=== PATIENT | male | born 1960 | race American Indian/Alaskan Native ===

== ENCOUNTER 2020-04-15 11:35 | Observation (INO) | payer MEDICARE ==
[2020-04-15 12:15] LABS: Basophils # (Auto) 0.1 K/mm3 (0.0-0.1); Basophils % (Auto) 1.4 % (0.0-1.8); Eosinophils # (Auto) 0.2 K/mm3 (0.0-0.4); Eosinophils % (Auto) 1.8 % (0.0-4.3); Hematocrit 24.9 % (35.5-45.6); Hemoglobin 8.4 gm/dl (11.8-15.2); Lymphocytes # (Auto) 1.7 K/mm3 (1.2-5.4); Lymphocytes % (Auto) 19.5 % (13.4-35.0); Mean Corpuscular HGB Conc 34 % (32-34); Mean Corpuscular Volume 105 fl (84-94); Monocytes # (Auto) 0.8 K/mm3 (0.0-0.8); Monocytes % (Auto) 8.8 % (0.0-7.3); Platelet Count 330 K/mm3 (140-440); Red Blood Count 2.38 M/mm3 (3.65-5.03); Red Cell Distribution Width 19.7 % (13.2-15.2)
[2020-04-15 12:24] LABS: INR 0.77 (0.87-1.13)
[2020-04-15 12:30] LABS: Partial Thromboplastin Time 20.3 Sec. (24.2-36.6)
[2020-04-15 12:33] LABS: Albumin 3.5 g/dL (3.9-5)
--- NOTE | 2020-04-15 12:51 | Emergency Department Report ---
ED GI Bleed HPI - General Chief complaint: GI Bleed Stated complaint: BLEEDING Time Seen by Provider: 04/15/20 12:47 Source: patient Mode of arrival: Ambulatory Limitations: No Limitations - History of Present Illness Initial comments: Mr. Milian is a 59-year-old male with history of end-stage renal disease on hemodialysis Friday, hypertension who presents with dark vomitus and dark stools for the past day. Due to hypotension during dialysis he was unable to complete entire dialysis session. His dialysis session was discontinued prematurely. He then had 2 episodes of dark black vomitus. He also has dark stools. No previous history of GI bleed. He has been taking an acid therapy for the last 3 weeks. He returned to dialysis today to remove the extra fluid. He was then urged by staff to be evaluated in the emergency depa rtment. He had refused transfer to the emergency department on yesterday. He has mild left upper quadrant abdominal discomfort. He has mild LUQ abdominal discomfort. Crampy in nature. No radiation. Intermittent. MD complaint: other (.Hematemesis dark stools) -: days(s) (1) Severity scale (0 -10): 0 Consistency: intermittent (Intermittent left upper quadrant abdominal pain) Improves with: none Worsens with: none Context: other (No previous history of GI bleed) Associated Symptoms: abdominal pain - Related Data Allergies Allergy/AdvReac Type Severity Reaction Status Date / Time No Known Allergies Allergy Unverified 04/15/20 11:37 ED Review of Systems ROS: Stated complaint: BLEEDING Other details as noted in HPI Comment: All other systems reviewed and negative Constitutional: malaise Respiratory: denies: cough Cardiovascular: denies: chest pain, palpitations Gastrointestinal: abdominal pain, other (Dark emesis, dark stools) ED Past Medical Hx - Past Medical History Previous Medical History?: Yes Hx Hypertension: Yes Hx Renal Disease: Yes (HD M-W-F) Additional medical history: peritoneal dialysisi - Surgical History Past Surgical History?: Yes Additional Surgical History: Right arm fistula, Peritoneal catheter - Social History Smoking Status: Current Every Day Smoker Substance Use Type: Prescribed ED Physical Exam - General Limitations: No Limitations General appearance: alert, in no apparent distress - Head Head exam: Present: atraumatic, normocephalic - Eye Eye exam: Present: normal appearance - ENT ENT exam: Present: mucous membranes moist - Neck Neck exam: Present: normal inspection, full ROM - Respiratory Respiratory exam: Present: normal lung sounds bilaterally. Absent: respiratory distress, wheezes, rales, rhonchi - Cardiovascular Cardiovascular Exam: Present: regular rate, normal rhythm, normal heart sounds. Absent: systolic murmur, diastolic murmur, rubs, gallop - GI/Abdominal GI/Abdominal exam: Present: soft, normal bowel sounds. Absent: distended, tenderness, guarding, rebound - Rectal Rectal exam: Present: deferred - Extremities Exam Extremities exam: Present: normal inspection - Neurological Exam Neurological exam: Present: alert, oriented X3 - Psychiatric Psychiatric exam: Present: normal affect, normal mood - Skin Skin exam: Present: warm, dry, intact, normal color. Absent: rash ED Course Vital Signs 04/15/20 12:36 Pulse Rate 98 H Respiratory 18 Rate Blood Pressure 132/72 [Left] O2 Sat by Pulse 100 Oximetry ED Medical Decision Making - Lab Data Result diagrams: 04/15/20 11:55 04/15/20 12:00 - Medical Decision Making Acute upper GI bleed: Currently stable. Admitted to the hospital service ICU Protonix infusion. GI consulted. Critical care attestation.: If time is entered above; I have spent that time in minutes in the direct care of this critically ill patient, excluding procedure time. ED Disposition Clinical Impression: Acute upper GI bleed Disposition: OP ADMIT IP TO THIS HOSP Is pt being admited?: Yes Does the pt Need Aspirin: No Condition: Fair
[2020-04-15] MEDS ORDERED: PANTOPRAZOLE 40 MG INJ IV ONE (13:33)
--- NOTE | 2020-04-15 13:44 | XRay Report ---
CHEST 1 VIEW 1303 INDICATION / CLINICAL INFORMATION: hematemesis. COMPARISON: 09/03/2008 FINDINGS: SUPPORT DEVICES: None HEART / MEDIASTINUM: No significant abnormality considering the degree of inspiration LUNGS / PLEURA: Very poor degree of inspiration is seen. Slightly congested appearance could at least partially related to this degree of inspiration though in this upright image may include some true m ild congestion. No definite areas of consolidation are seen. Mild bibasilar atelectatic changes are n oted. No pneumothorax. ADDITIONAL FINDINGS: No significant additional findings. IMPRESSION: Slightly congested appearance but no definite focal infiltrates Signer Name: Crow Bernardo MD Signed: 04/15/2020 1:40 PM Workstation Name: [id number]
[2020-04-15] MEDS ORDERED: PANTOPRAZOLE 80 MG in SODIUM CHLORIDE 0.9% 100 ML IV SCH (14:00)
--- NOTE | 2020-04-15 14:42 | Consultation ---
History of Present Illness - Reason for Consult Consult date: 04/15/20 end stage renal disease - History of Present Illness patient with end stage renal disease on HD every MWF, presented to the emergency room for bloody vomitus and dark stool, CBC noted to Hgb of 8.4 g/dl and GI consult was requested. His last HD was yesterday but could not complete his tx fdue to hypotension, CXR shows some congestion and K was 5.5, renal consult was requested for HD management Past History Past Medical History: anemia, ESRD, hypertension Medications and Allergies Allergies Allergy/AdvReac Type Severity Reaction Status Date / Time No Known Allergies Allergy Unverified 04/15/20 11:37 Home Medications Medication Instructions Recorded Confirmed Last Taken Type Cinacalcet HCl 90 mg PO DAILY 04/15/20 04/15/20 04/14/20 History Cyclobenzaprine 10 mg PO TID 04/15/20 04/15/20 Unknown History Meloxicam [Mobic] 15 mg PO DAILY 04/15/20 04/15/20 04/14/20 History Sevelamer Carbonate [Renvela] 800 mg PO DAILY 04/15/20 04/15/20 Unknown History amLODIPine 10 mg PO DAILY 04/15/20 04/15/20 04/14/20 History Active Meds: Active Medications Epoetin Berto (Procrit) 10,000 unit IV RUFUS [facility]STINA Pantoprazole Sodium 80 mg/ (Sodium Chloride) 100 mls @ 10 mls/hr IV DIRECT [facility] Review of Systems All systems: negative (dark stool, low blood pressure) Exam - Vital Signs Vital signs: Vital Signs Pulse Resp BP Pulse Ox 98 H 18 132/72 100 04/15/20 12:36 04/15/20 12:36 04/15/20 12:36 04/15/20 12:36 - General Appearance General appearance: well-developed EENT: ATNC, PERRL Neck: Present: neck supple Respiratory: Clear to Ascultation Heart: tachycardia, S1S2 Gastrointestinal: Present: normoactive bowel sounds Integumentary: no rash, warm and dry Neurologic: no focal deficit, no asterixis Musculoskeletal: Present: other (no edema in BLE) Psychiatric: cooperative Results - Lab Results 04/16/20 04:29 04/16/20 04:29 Most recent lab results Calcium 10.0 mg/dL (8.4-10.2) 04/15/20 12:00 Assessment and Plan ESRD on HD GI bleed Hyperkalemia Anemia in CKD HTN HD today ordered for clearance and volume removal will assess HD needs daily iron panel in AM, will start ROGER while on HD GI consult is pending renally dose meds strict I&O daily weight renal diet Casa Rea MD [phone]
[2020-04-15] MEDS ORDERED: EPOETIN ALFA 10,000 UNIT/1 ML INJ IV SCH (15:00)
[2020-04-15 15:59] LABS: Hepatitis B Surface Antigen Non-Reactive (Negative); Hepatitis C Virus Antibody Non-Reactive (NonReactive)
--- NOTE | 2020-04-15 17:46 | Gastroenterology Consultation ---
History of Present Illness - Reason for Consult Consult date: 04/15/20 Acute Blood Loss Anemia/CGE Requesting physician: HAN SLATER - History of Present Illness The patient is a 59 yo male admitted with acute blood loss anemia/coffee ground emesis. This has been happening for the last 3-6 weeks, and has begun to interfere with HD (which he has been on x 10 years). He has mild epigastric pain associated with this, as well as loss of appetite. He has no CP or SOB. He has had no prior episodes. He does not know what his baseline hgb is, but is not aware of any prior anemia, and has not had a blood transfusion. He denies NSAID use, and is better (at home) with OTC antiacids, which he has taken for the last several days. Since admit to the hospital, on protonix IV, his symptoms are markedly better, and he is tolerating HD without complaint/would like to eat. He has not had a BM/melena in the ER, but his stools at home were dark. He had a colonoscopy a few years ago that was normal. He denies a family hx of PUD or gastric cancer. Past History Past Medical History: anemia, ESRD (HD x 10 years), hypertension Past Surgical History: Other (R arm fistula) Social history: , smoking. denies: alcohol abuse, prescription drug abuse Family history: no significant family history Medications and Allergies Allergies Allergy/AdvReac Type Severity Reaction Status Date / Time No Known Allergies Allergy Unverified 04/15/20 11:37 Active Meds: Active Medications Epoetin Berto (Procrit) 10,000 unit IV RUFUS CHRISTINA Pantoprazole Sodium (Protonix) 40 mg IV BID [facility] I HAVE REVIEWED/RECONCILED MEDICATIONS Review of Systems - Review of Systems All systems: negative (as noted in the HPI.) Exam - Constitutional Vital Signs: Temp Pulse Resp BP Pulse Ox 98 H 18 132/72 100 04/15/20 12:36 04/15/20 12:36 04/15/20 12:36 04/15/20 12:36 General appearance: no acute distress - EENT Eyes: PERRL, EOM intact ENT: hearing intact, clear oral mucosa - Neck Neck: supple, normal ROM - Respiratory Respiratory effort: normal Respiratory: bilateral: CTA - Cardiovascular Rhythm: regular Heart Sounds: Present: S1 & S2 Extremities: no ischemia, No edema - Gastrointestinal General gastrointestinal: Present: soft, non-tender, non-distended - Integumentary Integumentary: Present: clear, warm, dry - Musculoskeletal Musculoskeletal: other (R arm with fistula/good thrill) - Neurologic Neurological: alert and oriented x3 - Labs CBC & Chem 7: 04/15/20 11:55 04/15/20 12:00 Lab Results: Laboratory Results - last 24 hr 04/15/20 04/15/20 04/15/20 11:55 12:00 12:00 WBC 8.6 RBC 2.38 L Hgb 8.4 L Hct 24.9 L MCV 105 H MCH 36 H MCHC 34 RDW 19.7 H Plt Count 330 Lymph % (Auto) 19.5 [place] % (Auto) 8.8 H Eos % (Auto) 1.8 Baso % (Auto) 1.4 Lymph # 1.7 [place] # 0.8 Eos # 0.2 Baso # 0.1 Seg Neutrophils % 68.5 Seg Neutrophils # 5.9 PT 10.6 L INR 0.77 L APTT 20.3 L Sodium 137 Potassium 5.5 H Chloride 92.2 L Carbon Dioxide 30 Anion Gap 20 BUN 56 H Creatinine 10.4 H Estimated GFR 6 BUN/Creatinine Ratio 5 Glucose 86 Calcium 10.0 Total Bilirubin 0.30 AST 11 ALT 8 Alkaline Phosphatase 85 Total Protein 5.9 L Albumin 3.5 L Albumin/Globulin Ratio 1.5 Lipase Hepatitis A IgM Ab Hep Bs Antigen Hep B Core IgM Ab Hepatitis C Antibody 04/15/20 04/15/20 12:00 14:48 WBC RBC Hgb Hct MCV MCH MCHC RDW Plt Count Lymph % (Auto) [place] % (Auto) Eos % (Auto) Baso % (Auto) Lymph # [place] # Eos # Baso # Seg Neutrophils % Seg Neutrophils # PT INR APTT Sodium Potassium Chloride Carbon Dioxide Anion Gap BUN Creatinine Estimated GFR BUN/Creatinine Ratio Glucose Calcium Total Bilirubin AST ALT Alkaline Phosphatase Total Protein Albumin Albumin/Globulin Ratio Lipase 27 Hepatitis A IgM Ab Non-reactive Hep Bs Antigen Non-reactive Hep B Core IgM Ab Non-reactive Hepatitis C Antibody Non-reactive Assessment and Plan - Patient Problems (1) Acute blood loss anemia Status: Acute Plan to address problem: - Likely PUD given improvement with antiacids, and mild anemia. - Patient had food in ER, so will get HD today, and clear liquids (since no further emesis), and plan EGD tomorrow. - Hemodynamics stable/no need for transfusion; will d/c PPI gtt and replace with IV BID. - Avoid all NSAIDs but other home meds (for BP) OK if hemodynamics tolerate.
[2020-04-15 18:25] LABS: Calcium 9.6 mg/dL (8.4-10.2)
[2020-04-15] MEDS ORDERED: PANTOPRAZOLE 40 MG INJ IV SCH (22:00)
[2020-04-15] MEDS ORDERED: SODIUM CHLORIDE 0.9% 1000 ML 1,000 ML ONE (22:25)
[2020-04-15] MEDS ORDERED: WATER FOR IRRIG STERILE 250 ML BOTTLE IR ONE (22:26)
[2020-04-15] MEDS ORDERED: LIDOCAINE MPF (2%) 20 MG/1 ML VIAL 5 ML ONE (22:30)
[2020-04-15] MEDS ORDERED: ACETAMINOPHEN 325 MG TAB PO PRN (22:43)
[2020-04-15] MEDS ORDERED: ONDANSETRON 4 MG/2 ML INJ IV PRN (22:43)
[2020-04-15] MEDS ORDERED: HYDROmorphone 1 MG/1 ML INJ IV PRN (22:43)
[2020-04-15] MEDS ORDERED: SODIUM CHLORIDE 0.9% 1000 ML 1,000 ML IV SCH (22:45)
[2020-04-15] MEDS ORDERED: hydrALAZINE 20 MG/1 ML INJ IV PRN (22:48)
[2020-04-16 00:15] LABS: Hematocrit 23.6 % (35.5-45.6)
[2020-04-16 05:13] LABS: Basophils # (Auto) 0.1 K/mm3 (0.0-0.1); Basophils % (Auto) 1.1 % (0.0-1.8); Eosinophils # (Auto) 0.2 K/mm3 (0.0-0.4); Eosinophils % (Auto) 2.4 % (0.0-4.3); Hematocrit 23.7 % (35.5-45.6); Lymphocytes # (Auto) 1.6 K/mm3 (1.2-5.4); Lymphocytes % (Auto) 19.8 % (13.4-35.0); Mean Corpuscular HGB Conc 34 % (32-34); Mean Corpuscular Volume 105 fl (84-94); Monocytes # (Auto) 0.7 K/mm3 (0.0-0.8); Monocytes % (Auto) 9.3 % (0.0-7.3); Platelet Count 323 K/mm3 (140-440); Red Blood Count 2.27 M/mm3 (3.65-5.03); Red Cell Distribution Width 19.8 % (13.2-15.2)
[2020-04-16 05:27] LABS: Calcium 9.8 mg/dL (8.4-10.2)
[2020-04-16] MEDS ORDERED: SODIUM CHLORIDE 0.9% 1000 ML 1,000 ML IV SCH (06:30)
[2020-04-16] MEDS ORDERED: propofoL 200 MG/20 ML VIAL IV ONE ×2 (06:58)
--- NOTE | 2020-04-16 07:10 | Anesthesia Consultation ---
<LEIGHANN ALTAMIRANO - Last Filed: 04/16/20 07:05> Anesthesia Consult and Med Hx Date of service: 04/16/20 - Airway Anesthetic Teeth Evaluation: Good ROM Head & Neck: Adequate Mental/Hyoid Distance: Adequate Mallampati Class: Class II Intubation Access Assessment: Probably Good - Pre-Operative Health Status ASA Pre-Surgery Classification: ASA3 Proposed Anesthetic Plan: MAC - Pulmonary Hx Smoking: Yes (3-4 cigarilo ) Hx Asthma: Yes (childhood ) Hx Respiratory Symptoms: No SOB: Yes COPD: No Home Oxygen Therapy: Yes (only during dialysis ) Hx Pneumonia: No Hx Sleep Apnea: No - Cardiovascular System Hx Hypertension: Yes Hx Coronary Artery Disease: No Hx Heart Attack/AMI: No Hx Angina: No Hx Percutaneous Transluminal Coronary Angioplasty (PTCA): No Hx Cardia Arrhythmia: No Hx Pacemaker: No Hx Internal Defibrillator: No Hx Valvular Heart Disease: No Hx Heart Murmur: No Hx Peripheral Vascular Disease: No - Central Nervous System Hx Neuromuscular Disorder: No Hx Seizures: No CVA: No Hx Back Pain: Yes Hx Psychiatric Problems: No - Gastrointestinal Hx Ulcer: No Hx Gastroesophageal Reflux Disease: Yes - Endocrine Hx Renal Disease: Yes (HD M-W-) Hx End Stage Renal Disease: Yes Hx Cirrhosis: No Hx Liver Disease: No Hx Insulin Dependent Diabetes: No Hx Non-Insulin Dependent Diabetes: No Hx Thyroid Disease: Yes Hx Hypothyroidism: No Hx Hyperthyroidism: No - Hematic Hx Anemia: Yes Hx Sickle Cell Disease: No - Other Systems Hx Alcohol Use: No Hx Substance Use: No Hx Cancer: No Hx Obesity: No <MARVIN GOODRICH - Last Filed: 04/24/20 13:08> Anesthesia Consult and Med Hx - Additional Comments Anesthesia Medical History Comments: Document co-signed for chart completion purposes only.
--- NOTE | 2020-04-16 07:11 | History and Physical Report ---
History of Present Illness Date of examination: 04/15/20 Date of admission: 04/15/20 22:43 Chief complaint: Vomiting blood since a.m. Also melanotic stools for couple of days History of present illness: 49-year-old -Cong[place] male with a history of end-stage renal disease on hemodialysis 3 times a week comes in for vomiting blood and dark stools for the past 1 day. No shortness of breath. Went to dialysis and blood hypo-tensive and patient was sent to the emergency room for evaluation. No syncope no seizures. And no previous history of GI bleed. Not taking any Goody powders BC powders are MSAs. Patient also has epigastric pain Which is 5 on a scale of 1-10. - Past Medical History Previous Medical History?: Yes Hx Hypertension: Yes Hx Renal Disease: Yes (HD --) Additional medical history: peritoneal dialysisi - Surgical History Past Surgical History?: Yes Additional Surgical History: Right arm fistula, Peritoneal catheter - Social History Smoking Status: Current Every Day Smoker Substance Use Type: Prescribed Family history Htn Review of Systems ROS: Constitutional no weight loss or weight gain no fever or chills HEENT no sore throat no post nasal drip no diplopia Neck no neck stiffness no lymph gland enlargement Chest and lungs no shortness of breath cough or wheezing CVS no chest pain no diaphoresis no palpitations GI vomiting blood and black stools Genitourinary system no dysuria no flank pain Musculoskeletal system no muscle pains no joint pains [employer] no syncope no seizures Skin no rash no itching Psychiatric no depression no homicidal or suicidal tendencies Hematologic no lymphedema or bruising Endocrine no polydipsia no polyuria no cold intolerance no heat intolerance Past History Past Medical History: anemia, ESRD (HD x 10 years), hypertension Past Surgical History: Other (R arm fistula) Social history: , smoking. denies: alcohol abuse, prescription drug abuse Family history: no significant family history Medications and Allergies Allergies Allergy/AdvReac Type Severity Reaction Status Date / Time No Known Allergies Allergy Unverified 04/15/20 11:37 Home Medications Medication Instructions Recorded Confirmed Last Taken Type Cinacalcet HCl 90 mg PO DAILY 04/15/20 04/15/20 04/14/20 History Cyclobenzaprine 10 mg PO TID 04/15/20 04/15/20 Unknown History Meloxicam [Mobic] 15 mg PO DAILY 04/15/20 04/15/20 04/14/20 History Sevelamer Carbonate [Renvela] 800 mg PO DAILY 04/15/20 04/15/20 Unknown History amLODIPine 10 mg PO DAILY 04/15/20 04/15/20 04/14/20 History Active Meds: Active Medications Acetaminophen (Tylenol) 650 mg PO Q4H PRN PRN Reason: Pain MILD(1-3)/Fever >100.5/JOHN Epoetin Berto (Procrit) 10,000 unit IV RUFUS CHRISTINA Hydralazine HCl (Apresoline) 10 mg IV Q3H PRN PRN Reason: Hypertension Hydromorphone HCl (Dilaudid) 0.5 mg IV Q3H PRN PRN Reason: Pain , Severe (7-10) Last Admin: 04/16/20 01:19 Dose: 0.5 mg Documented by: Sodium Chloride (Nacl 0.9% 1000 Ml) 1,000 mls @ 50 mls/hr IV DIRECT [facility] Last Admin: 04/16/20 07:10 Dose: 50 mls/hr Documented by: Ondansetron HCl (Zofran) 4 mg IV Q8H PRN PRN Reason: Nausea And Vomiting Pantoprazole Sodium (Protonix) 40 mg IV BID [facility] Last Admin: 04/16/20 01:18 Dose: 40 mg Documented by: Sodium Chloride (Sodium Chloride Flush Syringe 10 Ml) 10 ml IV BID [facility] Sodium Chloride (Sodium Chloride Flush Syringe 10 Ml) 10 ml IV PRN PRN PRN Reason: LINE FLUSH Exam - Constitutional Vitals: Temp Pulse Resp BP Pulse Ox 97.8 F 103 H 14 121/62 97 04/16/20 06:51 04/16/20 06:51 04/16/20 06:51 04/16/20 06:51 04/16/20 06:51 General appearance: Present: no acute distress, well-nourished - EENT Eyes: Present: PERRL ENT: hearing intact, clear oral mucosa - Neck Neck: Present: supple, normal ROM - Respiratory Respiratory effort: normal Respiratory: bilateral: CTA - Cardiovascular Heart rate: 78 Rhythm: regular Heart Sounds: Present: S1 & S2. Absent: rub, click - Extremities Extremities: pulses symmetrical, No edema Peripheral Pulses: within normal limits - Abdominal General gastrointestinal: Present: soft, non-tender, non-distended, normal bowel sounds Male genitourinary: Present: normal - Rectal Rectal Exam: stool bloody - Integumentary Integumentary: Present: clear, warm, dry - Musculoskeletal Musculoskeletal: gait normal, strength equal bilaterally - Psychiatric Psychiatric: appropriate mood/affect, intact judgment & insight - Neurologic Neurologic: CNII-XII intact, moves all extremities - Allied Health Allied health notes reviewed: nursing, case management Results - Labs CBC & Chem 7: 04/16/20 04:29 04/16/20 04:29 Labs: Laboratory Last Values WBC 7.9 K/mm3 (4.5-11.0) 04/16/20 04:29 RBC 2.27 M/mm3 (3.65-5.03) L 04/16/20 04:29 Hgb 8.0 gm/dl (11.8-15.2) L 04/16/20 04:29 Hct 23.7 % (35.5-45.6) L 04/16/20 04:29 MCV 105 fl (84-94) H 04/16/20 04:29 MCH 35 pg (28-32) H 04/16/20 04:29 MCHC 34 % (32-34) 04/16/20 04:29 RDW 19.8 % (13.2-15.2) H 04/16/20 04:29 Plt Count 323 K/mm3 (140-440) 04/16/20 04:29 Lymph % (Auto) 19.8 % (13.4-35.0) 04/16/20 04:29 [place] % (Auto) 9.3 % (0.0-7.3) H 04/16/20 04:29 Eos % (Auto) 2.4 % (0.0-4.3) 04/16/20 04:29 Baso % (Auto) 1.1 % (0.0-1.8) 04/16/20 04:29 Lymph # 1.6 K/mm3 (1.2-5.4) 04/16/20 04:29 [place] # 0.7 K/mm3 (0.0-0.8) 04/16/20 04:29 Eos # 0.2 K/mm3 (0.0-0.4) 04/16/20 04:29 Baso # 0.1 K/mm3 (0.0-0.1) 04/16/20 04:29 Seg Neutrophils % 67.4 % (40.0-70.0) 04/16/20 04:29 Seg Neutrophils # 5.3 K/mm3 (1.8-7.7) 04/16/20 04:29 PT 10.6 Sec. (12.2-14.9) L 04/15/20 12:00 INR 0.77 (0.87-1.13) L 04/15/20 12:00 APTT 20.3 Sec. (24.2-36.6) L 04/15/20 12:00 Sodium 138 mmol/L (137-145) 04/16/20 04:29 Potassium 5.5 mmol/L (3.6-5.0) H 04/16/20 04:29 Chloride 97.0 mmol/L (98-107) L 04/16/20 04:29 Carbon Dioxide 30 mmol/L (22-30) 04/16/20 04:29 Anion Gap 17 mmol/L 04/16/20 04:29 BUN 32 mg/dL (9-20) H 04/16/20 04:29 Creatinine 8.5 mg/dL (0.8-1.5) H 04/16/20 04:29 Estimated GFR 8 ml/min 04/16/20 04:29 BUN/Creatinine Ratio 4 % 04/16/20 04:29 Glucose 88 mg/dL (75-100) 04/16/20 04:29 Calcium 9.8 mg/dL (8.4-10.2) 04/16/20 04:29 Phosphorus 4.20 mg/dL (2.5-4.5) 04/16/20 04:29 Iron 41 ug/dL (49-181) L 04/16/20 04:29 TIBC 145 mcg/dL (250-450) L 04/16/20 04:29 Ferritin 887.8 ng/mL (13.0-400.0) H 04/16/20 04:29 Total Bilirubin 0.30 mg/dL (0.1-1.2) 04/15/20 12:00 AST 11 units/L (5-40) 04/15/20 12:00 ALT 8 units/L (7-56) 04/15/20 12:00 Alkaline Phosphatase 85 units/L (35-129) 04/15/20 12:00 Total Protein 5.9 g/dL (6.3-8.2) L 04/15/20 12:00 Albumin 3.5 g/dL (3.9-5) L 04/15/20 12:00 Albumin/Globulin Ratio 1.5 % 04/15/20 12:00 Lipase 27 units/L (13-60) 04/15/20 12:00 Hepatitis A IgM Ab Non-reactive (NonReactive) 04/15/20 14:48 Hep Bs Antigen Non-reactive (Negative) 04/15/20 14:48 Hep B Core IgM Ab Non-reactive (NonReactive) 04/15/20 14:48 Hepatitis C Antibody Non-reactive (NonReactive) 04/15/20 14:48 Short CBC 04/15/20 04/15/20 04/16/20 Range/Units 11:55 23:59 04:29 WBC 8.6 7.9 (4.5-11.0) K/mm3 Hgb 8.4 L 8.0 L 8.0 L (11.8-15.2) gm/dl Hct 24.9 L 23.6 L 23.7 L (35.5-45.6) % Plt Count 330 323 (140-440) K/mm3 BMP 04/15/20 04/15/20 04/16/20 12:00 14:45 04:29 Sodium 137 135 L 138 Potassium 5.5 H 5.4 H 5.5 H Chloride 92.2 L 91.1 L 97.0 L Carbon Dioxide 30 28 30 BUN 56 H 57 H 32 H Creatinine 10.4 H 10.9 H 8.5 H Glucose 86 74 L 88 Calcium 10.0 9.6 9.8 Liver Function 04/15/20 Range/Units 12:00 Total Bilirubin 0.30 (0.1-1.2) mg/dL AST 11 (5-40) units/L ALT 8 (7-56) units/L Alkaline Phosphatase 85 (35-129) units/L Albumin 3.5 L (3.9-5) g/dL Short CBC 04/15/20 04/15/20 04/16/20 Range/Units 11:55 23:59 04:29 WBC 8.6 7.9 (4.5-11.0) K/mm3 Hgb 8.4 L 8.0 L 8.0 L (11.8-15.2) gm/dl Hct 24.9 L 23.6 L 23.7 L (35.5-45.6) % Plt Count 330 323 (140-440) K/mm3 BMP 04/15/20 04/15/20 04/16/20 12:00 14:45 04:29 Sodium 137 135 L 138 Potassium 5.5 H 5.4 H 5.5 H Chloride 92.2 L 91.1 L 97.0 L Carbon Dioxide 30 28 30 BUN 56 H 57 H 32 H Creatinine 10.4 H 10.9 H 8.5 H Glucose 86 74 L 88 Calcium 10.0 9.6 9.8 Liver Function 04/15/20 Range/Units 12:00 Total Bilirubin 0.30 (0.1-1.2) mg/dL AST 11 (5-40) units/L ALT 8 (7-56) units/L Alkaline Phosphatase 85 (35-129) units/L Albumin 3.5 L (3.9-5) g/dL - Imaging and Cardiology Chest x-ray: report reviewed (No acute infiltrate or findings) Moy/IV: Voiding Method Toilet IV Catheter Type [Right Upper INT / Saline Lock arm] Assessment and Plan Advance Directives: Yes (Full code) - Patient Problems (1) Acute blood loss anemia Current Visit: Yes Status: Acute Plan to address problem: Monitor hemoglobin and hematocrit Transfuse as necessary IV Protonix for the time being (2) Acute upper GI bleed Current Visit: Yes Status: Acute Plan to address problem: Transfuse 2 to 3 units of packed red blood cells (3) ESRD (end stage renal disease) on dialysis Current Visit: Yes Status: Acute Plan to address problem: Continue hemodialysis as per nephrology (4) Hypertension Current Visit: Yes Status: Acute Plan to address problem: Continue antihypertensives as necessary (5) DVT prophylaxis Current Visit: Yes Status: Acute Plan to address problem: On heparin and GI prophylaxis
--- NOTE | 2020-04-16 07:14 | Anesthesia Day of Surgery ---
<LEIGHANN ALTAMIRANO - Last Filed: 04/16/20 07:14> Anesthesia Day of Surgery - Day of Surgery Patient Examined: Yes Patient H&P Reviewed: Yes Patient is NPO: Yes <MARVIN GOODRICH - Last Filed: 04/24/20 13:09> Anesthesia Day of Surgery - Day of Surgery Patient Examined: No (Document co-signed for chart completion purposes only.)
--- NOTE | 2020-04-16 07:28 | Post Operative Note ---
Pre-op diagnosis: Acute Blood Loss Anemia Post-op diagnosis: other (Duodenal Ulcer) Findings: 1. 1cm duodenal bulb ulcer, white-based 2. Mild antral gastritis with erosions; cold bx for H pylori Procedure: EGD with cold bx Anesthesia: MAC Surgeon: CHERYL CLEMENTS Estimated blood loss: minimal Pathology: list (1. Gastric antrum) Specimen disposition: to lab Condition: stable Disposition: floor (Recs: 1. Daily (QD) Protonix therapy and regular diet. 2. Ulcer low-risk to rebleed, OK to d/c today. 3. Avoid all NSAIDs (if on cardiac ASA, OK to resume on Friday). 4. F/U clinic in 2-4 weeks for biopsy results.)
--- NOTE | 2020-04-16 07:32 | Post Anesthesia Evaluation ---
<LEIGHANN ALTAMIRANO - Last Filed: 04/16/20 07:31> - Post Anesthesia Evaluation Patient Participated: Yes Airway Patent: Yes Stable Respiratory Function: Yes Nausea/Vomiting: No Temp > 96.8F: Yes Pain Manageable: Yes Adequeate Hydration: Yes Anesthesia Complications: No Block Receding Appropriately: Not Applicable Patient on Ventilator: No <MARVIN GOODRICH - Last Filed: 04/24/20 13:08> - Post Anesthesia Evaluation Other Comments: Document co-signed for chart completion purposes only.
--- NOTE | 2020-04-16 07:49 | Operative Report ---
PROCEDURE PERFORMED: Esophagogastroduodenoscopy with cold biopsy. PREOPERATIVE DIAGNOSIS: Acute blood loss anemia. POSTOPERATIVE DIAGNOSIS: Duodenal ulcer. ENDOSCOPIST: Jeremiah Zhao MD INSTRUMENT: Olympus video endoscope. MEDICATIONS: MAC anesthesia by [facility]. COMPLICATIONS: No apparent complications. ESTIMATED BLOOD LOSS: Minimal. SPECIMENS: Gastric antrum, rule out H. pylori. IMPLANTS: None. ASSISTANTS: None. CONDITION AT COMPLETION: Stable. TECHNIQUE: The patient was informed of the risks and benefits of the procedure. He signed the informed consent to proceed. He was placed in the left lateral decubitus position. The above sedative medications were given. His vital signs remained stable throughout the procedure. The instrument was advanced from the mouth to the second portion of the duodenum under direct visualization. At that point, the bowel was insufflated and the endoscope was slowly withdrawn. FINDINGS: 1. 1 cm cratered ulcer in the duodenal bulb, without stigmata of bleeding and no evidence of a visible vessel. 2. Mild antral gastritis with erosions and erythema; cold biopsy was taken for H. pylori. 3. Normal esophagus and proximal stomach. RECOMMENDATIONS: 1. Daily Protonix therapy and regular diet. 2. The ulcer would be considered low risk to rebleed, it is okay to discharge the patient today. 3. Avoid all nonsteroidal anti-inflammatory drugs; if the patient is on cardiac aspirin, it is okay to resume this on Friday. 4. Follow up in clinic in 2-4 weeks for biopsy results and treatment of H. pylori if positive. JOB# [id number] TANJA/LEONOR
--- NOTE | 2020-04-16 09:20 | Progress Note ---
Assessment and Plan ESRD on HD GI bleed Hyperkalemia Anemia in CKD HTN no indication for HD today HD tomorrow for clearance and volume removal will assess HD needs daily iron panel reviewed, no indication for IV iron, on ROGER while on HD s/p EGD, showed ulcer with low risk for bleed, cont PPI renally dose meds strict I&O daily weight renal diet Casa Rea MD [phone] Subjective Date of service: 04/16/20 Principal diagnosis: ESRD on HD Interval history: patient underwent HD yesterday which was tolerated well, EGD was done this AM without immediate complications Objective - Vital Signs Vital signs: Vital Signs - 12hr 04/15/20 04/15/20 04/15/20 21:20 21:30 21:40 Temperature Pulse Rate 111 H 109 H Pulse Rate [ Apical] Respiratory 16 16 13 Rate Blood Pressure 117/69 117/69 O2 Sat by Pulse 100 Oximetry 04/15/20 04/15/20 04/15/20 21:50 22:00 22:10 Temperature Pulse Rate 116 H 118 H 118 H Pulse Rate [ Apical] Respiratory 17 19 17 Rate Blood Pressure 107/59 112/67 117/69 O2 Sat by Pulse 100 99 100 Oximetry 04/15/20 04/15/20 04/16/20 22:20 22:30 01:11 Temperature 98.7 F Pulse Rate 112 H 116 H 107 H Pulse Rate [ Apical] Respiratory 16 21 18 Rate Blood Pressure 123/70 123/70 116/66 O2 Sat by Pulse 100 100 98 Oximetry 04/16/20 04/16/20 04/16/20 01:19 01:49 02:11 Temperature Pulse Rate Pulse Rate [ 20 L Apical] Respiratory 18 18 20 Rate Blood Pressure O2 Sat by Pulse Oximetry 04/16/20 04/16/20 04/16/20 04:13 06:50 06:51 Temperature 97.8 F 97.8 F 97.8 F Pulse Rate 105 H 103 H 103 H Pulse Rate [ Apical] Respiratory 18 14 14 Rate Blood Pressure 101/65 121/62 121/62 O2 Sat by Pulse 100 97 97 Oximetry - General Appearance General appearance: well-developed, well-nourished EENT: ATNC, PERRL Neck: no JVD, no carotid bruit Respiratory: Present: Clear to Ascultation. Absent: Rales, Ronchi Cardiology: regular, S1S2 Gastrointestinal: normoactive bowel sounds, no tenderness, no distended Integumentary: no rash, warm and dry Neurologic: no focal deficit, no asterixis Musculoskeletal: other (no edema in BLE) Psychiatric: mood/affect appropriate, cooperative - Lab 04/16/20 04:29 04/16/20 04:29 Most recent lab results Calcium 9.8 mg/dL (8.4-10.2) 04/16/20 04:29 Phosphorus 4.20 mg/dL (2.5-4.5) 04/16/20 04:29 Medications & Allergies - Medications Allergies/Adverse Reactions: Allergies No Known Allergies Allergy (Unverified 04/15/20 11:37) Home Medications: Home Medications Medication Instructions Recorded Confirmed Last Taken Type Cinacalcet HCl 90 mg PO DAILY 04/15/20 04/15/20 04/14/20 History Cyclobenzaprine 10 mg PO TID 04/15/20 04/15/20 Unknown History Meloxicam [Mobic] 15 mg PO DAILY 04/15/20 04/15/20 04/14/20 History Sevelamer Carbonate [Renvela] 800 mg PO DAILY 04/15/20 04/15/20 Unknown History amLODIPine 10 mg PO DAILY 04/15/20 04/15/20 04/14/20 History Active Medications: Generic Name Dose Route Start Last Admin Trade Name Freq PRN Reason Stop Dose Admin Acetaminophen 650 mg 04/15/20 22:43 Tylenol PO Q4H PRN Pain MILD(1-3)/Fever >100.5/JOHN Epoetin Berto 10,000 unit 04/15/20 15:00 Procrit IV RUFUS CHRISTINA Hydralazine HCl 10 mg 04/15/20 22:48 Apresoline IV Q3H PRN Hypertension Hydromorphone HCl 0.5 mg 04/15/20 22:43 04/16/20 01:19 Dilaudid IV 0.5 mg Q3H PRN Administration Pain , Severe (7-10) Ondansetron HCl 4 mg 04/15/20 22:43 Zofran IV Q8H PRN Nausea And Vomiting Pantoprazole Sodium 40 mg 04/16/20 10:00 Protonix PO QDAY CHRISTINA Sodium Chloride 10 ml 04/16/20 10:00 Sodium Chloride Flush Syringe 10 Ml IV BID CHRISTINA Sodium Chloride 10 ml 04/15/20 22:43 Sodium Chloride Flush Syringe 10 Ml IV PRN PRN LINE FLUSH
[2020-04-16] MEDS ORDERED: PANTOPRAZOLE 40 MG TAB PO SCH (10:00)
[2020-04-16 11:12] VITALS: BP 116/70
--- NOTE | 2020-04-16 12:55 | Discharge Summary ---
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 1cm duodenal bulb ulcer, white-based 2. Mild antral gastritis with erosions; cold bx for H pylori Procedure: EGD with cold bx Anesthesia: MAC Surgeon: CHERYL CLEMENTS Estimated blood loss: minimal Pathology: list (1. Gastric antrum) Specimen disposition: to lab Condition: stable Disposition: floor (Recs: 1. Daily (QD) Protonix therapy and regular diet. 2. Ulcer low-risk to rebleed, OK to d/c today. 3. Avoid all NSAIDs (if on cardiac ASA, OK to resume on Friday). 4. F/U clinic in 2-4 weeks for biopsy results.) Hospital course: 49-year-old -I[place] male with a history of end-stage renal disease on hemodialysis 3 times a week comes in for vomiting blood and dark stools for the past 1 day. No shortness of breath. Went to dialysis and blood hypo-tensive and patient was sent to the emergency room for evaluation. No syncope no seiz ures. And no previous history of GI bleed. Not taking any Goody powders BC powders are MSAs. Patient also has epigastric pain Which is 5 on a scale of 1-10. - Past Medical History Previous Medical History?: Yes Hx Hypertension: Yes Hx Renal Disease: Yes (HD M-W-F) Additional medical history: peritoneal dialysisi - Patient Problems (1) Acute blood loss anemia Current Visit: Yes Status: Acute Plan to address problem: Monitor hemoglobin and hematocrit Transfuse as necessary IV Protonix for the time being (2) Acute upper GI bleed Current Visit: Yes Status: Acute Plan to address problem: Transfuse 2 to 3 units of packed red blood cells Peptic ulcer disease Needs to be on Protonix for 6 months to 1 year Avoid NSAIDs including Motrin Aleve meloxicam BC powders aspirin and Goody powders Patient instructed by me and nurse Pat also has instructed the patient and patient understands (3) ESRD (end stage renal disease) on dialysis Current Visit: Yes Status: Acute Plan to address problem: Continue hemodialysis as per nephrology (4) Hypertension Current Visit: Yes Status: Acute Plan to address problem: Continue antihypertensives as necessary (5 )peptic ulcer disease Needs to be on Protonix for 6 months to 1 year Avoid NSAIDs including Motrin Aleve meloxicam BC powders aspirin and Goody powders Patient instructed by me and nurse Pat also has instructed the patient and patient understands Disposition: DC-01 TO HOME OR SELFCARE Time spent for discharge: 32 minutes - Discharge Diagnoses (1) Acute blood loss anemia Status: Acute (2) Acute upper GI bleed Status: Acute (3) ESRD (end stage renal disease) on dialysis Status: Acute (4) Hypertension Status: Acute (5) DVT prophylaxis Status: Acute (6) Peptic ulcer disease Status: Acute Comment: Time O2 sat no NSAIDs patient is on meloxicam patient advised to stop meloxicam. Patient to take Protonix 40 mg once a day for the next 6 months to 1 year no BC powders no body borders no aspirin no Motrin no Advil no Aleve no meloxicam Core Measure Documentation - Palliative Care Palliative Care/ Comfort Measures: Not Applicable - Core Measures Any of the following diagnoses?: none Exam - Constitutional Vitals: Temp Pulse Resp BP Pulse Ox 98.9 F 109 H 18 116/70 97 04/16/20 11:09 04/16/20 11:10 04/16/20 11:11 04/16/20 11:11 04/16/20 11:10 General appearance: Present: no acute distress, well-nourished - EENT Eyes: Present: PERRL ENT: hearing intact, clear oral mucosa - Neck Neck: Present: supple, normal ROM - Respiratory Respiratory effort: normal Respiratory: bilateral: CTA - Cardiovascular Heart rate: 78 Heart Sounds: Present: S1 & S2. Absent: rub, click - Extremities Extremities: no ischemia, pulses intact, pulses symmetrical, No edema Peripheral Pulses: within normal limits - Abdominal General gastrointestinal: Present: soft, non-tender, non-distended, normal bowel sounds Male genitourinary: Present: normal - Integumentary Integumentary: Present: clear, warm, dry - Musculoskeletal Musculoskeletal: gait normal, strength equal bilaterally - Psychiatric Psychiatric: appropriate mood/affect, intact judgment & insight - Neurologic Neurologic: CNII-XII intact, moves all extremities - Allied Health Allied health notes reviewed: nursing, case management Plan Activity: no restrictions Diet: renal Follow up with: PRIMARY CARE, [Primary Care Provider] - 7 Days Prescriptions: Pantoprazole [Protonix TAB] 40 mg PO QDAY #30 tablet
== END 2020-04-16 13:30 | disposition home or self-care (01) ==
LOC: ED 11:35 → 3A 22:43
PROVIDERS: ADMIT Internal Medicine; ATTEND Internal Medicine
DX: K92.0 Hematemesis (principal); I12.0 Hypertensive chronic kidney disease with stage 5 chronic kidney disease or end stage renal disease; N18.6 End stage renal disease; D63.1 Anemia in chronic kidney disease; K29.00 Acute gastritis without bleeding; D62 Acute posthemorrhagic anemia; K27.3 Acute peptic ulcer, site unspecified, without hemorrhage or perforation; Z99.2 Dependence on renal dialysis; F17.200 Nicotine dependence, unspecified, uncomplicated; E87.5 Hyperkalemia; Z79.899 Other long term (current) drug therapy
CPT/HCPCS: 36415; 43239; 71045; 80048; 80053; 80074; 82728; 83550; 83690; 84100; 85014; 85018; 85025; 85610; 85730; 88305; 88342; 96361; 96365; 96366; 96375; 96376; 99284; C9113; G0257; G0378; J1170; J2704; J7030

== ENCOUNTER 2021-05-15 06:27 | Inpatient (IN) | payer MEDICARE ==
[2021-05-15] MEDS ORDERED: ASPIRIN 325 MG TAB PO ONE (06:33)
[2021-05-15 06:47] LABS: Basophils # (Auto) 0.1 K/mm3 (0.0-0.1); Basophils % (Auto) 0.4 % (0.0-1.8); Eosinophils % (Auto) 0.1 % (0.0-4.3); Hematocrit 34.6 % (35.5-45.6); Hemoglobin 11.9 gm/dl (11.8-15.2); Lymphocytes # (Auto) 0.6 K/mm3 (1.2-5.4); Lymphocytes % (Auto) 4.2 % (13.4-35.0); Mean Corpuscular HGB Conc 34 % (32-34); Mean Corpuscular Volume 97 fl (84-94); Monocytes # (Auto) 1.1 K/mm3 (0.0-0.8); Monocytes % (Auto) 7.5 % (0.0-7.3); Platelet Count 359 K/mm3 (140-440); Red Blood Count 3.57 M/mm3 (3.65-5.03); Red Cell Distribution Width 15.1 % (13.2-15.2)
[2021-05-15 06:58] LABS: INR 0.93 (0.87-1.13); Partial Thromboplastin Time 25.3 Sec. (24.2-36.6)
[2021-05-15 07:00] LABS: Calcium 9.7 mg/dL (8.4-10.2)
--- NOTE | 2021-05-15 07:10 | XRay Report ---
CHEST 2 VIEWS INDICATION / CLINICAL INFORMATION: Chest Pain. COMPARISON: Report from 04/15/2020. Images are not available for direct comparison. FINDINGS: SUPPORT DEVICES: None. HEART / MEDIASTINUM: No significant abnormality. LUNGS / PLEURA: There is mild basilar airspace opacity in the right No pneumothorax. ADDITIONAL FINDINGS: No significant additional findings. IMPRESSION: 1. There is mild right basilar airspace opacity which could represent atelectasis or evolving pneumon ia. Signer Name: Elijah Leal MD Signed: 05/15/2021 7:06 AM Workstation Name: [id number]
[2021-05-15] MEDS ORDERED: HYDROcodone/ACETAMINOPHEN 10-325MG TAB PO ONE (07:16)
[2021-05-15] MEDS ORDERED: ONDANSETRON 4 MG ODT TAB PO ONE (07:16)
[2021-05-15 07:34] LABS: Chol/HDL Ratio 4.17 %
[2021-05-15 07:58] LABS: INR 0.91 (0.87-1.13); Partial Thromboplastin Time 26.5 Sec. (24.2-36.6)
--- NOTE | 2021-05-15 08:08 | Emergency Department Report ---
ED General Adult HPI - General Chief complaint: Chest Pain Stated complaint: CHEST PAIN/SOB Time Seen by Provider: 05/15/21 07:16 Source: patient Mode of arrival: Wheelchair Limitations: Other - History of Present Illness Initial comments: The patient presents to the emergency department the chief complaint of left- sided chest pain that radiated into his left arm. Patient states the pain started 2:30 AM this morning describes the pain is sharp in nature. Patient also complains of some shortness of breath. Patient states he wears 2 L of O2 via nasal cannula at dialysis only. Patient has a history of hypertension but denies a history of diabetes or hyperlipidemia. -: Sudden Location: chest Radiation: extremity Severity scale (0 -10): 7 Quality: sharp Consistency: constant Improves with: none Worsens with: none Associated Symptoms: denies other symptoms Treatments Prior to Arrival: none - Related Data Home Medications Medication Instructions Recorded Confirmed Last Taken Cinacalcet HCl 90 mg PO DAILY 04/15/20 04/15/20 04/14/20 Cyclobenzaprine 10 mg PO TID 04/15/20 04/15/20 Unknown Sevelamer Carbonate [Renvela] 800 mg PO DAILY 04/15/20 04/15/20 Unknown amLODIPine 10 mg PO DAILY 04/15/20 04/15/20 04/14/20 Previous Rx's Medication Instructions Recorded Last Taken Type Pantoprazole [Protonix TAB] 40 mg PO QDAY #30 tablet 04/16/20 Unknown Rx Allergies Allergy/AdvReac Type Severity Reaction Status Date / Time No Known Allergies Allergy Unverified 04/15/20 11:37 ED Review of Systems ROS: Stated complaint: CHEST PAIN/SOB Other details as noted in HPI Comment: All other systems reviewed and negative Constitutional: denies: chills, fever Eyes: denies: eye pain, eye discharge, vision change ENT: denies: ear pain, throat pain Respiratory: denies: cough, shortness of breath, wheezing Cardiovascular: denies: chest pain, palpitations Endocrine: no symptoms reported Gastrointestinal: denies: abdominal pain, nausea, diarrhea Genitourinary: denies: urgency, dysuria Musculoskeletal: denies: back pain, joint swelling, arthralgia Skin: denies: rash, lesions Neurological: denies: headache, weakness, paresthesias Psychiatric: denies: anxiety, depression Hematological/Lymphatic: denies: easy bleeding, easy bruising ED Past Medical Hx - Past Medical History Previous Medical History?: Yes Hx Hypertension: Yes Hx Heart Attack/AMI: No Hx Congestive Heart Failure: No Hx Diabetes: No Hx Liver Disease: No Hx Renal Disease: Yes (HD M-W-) Hx Sickle Cell Disease: No Hx Seizures: No Hx Asthma: Yes (childhood ) Hx COPD: No Additional medical history: peritoneal dialysis (M/W/F) - Surgical History Past Surgical History?: No Hx Pacemaker: No Hx Internal Defibrillator: No Additional Surgical History: Right arm fistula, Peritoneal catheter - Social History Smoking Status: Never Smoker - Medications Home Medications: Home Medications Medication Instructions Recorded Confirmed Last Taken Type Cinacalcet HCl 90 mg PO DAILY 04/15/20 04/15/20 04/14/20 History Cyclobenzaprine 10 mg PO TID 04/15/20 04/15/20 Unknown History Sevelamer Carbonate [Renvela] 800 mg PO DAILY 04/15/20 04/15/20 Unknown History amLODIPine 10 mg PO DAILY 04/15/20 04/15/20 04/14/20 History Pantoprazole [Protonix TAB] 40 mg PO QDAY #30 tablet 04/16/20 Unknown Rx ED Physical Exam - General Limitations: Other General appearance: alert, in no apparent distress - Head Head exam: Present: atraumatic, normocephalic - Eye Eye exam: Present: normal appearance, PERRL, EOMI - ENT ENT exam: Present: mucous membranes moist - Neck Neck exam: Present: normal inspection - Respiratory Respiratory exam: Present: normal lung sounds bilaterally. Absent: respiratory distress - Cardiovascular Cardiovascular Exam: Present: regular rate, normal rhythm. Absent: systolic murmur, diastolic murmur, rubs, gallop - GI/Abdominal GI/Abdominal exam: Present: soft, normal bowel sounds. Absent: distended, tenderness - Rectal Rectal exam: Present: deferred - Extremities Exam Extremities exam: Present: normal inspection - Back Exam Back exam: Present: normal inspection - Neurological Exam Neurological exam: Present: alert, oriented X3, CN II-XII intact. Absent: motor sensory deficit - Psychiatric Psychiatric exam: Present: normal affect, normal mood - Skin Skin exam: Present: warm, dry, intact, normal color. Absent: rash ED Course Vital Signs 05/15/21 05/15/21 06:44 07:49 Temperature 97.8 F Pulse Rate 89 88 Respiratory 17 15 Rate Blood Pressure 75/40 Blood Pressure 110/63 [Left] O2 Sat by Pulse 99 96 Oximetry ED Medical Decision Making - Lab Data Result diagrams: 05/15/21 06:38 05/15/21 06:38 - EKG Data -: EKG Interpreted by Me EKG shows normal: sinus rhythm Rate: normal - EKG Data Interpretation: other (LAD) - Radiology Data Radiology results: report reviewed - Medical Decision Making Results discussed with patient IV antibiotics given Blood cultures obtained lactic acid exam Critical care attestation.: If time is entered above; I have spent that time in minutes in the direct care of this critically ill patient, excluding procedure time. ED Disposition Clinical Impression: Leukocytosis, Chest pain, Lactic acid acidosis, Elevated troponin Disposition: OP ADMIT IP TO THIS HOSP Is pt being admited?: Yes Does the pt Need Aspirin: Yes Condition: Fair Instructions: Nonspecific Chest Pain, Adult Referrals: PRIMARY CARE, [Primary Care Provider] - 3-5 Days
[2021-05-15 08:12] LABS: Alanine Aminotransferase 36 units/L (7-56); Bilirubin,Direct < 0.2 mg/dL (0-0.2)
--- NOTE | 2021-05-15 09:13 | Cat Scan Report ---
CTA CHEST WITH CONTRAST INDICATION : elevated trop and d dimer/sob/chest pain 100 ML OMNI 350 . TECHNIQUE: Axial imaging performed through the chest, with contrast bolus timing set to maximize opa cification of the pulmonary arteries. Sagittal and coronal reformatted images. 3-plane MIP reformatte d images were obtained. All CT scans at this location are performed using CT dose reduction for ALAR A by means of automated exposure control. 100 mL of intravenous contrast administered. COMPARISON: Chest x-ray performed earlier today FINDINGS: Bolus: Contrast bolus timing is adequate. PTE: No filling defect is present to suggest PTE. Mediastinum: Heart and great vessels appear normal. Moderate coronary artery calcifications are note d. Slightly prominent subcarinal lymph node measures 1.3 cm in diameter. No other enlarged lymph node s. Lungs: Mild bibasilar atelectatic changes are identified. No evidence for infiltrate or suspicious l esion. Trace left pleural effusion layers posteriorly. No pneumothorax. Bones: Severe destructive endplate changes are identified at T9-T10. Although advanced degenerative changes or severe posttraumatic changes could be considered, an infectious process such as discitis i s difficult to exclude. Please correlate with the clinical presentation of the patient. If further ev aluation is needed, MRI with and without contrast should provide the most information. Upper abdomen: Limited images of the upper abdomen demonstrate innumerable small and large cysts thr oughout the superior kidneys. IMPRESSION: No evidence for pulmonary embolus. Mild bibasilar atelectatic changes but no evidence for pneumonia. Trace left pleural effusion. Severely abnormal T9-T10 disc space as described above. Mildly enlarged subcarinal lymph node. Extensive bilateral renal cystic disease. Signer Name: Derrick Waldron Jr, MD Signed: 05/15/2021 9:09 AM Workstation Name: [id number]
[2021-05-15] MEDS ORDERED: CEFEPIME/NS 2 GM/100 ML 2 GM/100 ML BAG IV ONE (10:00)
--- NOTE | 2021-05-15 10:25 | Electrocardiograph Report ---
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
[2021-05-15] MEDS ORDERED: ASPIRIN 81 MG TAB CHEW PO ONE (10:32)
--- NOTE | 2021-05-15 12:42 | History and Physical Report ---
History of Present Illness Date of examination: 05/15/21 Date of admission: 05/15/21 10:32 Chief complaint: Left shoulder, chest pain and shortness of breath since last night History of present illness: Very pleasant 60-year-old -[place] male patient with significant past medical history of hypertension end-stage renal disease on hemodialysis last [address] Lynn childhood bronchial asthma, presented to the emergency room with a complaints of left shoulder pain, left-sided chest pain and shortness of breath since last night. Patient claims compliance with his dialysis, reports that he had his last dialysis yesterday Patient denies any nausea vomiting or abdominal pain Denies headache dizziness weakness or numbness No history of palpitations, no orthopnea or paroxysmal nocturnal dyspnea Patient had similar symptoms many years ago in 2007, had negative stress test at the time Initial work-up in the ED is consistent with Positive troponins, fluid overload with elevated BNP Lactic acidosis, leukocytosis, mild elevation of D-dimers Patient did not take COVID-19 vaccinations However he reports that he got himself checked many times which was negative Past History Past Medical History: dialysis, ESRD, GERD, hypertension, other (Chronic pain syndrome, chronic back problems scheduled for surgery next week) Past Surgical History: Other (AV graft) Social history: smoking (Occasional tobacco use). denies: alcohol abuse, prescription drug abuse Medications and Allergies Allergies Allergy/AdvReac Type Severity Reaction Status Date / Time No Known Allergies Allergy Unverified 04/15/20 11:37 Home Medications Medication Instructions Recorded Confirmed Last Taken Type Cinacalcet HCl 60 mg PO DAILY 04/15/20 05/15/21 05/14/21 History Sevelamer Carbonate [Renvela] 2,400 mg PO QAC 04/15/20 05/15/21 05/15/21 History amLODIPine 10 mg PO DAILY 04/15/20 05/15/21 05/14/21 History traMADoL [Ultram] 50 mg PO Q4HR PRN 05/15/21 05/15/21 05/15/21 History Review of Systems Constitutional: weakness, no weight loss, no weight gain, no fever, no chills Ears, nose, mouth and throat: no nasal congestion, no nasal discharge Cardiovascular: chest pain, shortness of breath, no orthopnea, no palpitations Respiratory: shortness of breath, no cough, no hemoptysis Gastrointestinal: no abdominal pain, no nausea, no vomiting Genitourinary Male: no dysuria, no hematuria Musculoskeletal: arthritis, other (Chronic back pain) Integumentary: no rash, no lesions Neurological: weakness, no numbness, no tingling, no seizures Psychiatric: no anxiety, no depression Hematologic/Lymphatic: no easy bruising, no easy bleeding Allergic/Immunologic: no urticaria, no allergic rhinitis Exam - Constitutional Vitals: Temp Pulse Resp BP Pulse Ox 97.8 F 88 15 101/57 93 05/15/21 06:44 05/15/21 07:49 05/15/21 07:49 05/15/21 12:15 05/15/21 12:15 General appearance: Present: well-nourished. Absent: no acute distress - EENT Eyes: Present: PERRL, EOM intact - Neck Neck: Present: supple, normal ROM - Respiratory Respiratory effort: normal Respiratory: bilateral: diminished, rales, negative: rhonchi, wheezing - Cardiovascular Rhythm: regular Heart Sounds: Present: S1 & S2 - Extremities Extremities: no ischemia, No edema - Abdominal General gastrointestinal: Present: soft, non-tender, non-distended, normal bowel sounds - Integumentary Integumentary: Present: clear, warm - Musculoskeletal Musculoskeletal: strength equal bilaterally - Psychiatric Psychiatric: appropriate mood/affect, cooperative - Neurologic Neurologic: moves all extremities HEART Score - HEART Score Troponin: Troponin T 0.084 ng/mL (0.00-0.029) H 05/15/21 10:28 Results - Labs CBC & Chem 7: 05/15/21 06:38 05/15/21 06:38 Labs: Abnormal lab results 05/15/21 05/15/21 05/15/21 Range/Units 06:38 06:38 06:38 WBC 14.3 H (4.5-11.0) K/mm3 RBC 3.57 L (3.65-5.03) M/mm3 Hct 34.6 L (35.5-45.6) % MCV 97 H (84-94) fl MCH 33 H (28-32) pg Lymph % (Auto) 4.2 L (13.4-35.0) % Randall % (Auto) 7.5 H (0.0-7.3) % Lymph # (Auto) 0.6 L (1.2-5.4) K/mm3 Randall # (Auto) 1.1 H (0.0-0.8) K/mm3 Seg Neutrophils % 87.8 H (40.0-70.0) % Seg Neutrophils # 12.6 H (1.8-7.7) K/mm3 D-Dimer 459.06 H (0-234) ng/mlDDU Sodium 132 L (137-145) mmol/L Chloride 91.1 L (98-107) mmol/L BUN 28 H (9-20) mg/dL Creatinine 10.4 H (0.8-1.3) mg/dL Lactic Acid (0.7-2.0) mmol/L Troponin T 0.087 H (0.00-0.029) ng/mL NT-Pro-B Natriuret Pep (0-900) pg/mL Triglycerides 215 H (2-149) mg/dL HDL Cholesterol 34 L (40-59) mg/dL Lipase (13-60) units/L 05/15/21 05/15/21 05/15/21 Range/Units 07:31 07:31 10:28 WBC (4.5-11.0) K/mm3 RBC (3.65-5.03) M/mm3 Hct (35.5-45.6) % MCV (84-94) fl MCH (28-32) pg Lymph % (Auto) (13.4-35.0) % Randall % (Auto) (0.0-7.3) % Lymph # (Auto) (1.2-5.4) K/mm3 Randall # (Auto) (0.0-0.8) K/mm3 Seg Neutrophils % (40.0-70.0) % Seg Neutrophils # (1.8-7.7) K/mm3 D-Dimer (0-234) ng/mlDDU Sodium (137-145) mmol/L Chloride (98-107) mmol/L BUN (9-20) mg/dL Creatinine (0.8-1.3) mg/dL Lactic Acid 3.80 H* (0.7-2.0) mmol/L Troponin T 0.084 H (0.00-0.029) ng/mL NT-Pro-B Natriuret Pep 8278 H (0-900) pg/mL Triglycerides (2-149) mg/dL HDL Cholesterol (40-59) mg/dL Lipase 109 H (13-60) units/L Assessment and Plan - Patient Problems (1) Chest pain Current Visit: Yes Status: Acute Plan to address problem: Serial cardiac enzymes, serial EKGs Aspirin, beta-blockers, morphine Echocardiogram for LV function ejection fraction Cardiology consult if needed (2) Non-ST elevation GA (NSTEMI) Current Visit: Yes Status: Acute Plan to address problem: Probably type II due to end-stage renal disease However patient has risk factors, will obtain echocardiogram Aspirin beta-blockers, nitrates and statins, cardiology consult if needed (3) ESRD (end stage renal disease) on dialysis Current Visit: No Status: Acute Plan to address problem: Nephrology consult Hemodialysis per schedule Avoid nephrotoxins Monitor renal function (4) Community acquired bacterial pneumonia Current Visit: Yes Status: Acute Plan to address problem: Patient has infiltrate on chest x-ray, leukocytosis, lactic acidosis Start empiric antibiotics Rocephin and Zithromax Cultures, oxygen titrate O2 sats more than 90% Consult ID if needed Will also check stevenson PCR as patient is not vaccinated (5) Hypertension Current Visit: Yes Status: Acute Plan to address problem: Closely monitor blood pressures, resume home amlodipine As needed hydralazine (6) Lactic acid acidosis Current Visit: Yes Status: Acute Plan to address problem: Evaluate for any evidence of sepsis, closely monitor Be secondary to community-acquired pneumonia Empiric antibiotics follow cultures (7) Leukocytosis Current Visit: Yes Status: Acute Plan to address problem: Evaluate for any evidence of sepsis, closely monitor Probably secondary to pneumonia, empiric antibiotics follow cultures (8) GERD (gastroesophageal reflux disease) Current Visit: Yes Status: Acute Plan to address problem: Protonix, supportive care (9) Chronic pain syndrome Current Visit: Yes Status: Acute Plan to address problem: Pain medications, PT OT if needed Patient will follow with his pain management upon discharge (10) DVT prophylaxis Current Visit: No Status: Acute Plan to address problem: Heparin renal dose (11) Full code status Current Visit: Yes Status: Acute Plan to address problem: We will closely monitor the patient and adjust the management as needed Follow the consultants and recommendations Plan of care reviewed with the patient and his nurse (12) Tobacco use Current Visit: Yes Status: Acute Plan to address problem: Strongly advised to quit tobacco use, nicotine patch as needed Critical care time 45 minutes
[2021-05-15] MEDS ORDERED: ACETAMINOPHEN 650 MG RECT SUPP PR PRN (12:48)
[2021-05-15] MEDS ORDERED: DOCUSATE SODIUM 100 MG CAP PO PRN (12:48)
[2021-05-15] MEDS ORDERED: SODIUM CHLORIDE 0.9% 100 ML IV PRN (14:34)
[2021-05-15] MEDS ORDERED: NITROGLYCERIN 0.4 MG TAB SUBL SL PRN (14:43)
--- NOTE | 2021-05-15 15:21 | Progress Note ---
Subjective Date of service: 05/15/21 Principal diagnosis: NSTEMI Objective Vital Signs Temp Pulse Resp BP BP Pulse Ox 05/15/21 13:14 100/58 05/15/21 13:09 100/58 05/15/21 12:50 98.6 F 84 16 107/69 98 05/15/21 12:31 100/58 96 05/15/21 12:21 101/57 95 05/15/21 12:15 101/57 93 05/15/21 12:01 101/57 92 05/15/21 11:45 101/57 95 05/15/21 11:31 101/57 95 05/15/21 11:15 107/54 97 05/15/21 11:01 107/54 93 05/15/21 10:15 107/57 94 05/15/21 10:01 107/57 96 05/15/21 09:45 107/57 95 05/15/21 09:31 107/57 98 05/15/21 09:15 107/57 96 05/15/21 09:01 107/57 97 05/15/21 08:53 107/57 97 05/15/21 08:31 107/57 93 05/15/21 08:15 107/57 93 05/15/21 08:01 107/57 94 05/15/21 07:49 88 15 110/63 96 05/15/21 07:48 110/63 87 05/15/21 06:44 97.8 F 89 17 75/40 99 - Labs and Meds Cardiac Enzymes 05/15/21 Range/Units 07:31 AST 24 (5-40) units/L Coagulation 05/15/21 05/15/21 Range/Units 06:38 07:31 PT 13.0 12.8 (12.2-14.9) Sec. INR 0.93 0.91 (0.87-1.13) APTT 25.3 26.5 (24.2-36.6) Sec. Lipids 05/15/21 Range/Units 06:38 Triglycerides 215 H (2-149) mg/dL Cholesterol 142 (50-199) mg/dL HDL Cholesterol 34 L (40-59) mg/dL Cholesterol/HDL Ratio 4.17 % CBC 05/15/21 Range/Units 06:38 WBC 14.3 H (4.5-11.0) K/mm3 RBC 3.57 L (3.65-5.03) M/mm3 Hgb 11.9 (11.8-15.2) gm/dl Hct 34.6 L (35.5-45.6) % Plt Count 359 (140-440) K/mm3 Lymph # (Auto) 0.6 L (1.2-5.4) K/mm3 Green # (Auto) 1.1 H (0.0-0.8) K/mm3 Eos # (Auto) 0.0 (0.0-0.4) K/mm3 Baso # (Auto) 0.1 (0.0-0.1) K/mm3 Comprehensive Metabolic Panel 05/15/21 05/15/21 Range/Units 06:38 07:31 Sodium 132 L (137-145) mmol/L Potassium 4.4 (3.6-5.0) mmol/L Chloride 91.1 L (98-107) mmol/L Carbon Dioxide 26 (22-30) mmol/L BUN 28 H (9-20) mg/dL Creatinine 10.4 H (0.8-1.3) mg/dL Glucose 95 (75-100) mg/dL Calcium 9.7 (8.4-10.2) mg/dL Direct Bilirubin < 0.2 (0-0.2) mg/dL Indirect Bilirubin 0.3 mg/dL AST 24 (5-40) units/L ALT 36 (7-56) units/L Alkaline Phosphatase 118 (35-129) units/L Total Protein 7.0 (6.3-8.2) g/dL Albumin 4.0 (3.9-5) g/dL
--- NOTE | 2021-05-15 15:22 | Consultation ---
History of Present Illness Consult date: 05/15/21 Requesting physician: KENDRA MADISON Consult reason: chest pain, elevated troponin History of present illness: This patient is a 60-year-old male with a significant history of ESRD on HD, hypertension. He is previously unknown to our practice, he believes he has been seen by [facility] in the past but is not currently following with a application developer. Patient presents to [facility] ER after being woken from sleep with complaint of chest pain/left shoulder pain at 2:40 AM this morning. Patient describes pain as sudden onset 7/10, sharp in shoulder and aching in chest, radiating to the left arm. Pain resolved after hydrocodone administration in ER which put patient to sleep. Palpation, manipulation, movement of the left shoulder does not reproduce symptoms. Pain is not worse with deep inspiration. Patient is admitted to the hospital as a Covid PUI after initial labs showed leukocytosis and lactic acidosis. Cardiology is consulted for chest pain, NSTEMI, heart failure. BNP is noted to be elevated on admission. At time of interview patient is in no apparent distress, and denies any weakness, dizziness, shortness of breath, chest pain, abdominal pain, N/V/D, recent illness or known exposures. Dialysis schedule is M//, patient has not missed any appointments. He endorses current tobacco use of 4 cigarillos a day, no alcohol, no recreational drugs. Past History Past Medical History: dialysis, ESRD, GERD, hypertension, other (See HPI) Past Surgical History: Other (AV graft) Social history: smoking (Occasional tobacco use). denies: alcohol abuse, prescription drug abuse Medications and Allergies Allergies Allergy/AdvReac Type Severity Reaction Status Date / Time No Known Allergies Allergy Unverified 04/15/20 11:37 Home Medications Medication Instructions Recorded Confirmed Last Taken Type Cinacalcet HCl 60 mg PO DAILY 04/15/20 05/15/21 05/14/21 History Sevelamer Carbonate [Renvela] 2,400 mg PO QAC 04/15/20 05/15/21 05/15/21 History amLODIPine 10 mg PO DAILY 04/15/20 05/15/21 05/14/21 History traMADoL [Ultram] 50 mg PO Q4HR PRN 05/15/21 05/15/21 05/15/21 History Active Meds: Active Medications Acetaminophen (Acetaminophen 650 Mg Rect Supp) 650 mg ID Q6H PRN PRN Reason: Pain, Mild (1-3) Amlodipine Besylate (Amlodipine 10 Mg Tab) 10 mg PO DAILY [facility] Aspirin (Aspirin Ec 325 Mg Tab) 325 mg PO QDAY [facility] Carvedilol (Carvedilol 6.25 Mg Tab) 6.25 mg PO BID [facility] Cinacalcet (Cinacalcet 30 Mg Tab) 90 mg PO QDAY [facility] Docusate Sodium (Docusate Sodium 100 Mg Cap) 100 mg PO BID PRN PRN Reason: Constipation Heparin Sodium (Porcine) (Heparin 5,000 Unit/1 Ml Vial) 5,000 unit SUB-Q Q12HR [facility] Sodium Chloride (Nacl 0.9%) 100 mls @ 999 mls/hr IV RUFUS PRN PRN Reason: Hypotension Azithromycin (Zithromax/Ns) 500 mg in 250 mls @ 250 mls/hr IV Q24H [facility] Stop: 05/19/21 16:59 Ceftriaxone Sodium (Rocephin/Ns 2 Gm/100 Ml) 2 gm in 100 mls @ 200 mls/hr IV Q24H [facility]; Protocol Morphine Sulfate (Morphine 2 Mg/1 Ml Inj) 2 mg IV Q4H PRN PRN Reason: Pain, Moderate (4-6) Nitroglycerin (Nitroglycerin 0.4 Mg Tab Subl) 0.4 mg SL .Q5MIN PRN PRN Reason: Chest Pain Pantoprazole Sodium (Pantoprazole 40 Mg Tab) 40 mg PO QDAC [facility] Sevelamer Carbonate (Sevelamer Carbonate 800 Mg Tab) 800 mg PO QDAC [facility] Review of Systems Constitutional: no weight loss, no weight gain, no fever, no chills, no sweats, no night sweats Ears, nose, mouth and throat: no ear pain, no ear discharge, no nose pain, no nasal congestion, no nasal discharge Cardiovascular: chest pain, no orthopnea, no palpitations, no rapid/irregular heart beat, no edema, no syncope, no lightheadedness, no shortness of breath Respiratory: no cough, no hemoptysis, no shortness of breath Gastrointestinal: no abdominal pain, no nausea, no vomiting, no diarrhea Genitourinary Male: no flank pain Musculoskeletal: no neck stiffness, no neck pain, no shooting arm pain, no arm numbness/tingling, no low back pain, no shooting leg pain Integumentary: no rash, no pruritis, no redness, no sores, no wounds Neurological: no head injury, no paralysis, no weakness, no parathesias, no numbness, no tingling, no seizures, no syncope Psychiatric: no anxiety Endocrine: no cold intolerance, no heat intolerance Hematologic/Lymphatic: no easy bruising, no easy bleeding Allergic/Immunologic: no urticaria Physical Examination Last Vital Signs Temp 98.6 F 05/15/21 12:50 Pulse 84 05/15/21 12:50 Resp 16 05/15/21 12:50 BP 100/58 05/15/21 15:28 Pulse Ox 98 05/15/21 12:50 General appearance: no acute distress HEENT: Positive: PERRL, Normocephaly, Mucus Membranes Moist Neck: Positive: neck supple, trachea midline Cardiac: Positive: Reg Rate and Rhythm, S1/S2 Lungs: Positive: Normal Exam, Normal Breath Sounds Results 05/15/21 06:38 05/15/21 06:38 Cardiac Enzymes 05/15/21 Range/Units 07:31 AST 24 (5-40) units/L Coagulation 05/15/21 05/15/21 Range/Units 06:38 07:31 PT 13.0 12.8 (12.2-14.9) Sec. INR 0.93 0.91 (0.87-1.13) APTT 25.3 26.5 (24.2-36.6) Sec. Lipids 05/15/21 Range/Units 06:38 Triglycerides 215 H (2-149) mg/dL Cholesterol 142 (50-199) mg/dL HDL Cholesterol 34 L (40-59) mg/dL Cholesterol/HDL Ratio 4.17 % CBC 05/15/21 Range/Units 06:38 WBC 14.3 H (4.5-11.0) K/mm3 RBC 3.57 L (3.65-5.03) M/mm3 Hgb 11.9 (11.8-15.2) gm/dl Hct 34.6 L (35.5-45.6) % Plt Count 359 (140-440) K/mm3 Lymph # (Auto) 0.6 L (1.2-5.4) K/mm3 [place] # (Auto) 1.1 H (0.0-0.8) K/mm3 Eos # (Auto) 0.0 (0.0-0.4) K/mm3 Baso # (Auto) 0.1 (0.0-0.1) K/mm3 Comprehensive Metabolic Panel 05/15/21 05/15/21 Range/Units 06:38 07:31 Sodium 132 L (137-145) mmol/L Potassium 4.4 (3.6-5.0) mmol/L Chloride 91.1 L (98-107) mmol/L Carbon Dioxide 26 (22-30) mmol/L BUN 28 H (9-20) mg/dL Creatinine 10.4 H (0.8-1.3) mg/dL Glucose 95 (75-100) mg/dL Calcium 9.7 (8.4-10.2) mg/dL Direct Bilirubin < 0.2 (0-0.2) mg/dL Indirect Bilirubin 0.3 mg/dL AST 24 (5-40) units/L ALT 36 (7-56) units/L Alkaline Phosphatase 118 (35-129) units/L Total Protein 7.0 (6.3-8.2) g/dL Albumin 4.0 (3.9-5) g/dL EKG interpretations - Telemetry EKG Rhythm: Sinus Rhythm - EKG Sinus rhythms and dysrhythmias: sinus rhythm Assessment and Plan NSTEMI suspect type II * Patient is currently chest pain-free without cardiac complaint. Twelve-lead ECG reviewed shows sinus rhythm 88, no acute ischemic changes. Troponin is mildly elevated, subacute x2. Suspect NSTEMI type II secondary to ESRD. We will continue to trend CE's * Plan for Lexiscan MPI stress test once Covid status is resolved. ESRD on HD * Scheduled M/W/F. No missed appointments. Patient is being taken for inpatient dialysis today. No objections from cardiology. * Patient may proceed with hemodialysis from cardiology standpoint Compensated heart failure * BNP is noted to be elevated on admission. Patient appears to be euvolemic with no peripheral edema, clear and equal bilateral breath sounds. * Echocardiogram is pending * Continue antihypertensive regimen: Amlodipine 10, Coreg 6.25 twice daily Leukocytosis/lactic acidosis/elevated D-dimer * Patient is admitted is a Covid PUI * Management per primary team DVT prophylaxis * Heparin SQ Echocardiogram is pending. Will follow This patient was seen in conjunction with Dr Thrasher who agrees with assessment and plan of care - Patient Problems (1) Heart failure Current Visit: Yes Status: Acute (2) Tobacco use Current Visit: Yes Status: Acute (3) Chest pain Current Visit: Yes Status: Acute (4) Lactic acid acidosis Current Visit: Yes Status: Acute (5) Leukocytosis Current Visit: Yes Status: Acute (6) Non-ST elevation [place] (NSTEMI) Current Visit: Yes Status: Acute (7) DVT prophylaxis Current Visit: No Status: Acute (8) ESRD (end stage renal disease) on dialysis Current Visit: No Status: Acute (9) Hypertension Current Visit: No Status: Acute
[2021-05-15] MEDS: amLODIPine 10 MG TAB PO SCH (15:28)
[2021-05-15] MEDS: PANTOPRAZOLE 40 MG TAB PO SCH (15:44)
[2021-05-15] MEDS: AZITHROMYCIN/NS 500 MG/250 ML 500 MG/250 ML BAG IV SCH (15:44)
[2021-05-15] MEDS: cefTRIAXone/NS 2 GM/100 ML 2 GM/100 ML BAG IV SCH (15:45)
[2021-05-15 17:46] LABS: Creatine Kinase MB 1.5 ng/mL (0.0-4.0)
[2021-05-15 17:52] LABS: Hepatitis B Surface Antigen Non-Reactive (Negative); Hepatitis C Virus Antibody Non-Reactive (NonReactive)
[2021-05-15] MEDS: SEVELAMER CARBONATE 800 MG TAB PO SCH (21:07)
[2021-05-15] MEDS: HEPARIN 5,000 UNIT/1 ML VIAL SUB-Q SCH (22:31)
[2021-05-15] MEDS: MORPHINE 2 MG/1 ML INJ IV PRN (23:18)
[2021-05-15] MEDS: carvediloL 6.25 MG TAB PO SCH (23:29)
[2021-05-16] MEDS: MORPHINE 2 MG/1 ML INJ IV PRN (06:32)
[2021-05-16 07:03] LABS: Mean Corpuscular HGB Conc 33 % (32-34); Mean Corpuscular Volume 97 fl (84-94); Platelet Count 263 K/mm3 (140-440); Red Blood Count 3.09 M/mm3 (3.65-5.03); Red Cell Distribution Width 15.5 % (13.2-15.2)
[2021-05-16] MEDS: PANTOPRAZOLE 40 MG TAB PO SCH (09:49)
[2021-05-16] MEDS: carvediloL 6.25 MG TAB PO SCH ×2 (09:49→23:16)
[2021-05-16] MEDS: amLODIPine 10 MG TAB PO SCH (09:49)
[2021-05-16] MEDS: ASPIRIN EC 325 MG TAB PO SCH (09:49)
[2021-05-16] MEDS: SEVELAMER CARBONATE 800 MG TAB PO SCH ×2 (09:49→17:35)
[2021-05-16] MEDS: CINACALCET 30 MG TAB PO SCH (09:49)
[2021-05-16] MEDS: HEPARIN 5,000 UNIT/1 ML VIAL SUB-Q SCH ×2 (09:50→23:17)
[2021-05-16] MEDS ORDERED: CINACALCET HCL 90 MG PO SCH (10:00)
[2021-05-16] MEDS ORDERED: NON-FORMULARY EACH (Amlodipine 10 MG) PO SCH (10:00)
--- NOTE | 2021-05-16 10:04 | Progress Note ---
Assessment and Plan Nonspecific elevated troponin s/t to end stage renal disease normal perfusion thallium stress test 12/2019 LVEF 55-60% 12/2019 Pneumonia no evidence of PE by CTA chest ESRD Hypertension Conservative cardiac management. Subjective Date of service: 05/16/21 Interval history: Cardiac care transferred to [facility] as the patient is followed by Dr John as an outpatient. Patient was admitted shortness of breath, cough, elevated WBC, chest x-ray suspicious for pneumonia. Patient is current on isolation protocol, COVID 19 serology is pending. Objective Vital Signs Temp Pulse Resp BP Pulse Ox 05/16/21 08:35 95 05/16/21 06:27 125/58 05/16/21 05:17 98.4 F 63 18 109/46 93 05/15/21 23:29 101/59 05/15/21 23:23 105 H 101/59 95 05/15/21 22:02 99.2 F 102 H 18 106/55 97 05/15/21 20:40 98.3 F 87 18 117/60 05/15/21 20:27 88 120/56 05/15/21 20:15 88 119/63 05/15/21 20:00 96 H 126/68 05/15/21 19:45 87 123/65 05/15/21 19:30 77 108/52 05/15/21 19:15 90 101/62 05/15/21 19:00 86 101/54 05/15/21 18:45 90 102/53 05/15/21 18:30 92 H 109/58 05/15/21 18:15 98 H 98/55 05/15/21 18:00 95 H 112/54 05/15/21 17:45 94 H 108/56 05/15/21 17:30 95 H 115/62 05/15/21 17:15 85 112/60 05/15/21 17:00 85 112/58 05/15/21 16:57 93 H 105/57 05/15/21 16:50 98.3 F 89 18 126/68 05/15/21 16:24 86 99 05/15/21 16:18 99.4 F 93 H 18 103/51 95 05/15/21 15:28 100/58 05/15/21 13:44 100/58 05/15/21 13:14 100/58 05/15/21 13:09 100/58 05/15/21 12:50 98.6 F 84 16 107/69 98 05/15/21 12:31 100/58 96 05/15/21 12:21 101/57 95 05/15/21 12:15 101/57 93 05/15/21 12:01 101/57 92 05/15/21 11:45 101/57 95 05/15/21 11:31 101/57 95 05/15/21 11:15 107/54 97 05/15/21 11:01 107/54 93 05/15/21 10:15 107/57 94 05/15/21 10:01 107/57 96 - Physical Examination General: No Apparent Distress HEENT: Positive: PERRL Neck: Positive: neck supple, trachea midline Cardiac: Positive: Reg Rate and Rhythm Lungs: Positive: Decreased Breath Sounds Neuro: Positive: Grossly Intact - Labs and Meds Cardiac Enzymes 05/15/21 Range/Units 16:40 CK-MB (CK-2) 1.5 (0.0-4.0) ng/mL CBC 05/16/21 Range/Units 05:47 WBC 11.4 H (4.5-11.0) K/mm3 RBC 3.09 L (3.65-5.03) M/mm3 Hgb 10.0 L (11.8-15.2) gm/dl Hct 30.0 L (35.5-45.6) % Plt Count 263 (140-440) K/mm3 Comprehensive Metabolic Panel 05/16/21 Range/Units 05:47 Sodium 138 (137-145) mmol/L Potassium 5.0 (3.6-5.0) mmol/L Chloride 98.5 (98-107) mmol/L Carbon Dioxide 31 H (22-30) mmol/L BUN 23 H (9-20) mg/dL Creatinine 8.0 H (0.8-1.3) mg/dL Glucose 79 (75-100) mg/dL Calcium 10.0 (8.4-10.2) mg/dL - EKG Sinus rhythms and dysrhythmias: sinus rhythm
--- NOTE | 2021-05-16 16:43 | Progress Note ---
Assessment and Plan Assessment and plan: --PUI COVID-19 test is negative DC isolation (1) Chest pain Current Visit: Yes Status: Acute , Plan to address problem: Serial cardiac enzymes, serial EKGs Aspirin, beta-blockers, morphine Echocardiogram for LV function ejection fraction Cardiology consult if needed (2) Non-ST elevation CA (NSTEMI) Current Visit: Yes Status: Acute Plan to address problem: Probably type II due to end-stage renal disease However patient has risk factors, will obtain echocardiogram Aspirin beta-blockers, nitrates and statins, cardiology consult if needed (3) ESRD (end stage renal disease) on dialysis Current Visit: No Status: Acute Plan to address problem: Nephrology consult Hemodialysis per schedule Avoid nephrotoxins Monitor renal function (4) Community acquired bacterial pneumonia Current Visit: Yes Status: Acute Plan to address problem: Patient has infiltrate on chest x-ray, leukocytosis, lactic acidosis Start empiric antibiotics Rocephin and Zithromax Cultures, oxygen titrate O2 sats more than 90% Consult ID if needed Will also check stevenson PCR as patient is not vaccinated (5) Hypertension Current Visit: Yes Status: Acute Plan to address problem: Closely monitor blood pressures, resume home amlodipine As needed hydralazine (6) Lactic acid acidosis Current Visit: Yes Status: Acute Plan to address problem: Evaluate for any evidence of sepsis, closely monitor Be secondary to community-acquired pneumonia Empiric antibiotics follow cultures (7) Leukocytosis Current Visit: Yes Status: Acute Plan to address problem: Evaluate for any evidence of sepsis, closely monitor Probably secondary to pneumonia, empiric antibiotics follow cultures (8) GERD (gastroesophageal reflux disease) Current Visit: Yes Status: Acute Plan to address problem: Protonix, supportive care (9) Chronic pain syndrome Current Visit: Yes Status: Acute Plan to address problem: Pain medications, PT OT if needed Patient will follow with his pain management upon discharge (10) DVT prophylaxis Current Visit: No Status: Acute Plan to address problem: Heparin renal dose (11) Full code status Current Visit: Yes Status: Acute Plan to address problem: We will closely monitor the patient and adjust the management as needed Follow the consultants and recommendations Plan of care reviewed with the patient and his nurse (12) Tobacco use Current Visit: Yes Status: Acute Plan to address problem: Strongly advised to quit tobacco use, nicotine patch as needed Computer Scientist recommendations noted and appreciated Plan of care reviewed with the patient and his nurse History Interval history: Seen and examined the patient at the bedside Patient's chart and medications reviewed Patient's COVID-19 test is negative Patient has no new complaints Vital signs stable Hospitalist Physical - Constitutional Vitals: Temp Pulse Resp BP Pulse Ox 98.9 F 91 H 16 115/61 93 05/16/21 12:37 05/16/21 12:37 05/16/21 12:37 05/16/21 12:37 05/16/21 12:37 General appearance: Present: well-nourished, other (Hard of hearing). Absent: no acute distress - EENT Eyes: Present: PERRL, EOM intact - Neck Neck: Present: supple, normal ROM - Respiratory Respiratory effort: normal Respiratory: bilateral: diminished, negative: rales, rhonchi, wheezing - Cardiovascular Rhythm: regular Heart Sounds: Present: S1 & S2 - Extremities Extremities: no ischemia, No edema - Abdominal General gastrointestinal: soft, non-tender, non-distended, normal bowel sounds - Integumentary Integumentary: Present: clear, warm - Psychiatric Psychiatric: appropriate mood/affect, cooperative - Neurologic Neurologic: CNII-XII intact, moves all extremities HEART Score - HEART Score Troponin: Troponin T 0.084 ng/mL (0.00-0.029) H 05/16/21 05:47 Results - Labs CBC & Chem 7: 05/16/21 05:47 05/16/21 05:47 Labs: Laboratory Last Values WBC 11.4 K/mm3 (4.5-11.0) H 05/16/21 05:47 RBC 3.09 M/mm3 (3.65-5.03) L 05/16/21 05:47 Hgb 10.0 gm/dl (11.8-15.2) L 05/16/21 05:47 Hct 30.0 % (35.5-45.6) L 05/16/21 05:47 MCV 97 fl (84-94) H 05/16/21 05:47 MCH 32 pg (28-32) 05/16/21 05:47 MCHC 33 % (32-34) 05/16/21 05:47 RDW 15.5 % (13.2-15.2) H 05/16/21 05:47 Plt Count 263 K/mm3 (140-440) 05/16/21 05:47 Lymph % (Auto) 4.2 % (13.4-35.0) L 05/15/21 06:38 [place] % (Auto) 7.5 % (0.0-7.3) H 05/15/21 06:38 Eos % (Auto) 0.1 % (0.0-4.3) 05/15/21 06:38 Baso % (Auto) 0.4 % (0.0-1.8) 05/15/21 06:38 Lymph # (Auto) 0.6 K/mm3 (1.2-5.4) L 05/15/21 06:38 [place] # (Auto) 1.1 K/mm3 (0.0-0.8) H 05/15/21 06:38 Eos # (Auto) 0.0 K/mm3 (0.0-0.4) 05/15/21 06:38 Baso # (Auto) 0.1 K/mm3 (0.0-0.1) 05/15/21 06:38 Seg Neutrophils % 87.8 % (40.0-70.0) H 05/15/21 06:38 Seg Neutrophils # 12.6 K/mm3 (1.8-7.7) H 05/15/21 06:38 PT 12.8 Sec. (12.2-14.9) 05/15/21 07:31 INR 0.91 (0.87-1.13) 05/15/21 07:31 APTT 26.5 Sec. (24.2-36.6) 05/15/21 07:31 D-Dimer 459.06 ng/mlDDU (0-234) H 05/15/21 06:38 Sodium 138 mmol/L (137-145) 05/16/21 05:47 Potassium 5.0 mmol/L (3.6-5.0) 05/16/21 05:47 Chloride 98.5 mmol/L (98-107) 05/16/21 05:47 Carbon Dioxide 31 mmol/L (22-30) H 05/16/21 05:47 Anion Gap 14 mmol/L 05/16/21 05:47 BUN 23 mg/dL (9-20) H 05/16/21 05:47 Creatinine 8.0 mg/dL (0.8-1.3) H 05/16/21 05:47 Estimated GFR 8 ml/min 05/16/21 05:47 BUN/Creatinine Ratio 3 % 05/16/21 05:47 Glucose 79 mg/dL (75-100) 05/16/21 05:47 Lactic Acid 3.80 mmol/L (0.7-2.0) H* 05/15/21 07:31 Calcium 10.0 mg/dL (8.4-10.2) 05/16/21 05:47 Total Bilirubin 0.50 mg/dL (0.1-1.2) 05/15/21 07:31 Direct Bilirubin < 0.2 mg/dL (0-0.2) 05/15/21 07:31 Indirect Bilirubin 0.3 mg/dL 05/15/21 07:31 AST 24 units/L (5-40) 05/15/21 07:31 ALT 36 units/L (7-56) 05/15/21 07:31 Alkaline Phosphatase 118 units/L (35-129) 05/15/21 07:31 Total Creatine Kinase 94 units/L (55-170) 05/15/21 16:40 CK-MB (CK-2) 1.5 ng/mL (0.0-4.0) 05/15/21 16:40 CK-MB (CK-2) Rel Index 1.5 (0-4) 05/15/21 16:40 Troponin T 0.084 ng/mL (0.00-0.029) H 05/16/21 05:47 NT-Pro-B Natriuret Pep 8278 pg/mL (0-900) H 05/15/21 07:31 Total Protein 7.0 g/dL (6.3-8.2) 05/15/21 07:31 Albumin 4.0 g/dL (3.9-5) 05/15/21 07:31 Albumin/Globulin Ratio 1.3 % 05/15/21 07:31 Triglycerides 215 mg/dL (2-149) H 05/15/21 06:38 Cholesterol 142 mg/dL (50-199) 05/15/21 06:38 LDL Cholesterol Direct 77 mg/dL (50-130) 05/15/21 06:38 HDL Cholesterol 34 mg/dL (40-59) L 05/15/21 06:38 Cholesterol/HDL Ratio 4.17 % 05/15/21 06:38 Lipase 109 units/L (13-60) H 05/15/21 07:31 Procalcitonin 15.08 ng/mL (<0.15) 05/15/21 16:40 Coronavirus (PCR) Negative (Negative) 05/15/21 Unknown Hepatitis A IgM Ab Non-reactive (NonReactive) 05/15/21 16:40 Hep Bs Antigen Non-reactive (Negative) 05/15/21 16:40 Hep B Core IgM Ab Non-reactive (NonReactive) 05/15/21 16:40 Hepatitis C Antibody Non-reactive (NonReactive) 05/15/21 16:40 Microbiology: Microbiology 05/15/21 07:31 Peripheral/Venous Blood Culture - Preliminary NO GROWTH AFTER 24 HOURS 05/15/21 07:31 Peripheral/Venous Blood Culture - Preliminary NO GROWTH AFTER 24 HOURS Moy/IV: Voiding Method Toilet Active Medications - Current Medications Current Medications: Generic Name Dose Route Start Last Admin Trade Name Freq PRN Reason Stop Dose Admin Acetaminophen 650 mg 05/15/21 12:48 Acetaminophen 650 Mg Rect Supp [place] Q6H PRN Pain, Mild (1-3) Amlodipine Besylate 10 mg 05/15/21 14:00 05/16/21 09:49 Amlodipine 10 Mg Tab PO 10 mg DAILY CHRISTINA Administration Aspirin 325 mg 05/16/21 10:00 05/16/21 09:49 Aspirin Ec 325 Mg Tab PO 325 mg QDAY CHRISTINA Administration Carvedilol 6.25 mg 05/15/21 22:00 05/16/21 09:49 Carvedilol 6.25 Mg Tab PO 6.25 mg BID CHRISTINA Administration Cinacalcet 90 mg 05/16/21 10:00 05/16/21 09:49 Cinacalcet 30 Mg Tab PO 90 mg QDAY CHRISTINA Administration Docusate Sodium 100 mg 05/15/21 12:48 Docusate Sodium 100 Mg Cap PO BID PRN Constipation Heparin Sodium (Porcine) 5,000 unit 05/15/21 22:00 05/16/21 09:50 Heparin 5,000 Unit/1 Ml Vial SUB-Q 5,000 unit Q12HR CHRISTINA Administration Sodium Chloride 100 mls @ 999 mls/hr 05/15/21 14:34 Nacl 0.9% IV RUFUS PRN Hypotension Azithromycin 500 mg in 250 mls @ 250 mls/hr 05/15/21 16:00 05/15/21 15:44 Zithromax/Ns IV 05/19/21 16:59 250 mls/hr Q24H CHRISTINA Administration Ceftriaxone Sodium 2 gm in 100 mls @ 200 mls/hr 05/15/21 16:00 05/15/21 15:45 Rocephin/Ns 2 Gm/100 Ml IV 05/19/21 23:59 200 mls/hr Q24H CHRISTINA Administration Protocol Morphine Sulfate 2 mg 05/15/21 14:43 05/16/21 06:32 Morphine 2 Mg/1 Ml Inj IV 2 mg Q4H PRN Administration Pain, Moderate (4-6) Nitroglycerin 0.4 mg 05/15/21 14:43 Nitroglycerin 0.4 Mg Tab Subl SL .Q5MIN PRN Chest Pain Pantoprazole Sodium 40 mg 05/15/21 14:00 05/16/21 09:49 Pantoprazole 40 Mg Tab PO 40 mg QDAC CHRISTINA Administration Sevelamer Carbonate 800 mg 05/16/21 17:00 Sevelamer Carbonate 800 Mg Tab PO TIDWM CHRISTINA Nutrition/Malnutrition Assess - Dietary Evaluation Nutrition/Malnutrition Findings: Nutrition Notes Start: 05/16/21 15:09 Freq: Status: Active Protocol: Document 05/16/21 15:09 ZANDER (Rec: 05/16/21 15:41 [facility] [id number]) Nutrition Notes Need for Assessment generated from: 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 Unable to reach pt via phone. He consumed 100% of breakfast this am. Burn Absent Trauma Absent Minimum of two criteria No Is patient on ventilator? No Is Patient Ambulatory and/or Out of Bed Yes REE-([place]-St. Jeor-ambulatory/OOB) [ 2165.150 NUTR.[id number]] Calculation Used for Recommendations [place] Jeor Additional Notes Pro needs >1.2g/kg: >106g/day Fluid needs 1-1.5L/day Nutrition Intervention Follow-Up By: 05/17/21 Additional Comments F/U: MST assessment (wt loss), intakes
--- NOTE | 2021-05-16 17:18 | Consultation ---
History of Present Illness - Reason for Consult Consult date: 05/16/21 end stage renal disease - History of Present Illness This is a 60-year-old man with end-stage renal disease on hemodialysis MWF who presented with a complaint of chest pain. 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 He describes the chest pain is located to the left and radiating to the left arm, 7/10 in intensity, aggravated by deep inspiration. Nephrology was consulted for ESRD management. Past History Past Medical History: dialysis, ESRD, GERD, hypertension, other (Chronic pain syndrome, chronic back problems scheduled for surgery next week) Past Surgical History: Other (AV graft) Social history: smoking (Occasional tobacco use). denies: alcohol abuse, prescription drug abuse Medications and Allergies Allergies Allergy/AdvReac Type Severity Reaction Status Date / Time No Known Allergies Allergy Unverified 04/15/20 11:37 Home Medications Medication Instructions Recorded Confirmed Last Taken Type Cinacalcet HCl 60 mg PO DAILY 04/15/20 05/15/21 05/14/21 History Sevelamer Carbonate [Renvela] 2,400 mg PO QAC 04/15/20 05/15/21 05/15/21 History amLODIPine 10 mg PO DAILY 04/15/20 05/15/21 05/14/21 History traMADoL [Ultram] 50 mg PO Q4HR PRN 05/15/21 05/15/21 05/15/21 History Active Meds: Active Medications Acetaminophen (Acetaminophen 650 Mg Rect Supp) 650 mg [place] Q6H PRN PRN Reason: Pain, Mild (1-3) Amlodipine Besylate (Amlodipine 10 Mg Tab) 10 mg PO DAILY [facility] Last Admin: 05/16/21 09:49 Dose: 10 mg Documented by: Aspirin (Aspirin Ec 325 Mg Tab) 325 mg PO QDAY [facility] Last Admin: 05/16/21 09:49 Dose: 325 mg Documented by: Carvedilol (Carvedilol 6.25 Mg Tab) 6.25 mg PO BID [facility] Last Admin: 05/16/21 09:49 Dose: 6.25 mg Documented by: Cinacalcet (Cinacalcet 30 Mg Tab) 90 mg PO QDAY [facility] Last Admin: 05/16/21 09:49 Dose: 90 mg Documented by: Docusate Sodium (Docusate Sodium 100 Mg Cap) 100 mg PO BID PRN PRN Reason: Constipation Heparin Sodium (Porcine) (Heparin 5,000 Unit/1 Ml Vial) 5,000 unit SUB-Q Q12HR [facility] Last Admin: 05/16/21 09:50 Dose: 5,000 unit Documented by: Sodium Chloride (Nacl 0.9%) 100 mls @ 999 mls/hr IV RUFUS PRN PRN Reason: Hypotension Azithromycin (Zithromax/Ns) 500 mg in 250 mls @ 250 mls/hr IV Q24H [facility] Stop: 05/19/21 16:59 Last Admin: 05/15/21 15:44 Dose: 250 mls/hr Documented by: Ceftriaxone Sodium (Rocephin/Ns 2 Gm/100 Ml) 2 gm in 100 mls @ 200 mls/hr IV Q24H [facility]; Protocol Stop: 05/19/21 23:59 Last Admin: 05/15/21 15:45 Dose: 200 mls/hr Documented by: Morphine Sulfate (Morphine 2 Mg/1 Ml Inj) 2 mg IV Q4H PRN PRN Reason: Pain, Moderate (4-6) Last Admin: 05/16/21 06:32 Dose: 2 mg Documented by: Nitroglycerin (Nitroglycerin 0.4 Mg Tab Subl) 0.4 mg SL .Q5MIN PRN PRN Reason: Chest Pain Pantoprazole Sodium (Pantoprazole 40 Mg Tab) 40 mg PO QDAC [facility] Last Admin: 05/16/21 09:49 Dose: 40 mg Documented by: Sevelamer Carbonate (Sevelamer Carbonate 800 Mg Tab) 800 mg PO TIDWM [facility] Review of Systems Constitutional: other (Defer to reduce transmission risk) Exam - Vital Signs Vital signs: Vital Signs Temp Pulse Resp BP Pulse Ox 97.8 F 89 17 75/40 99 05/15/21 06:44 05/15/21 06:44 05/15/21 06:44 05/15/21 06:44 05/15/21 06:44 - Physical Exam Narrative exam: Deferred to reduce transmission risk Results - Lab Results 05/16/21 05:47 05/16/21 05:47 Most recent lab results Calcium 10.0 mg/dL (8.4-10.2) 05/16/21 05:47 Assessment and Plan Assessment - End-stage renal disease on hemodialysis - Hypertension - Anemia of ESRD - Hyperparathyroidism - Hyperphosphatemia - Pneumonia - Chest Pain - COVID PUI Recommendations - Continue HD TTS - Monitor labs and volume status daily and assess need for additional dialysis session - Continue home antihypertensives - Hold antihypertensives on hemodialysis days for systolics less than 160 - No indication for Epogen at this time, monitor - Continue Sensipar - Continue phosphorus binders - ESRD diet with 1.4 g/kg per day protein - Renally dose medication for creatinine clearance less than 15 cc/min - Cardiology note reviewed - Antibiotics as per primary
[2021-05-16] MEDS: cefTRIAXone/NS 2 GM/100 ML 2 GM/100 ML BAG IV SCH (17:35)
[2021-05-16] MEDS: AZITHROMYCIN/NS 500 MG/250 ML 500 MG/250 ML BAG IV SCH (17:50)
[2021-05-17] MEDS: SEVELAMER CARBONATE 800 MG TAB PO SCH ×3 (08:00→17:46)
--- NOTE | 2021-05-17 09:05 | Progress Note ---
Assessment and Plan Nonspecific elevated troponin s/t to end stage renal disease. normal perfusion thallium stress test 12/2019. LVEF 55-60% 12/2019. Pneumonia no evidence of PE by CTA chest. negative COVID 19 serology test. ESRD Hypertension Advised smoking cessation. Otherwise, conservative cardiac management. Subjective Date of service: 05/17/21 Interval history: Patient denies chest pain. Reports his breathing is better. No distress noted. Objective Vital Signs Temp Pulse Resp BP BP Pulse Ox 05/16/21 23:16 95 H 131/72 05/16/21 23:14 95 05/16/21 23:08 98.3 F 95 H 18 131/72 05/16/21 16:49 99.3 F 61 16 140/79 98 05/16/21 12:37 98.9 F 91 H 16 115/61 93 05/16/21 09:49 105 H 124/62 - Physical Examination General: No Apparent Distress HEENT: Positive: PERRL Neck: Positive: neck supple, trachea midline Cardiac: Positive: Reg Rate and Rhythm Lungs: Positive: Decreased Breath Sounds Neuro: Positive: Grossly Intact - EKG Sinus rhythms and dysrhythmias: sinus rhythm
[2021-05-17] MEDS: amLODIPine 10 MG TAB PO SCH (09:41)
[2021-05-17] MEDS: CINACALCET 30 MG TAB PO SCH (09:42)
[2021-05-17] MEDS: carvediloL 6.25 MG TAB PO SCH ×2 (09:42→22:55)
[2021-05-17] MEDS: PANTOPRAZOLE 40 MG TAB PO SCH (09:42)
[2021-05-17] MEDS: ASPIRIN EC 325 MG TAB PO SCH (09:42)
[2021-05-17] MEDS: HEPARIN 5,000 UNIT/1 ML VIAL SUB-Q SCH ×2 (09:44→22:56)
--- NOTE | 2021-05-17 11:06 | Progress Note ---
Assessment and Plan Assessment - End-stage renal disease on hemodialysis - Hypertension - Anemia of ESRD - Hyperparathyroidism - Hyperphosphatemia - Pneumonia - Chest Pain Recommendations - Continue HD TTS - Monitor labs and volume status daily and assess need for additional dialysis session - Continue home antihypertensives - Hold antihypertensives on hemodialysis days for systolics less than 160 - No indication for Epogen at this time, monitor - Continue Sensipar - Continue phosphorus binders - ESRD diet with 1.4 g/kg per day protein - Renally dose medication for creatinine clearance less than 15 cc/min - Cardiology note reviewed - Antibiotics as per primary Subjective Date of service: 05/17/21 Principal diagnosis: shortness of breath Interval history: Sitting up in bed. Breathing comfortably. Objective - Exam Narrative Exam: General: No acute distress HEENT: Oral mucosa moist Neck: Supple, no JVD Chest: Clear to auscultation bilaterally Heart: RRR, S1 and S2, no pericardial rub Abdomen: Soft, nontender, no renal bruit Extremity: No peripheral cyanosis, edema Neurological: Alert, awake, no asterixis Dermatology: No skin rash Psych: No agitation Musculoskeletal: No joint effusion - Vital Signs Vital signs: Vital Signs - 12hr 05/16/21 05/16/21 05/16/21 23:08 23:14 23:16 Temperature 98.3 F Pulse Rate 95 H 95 H Respiratory 18 Rate Blood Pressure 131/72 Blood Pressure 131/72 [Left] O2 Sat by Pulse 95 Oximetry - Lab 05/16/21 05:47 05/16/21 05:47 Most recent lab results Calcium 10.0 mg/dL (8.4-10.2) 05/16/21 05:47 Medications & Allergies - Medications Allergies/Adverse Reactions: Allergies No Known Allergies Allergy (Unverified 04/15/20 11:37) Home Medications: Home Medications Medication Instructions Recorded Confirmed Last Taken Type Cinacalcet HCl 60 mg PO DAILY 04/15/20 05/15/21 05/14/21 History Sevelamer Carbonate [Renvela] 2,400 mg PO QAC 04/15/20 05/15/21 05/15/21 History amLODIPine 10 mg PO DAILY 04/15/20 05/15/21 05/14/21 History traMADoL [Ultram] 50 mg PO Q4HR PRN 05/15/21 05/15/21 05/15/21 History Active Medications: Generic Name Dose Route Start Last Admin Trade Name Freq PRN Reason Stop Dose Admin Acetaminophen 650 mg 05/15/21 12:48 Acetaminophen 650 Mg Rect Supp [place] Q6H PRN Pain, Mild (1-3) Amlodipine Besylate 10 mg 05/15/21 14:00 05/17/21 09:41 Amlodipine 10 Mg Tab PO 10 mg DAILY CHRISTINA Administration Aspirin 325 mg 05/16/21 10:00 05/17/21 09:42 Aspirin Ec 325 Mg Tab PO 325 mg QDAY CHRISTINA Administration Carvedilol 6.25 mg 05/15/21 22:00 05/17/21 09:42 Carvedilol 6.25 Mg Tab PO 6.25 mg BID CHRISTINA Administration Cinacalcet 90 mg 05/16/21 10:00 05/17/21 09:42 Cinacalcet 30 Mg Tab PO 90 mg QDAY CHRISTINA Administration Docusate Sodium 100 mg 05/15/21 12:48 Docusate Sodium 100 Mg Cap PO BID PRN Constipation Heparin Sodium (Porcine) 5,000 unit 05/15/21 22:00 05/17/21 09:44 Heparin 5,000 Unit/1 Ml Vial SUB-Q 5,000 unit Q12HR CHRISTINA Administration Sodium Chloride 100 mls @ 999 mls/hr 05/15/21 14:34 Nacl 0.9% IV RUFUS PRN Hypotension Azithromycin 500 mg in 250 mls @ 250 mls/hr 05/15/21 16:00 05/16/21 17:50 Zithromax/Ns IV 05/19/21 16:59 250 mls/hr Q24H CHRISTINA Administration Ceftriaxone Sodium 2 gm in 100 mls @ 200 mls/hr 05/15/21 16:00 05/16/21 17:35 Rocephin/Ns 2 Gm/100 Ml IV 05/19/21 23:59 200 mls/hr Q24H CHRISTINA Administration Protocol Morphine Sulfate 2 mg 05/15/21 14:43 05/16/21 06:32 Morphine 2 Mg/1 Ml Inj IV 2 mg Q4H PRN Administration Pain, Moderate (4-6) Nitroglycerin 0.4 mg 05/15/21 14:43 Nitroglycerin 0.4 Mg Tab Subl SL .Q5MIN PRN Chest Pain Pantoprazole Sodium 40 mg 05/15/21 14:00 05/17/21 09:42 Pantoprazole 40 Mg Tab PO 40 mg QDAC CHRISTINA Administration Sevelamer Carbonate 800 mg 05/16/21 17:00 05/17/21 08:00 Sevelamer Carbonate 800 Mg Tab PO 800 mg TIDWM CHRISTINA Administration
[2021-05-17] MEDS: MORPHINE 2 MG/1 ML INJ IV PRN (15:30)
[2021-05-17] MEDS: cefTRIAXone/NS 2 GM/100 ML 2 GM/100 ML BAG IV SCH (15:30)
[2021-05-17] MEDS: AZITHROMYCIN/NS 500 MG/250 ML 500 MG/250 ML BAG IV SCH (16:00)
--- NOTE | 2021-05-17 18:08 | Progress Note ---
Assessment and Plan Assessment and plan: --PUI COVID-19 test is negative DC isolation --Community acquired bacterial pneumonia Current Visit: Yes Status: Acute Patient has infiltrate on chest x-ray, leukocytosis, lactic acidosis Continue Rocephin and Zithromax Procalcitonin is high, cultures negative to date Titrate O2 sats to more than 90% Home O2 evaluation at discharge We will get follow-up chest x-ray monitor improvement in pneumonia --Atypical chest pain Current Visit: Yes Status: Acute , Evaluated by cardiology Recent negative stress test No further evaluation by cardiology -- Non-ST elevation MD (NSTEMI) Current Visit: Yes Status: Acute Probably type II due to end-stage renal disease Cardiology evaluated, patient had recent negative stress test No further cardiac work-up needed Nonspecific type II due to ESRD, Continue current cardiac medications aspirin beta-blockers, nitrates and statins, cardiology consult if needed --ESRD (end stage renal disease) on dialysis Current Visit: No Status: Acute Nephrology following Hemodialysis per schedule Avoid nephrotoxins Monitor renal function -- Hypertension Current Visit: Yes Status: Acute Moderate control , continue current antihypertensives As needed hydralazine --Lactic acid acidosis Current Visit: Yes Status: Acute Due to underlying sepsis due to pneumonia treat the underlying cause --Leukocytosis Current Visit: Yes Status: Acute Evaluate for any evidence of sepsis, closely monitor Probably secondary to pneumonia, empiric antibiotics follow cultures --GERD (gastroesophageal reflux disease) Current Visit: Yes Status: Acute Protonix, supportive care --Chronic pain syndrome Current Visit: Yes Status: Acute Pain medications, PT OT if needed Patient will follow with his pain management upon discharge --DVT prophylaxis Current Visit: No Status: Acute Heparin renal dose -- Full code status Current Visit: Yes Status: Acute We will closely monitor the patient and adjust the management as needed Follow the consultants and recommendations Plan of care reviewed with the patient and his nurse -- Tobacco use Current Visit: Yes Status: Acute Plan to address problem: Strongly advised to quit tobacco use, nicotine patch as needed Lap Polisher recommendations noted and appreciated Plan of care reviewed with the patient and his nurse 05/16/2021; COVID-19 test is negative DC isolation 05/17/2021; cardiology cleared for discharge Patient is receiving hemodialysis per nephrology Has community-acquired pneumonia receiving antibiotics Will check follow-up x-ray to monitor improvement History Interval history: I have seen and examined the patient at the bedside Patient's chart and medications reviewed Patient underwent dialysis Denies any chest pain or shortness of breath Receiving antibiotics for his community-acquired pneumonia Vital signs noted Hospitalist Physical - Constitutional Vitals: Temp Pulse Resp BP Pulse Ox 98.0 F 92 H 18 136/81 95 05/17/21 14:40 05/17/21 14:40 05/17/21 14:40 05/17/21 14:40 05/16/21 23:14 General appearance: Present: no acute distress, well-nourished, other (Hard of hearing) - EENT Eyes: Present: PERRL, EOM intact - Neck Neck: Present: supple, normal ROM - Respiratory Respiratory effort: normal Respiratory: bilateral: diminished, rhonchi, negative: rales, wheezing - Cardiovascular Rhythm: regular Heart Sounds: Present: S1 & S2 - Extremities Extremities: no ischemia, No edema - Abdominal General gastrointestinal: soft, non-tender, non-distended, normal bowel sounds - Integumentary Integumentary: Present: clear, warm - Psychiatric Psychiatric: appropriate mood/affect, cooperative - Neurologic Neurologic: CNII-XII intact, moves all extremities HEART Score - HEART Score Troponin: Troponin T 0.084 ng/mL (0.00-0.029) H 05/16/21 05:47 Results - Labs CBC & Chem 7: 05/16/21 05:47 05/16/21 05:47 Labs: Laboratory Last Values WBC 11.4 K/mm3 (4.5-11.0) H 05/16/21 05:47 RBC 3.09 M/mm3 (3.65-5.03) L 05/16/21 05:47 Hgb 10.0 gm/dl (11.8-15.2) L 05/16/21 05:47 Hct 30.0 % (35.5-45.6) L 05/16/21 05:47 MCV 97 fl (84-94) H 05/16/21 05:47 MCH 32 pg (28-32) 05/16/21 05:47 MCHC 33 % (32-34) 05/16/21 05:47 RDW 15.5 % (13.2-15.2) H 05/16/21 05:47 Plt Count 263 K/mm3 (140-440) 05/16/21 05:47 Lymph % (Auto) 4.2 % (13.4-35.0) L 05/15/21 06:38 [place] % (Auto) 7.5 % (0.0-7.3) H 05/15/21 06:38 Eos % (Auto) 0.1 % (0.0-4.3) 05/15/21 06:38 Baso % (Auto) 0.4 % (0.0-1.8) 05/15/21 06:38 Lymph # (Auto) 0.6 K/mm3 (1.2-5.4) L 05/15/21 06:38 [place] # (Auto) 1.1 K/mm3 (0.0-0.8) H 05/15/21 06:38 Eos # (Auto) 0.0 K/mm3 (0.0-0.4) 05/15/21 06:38 Baso # (Auto) 0.1 K/mm3 (0.0-0.1) 05/15/21 06:38 Seg Neutrophils % 87.8 % (40.0-70.0) H 05/15/21 06:38 Seg Neutrophils # 12.6 K/mm3 (1.8-7.7) H 05/15/21 06:38 PT 12.8 Sec. (12.2-14.9) 05/15/21 07:31 INR 0.91 (0.87-1.13) 05/15/21 07:31 APTT 26.5 Sec. (24.2-36.6) 05/15/21 07:31 D-Dimer 459.06 ng/mlDDU (0-234) H 05/15/21 06:38 Sodium 138 mmol/L (137-145) 05/16/21 05:47 Potassium 5.0 mmol/L (3.6-5.0) 05/16/21 05:47 Chloride 98.5 mmol/L (98-107) 05/16/21 05:47 Carbon Dioxide 31 mmol/L (22-30) H 05/16/21 05:47 Anion Gap 14 mmol/L 05/16/21 05:47 BUN 23 mg/dL (9-20) H 05/16/21 05:47 Creatinine 8.0 mg/dL (0.8-1.3) H 05/16/21 05:47 Estimated GFR 8 ml/min 05/16/21 05:47 BUN/Creatinine Ratio 3 % 05/16/21 05:47 Glucose 79 mg/dL (75-100) 05/16/21 05:47 Lactic Acid 3.80 mmol/L (0.7-2.0) H* 05/15/21 07:31 Calcium 10.0 mg/dL (8.4-10.2) 05/16/21 05:47 Total Bilirubin 0.50 mg/dL (0.1-1.2) 05/15/21 07:31 Direct Bilirubin < 0.2 mg/dL (0-0.2) 05/15/21 07:31 Indirect Bilirubin 0.3 mg/dL 05/15/21 07:31 AST 24 units/L (5-40) 05/15/21 07:31 ALT 36 units/L (7-56) 05/15/21 07:31 Alkaline Phosphatase 118 units/L (35-129) 05/15/21 07:31 Total Creatine Kinase 94 units/L (55-170) 05/15/21 16:40 CK-MB (CK-2) 1.5 ng/mL (0.0-4.0) 05/15/21 16:40 CK-MB (CK-2) Rel Index 1.5 (0-4) 05/15/21 16:40 Troponin T 0.084 ng/mL (0.00-0.029) H 05/16/21 05:47 NT-Pro-B Natriuret Pep 8278 pg/mL (0-900) H 05/15/21 07:31 Total Protein 7.0 g/dL (6.3-8.2) 05/15/21 07:31 Albumin 4.0 g/dL (3.9-5) 05/15/21 07:31 Albumin/Globulin Ratio 1.3 % 05/15/21 07:31 Triglycerides 215 mg/dL (2-149) H 05/15/21 06:38 Cholesterol 142 mg/dL (50-199) 05/15/21 06:38 LDL Cholesterol Direct 77 mg/dL (50-130) 05/15/21 06:38 HDL Cholesterol 34 mg/dL (40-59) L 05/15/21 06:38 Cholesterol/HDL Ratio 4.17 % 05/15/21 06:38 Lipase 109 units/L (13-60) H 05/15/21 07:31 Procalcitonin 15.08 ng/mL (<0.15) 05/15/21 16:40 Coronavirus (PCR) Negative (Negative) 05/15/21 Unknown Hepatitis A IgM Ab Non-reactive (NonReactive) 05/15/21 16:40 Hep Bs Antigen Non-reactive (Negative) 05/15/21 16:40 Hep B Core IgM Ab Non-reactive (NonReactive) 05/15/21 16:40 Hepatitis C Antibody Non-reactive (NonReactive) 05/15/21 16:40 Microbiology: Microbiology 05/15/21 07:31 Peripheral/Venous Blood Culture - Preliminary NO GROWTH AFTER 48 HOURS 05/15/21 07:31 Peripheral/Venous Blood Culture - Preliminary NO GROWTH AFTER 48 HOURS Moy/IV: Voiding Method Toilet Active Medications - Current Medications Current Medications: Generic Name Dose Route Start Last Admin Trade Name Freq PRN Reason Stop Dose Admin Acetaminophen 650 mg 05/15/21 12:48 Acetaminophen 650 Mg Rect Supp [place] Q6H PRN Pain, Mild (1-3) Amlodipine Besylate 10 mg 05/15/21 14:00 05/17/21 09:41 Amlodipine 10 Mg Tab PO 10 mg DAILY CHRISTINA Administration Aspirin 325 mg 05/16/21 10:00 05/17/21 09:42 Aspirin Ec 325 Mg Tab PO 325 mg QDAY CHRISTINA Administration Carvedilol 6.25 mg 05/15/21 22:00 05/17/21 09:42 Carvedilol 6.25 Mg Tab PO 6.25 mg BID CHRISTINA Administration Cinacalcet 90 mg 05/16/21 10:00 05/17/21 09:42 Cinacalcet 30 Mg Tab PO 90 mg QDAY CHRISTINA Administration Docusate Sodium 100 mg 05/15/21 12:48 Docusate Sodium 100 Mg Cap PO BID PRN Constipation Heparin Sodium (Porcine) 5,000 unit 05/15/21 22:00 05/17/21 09:44 Heparin 5,000 Unit/1 Ml Vial SUB-Q 5,000 unit Q12HR CHRISTINA Administration Sodium Chloride 100 mls @ 999 mls/hr 05/15/21 14:34 Nacl 0.9% IV RUFUS PRN Hypotension Azithromycin 500 mg in 250 mls @ 250 mls/hr 05/15/21 16:00 05/17/21 16:00 Zithromax/Ns IV 05/19/21 16:59 250 mls/hr Q24H CHRISTINA Administration Ceftriaxone Sodium 2 gm in 100 mls @ 200 mls/hr 05/15/21 16:00 05/17/21 15:30 Rocephin/Ns 2 Gm/100 Ml IV 05/19/21 23:59 200 mls/hr Q24H CHRISTINA Administration Protocol Morphine Sulfate 2 mg 05/15/21 14:43 05/17/21 15:30 Morphine 2 Mg/1 Ml Inj IV 2 mg Q4H PRN Administration Pain, Moderate (4-6) Nitroglycerin 0.4 mg 05/15/21 14:43 Nitroglycerin 0.4 Mg Tab Subl SL .Q5MIN PRN Chest Pain Pantoprazole Sodium 40 mg 05/15/21 14:00 05/17/21 09:42 Pantoprazole 40 Mg Tab PO 40 mg QDAC CHRISTINA Administration Sevelamer Carbonate 800 mg 05/16/21 17:00 05/17/21 17:46 Sevelamer Carbonate 800 Mg Tab PO 800 mg TIDWM CHRISTINA Administration Nutrition/Malnutrition Assess - Dietary Evaluation Nutrition/Malnutrition Findings: Nutrition Notes Start: 05/16/21 15: 09 Freq: Status: Active Protocol: Document 05/17/21 13:31 ZANDER (Rec: 05/17/21 13:35 [id number]) Nutrition Notes Initial or Follow up Assessment Current Diagnosis CKD (stage V CKD),Hypertension Other Pertinent Diagnosis Chest pain, NSTEMI, pneu, r/o COVID-19 Current Diet Renal Labs/Tests Reviewed Pertinent Medications Reviewed Height 5 ft 8 in Weight 88.6 kg [place] Body Weight (kg) 70.00 BMI 29.7 Weight Status Overweight Subjective/Other Information Pt consumed 100% of meals yesterday. Unable to reach pt via phone x 2. Percent of energy/protein needs met: 96% energy 73% pro Burn Absent Trauma Absent #1 Nutrition Diagnosis No nutrition diagnosis at this time As Evidenced by Signs and Symptoms adequate PO intake Is patient on ventilator? No Is Patient Ambulatory and/or Out of Bed Yes REE-([place]-St. Jeor-ambulatory/OOB) [ 2165.150 NUTR.MSJOOB] Calculation Used for Recommendations Lew Pruett Additional Notes Pro needs >1.2g/kg: >106g/day Fluid needs 1-1.5L/day Nutrition Intervention Change Diet Order: Continue current diet order; honor food preferences Goal #1 PO intakes to meet at least 75 % energy and pro needs Anticipated Discharge Needs: None identified at this time Follow-Up By: 05/24/21 Additional Comments F/U: intakes, wt
--- NOTE | 2021-05-17 19:22 | XRay Report ---
XR chest 1V ap INDICATION / CLINICAL INFORMATION: Follow-up pneumonia. COMPARISON: 05/15/2021. FINDINGS: SUPPORT DEVICES: None. HEART /PULMONARY VASCULATURE: The cardiac silhouette is accentuated. There is pulmonary vasculature c ongestion which appears increased. LUNGS / PLEURA: Diffuse increased interstitial opacities. There is worsening left basilar airspace op acity. Trace left pleural effusion. No pneumothorax. ADDITIONAL FINDINGS: No significant additional findings. IMPRESSION: 1. Increased left basilar airspace opacity, concerning for pneumonia. 2. Component of volume overload/CHF with pulmonary edema is suspected. Signer Name: Alessio Kwan MD Signed: 05/17/2021 7:17 PM Workstation Name: [id number]
--- NOTE | 2021-05-17 19:29 | Progress Note ---
Assessment and Plan Assessment and plan: --PUI COVID-19 test is negative DC isolation --Community acquired bacterial pneumonia Current Visit: Yes Status: Acute Patient has infiltrate on chest x-ray, leukocytosis, lactic acidosis Continue Rocephin and Zithromax Procalcitonin is high, cultures negative to date Titrate O2 sats to more than 90% Home O2 evaluation at discharge Follow-up x-ray worsening pneumonia versus pulmonary edema Will consult pulmonary for evaluation We will also consult ID for choice of antibiotics --Atypical chest pain Current Visit: Yes Status: Acute , Evaluated by cardiology Recent negative stress test No further evaluation by cardiology -- Non-ST elevation CT (NSTEMI) Current Visit: Yes Status: Acute Probably type II due to end-stage renal disease Cardiology evaluated, patient had recent negative stress test No further cardiac work-up needed Nonspecific type II due to ESRD, Continue current cardiac medications aspirin beta-blockers, nitrates and statins, cardiology consult if needed --ESRD (end stage renal disease) on dialysis Current Visit: No Status: Acute Nephrology following Hemodialysis per schedule Avoid nephrotoxins Monitor renal function -- Hypertension Current Visit: Yes Status: Acute Moderate control , continue current antihypertensives As needed hydralazine --Lactic acid acidosis Current Visit: Yes Status: Acute Due to underlying sepsis due to pneumonia treat the underlying cause --Leukocytosis Current Visit: Yes Status: Acute Evaluate for any evidence of sepsis, closely monitor Probably secondary to pneumonia, empiric antibiotics follow cultures --GERD (gastroesophageal reflux disease) Current Visit: Yes Status: Acute Protonix, supportive care --Chronic pain syndrome Current Visit: Yes Status: Acute Pain medications, PT OT if needed Patient will follow with his pain management upon discharge --DVT prophylaxis Current Visit: No Status: Acute Heparin renal dose -- Full code status Current Visit: Yes Status: Acute We will closely monitor the patient and adjust the management as needed Follow the consultants and recommendations Plan of care reviewed with the patient and his nurse -- Tobacco use Current Visit: Yes Status: Acute Plan to address problem: Strongly advised to quit tobacco use, nicotine patch as needed Supervisor Cd Area recommendations noted and appreciated Plan of care reviewed with the patient and his nurse Brief history and hospital course; 60-year-old male patient was admitted with shortness shortness of breath and chest pain End-stage renal disease receiving hemodialysis per schedule, COVID-19 test is negative However has community-acquired pneumonia being treated, follow-up chest x-ray sh owed Worsening pneumonia versus fluid overload. Pulmonary evaluation noted and appreciated Check with ID for choice of antibiotics, possible discharge home tomorrow if stable 05/16/2021; COVID-19 test is negative DC isolation 05/17/2021; cardiology cleared for discharge Patient is receiving hemodialysis per nephrology Has community-acquired pneumonia receiving antibiotics Will check follow-up x-ray to monitor improvement 05/18/2021; follow-up chest x-ray worsening pneumonia Versus pulmonary edema, will consult pulmonary for evaluation and recommendations Check with ID for choice of antibiotics Possible discharge home tomorrow if stable History Interval history: I have seen and examined the patient at the bedside Patient's chart and medications reviewed Patient has some vague chest discomfort Follow-up chest x-ray, worsening pneumonia Patient feels better Vital signs noted Hospitalist Physical - Constitutional Vitals: Temp Pulse Resp BP Pulse Ox 99.3 F 95 H 18 143/74 98 05/17/21 15:44 05/17/21 15:44 05/17/21 15:44 05/17/21 15:44 05/17/21 15:44 General appearance: Present: well-nourished, other (Hard of hearing). Absent: no acute distress - EENT Eyes: Present: PERRL, EOM intact - Neck Neck: Present: supple, normal ROM - Respiratory Respiratory effort: normal Respiratory: bilateral: diminished, rales, rhonchi, negative: wheezing - Cardiovascular Rhythm: regular Heart Sounds: Present: S1 & S2 - Extremities Extremities: no ischemia, No edema - Abdominal General gastrointestinal: soft, non-tender, non-distended - Integumentary Integumentary: Present: clear, warm - Psychiatric Psychiatric: appropriate mood/affect, cooperative - Neurologic Neurologic: CNII-XII intact, moves all extremities HEART Score - HEART Score Troponin: Troponin T 0.084 ng/mL (0.00-0.029) H 05/16/21 05:47 Results - Labs CBC & Chem 7: 05/16/21 05:47 05/16/21 05:47 Labs: Laboratory Last Values WBC 11.4 K/mm3 (4.5-11.0) H 05/16/21 05:47 RBC 3.09 M/mm3 (3.65-5.03) L 05/16/21 05:47 Hgb 10.0 gm/dl (11.8-15.2) L 05/16/21 05:47 Hct 30.0 % (35.5-45.6) L 05/16/21 05:47 MCV 97 fl (84-94) H 05/16/21 05:47 MCH 32 pg (28-32) 05/16/21 05:47 MCHC 33 % (32-34) 05/16/21 05:47 RDW 15.5 % (13.2-15.2) H 05/16/21 05:47 Plt Count 263 K/mm3 (140-440) 05/16/21 05:47 Lymph % (Auto) 4.2 % (13.4-35.0) L 05/15/21 06:38 [place] % (Auto) 7.5 % (0.0-7.3) H 05/15/21 06:38 Eos % (Auto) 0.1 % (0.0-4.3) 05/15/21 06:38 Baso % (Auto) 0.4 % (0.0-1.8) 05/15/21 06:38 Lymph # (Auto) 0.6 K/mm3 (1.2-5.4) L 05/15/21 06:38 [place] # (Auto) 1.1 K/mm3 (0.0-0.8) H 05/15/21 06:38 Eos # (Auto) 0.0 K/mm3 (0.0-0.4) 05/15/21 06:38 Baso # (Auto) 0.1 K/mm3 (0.0-0.1) 05/15/21 06:38 Seg Neutrophils % 87.8 % (40.0-70.0) H 05/15/21 06:38 Seg Neutrophils # 12.6 K/mm3 (1.8-7.7) H 05/15/21 06:38 PT 12.8 Sec. (12.2-14.9) 05/15/21 07:31 INR 0.91 (0.87-1.13) 05/15/21 07:31 APTT 26.5 Sec. (24.2-36.6) 05/15/21 07:31 D-Dimer 459.06 ng/mlDDU (0-234) H 05/15/21 06:38 Sodium 138 mmol/L (137-145) 05/16/21 05:47 Potassium 5.0 mmol/L (3.6-5.0) 05/16/21 05:47 Chloride 98.5 mmol/L (98-107) 05/16/21 05:47 Carbon Dioxide 31 mmol/L (22-30) H 05/16/21 05:47 Anion Gap 14 mmol/L 05/16/21 05:47 BUN 23 mg/dL (9-20) H 05/16/21 05:47 Creatinine 8.0 mg/dL (0.8-1.3) H 05/16/21 05:47 Estimated GFR 8 ml/min 05/16/21 05:47 BUN/Creatinine Ratio 3 % 05/16/21 05:47 Glucose 79 mg/dL (75-100) 05/16/21 05:47 Lactic Acid 3.80 mmol/L (0.7-2.0) H* 05/15/21 07:31 Calcium 10.0 mg/dL (8.4-10.2) 05/16/21 05:47 Total Bilirubin 0.50 mg/dL (0.1-1.2) 05/15/21 07:31 Direct Bilirubin < 0.2 mg/dL (0-0.2) 05/15/21 07:31 Indirect Bilirubin 0.3 mg/dL 05/15/21 07:31 AST 24 units/L (5-40) 05/15/21 07:31 ALT 36 units/L (7-56) 05/15/21 07:31 Alkaline Phosphatase 118 units/L (35-129) 05/15/21 07:31 Total Creatine Kinase 94 units/L (55-170) 05/15/21 16:40 CK-MB (CK-2) 1.5 ng/mL (0.0-4.0) 05/15/21 16:40 CK-MB (CK-2) Rel Index 1.5 (0-4) 05/15/21 16:40 Troponin T 0.084 ng/mL (0.00-0.029) H 05/16/21 05:47 NT-Pro-B Natriuret Pep 8278 pg/mL (0-900) H 05/15/21 07:31 Total Protein 7.0 g/dL (6.3-8.2) 05/15/21 07:31 Albumin 4.0 g/dL (3.9-5) 05/15/21 07:31 Albumin/Globulin Ratio 1.3 % 05/15/21 07:31 Triglycerides 215 mg/dL (2-149) H 05/15/21 06:38 Cholesterol 142 mg/dL (50-199) 05/15/21 06:38 LDL Cholesterol Direct 77 mg/dL (50-130) 05/15/21 06:38 HDL Cholesterol 34 mg/dL (40-59) L 05/15/21 06:38 Cholesterol/HDL Ratio 4.17 % 05/15/21 06:38 Lipase 109 units/L (13-60) H 05/15/21 07:31 Procalcitonin 15.08 ng/mL (<0.15) 05/15/21 16:40 Coronavirus (PCR) Negative (Negative) 05/15/21 Unknown Hepatitis A IgM Ab Non-reactive (NonReactive) 05/15/21 16:40 Hep Bs Antigen Non-reactive (Negative) 05/15/21 16:40 Hep B Core IgM Ab Non-reactive (NonReactive) 05/15/21 16:40 Hepatitis C Antibody Non-reactive (NonReactive) 05/15/21 16:40 Microbiology: Microbiology 05/15/21 07:31 Peripheral/Venous Blood Culture - Preliminary NO GROWTH AFTER 48 HOURS 05/15/21 07:31 Peripheral/Venous Blood Culture - Preliminary NO GROWTH AFTER 48 HOURS Moy/IV: Voiding Method Toilet Active Medications - Current Medications Current Medications: Generic Name Dose Route Start Last Admin Trade Name Freq PRN Reason Stop Dose Admin Acetaminophen 650 mg 05/15/21 12:48 Acetaminophen 650 Mg Rect Supp [place] Q6H PRN Pain, Mild (1-3) Amlodipine Besylate 10 mg 05/15/21 14:00 05/17/21 09:41 Amlodipine 10 Mg Tab PO 10 mg DAILY CHRISTINA Administration Aspirin 325 mg 05/16/21 10:00 05/17/21 09:42 Aspirin Ec 325 Mg Tab PO 325 mg QDAY CHRISTINA Administration Carvedilol 6.25 mg 05/15/21 22:00 05/17/21 09:42 Carvedilol 6.25 Mg Tab PO 6.25 mg BID CHRISTINA Administration Cinacalcet 90 mg 05/16/21 10:00 05/17/21 09:42 Cinacalcet 30 Mg Tab PO 90 mg QDAY CHRISTINA Administration Docusate Sodium 100 mg 05/15/21 12:48 Docusate Sodium 100 Mg Cap PO BID PRN Constipation Heparin Sodium (Porcine) 5,000 unit 05/15/21 22:00 05/17/21 09:44 Heparin 5,000 Unit/1 Ml Vial SUB-Q 5,000 unit Q12HR CHRISTINA Administration Sodium Chloride 100 mls @ 999 mls/hr 05/15/21 14:34 Nacl 0.9% IV RUFUS PRN Hypotension Azithromycin 500 mg in 250 mls @ 250 mls/hr 05/15/21 16:00 05/17/21 16:00 Zithromax/Ns IV 05/19/21 16:59 250 mls/hr Q24H CHRISTINA Administration Ceftriaxone Sodium 2 gm in 100 mls @ 200 mls/hr 05/15/21 16:00 05/17/21 15:30 Rocephin/Ns 2 Gm/100 Ml IV 05/19/21 23:59 200 mls/hr Q24H CHRISTINA Administration Protocol Morphine Sulfate 2 mg 05/15/21 14:43 05/17/21 15:30 Morphine 2 Mg/1 Ml Inj IV 2 mg Q4H PRN Administration Pain, Moderate (4-6) Nitroglycerin 0.4 mg 05/15/21 14:43 Nitroglycerin 0.4 Mg Tab Subl SL .Q5MIN PRN Chest Pain Pantoprazole Sodium 40 mg 05/15/21 14:00 05/17/21 09:42 Pantoprazole 40 Mg Tab PO 40 mg QDAC CHRISTINA Administration Sevelamer Carbonate 800 mg 05/16/21 17:00 05/17/21 17:46 Sevelamer Carbonate 800 Mg Tab PO 800 mg TIDWM CHRISTINA Administration Nutrition/Malnutrition Assess - Dietary Evaluation Nutrition/Malnutrition Findings: Nutrition Notes Start: 05/16/21 15:09 Freq: Status: Active Protocol: Document 05/17/21 13:31 ZANDER (Rec: 05/17/21 13:35 ZANDER [id number]) Nutrition Notes Initial or Follow up Assessment Current Diagnosis CKD (stage V CKD),Hypertension Other Pertinent Diagnosis Chest pain, NSTEMI, pneu, r/o COVID-19 Current Diet Renal Labs/Tests Reviewed Pertinent Medications Reviewed Height 5 ft 8 in Weight 88.6 kg [place] Body Weight (kg) 70.00 BMI 29.7 Weight Status Overweight Subjective/Other Information Pt consumed 100% of meals yesterday. Unable to reach pt via phone x 2. Percent of energy/protein needs met: 96% energy 73% pro Burn Absent Trauma Absent #1 Nutrition Diagnosis No nutrition diagnosis at this time As Evidenced by Signs and Symptoms adequate PO intake Is patient on ventilator? No Is Patient Ambulatory and/or Out of Bed Yes REE-([place]-St. Jeor-ambulatory/OOB) [ 2165.150 NUTR.MSJOOB] Calculation Used for Recommendations [place]-St Jeor Additional Notes Pro needs >1.2g/kg: >106g/day Fluid needs 1-1.5L/day Nutrition Intervention Change Diet Order: Continue current diet order; honor food preferences Goal #1 PO intakes to meet at least 75 % energy and pro needs Anticipated Discharge Needs: None identified at this time Follow-Up By: 05/24/21 Additional Comments F/U: intakes, wt
[2021-05-18] MEDS ORDERED: traMADol 50 MG TAB PO ONE (01:45)
[2021-05-18] MEDS: MORPHINE 2 MG/1 ML INJ IV PRN ×2 (02:34→10:32)
[2021-05-18] MEDS: PANTOPRAZOLE 40 MG TAB PO SCH (07:30)
[2021-05-18] MEDS: SEVELAMER CARBONATE 800 MG TAB PO SCH ×3 (08:00→16:46)
--- NOTE | 2021-05-18 09:19 | Progress Note ---
Assessment and Plan Nonspecific elevated troponin s/t to end stage renal disease. normal perfusion thallium stress test 12/2019. LVEF 55-60% 12/2019. Pneumonia no evidence of PE by CTA chest. negative COVID 19 serology test. ESRD Hypertension Tobacco abuse Conservative cardiac management. Subjective Date of service: 05/18/21 Principal diagnosis: shortness of breath Interval history: Patient has no cardiac complaints. Wants to go home. Objective Vital Signs Temp Pulse Resp BP Pulse Ox 05/17/21 21:52 99.3 F 106 H 16 153/80 97 05/17/21 15:44 99.3 F 95 H 18 143/74 98 05/17/21 14:40 98.0 F 92 H 18 136/81 05/17/21 14:20 86 148/75 05/17/21 14:15 86 148/85 05/17/21 14:00 86 145/84 05/17/21 13:45 88 144/68 05/17/21 13:30 88 128/69 05/17/21 13:15 86 131/69 05/17/21 13:00 84 120/64 05/17/21 12:45 82 132/68 05/17/21 12:30 87 125/66 05/17/21 12:15 90 127/73 05/17/21 12:00 88 128/73 05/17/21 11:45 89 135/80 05/17/21 11:30 92 H 138/79 05/17/21 11:15 94 H 149/69 05/17/21 11:00 91 H 136/81 05/17/21 10:50 98.3 F 99 H 18 122/67 - Physical Examination General: No Apparent Distress HEENT: Positive: PERRL Neck: Positive: neck supple, trachea midline Cardiac: Positive: Reg Rate and Rhythm Lungs: Positive: Decreased Breath Sounds Neuro: Positive: Grossly Intact - EKG Sinus rhythms and dysrhythmias: sinus rhythm
[2021-05-18] MEDS: ASPIRIN EC 325 MG TAB PO SCH (10:10)
[2021-05-18] MEDS: carvediloL 6.25 MG TAB PO SCH ×2 (10:10→21:11)
[2021-05-18] MEDS: CINACALCET 30 MG TAB PO SCH (10:10)
[2021-05-18] MEDS: amLODIPine 10 MG TAB PO SCH (10:10)
[2021-05-18] MEDS: HEPARIN 5,000 UNIT/1 ML VIAL SUB-Q SCH ×2 (10:11→21:11)
[2021-05-18] MEDS: AZITHROMYCIN 250 MG TAB PO SCH (11:00)
--- NOTE | 2021-05-18 12:51 | Consultation ---
History of Present Illness Consult date: 05/18/21 Requesting physician: KENDRA MADISON Reason for consult: pneumonia History of present illness: 60 y/o male with known ESRD, HTN admitted several days ago with left shoulder pain, chest pain and shortness of breath. Patient had elevated BNP and troponins. Patient had a CTA done which showed some basilar atelectasis but no focal infiltrate despite CXR reading. Patient has been stable on room air and IMS repeated CXR which rads suggested an area in the lower lobes that could be pneumonia. Pt's white count is improving, no fever and remains on room air. Pulmonary was consulted for worsening pneumonia. Past History Past Medical History: dialysis, ESRD, GERD, hypertension, other (Chronic pain syndrome, chronic back problems scheduled for surgery next week) Past Surgical History: Other (AV graft) Social history: smoking (Occasional tobacco use). denies: alcohol abuse, prescription drug abuse Medications and Allergies Allergies Allergy/AdvReac Type Severity Reaction Status Date / Time No Known Allergies Allergy Unverified 04/15/20 11:37 Home Medications Medication Instructions Recorded Confirmed Last Taken Type Cinacalcet HCl 60 mg PO DAILY 04/15/20 05/15/21 05/14/21 History Sevelamer Carbonate [Renvela] 2,400 mg PO QAC 04/15/20 05/15/21 05/15/21 History amLODIPine 10 mg PO DAILY 04/15/20 05/15/21 05/14/21 History traMADoL [Ultram] 50 mg PO Q4HR PRN 05/15/21 05/15/21 05/15/21 History Active Meds: Active Medications Acetaminophen (Acetaminophen 650 Mg Rect Supp) 650 mg MA Q6H PRN PRN Reason: Pain, Mild (1-3) Amlodipine Besylate (Amlodipine 10 Mg Tab) 10 mg PO DAILY [facility] Last Admin: 05/18/21 10:10 Dose: 10 mg Documented by: Aspirin (Aspirin Ec 325 Mg Tab) 325 mg PO QDAY [facility] Last Admin: 05/18/21 10:10 Dose: 325 mg Documented by: Azithromycin (Azithromycin 250 Mg Tab) 500 mg PO QDAY [facility]; Protocol Stop: 05/19/21 10:01 Carvedilol (Carvedilol 6.25 Mg Tab) 6.25 mg PO BID [facility] Last Admin: 05/18/21 10:10 Dose: 6.25 mg Documented by: Cinacalcet (Cinacalcet 30 Mg Tab) 90 mg PO QDAY [facility] Last Admin: 05/18/21 10:10 Dose: 90 mg Documented by: Docusate Sodium (Docusate Sodium 100 Mg Cap) 100 mg PO BID PRN PRN Reason: Constipation Heparin Sodium (Porcine) (Heparin 5,000 Unit/1 Ml Vial) 5,000 unit SUB-Q Q12HR [facility] Last Admin: 05/18/21 10:11 Dose: 5,000 unit Documented by: Sodium Chloride (Nacl 0.9%) 100 mls @ 999 mls/hr IV RUFUS PRN PRN Reason: Hypotension Ceftriaxone Sodium (Rocephin/Ns 2 Gm/100 Ml) 2 gm in 100 mls @ 200 mls/hr IV Q24H [facility]; Protocol Stop: 05/19/21 23:59 Last Admin: 05/17/21 15:30 Dose: 200 mls/hr Documented by: Morphine Sulfate (Morphine 2 Mg/1 Ml Inj) 2 mg IV Q4H PRN PRN Reason: Pain, Moderate (4-6) Last Admin: 05/18/21 10:32 Dose: 2 mg Documented by: Nitroglycerin (Nitroglycerin 0.4 Mg Tab Subl) 0.4 mg SL .Q5MIN PRN PRN Reason: Chest Pain Pantoprazole Sodium (Pantoprazole 40 Mg Tab) 40 mg PO QDAC [facility] Last Admin: 05/18/21 07:30 Dose: 40 mg Documented by: Sevelamer Carbonate (Sevelamer Carbonate 800 Mg Tab) 800 mg PO TIDWM [facility] Last Admin: 05/18/21 08:00 Dose: 800 mg Documented by: Tramadol HCl (Tramadol 50 Mg Tab) 50 mg PO Q4HR PRN PRN Reason: PAIN Physical Examination Vital signs: Vital Signs Temp Pulse Resp BP Pulse Ox 97.8 F 89 17 75/40 99 05/15/21 06:44 05/15/21 06:44 05/15/21 06:44 05/15/21 06:44 05/15/21 06:44 General appearance: no acute distress, alert Eyes: non-icteric ENT: oropharynx moist Neck: supple Ascultation: Bilateral: rales Results - Laboratory Findings CBC and BMP: 05/16/21 05:47 05/16/21 05:47 PT/INR, D-dimer PT 12.8 Sec. (12.2-14.9) 05/15/21 07:31 INR 0.91 (0.87-1.13) 05/15/21 07:31 D-Dimer 459.06 ng/mlDDU (0-234) H 05/15/21 06:38 Abnormal lab findings: Abnormal Labs 05/15/21 05/15/21 05/15/21 06:38 06:38 06:38 WBC 14.3 H RBC 3.57 L Hgb Hct 34.6 L MCV 97 H MCH 33 H RDW Lymph % (Auto) 4.2 L [place] % (Auto) 7.5 H Lymph # (Auto) 0.6 L [place] # (Auto) 1.1 H Seg Neutrophils % 87.8 H Seg Neutrophils # 12.6 H D-Dimer 459.06 H Sodium 132 L Chloride 91.1 L Carbon Dioxide BUN 28 H Creatinine 10.4 H Lactic Acid Troponin T 0.087 H NT-Pro-B Natriuret Pep Triglycerides 215 H HDL Cholesterol 34 L Lipase 05/15/21 05/15/21 05/15/21 07:31 07:31 10:28 WBC RBC Hgb Hct MCV MCH RDW Lymph % (Auto) [place] % (Auto) Lymph # (Auto) [place] # (Auto) Seg Neutrophils % Seg Neutrophils # D-Dimer Sodium Chloride Carbon Dioxide BUN Creatinine Lactic Acid 3.80 H* Troponin T 0.084 H NT-Pro-B Natriuret Pep 8278 H Triglycerides HDL Cholesterol Lipase 109 H 05/15/21 05/16/21 05/16/21 16:40 05:47 05:47 WBC 11.4 H RBC 3.09 L Hgb 10.0 L Hct 30.0 L MCV 97 H MCH RDW 15.5 H Lymph % (Auto) [place] % (Auto) Lymph # (Auto) [place] # (Auto) Seg Neutrophils % Seg Neutrophils # D-Dimer Sodium Chloride Carbon Dioxide 31 H BUN 23 H Creatinine 8.0 H Lactic Acid Troponin T 0.075 H 0.084 H NT-Pro-B Natriuret Pep Triglycerides HDL Cholesterol Lipase - Diagnostic Findings Chest x-ray: image reviewed Assessment and Plan 60 y/o male with abnormal CXR Given the patients current clinical picture, I do not suspect that he has worsening pneumonia. I do believe his CXR is more consistent with pulmonary edema/volume overload, but once again clinically, he appears stable. I suspect this area on the left lower lobe is atelectasis as he had a right basilar opacity on admission that has "resolved". There is no clinical indication for bronchoscopy or repeat CT of chest. Not sure when his next HD session is but this would likely help the overall appearance of the CXR. At this point, no further recommendations pulabraham martinez. Will sign off.
[2021-05-18] MEDS: cefTRIAXone/NS 2 GM/100 ML 2 GM/100 ML BAG IV SCH (16:46)
[2021-05-18] MEDS: traMADol 50 MG TAB PO PRN ×2 (17:07→21:14)
[2021-05-18] MEDS: ACETAMINOPHEN 325 MG TAB PO PRN ×2 (17:08→21:12)
--- NOTE | 2021-05-18 19:36 | Progress Note ---
Assessment and Plan Assessment - End-stage renal disease on hemodialysis - Hypertension - Anemia of ESRD - Hyperparathyroidism - Hyperphosphatemia - Pneumonia - Chest Pain Recommendations - Continue HD TTS - Monitor labs and volume status daily and assess need for additional dialysis session - Continue home antihypertensives - Hold antihypertensives on hemodialysis days for systolics less than 160 - No indication for Epogen at this time, monitor - Continue Sensipar, change dose to 60 mg - Continue phosphorus binders, increased to 3 tabs with meals - Check PTH and P - ESRD diet with 1.4 g/kg per day protein - Renally dose medication for creatinine clearance less than 15 cc/min - Cardiology note reviewed - Antibiotics as per primary Subjective Date of service: 05/18/21 Principal diagnosis: shortness of breath Interval history: Sitting up in bed. Notes pain controlled with current regimen. Objective - Exam Narrative Exam: General: No acute distress HEENT: Oral mucosa moist Neck: Supple, no JVD Chest: Clear to auscultation bilaterally Heart: RRR, S1 and S2, no pericardial rub Abdomen: Soft, nontender, no renal bruit Extremity: No peripheral cyanosis, edema Neurological: Alert, awake, no asterixis Dermatology: No skin rash Psych: No agitation Musculoskeletal: No joint effusion - Vital Signs Vital signs: Vital Signs - 12hr 05/18/21 15:52 Temperature 98.3 F Pulse Rate 94 H Respiratory 18 Rate Blood Pressure 144/81 O2 Sat by Pulse 97 Oximetry - Lab 05/16/21 05:47 05/16/21 05:47 Most recent lab results Calcium 10.0 mg/dL (8.4-10.2) 05/16/21 05:47 Medications & Allergies - Medications Allergies/Adverse Reactions: Allergies No Known Allergies Allergy (Unverified 04/15/20 11:37) Home Medications: Home Medications Medication Instructions Recorded Confirmed Last Taken Type Cinacalcet HCl 60 mg PO DAILY 04/15/20 05/15/21 05/14/21 History Sevelamer Carbonate [Renvela] 2,400 mg PO QAC 04/15/20 05/15/21 05/15/21 History amLODIPine 10 mg PO DAILY 04/15/20 05/15/21 05/14/21 History traMADoL [Ultram] 50 mg PO Q4HR PRN 05/15/21 05/15/21 05/15/21 History Active Medications: Generic Name Dose Route Start Last Admin Trade Name Freq PRN Reason Stop Dose Admin Acetaminophen 650 mg 05/18/21 17:00 05/18/21 17:08 Acetaminophen 325 Mg Tab PO 650 mg Q4H PRN Administration Pain, Mild (1-3) Amlodipine Besylate 10 mg 05/15/21 14:00 05/18/21 10:10 Amlodipine 10 Mg Tab PO 10 mg DAILY [facility] Administration Aspirin 325 mg 05/16/21 10:00 05/18/21 10:10 Aspirin Ec 325 Mg Tab PO 325 mg QDAY [facility] Administration Azithromycin 500 mg 05/18/21 11:00 05/18/21 11:00 Azithromycin 250 Mg Tab PO 05/19/21 10:01 500 mg QDAY [facility] Administration Protocol Carvedilol 6.25 mg 05/15/21 22:00 05/18/21 10:10 Carvedilol 6.25 Mg Tab PO 6.25 mg BID [facility] Administration Cinacalcet 60 mg 05/18/21 19:34 Cinacalcet 30 Mg Tab PO QDAY [facility] Docusate Sodium 100 mg 05/15/21 12:48 Docusate Sodium 100 Mg Cap PO BID PRN Constipation Heparin Sodium (Porcine) 5,000 unit 05/15/21 22:00 05/18/21 10:11 Heparin 5,000 Unit/1 Ml Vial SUB-Q 5,000 unit Q12HR [facility] Administration Sodium Chloride 100 mls @ 999 mls/hr 05/15/21 14:34 Nacl 0.9% IV RUFUS PRN Hypotension Ceftriaxone Sodium 2 gm in 100 mls @ 200 mls/hr 05/15/21 16:00 05/18/21 16:46 Rocephin/Ns 2 Gm/100 Ml IV 05/19/21 23:59 200 mls/hr Q24H [facility] Administration Protocol Morphine Sulfate 2 mg 05/15/21 14:43 05/18/21 10:32 Morphine 2 Mg/1 Ml Inj IV 2 mg Q4H PRN Administration Pain, Moderate (4-6) Nitroglycerin 0.4 mg 05/15/21 14:43 Nitroglycerin 0.4 Mg Tab Subl SL .Q5MIN PRN Chest Pain Pantoprazole Sodium 40 mg 05/15/21 14:00 05/18/21 07:30 Pantoprazole 40 Mg Tab PO 40 mg QDAC [facility] Administration Sevelamer Carbonate 2,400 mg 05/18/21 19:34 Sevelamer Carbonate 800 Mg Tab PO TIDWM [facility] Tramadol HCl 50 mg 05/18/21 11:30 05/18/21 17:07 Tramadol 50 Mg Tab PO 50 mg Q4HR PRN Administration Pain, Moderate (4-6)
[2021-05-19] MEDS: traMADol 50 MG TAB PO PRN ×6 (00:51→23:20)
[2021-05-19] MEDS: ACETAMINOPHEN 325 MG TAB PO PRN ×6 (00:52→23:21)
[2021-05-19] MEDS: PANTOPRAZOLE 40 MG TAB PO SCH (08:22)
[2021-05-19] MEDS: SEVELAMER CARBONATE 800 MG TAB PO SCH ×3 (08:22→16:50)
--- NOTE | 2021-05-19 09:47 | Progress Note ---
Assessment and Plan #Paroxysmal AF/AFL - new diagnosis #Nonspecific elevated troponin s/t to end stage renal disease. normal perfusion thallium stress test 12/2019. LVEF 55-60% 12/2019; repeat echo 05/15/21 with normal LVEF. #Pneumonia no evidence of PE by CTA chest. negative COVID 19 serology test. #ESRD on HD #Hypertension #Tobacco abuse Will switch to metoprolol 50mg PO BID. Patient reports he does not feel well on coreg. [id number] is 1. Discussed risks/benefits of ASA vs AC; patient prefers AC. Will start eliquis 5mg PO BID. Subjective Date of service: 05/19/21 Principal diagnosis: shortness of breath Interval history: Noted to have paroxysmal AF/AFL (with RVR) on telemetry, currently SR 88. Patient reports history of irregular heart rhythm but has not been on AC before. No CP/SOB. States he is not feeling well on coreg. Objective Vital Signs Temp Pulse Resp BP Pulse Ox 05/18/21 21:44 98.8 F 96 H 20 137/79 92 05/18/21 21:11 94 H 144/81 05/18/21 15:52 98.3 F 94 H 18 144/81 97 - Physical Examination General: No Apparent Distress HEENT: Positive: PERRL Neck: Positive: neck supple, trachea midline Cardiac: Positive: Regular Rate, Regular Rhythm Neuro: Positive: Grossly Intact - EKG Sinus rhythms and dysrhythmias: sinus rhythm
[2021-05-19] MEDS: amLODIPine 10 MG TAB PO SCH ×2 (10:54→14:31)
[2021-05-19] MEDS: ASPIRIN EC 325 MG TAB PO SCH ×2 (10:55→14:31)
[2021-05-19] MEDS: CINACALCET 30 MG TAB PO SCH ×2 (10:55→14:31)
[2021-05-19] MEDS: AZITHROMYCIN 250 MG TAB PO SCH (10:55)
[2021-05-19] MEDS: APIXABAN 5 MG TAB PO SCH ×3 (10:55→21:21)
[2021-05-19] MEDS: METOPROLOL TARTRATE 50 MG TAB PO SCH ×3 (10:55→22:17)
--- NOTE | 2021-05-19 11:46 | Progress Note ---
Assessment and Plan Assessment and Plan Assessment and plan: --PUI COVID-19 test is negative DC isolation --Community acquired bacterial pneumonia Current Visit: Yes Status: Acute Patient has infiltrate on chest x-ray, leukocytosis, lactic acidosis Continue Rocephin and Zithromax Procalcitonin is high, cultures negative to date Titrate O2 sats to more than 90% Home O2 evaluation at discharge Follow-up x-ray worsening pneumonia versus pulmonary edema Will consult pulmonary for evaluation We will also consult ID for choice of antibiotics --Atypical chest pain Current Visit: Yes Status: Acute , Evaluated by cardiology Recent negative stress test No further evaluation by cardiology -- Non-ST elevation MT (NSTEMI) Current Visit: Yes Status: Acute Probably type II due to end-stage renal disease Cardiology evaluated, patient had recent negative stress test No further cardiac work-up needed Nonspecific type II due to ESRD, Continue current cardiac medications aspirin beta-blockers, nitrates and statins, cardiology consult if needed --ESRD (end stage renal disease) on dialysis Current Visit: No Status: Acute Nephrology following Hemodialysis per schedule Avoid nephrotoxins Monitor renal function -- Hypertension Current Visit: Yes Status: Acute Moderate control , continue current antihypertensives As needed hydralazine --Lactic acid acidosis Current Visit: Yes Status: Acute Due to underlying sepsis due to pneumonia treat the underlying cause --Leukocytosis Current Visit: Yes Status: Acute Evaluate for any evidence of sepsis, closely monitor Probably secondary to pneumonia, empiric antibiotics follow cultures --GERD (gastroesophageal reflux disease) Current Visit: Yes Status: Acute Protonix, supportive care --Chronic pain syndrome Current Visit: Yes Status: Acute Pain medications, PT OT if needed Patient will follow with his pain management upon discharge --DVT prophylaxis Current Visit: No Status: Acute Heparin renal dose -- Full code status Current Visit: Yes Status: Acute We will closely monitor the patient and adjust the management as needed Follow the consultants and recommendations Plan of care reviewed with the patient and his nurse Subjective Date of service: 05/19/21 Principal diagnosis: Community-acquired pneumonia, end-stage renal disease Interval history: Brief history and hospital course; 60-year-old male patient was admitted with shortness shortness of breath and chest pain End-stage renal disease receiving hemodialysis per schedule, COVID-19 test is negative However has community-acquired pneumonia being treated, follow-up chest x-ray showed Worsening pneumonia versus fluid overload. Pulmonary evaluation noted and appreciated Check with ID for choice of antibiotics, possible discharge home tomorrow if stable 05/16/2021; COVID-19 test is negative DC isolation 05/17/2021; cardiology cleared for discharge Patient is receiving hemodialysis per nephrology Has community-acquired pneumonia receiving antibiotics Will check follow-up x-ray to monitor improvement 05/18/2021; follow-up chest x-ray worsening pneumonia Versus pulmonary edema, will consult pulmonary for evaluation and recommendations Check with ID for choice of antibiotics 05/19/21 Continue antibiotics for left lower lobe pneumonia Continue hemodialysis Patient has A. fib on metoprolol and amiodarone 05/20/2021 Continue antibiotics continue hemodialysis Continue metoprolol and amiodarone for A. fib History Interval history: I have seen and examined the patient at the bedside Patient's chart and medications reviewed Patient has some vague chest discomfort Follow-up chest x-ray, worsening pneumonia Patient feels better Vital signs noted Objective - Constitutional Vitals: Vital Signs - 12hr 05/19/21 05/19/21 05/19/21 09:57 09:58 10:00 Temperature 98.8 F Pulse Rate 102 H Respiratory 20 20 18 Rate Blood Pressure 154/85 05/19/21 05/19/21 05/19/21 10:15 10:30 10:45 Temperature Pulse Rate 99 H 107 H 92 H Respiratory Rate Blood Pressure 143/91 151/84 155/86 05/19/21 05/19/21 11:00 11:15 Temperature Pulse Rate 91 H 97 H Respiratory Rate Blood Pressure 159/85 157/87 General appearance: Present: no acute distress, well-nourished - EENT Eyes: PERRL, EOM intact ENT: hearing intact, clear oral mucosa Ears: bilateral: normal - Neck Neck: supple, normal ROM - Respiratory Respiratory effort: normal Respiratory: bilateral: CTA - Breasts Breasts: normal - Cardiovascular Heart rate: 75 Rhythm: irregularly irregular Heart Sounds: Present: S1 & S2. Absent: gallop, rub Extremities: pulses intact, No edema, normal color, Full ROM - Gastrointestinal General gastrointestinal: Present: soft, non-tender, non-distended, normal bowel sounds - Genitourinary Male genitourinary: normal - Integumentary Integumentary: clear, warm, dry - Musculoskeletal Musculoskeletal: 1, strength equal bilaterally - Neurologic Neurologic: moves all extremities - Psychiatric Psychiatric: memory intact, appropriate mood/affect, intact judgment & insight - Labs CBC & Chem 7: 05/21/21 07:01 05/19/21 15:16 Labs: Abnormal lab results 05/18/21 Range/Units 19:49 PTH Intact 578.2 H (15-65) pg/mL HEART Score - HEART Score Troponin: Troponin T 0.084 ng/mL (0.00-0.029) H 05/16/21 05:47
--- NOTE | 2021-05-19 13:32 | Consultation ---
History of Present Illness - Reason for Consult Consult date: 05/19/21 Worsening pneumonia Requesting physician: KENDRA MADISON - History of Present Illness 60-year-old male with history of ESRD on hemodialysis, hypertension, asthma, admitted on 05/15/2021 secondary to left-sided chest pain and shoulder pain associated with shortness of breath. Patient denies any fever. On arrival, temperature 97.8, HR 87, BP 75/40. Initial BC 14.3. D-dimer 459. Lactate 3.8. Creatinine 10.4. Procalcitonin 109. Blood culture no growth today. SARS-CoV-2 PCR negative. Chest x-ray with right basilar airspace disease. CTA shows no PE, bibasilar atelectasis, no consolidation. Repeat chest x-ray shows left basilar airspace disease. Review of Systems: positive in bold print General: fever, chills, malaise Cutaneous: rash, pruritus Head: headaches or injury Eyes: changes in vision, eye pain, double vision Ears: ear pain, ear discharge, ringing or hearing loss Nose: nose bleeding, stuffiness Mouth & throat: bleeding gums, horseness, no dental problems, or swollen glands Neck: no pain, node enlargement/lumps, tyroid enlargement or tenderness Respiratory: SOB, cough, BALTAZAR, wheezing, sputum, hemoptysis, pleuritic chest pain Cardiovascular: chest pain, leg edema, cyanosis, BALTAZAR, orthopnea Musculoskeletal: edema, deformities, pain Gastrointestinal: nausea, vomiting, hematemesis, diarrhea, constipation, melena, bright red blood in stools, fecal incontinence, jaundice Genitourinary/Reproductive: frequent urination, dysuria, hematuria, incontinence Neurogical: seizures, headaches, weakness, paresthesias, loss of speech or vision; memory loss, vertigo, tremors, numbness Psychiatric: stable mood; excessive anxiety, sadness or moodiness Past History Past Medical History: dialysis, ESRD, GERD, hypertension, other (Chronic pain syndrome, chronic back problems scheduled for surgery next week) Past Surgical History: Other (AV graft) Social history: smoking (Occasional tobacco use). denies: alcohol abuse, prescription drug abuse Medications and Allergies Allergies Allergy/AdvReac Type Severity Reaction Status Date / Time No Known Allergies Allergy Unverified 04/15/20 11:37 Home Medications Medication Instructions Recorded Confirmed Last Taken Type Cinacalcet HCl 60 mg PO DAILY 04/15/20 05/15/21 05/14/21 History Sevelamer Carbonate [Renvela] 2,400 mg PO QAC 04/15/20 05/15/21 05/15/21 History amLODIPine 10 mg PO DAILY 04/15/20 05/15/21 05/14/21 History traMADoL [Ultram] 50 mg PO Q4HR PRN 05/15/21 05/15/21 05/15/21 History Active Meds: Active Medications Acetaminophen (Acetaminophen 325 Mg Tab) 650 mg PO Q4H PRN PRN Reason: Pain, Mild (1-3) Last Admin: 05/19/21 09:57 Dose: 650 mg Documented by: Amlodipine Besylate (Amlodipine 10 Mg Tab) 10 mg PO DAILY [facility] Last Admin: 05/19/21 10:54 Dose: Not Given Documented by: Apixaban (Apixaban 5 Mg Tab) 5 mg PO Q12HR [facility]; Protocol Last Admin: 05/19/21 10:55 Dose: Not Given Documented by: Aspirin (Aspirin Ec 325 Mg Tab) 325 mg PO QDAY [facility] Last Admin: 05/19/21 10:55 Dose: Not Given Documented by: Cinacalcet (Cinacalcet 30 Mg Tab) 60 mg PO QDAY [facility] Last Admin: 05/19/21 10:55 Dose: Not Given Documented by: Docusate Sodium (Docusate Sodium 100 Mg Cap) 100 mg PO BID PRN PRN Reason: Constipation Sodium Chloride (Nacl 0.9%) 100 mls @ 999 mls/hr IV RUFUS PRN PRN Reason: Hypotension Ceftriaxone Sodium (Rocephin/Ns 2 Gm/100 Ml) 2 gm in 100 mls @ 200 mls/hr IV Q24H [facility]; Protocol Stop: 05/19/21 23:59 Last Admin: 05/18/21 16:46 Dose: 200 mls/hr Documented by: Metoprolol Tartrate (Metoprolol Tartrate 50 Mg Tab) 50 mg PO BID [facility] Last Admin: 05/19/21 10:55 Dose: Not Given Documented by: Morphine Sulfate (Morphine 2 Mg/1 Ml Inj) 2 mg IV Q4H PRN PRN Reason: Pain, Moderate (4-6) Last Admin: 05/18/21 10:32 Dose: 2 mg Documented by: Nitroglycerin (Nitroglycerin 0.4 Mg Tab Subl) 0.4 mg SL .Q5MIN PRN PRN Reason: Chest Pain Pantoprazole Sodium (Pantoprazole 40 Mg Tab) 40 mg PO QDAC [facility] Last Admin: 05/19/21 08:22 Dose: 40 mg Documented by: Sevelamer Carbonate (Sevelamer Carbonate 800 Mg Tab) 2,400 mg PO TIDWM [facility] Last Admin: 05/19/21 08:22 Dose: 2,400 mg Documented by: Tramadol HCl (Tramadol 50 Mg Tab) 50 mg PO Q4HR PRN PRN Reason: Pain, Moderate (4-6) Last Admin: 05/19/21 09:58 Dose: 50 mg Documented by: Physical Examination - Physical Exam Narrative exam: General appearance: Alert in NAD pleasant Eyes: anicteric sclerae, moist conjunctivae; no lid-lag; PERRLA HENT: Normocephalic, Atraumatic; normal external ears, nares open, oropharynx clear with moist mucous membranes and no oral thrush; normal hard and soft palate. Neck: supple, tracheal midline, no JVD Lungs: CTA, with normal respiratory effort and no intercostal retractions CV: RRR no murmur Abdomen: Soft, non-tender; no masses or hepatosplenomegaly Extremities: no edema, no cyanosis Skin: No rash. Psych: no agitated Neuro: alert and oriented x 3. Moving all extermities - Constitutional Vitals: Vital Signs Temp Pulse Resp BP Pulse Ox 98.8 F 95 H 20 154/70 95 05/19/21 10:00 05/19/21 12:30 05/19/21 10:00 05/19/21 12:30 05/19/21 10:00 Temperature -Last 24 Hours Temperature 98.8 F Temperature 98.8 F Temperature 98.3 F Results - Labs CBC & Chem 7: 05/19/21 15:16 05/19/21 15:16 Labs: Abnormal lab results 05/18/21 Range/Units 19:49 PTH Intact 578.2 H (15-65) pg/mL Assessment and Plan Cultures: Blood culture no growth Assessment: 60-year-old male with history of ESRD on hemodialysis, hypertension, asthma, admitted on 05/15/2021 secondary to left-sided chest pain and shoulder pain associated with shortness of breath: #Sepsis: present on admission with hypotension and leukocytosis; source pneumonia. Procalcitonin very elevated, likely falsely elevated due to renal failure. #Presumed bilateral pneumonia: SARS-CoV-2 PCR negative. CTA shows no consolidations. Recommendations: Continue ceftriaxone total 5 days If ready to discharge okay to change to Levaquin renally adjusted total 5 days Will follow. Angela Phan MD Infectious Diseases [facility] M [phone] O [phone]
--- NOTE | 2021-05-19 15:09 | Progress Note ---
Assessment and Plan Assessment - End-stage renal disease on hemodialysis - Hypertension - Anemia of ESRD - Hyperparathyroidism - Hyperphosphatemia - Pneumonia - Chest Pain Recommendations - Continue HD TTS - Monitor labs and volume status daily and assess need for additional dialysis session - Continue home antihypertensives - Hold antihypertensives on hemodialysis days for systolics less than 160 - No indication for Epogen at this time, monitor - Continue Sensipar 60 mg - Continue phosphorus binders, 3 tabs with meals - Check PTH and P periodically - ESRD diet with 1.4 g/kg per day protein - Renally dose medication for creatinine clearance less than 15 cc/min - Cardiology note reviewed - Antibiotics as per primary Subjective Date of service: 05/19/21 Principal diagnosis: shortness of breath Interval history: Sitting up in bed. A fib on telemetry overnight. Objective - Exam Narrative Exam: General: No acute distress HEENT: Oral mucosa moist Neck: Supple, no JVD Chest: Clear to auscultation bilaterally Heart: RRR, S1 and S2, no pericardial rub Abdomen: Soft, nontender, no renal bruit Extremity: No peripheral cyanosis, edema Neurological: Alert, awake, no asterixis Dermatology: No skin rash Psych: No agitation Musculoskeletal: No joint effusion - Vital Signs Vital signs: Vital Signs - 12hr 05/19/21 05/19/21 05/19/21 09:57 09:58 10:00 Temperature 98.8 F Pulse Rate 102 H Respiratory 20 20 18 Rate Respiratory 20 Rate [Left Arm] Blood Pressure 154/85 O2 Sat by Pulse 95 Oximetry 05/19/21 05/19/21 05/19/21 10:15 10:30 10:45 Temperature Pulse Rate 99 H 107 H 92 H Respiratory Rate Respiratory Rate [Left Arm] Blood Pressure 143/91 151/84 155/86 O2 Sat by Pulse Oximetry 05/19/21 05/19/21 05/19/21 11:00 11:15 11:30 Temperature Pulse Rate 91 H 97 H 107 H Respiratory Rate Respiratory Rate [Left Arm] Blood Pressure 159/85 157/87 133/86 O2 Sat by Pulse Oximetry 05/19/21 05/19/21 05/19/21 11:45 12:00 12:15 Temperature Pulse Rate 99 H 100 H 88 Respiratory Rate Respiratory Rate [Left Arm] Blood Pressure 129/78 141/82 127/70 O2 Sat by Pulse Oximetry 05/19/21 05/19/2105/19/21 12:30 14:30 14:31 Temperature Pulse Rate 95 H 100 H Respiratory 20 20 Rate Respiratory Rate [Left Arm] Blood Pressure 154/70 O2 Sat by Pulse Oximetry - Lab 05/16/21 05:47 05/16/21 05:47 Most recent lab results Calcium 10.0 mg/dL (8.4-10.2) 05/16/21 05:47 Phosphorus 3.10 mg/dL (2.5-4.5) 05/18/21 19:49 Medications & Allergies - Medications Allergies/Adverse Reactions: Allergies No Known Allergies Allergy (Unverified 04/15/20 11:37) Home Medications: Home Medications Medication Instructions Recorded Confirmed Last Taken Type Cinacalcet HCl 60 mg PO DAILY 04/15/20 05/15/21 05/14/21 History Sevelamer Carbonate [Renvela] 2,400 mg PO QAC 04/15/20 05/15/21 05/15/21 History amLODIPine 10 mg PO DAILY 04/15/20 05/15/21 05/14/21 History traMADoL [Ultram] 50 mg PO Q4HR PRN 05/15/21 05/15/21 05/15/21 History Active Medications: Generic Name Dose Route Start Last Admin Trade Name Freq PRN Reason Stop Dose Admin Acetaminophen 650 mg 05/18/21 17:00 05/19/21 14:31 Acetaminophen 325 Mg Tab PO 650 mg Q4H PRN Administration Pain, Mild (1-3) Amlodipine Besylate 10 mg 05/15/21 14:00 05/19/21 14:31 Amlodipine 10 Mg Tab PO 10 mg DAILY CHRISTINA Administration Apixaban 5 mg 05/19/21 10:00 05/19/21 14:30 Apixaban 5 Mg Tab PO 5 mg Q12HR CHRISTINA Administration Protocol Aspirin 325 mg 05/16/21 10:00 05/19/21 14:31 Aspirin Ec 325 Mg Tab PO 325 mg QDAY CHRISTINA Administration Cinacalcet 60 mg 05/18/21 19:34 05/19/21 14:31 Cinacalcet 30 Mg Tab PO 60 mg QDAY CHRISTINA Administration Docusate Sodium 100 mg 05/15/21 12:48 Docusate Sodium 100 Mg Cap PO BID PRN Constipation Sodium Chloride 100 mls @ 999 mls/hr 05/15/21 14:34 Nacl 0.9% IV RUFUS PRN Hypotension Ceftriaxone Sodium 2 gm in 100 mls @ 200 mls/hr 05/15/21 16:00 05/18/21 16:46 Rocephin/Ns 2 Gm/100 Ml IV 05/19/21 23:59 200 mls/hr Q24H CHRISTINA Administration Protocol Metoprolol Tartrate 50 mg 05/19/21 10:00 05/19/21 14:31 Metoprolol Tartrate 50 Mg Tab PO 50 mg BID CHRISTINA Administration Morphine Sulfate 2 mg 05/15/21 14:43 05/18/21 10:32 Morphine 2 Mg/1 Ml Inj IV 2 mg Q4H PRN Administration Pain, Moderate (4-6) Nitroglycerin 0.4 mg 05/15/21 14:43 Nitroglycerin 0.4 Mg Tab Subl SL .Q5MIN PRN Chest Pain Pantoprazole Sodium 40 mg 05/15/21 14:00 05/19/21 08:22 Pantoprazole 40 Mg Tab PO 40 mg QDAC CHRISTINA Administration Sevelamer Carbonate 2,400 mg 05/18/21 19:34 05/19/21 14:32 Sevelamer Carbonate 800 Mg Tab PO 2,400 mg TIDWM CHRISTINA Administration Tramadol HCl 50 mg 05/18/21 11:30 05/19/21 14:30 Tramadol 50 Mg Tab PO 50 mg Q4HR PRN Administration Pain, Moderate (4-6)
[2021-05-19 15:46] LABS: Hematocrit 29.9 % (35.5-45.6); Hemoglobin 10.2 gm/dl (11.8-15.2); Mean Corpuscular HGB Conc 34 % (32-34); Mean Corpuscular Volume 98 fl (84-94); Platelet Count 311 K/mm3 (140-440); Red Blood Count 3.06 M/mm3 (3.65-5.03); Red Cell Distribution Width 15.7 % (13.2-15.2)
[2021-05-19 15:53] LABS: INR 0.88 (0.87-1.13)
[2021-05-19 15:54] LABS: Partial Thromboplastin Time 30.1 Sec. (24.2-36.6)
[2021-05-19] MEDS: cefTRIAXone/NS 2 GM/100 ML 2 GM/100 ML BAG IV SCH (18:41)
[2021-05-20] MEDS: traMADol 50 MG TAB PO PRN ×5 (07:10→23:39)
[2021-05-20] MEDS: ACETAMINOPHEN 325 MG TAB PO PRN ×5 (07:10→23:39)
[2021-05-20] MEDS: SEVELAMER CARBONATE 800 MG TAB PO SCH ×3 (09:24→16:33)
[2021-05-20] MEDS: ASPIRIN EC 325 MG TAB PO SCH (09:24)
[2021-05-20] MEDS: CINACALCET 30 MG TAB PO SCH (09:24)
[2021-05-20] MEDS: PANTOPRAZOLE 40 MG TAB PO SCH (09:25)
[2021-05-20] MEDS: APIXABAN 5 MG TAB PO SCH ×2 (09:25→22:00)
[2021-05-20] MEDS: METOPROLOL TARTRATE 50 MG TAB PO SCH ×2 (09:28→22:00)
[2021-05-20] MEDS: amLODIPine 10 MG TAB PO SCH (09:29)
--- NOTE | 2021-05-20 10:36 | Progress Note ---
Assessment and Plan #Paroxysmal AF/AFL - new diagnosis #Nonspecific elevated troponin s/t to end stage renal disease. normal perfusion thallium stress test 12/2019. LVEF 55-60% 12/2019; repeat echo 05/15/21 with normal LVEF. #Pneumonia no evidence of PE by CTA chest. negative COVID 19 serology test. #ESRD on HD #Hypertension #Tobacco abuse Patient is maintaining SR per telemetry. Continue metoprolol 50mg PO BID. Patient did not feel well on coreg. [id number] is 1. Discussed risks/benefits of ASA vs AC; patient prefers AC. Continue eliquis 5mg PO BID. Patient should follow up with EP after discharge. May benefit from AAD therapy if he has recurrent AF. Subjective Date of service: 05/20/21 Principal diagnosis: shortness of breath Interval history: Feels well. No CP/SOB. Tele - maintaining SR since last evening Objective Vital Signs Temp Pulse Resp Resp BP Pulse Ox 05/20/21 09:28 80 123/69 05/20/21 03:32 98.1 F 82 18 127/77 98 05/19/21 22:00 20 95 05/19/21 20:41 98.9 F 85 18 99/45 94 05/19/21 18:46 20 05/19/21 18:45 20 05/19/21 17:07 98.9 F 102 H 18 143/74 97 05/19/21 14:31 100 H 20 05/19/21 14:30 20 05/19/21 13:45 98.3 F 86 18 157/85 05/19/21 13:30 85 150/81 05/19/21 13:15 102 H 151/75 05/19/21 13:00 94 H 133/87 05/19/21 12:45 107 H 124/80 05/19/21 12:30 95 H 154/70 05/19/21 12:15 88 127/70 05/19/21 12:00 100 H 141/82 05/19/21 11:45 99 H 129/78 05/19/21 11:30 107 H 133/86 05/19/21 11:15 97 H 157/87 05/19/21 11:00 91 H 159/85 05/19/21 10:45 92 H 155/86 - Physical Examination General: No Apparent Distress HEENT: Positive: PERRL Neck: Positive: neck supple, trachea midline Neuro: Positive: Grossly Intact - Labs and Meds Coagulation 05/19/21 Range/Units 15:16 PT 12.5 (12.2-14.9) Sec. INR 0.88 (0.87-1.13) APTT 30.1 (24.2-36.6) Sec. CBC 05/19/21 Range/Units 15:16 WBC 7.3 (4.5-11.0) K/mm3 RBC 3.06 L (3.65-5.03) M/mm3 Hgb 10.2 L (11.8-15.2) gm/dl Hct 29.9 L (35.5-45.6) % Plt Count 311 (140-440) K/mm3 Comprehensive Metabolic Panel 05/19/21 Range/Units 15:16 Creatinine 6.5 H (0.8-1.3) mg/dL - EKG Sinus rhythms and dysrhythmias: sinus rhythm
--- NOTE | 2021-05-20 20:05 | Progress Note ---
Assessment and Plan Assessment - End-stage renal disease on hemodialysis - Hypertension - Anemia of ESRD - Hyperparathyroidism - Hyperphosphatemia - Pneumonia - Chest Pain Recommendations - Continue HD TTS - Monitor labs and volume status daily and assess need for additional dialysis session - Continue home antihypertensives - Hold antihypertensives on hemodialysis days for systolics less than 160 - No indication for Epogen at this time, monitor - Continue Sensipar 60 mg - Continue phosphorus binders, 3 tabs with meals - Check PTH and P periodically - ESRD diet with 1.4 g/kg per day protein - Renally dose medication for creatinine clearance less than 15 cc/min - Cardiology note reviewed - Antibiotics as per ID Subjective Date of service: 05/20/21 Principal diagnosis: shortness of breath Interval history: Sitting up in bed. Pain better controlled this morning. Objective - Exam Narrative Exam: General: No acute distress HEENT: Oral mucosa moist Neck: Supple, no JVD Chest: Clear to auscultation bilaterally Heart: RRR, S1 and S2, no pericardial rub Abdomen: Soft, nontender, no renal bruit Extremity: No peripheral cyanosis, edema Neurological: Alert, awake, no asterixis Dermatology: No skin rash Psych: No agitation Musculoskeletal: No joint effusion - Vital Signs Vital signs: Vital Signs - 12hr 05/20/21 05/20/21 05/20/21 09:28 11:10 11:11 Temperature Pulse Rate 80 Respiratory 18 18 Rate Blood Pressure 123/69 O2 Sat by Pulse 98 Oximetry 05/20/21 05/20/21 15:29 16:50 Temperature 98.2 F Pulse Rate 93 H Respiratory 18 18 Rate Blood Pressure 131/76 O2 Sat by Pulse 93 Oximetry - Lab 05/19/21 15:16 05/19/21 15:16 Most recent lab results Calcium 10.0 mg/dL (8.4-10.2) 05/16/21 05:47 Phosphorus 3.10 mg/dL (2.5-4.5) 05/18/21 19:49 Medications & Allergies - Medications Allergies/Adverse Reactions: Allergies No Known Allergies Allergy (Unverified 04/15/20 11:37) Home Medications: Home Medications Medication Instructions Recorded Confirmed Last Taken Type Cinacalcet HCl 60 mg PO DAILY 04/15/20 05/15/21 05/14/21 History Sevelamer Carbonate [Renvela] 2,400 mg PO QAC 04/15/20 05/15/21 05/15/21 History amLODIPine 10 mg PO DAILY 04/15/20 05/15/21 05/14/21 History traMADoL [Ultram] 50 mg PO Q4HR PRN 05/15/21 05/15/21 05/15/21 History Active Medications: Generic Name Dose Route Start Last Admin Trade Name Isaiahq PRN Reason Stop Dose Admin Acetaminophen 650 mg 05/18/21 17:00 05/20/21 19:39 Acetaminophen 325 Mg Tab PO 650 mg Q4H PRN Administration Pain, Mild (1-3) Amlodipine Besylate 10 mg 05/15/21 14:00 05/20/21 09:29 Amlodipine 10 Mg Tab PO Not Given DAILY CHRISTINA Apixaban 5 mg 05/19/21 10:00 05/20/21 09:25 Apixaban 5 Mg Tab PO 5 mg Q12HR CHRISTINA Administration Protocol Aspirin 325 mg 05/16/21 10:00 05/20/21 09:24 Aspirin Ec 325 Mg Tab PO 325 mg QDAY CHRISTINA Administration Cinacalcet 60 mg 05/18/21 19:34 05/20/21 09:24 Cinacalcet 30 Mg Tab PO 60 mg QDAY CHRISTINA Administration Docusate Sodium 100 mg 05/15/21 12:48 Docusate Sodium 100 Mg Cap PO BID PRN Constipation Sodium Chloride 100 mls @ 999 mls/hr 05/15/21 14:34 Nacl 0.9% IV RUFUS PRN Hypotension Metoprolol Tartrate 50 mg 05/19/21 10:00 05/20/21 09:28 Metoprolol Tartrate 50 Mg Tab PO Not Given BID CHRISTINA Morphine Sulfate 2 mg 05/15/21 14:43 05/18/21 10:32 Morphine 2 Mg/1 Ml Inj IV 2 mg Q4H PRN Administration Pain, Moderate (4-6) Nitroglycerin 0.4 mg 05/15/21 14:43 Nitroglycerin 0.4 Mg Tab Subl SL .Q5MIN PRN Chest Pain Pantoprazole Sodium 40 mg 05/15/21 14:00 05/20/21 09:25 Pantoprazole 40 Mg Tab PO 40 mg QDAC CHRISTINA Administration Sevelamer Carbonate 2,400 mg 05/18/21 19:34 05/20/21 16:33 Sevelamer Carbonate 800 Mg Tab PO 2,400 mg TIDWM CHRISTINA Administration Tramadol HCl 50 mg 05/18/21 11:30 05/20/21 19:40 Tramadol 50 Mg Tab PO 50 mg Q4HR PRN Administration Pain, Moderate (4-6)
[2021-05-21] MEDS: traMADol 50 MG TAB PO PRN ×4 (03:39→17:26)
[2021-05-21] MEDS: ACETAMINOPHEN 325 MG TAB PO PRN ×4 (03:39→17:26)
[2021-05-21 07:18] LABS: Hematocrit 27.3 % (35.5-45.6); Hemoglobin 9.3 gm/dl (11.8-15.2); Mean Corpuscular HGB Conc 34 % (32-34); Mean Corpuscular Volume 98 fl (84-94); Platelet Count 313 K/mm3 (140-440); Red Blood Count 2.78 M/mm3 (3.65-5.03); Red Cell Distribution Width 15.6 % (13.2-15.2)
[2021-05-21] MEDS: CINACALCET 30 MG TAB PO SCH (09:25)
[2021-05-21] MEDS: ASPIRIN EC 325 MG TAB PO SCH (09:25)
[2021-05-21] MEDS: PANTOPRAZOLE 40 MG TAB PO SCH (09:25)
[2021-05-21] MEDS: SEVELAMER CARBONATE 800 MG TAB PO SCH ×3 (09:25→17:21)
[2021-05-21] MEDS: METOPROLOL TARTRATE 50 MG TAB PO SCH (09:26)
[2021-05-21] MEDS: APIXABAN 5 MG TAB PO SCH (09:26)
[2021-05-21] MEDS: amLODIPine 10 MG TAB PO SCH (09:26)
--- NOTE | 2021-05-21 09:54 | Progress Note ---
Assessment and Plan Assessment - End-stage renal disease on hemodialysis - Atrial fibrillation - Community acquired pneumonia --COVID 19 negative - Hypertension - Anemia of ESRD - Secondary hyperparathryoidism - Chest Pain Recommendations - Continue HD TTS - Monitor labs and volume status daily and assess need for additional dialysis session - Cardiology recommendations reviewed - Rate control/anticoagulation per primary team - Abx per primary team/ID - Continue home antihypertensives - Renal/dialysis diet - Continue binders w/ meals - Renally dose medication for creatinine clearance less than 15 cc/min Subjective Date of service: 05/21/21 Principal diagnosis: Community-acquired pneumonia, end-stage renal disease Objective - Vital Signs Vital signs: Vital Signs - 12hr 05/20/21 05/20/21 05/21/21 21:57 22:00 04:28 Temperature 98.3 F Pulse Rate 92 H 91 H 85 Respiratory 20 Rate Blood Pressure 141/69 141/69 124/74 O2 Sat by Pulse 100 100 Oximetry 05/21/21 05/21/21 04:38 09:26 Temperature 98.3 F Pulse Rate 106 H Respiratory 20 Rate Blood Pressure 153/78 O2 Sat by Pulse Oximetry - Lab 05/21/21 07:01 05/19/21 15:16 Most recent lab results Calcium 10.0 mg/dL (8.4-10.2) 05/16/21 05:47 Phosphorus 3.10 mg/dL (2.5-4.5) 05/18/21 19:49 Medications & Allergies - Medications Allergies/Adverse Reactions: Allergies No Known Allergies Allergy (Unverified 04/15/20 11:37) Home Medications: Home Medications Medication Instructions Recorded Confirmed Last Taken Type Cinacalcet HCl 60 mg PO DAILY 04/15/20 05/15/21 05/14/21 History Sevelamer Carbonate [Renvela] 2,400 mg PO QAC 04/15/20 05/15/21 05/15/21 History amLODIPine 10 mg PO DAILY 04/15/20 05/15/21 05/14/21 History traMADoL [Ultram] 50 mg PO Q4HR PRN 05/15/21 05/15/21 05/15/21 History Active Medications: Generic Name Dose Route Start Last Admin Trade Name Freq PRN Reason Stop Dose Admin Acetaminophen 650 mg 05/18/21 17:00 05/21/21 07:45 Acetaminophen 325 Mg Tab PO 650 mg Q4H PRN Administration Pain, Mild (1-3) Amlodipine Besylate 10 mg 05/15/21 14:00 05/21/21 09:26 Amlodipine 10 Mg Tab PO 10 mg DAILY CHRISTINA Administration Apixaban 5 mg 05/19/21 10:00 05/21/21 09:26 Apixaban 5 Mg Tab PO 5 mg Q12HR CHRISTINA Administration Protocol Aspirin 325 mg 05/16/21 10:00 05/21/21 09:25 Aspirin Ec 325 Mg Tab PO 325 mg QDAY CHRISTINA Administration Cinacalcet 60 mg 05/18/21 19:34 05/21/21 09:25 Cinacalcet 30 Mg Tab PO 60 mg QDAY CHRISTINA Administration Docusate Sodium 100 mg 05/15/21 12:48 Docusate Sodium 100 Mg Cap PO BID PRN Constipation Sodium Chloride 100 mls @ 999 mls/hr 05/15/21 14:34 Nacl 0.9% IV RUFUS PRN Hypotension Metoprolol Tartrate 50 mg 05/19/21 10:00 05/21/21 09:26 Metoprolol Tartrate 50 Mg Tab PO 50 mg BID CHRISTINA Administration Morphine Sulfate 2 mg 05/15/21 14:43 05/18/21 10:32 Morphine 2 Mg/1 Ml Inj IV 2 mg Q4H PRN Administration Pain, Moderate (4-6) Nitroglycerin 0.4 mg 05/15/21 14:43 Nitroglycerin 0.4 Mg Tab Subl SL .Q5MIN PRN Chest Pain Pantoprazole Sodium 40 mg 05/15/21 14:00 05/21/21 09:25 Pantoprazole 40 Mg Tab PO 40 mg QDAC CHRISTINA Administration Sevelamer Carbonate 2,400 mg 05/18/21 19:34 05/21/21 09:25 Sevelamer Carbonate 800 Mg Tab PO 2,400 mg TIDWM CHRISTINA Administration Tramadol HCl 50 mg 05/18/21 11:30 05/21/21 07:46 Tramadol 50 Mg Tab PO 50 mg Q4HR PRN Administration Pain, Moderate (4-6)
[2021-05-21] MEDS ORDERED: EPOETIN ALFA-EPBX 10,000 UNIT/1 ML VIAL IV PRN (11:02)
--- NOTE | 2021-05-21 12:05 | Progress Note ---
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 He is currently back in atrial fibrillation. He is on Eliquis and metoprolol, we will add amiodarone for further management of atrial fibrillation. Subjective Date of service: 05/21/21 Principal diagnosis: Community-acquired pneumonia, end-stage renal disease Interval history: Patient is currently on bedrest, comfortably no acute distress. However the fisheries specialist shows a recurrence of atrial fibrillation, heart rate is 110s. Objective Vital Signs Temp Pulse Resp BP Pulse Ox 05/21/21 09:26 106 H 153/78 05/21/21 04:38 98.3 F 20 05/21/21 04:28 85 124/74 100 05/20/21 22:00 91 H 141/69 05/20/21 21:57 98.3 F 92 H 20 141/69 100 05/20/21 16:50 98.2 F 93 H 18 131/76 93 05/20/21 15:29 18 - Physical Examination General: No Apparent Distress HEENT: Positive: PERRL Neck: Positive: neck supple, trachea midline Cardiac: Positive: irregularly irregular Lungs: Positive: Decreased Breath Sounds Neuro: Positive: Grossly Intact Abdomen: Positive: Soft Skin: Positive: Clear Extremities: Absent: edema - Labs and Meds CBC 05/21/21 Range/Units 07:01 WBC 10.6 (4.5-11.0) K/mm3 RBC 2.78 L (3.65-5.03) M/mm3 Hgb 9.3 L (11.8-15.2) gm/dl Hct 27.3 L (35.5-45.6) % Plt Count 313 (140-440) K/mm3 - EKG Sinus rhythms and dysrhythmias: sinus rhythm
[2021-05-21] MEDS ORDERED: AMIODARONE 200 MG TAB PO SCH (12:30)
--- NOTE | 2021-05-21 14:19 | Event Note ---
Date: 05/21/21 Off the floor, completed antibiotics. Afebrile and on room air as per chart review. ID will sign off. Please call with questions.
--- NOTE | 2021-05-21 15:43 | Progress Note ---
Assessment and Plan Assessment and Plan --PUI COVID-19 test is negative DC isolation --Community acquired bacterial pneumonia Current Visit: Yes Status: Acute Continue IV antibiotics --Atypical chest pain Current Visit: Yes Status: Acute , Evaluated by cardiology Recent negative stress test No further evaluation by cardiology -- Non-ST elevation HI (NSTEMI) Current Visit: Yes Status: Acute Probably type II due to end-stage renal disease Cardiology evaluated, patient had recent negative stress test No further cardiac work-up needed Nonspecific type II due to ESRD, Continue current cardiac medications aspirin beta-blockers, nitrates and statins, cardiology consult if needed --ESRD (end stage renal disease) on dialysis Current Visit: No Status: Acute Nephrology following Hemodialysis per schedule Avoid nephrotoxins Monitor renal function -- Hypertension Current Visit: Yes Status: Acute Moderate control , continue current antihypertensives As needed hydralazine --Lactic acid acidosis Current Visit: Yes Status: Acute Due to underlying sepsis due to pneumonia treat the underlying cause --Leukocytosis Current Visit: Yes Status: Acute Evaluate for any evidence of sepsis, closely monitor Probably secondary to pneumonia, empiric antibiotics follow cultures --GERD (gastroesophageal reflux disease) Current Visit: Yes Status: Acute Protonix, supportive care --Chronic pain syndrome Current Visit: Yes Status: Acute Pain medications, PT OT if needed Patient will follow with his pain management upon discharge --DVT prophylaxis Current Visit: No Status: Acute Heparin renal dose -- Full code status Current Visit: Yes Status: Acute We will closely monitor the patient and adjust the management as needed Follow the consultants and recommendations Plan of care reviewed with the patient and his nurse Subjective Date of service: 05/20/21 Principal diagnosis: Community-acquired pneumonia, end-stage renal disease Interval history: Brief history and hospital course; 60-year-old male patient was admitted with shortness shortness of breath and chest pain End-stage renal disease receiving hemodialysis per schedule, COVID-19 test is negative However has community-acquired pneumonia being treated, follow-up chest x-ray showed Worsening pneumonia versus fluid overload. Pulmonary evaluation noted and appreciated Check with ID for choice of antibiotics, possible discharge home tomorrow if stable 05/16/2021; COVID-19 test is negative DC isolation 05/17/2021; cardiology cleared for discharge Patient is receiving hemodialysis per nephrology Has community-acquired pneumonia receiving antibiotics Will check follow-up x-ray to monitor improvement 05/18/2021; follow-up chest x-ray worsening pneumonia Versus pulmonary edema, will consult pulmonary for evaluation and recommendations Check with ID for choice of antibiotics 05/19/2021 IV antibiotics for left lower lobe pneumonia Continue metoprolol and amiodarone and Eliquis for A. fib Continue hemodialysis for end-stage renal disease History Interval history: I have seen and examined the patient at the bedside Patient's chart and medications reviewed Patient has some vague chest discomfort Follow-up chest x-ray, worsening pneumonia Patient feels better Vital signs noted Objective - Constitutional Vitals: Vital Signs - 12hr 05/21/21 05/21/21 05/21/21 04:28 04:38 09:26 Temperature 98.3 F Pulse Rate 85 106 H Respiratory 20 Rate Blood Pressure 124/74 153/78 O2 Sat by Pulse 100 Oximetry General appearance: Present: no acute distress, well-nourished - EENT Eyes: PERRL, EOM intact ENT: hearing intact, clear oral mucosa Ears: bilateral: normal - Neck Neck: supple, normal ROM - Respiratory Respiratory effort: normal Respiratory: bilateral: CTA - Breasts Breasts: normal - Cardiovascular Heart rate: 78 Rhythm: irregularly irregular Heart Sounds: Present: S1 & S2. Absent: gallop, rub Extremities: pulses intact, No edema, normal color, Full ROM - Gastrointestinal General gastrointestinal: Present: soft, non-tender, non-distended, normal bowel sounds - Genitourinary Male genitourinary: normal - Integumentary Integumentary: clear, warm, dry - Musculoskeletal Musculoskeletal: 1, strength equal bilaterally - Neurologic Neurologic: moves all extremities - Psychiatric Psychiatric: memory intact, appropriate mood/affect, intact judgment & insight - Labs CBC & Chem 7: 05/21/21 07:01 05/19/21 15:16 Labs: Abnormal lab results 05/21/21 Range/Units 07:01 RBC 2.78 L (3.65-5.03) M/mm3 Hgb 9.3 L (11.8-15.2) gm/dl Hct 27.3 L (35.5-45.6) % MCV 98 H (84-94) fl MCH 34 H (28-32) pg RDW 15.6 H (13.2-15.2) % HEART Score - HEART Score Troponin: Troponin T 0.084 ng/mL (0.00-0.029) H 05/16/21 05:47
--- NOTE | 2021-05-21 16:36 | Discharge Summary ---
Providers - Providers Date of Admission: 05/15/21 10:32 Date of discharge: 05/21/21 Attending physician: ENRIQUE DESIR 05/15/21 13:30 Consult to Physician [CONS] Routine Comment: Consulting Provider: TATI ONEAL Physician Instructions: Reason For Exam: ESRD on HD 05/15/21 14:38 Consult to Physician [CONS] Routine Comment: Pt of Dr John Consulting Provider: BABS WHITFIELD Physician Instructions: Reason For Exam: Chest pain/non-ST elevation ME/ESRD/risk factors 05/18/21 11:09 Consult to Physician [CONS] Routine Comment: Consulting Provider: ESTUARDO BARKLEY Physician Instructions: Reason For Exam: Worsening pneumonia/Covid negative Primary care physician: PAID SEARCH MANAGER Hospitalization Condition: Fair Hospital course: Subjective Date of service: 05/21/21 Principal diagnosis: Community-acquired pneumonia, end-stage renal disease Interval history: Brief history and hospital course; 60-year-old male patient was admitted with shortness shortness of breath and chest pain End-stage renal disease receiving hemodialysis per schedule, COVID-19 test is negative However has community-acquired pneumonia being treated, follow-up chest x-ray showed Worsening pneumonia versus fluid overload. Pulmonary evaluation noted and appreciated Check with ID for choice of antibiotics, possible discharge home tomorrow if stable 05/16/2021; COVID-19 test is negative DC isolation 05/17/2021; cardiology cleared for discharge Patient is receiving hemodialysis per nephrology Has community-acquired pneumonia receiving antibiotics Will check follow-up x-ray to monitor improvement 05/18/2021; follow-up chest x-ray worsening pneumonia Versus pulmonary edema, will consult pulmonary for evaluation and recommendations Check with ID for choice of antibiotics 05/19/2021 IV antibiotics for left lower lobe pneumonia Continue metoprolol and amiodarone and Eliquis for A. fib Continue hemodialysis for end-stage renal disease 05/20/21 IV abx HD Eliquis,Metoprolol,and Amiodarone 05/21/21 Had HD today Doing well Assessment and Plan --PUI COVID-19 test is negative DC isolation --Community acquired bacterial pneumonia Current Visit: Yes Status: Acute Continue IV antibiotics --Atypical chest pain Current Visit: Yes Status: Acute , Evaluated by cardiology Recent negative stress test No further evaluation by cardiology -- Non-ST elevation ME (NSTEMI) Current Visit: Yes Status: Acute Probably type II due to end-stage renal disease Cardiology evaluated, patient had recent negative stress test No further cardiac work-up needed Nonspecific type II due to ESRD, Continue current cardiac medications aspirin beta-blockers, nitrates and statins, cardiology consult if needed --ESRD (end stage renal disease) on dialysis Current Visit: No Status: Acute Nephrology following Hemodialysis per schedule Avoid nephrotoxins Monitor renal function -- Hypertension Current Visit: Yes Status: Acute Moderate control , continue current antihypertensives As needed hydralazine --Lactic acid acidosis Current Visit: Yes Status: Acute Due to underlying sepsis due to pneumonia treat the underlying cause --Leukocytosis Current Visit: Yes Status: Acute Evaluate for any evidence of sepsis, closely monitor Probably secondary to pneumonia, empiric antibiotics follow cultures --GERD (gastroesophageal reflux disease) Current Visit: Yes Status: Acute Protonix, supportive care --Chronic pain syndrome Current Visit: Yes Status: Acute Pain medications, PT OT if needed Patient will follow with his pain management upon discharge --DVT prophylaxis Current Visit: No Status: Acute Heparin renal dose -- Full code status Current Visit: Yes Status: Acute We will closely monitor the patient and adjust the management as needed Follow the consultants and recommendations Plan of care reviewed with the patient and his nurse Disposition: DC-01 TO HOME OR SELFCARE Final Discharge Diagnosis (Prints w/discharge instructions): LLL pneumonia. ESRD on HD. Htn. A Fib - Discharge Diagnoses (1) Community acquired bacterial pneumonia Status: Acute (2) Elevated troponin Status: Acute (3) Hypertension Status: Acute (4) ESRD (end stage renal disease) on dialysis Status: Acute (5) DVT prophylaxis Status: Acute Core Measure Documentation - Palliative Care Palliative Care/ Comfort Measures: Not Applicable - Core Measures Any of the following diagnoses?: none Exam - Constitutional Vitals: Temp Pulse Resp BP Pulse Ox 98.3 F 106 H 20 153/78 100 05/21/21 04:38 05/21/21 09:26 05/21/21 04:38 05/21/21 09:26 05/21/21 04:28 General appearance: Present: no acute distress, well-nourished - EENT Eyes: Present: PERRL ENT: hearing intact, clear oral mucosa - Neck Neck: Present: supple, normal ROM - Respiratory Respiratory effort: normal Respiratory: bilateral: CTA - Cardiovascular Heart rate: 78 Rhythm: irregularly irregular Heart Sounds: Present: S1 & S2. Absent: rub, click - Extremities Extremities: pulses symmetrical, No edema Peripheral Pulses: within normal limits - Abdominal General gastrointestinal: Present: soft, non-tender, non-distended, normal bowel sounds Male genitourinary: Present: normal - Integumentary Integumentary: Present: clear, warm, dry - Musculoskeletal Musculoskeletal: gait normal, strength equal bilaterally - Psychiatric Psychiatric: appropriate mood/affect, intact judgment & insight - Neurologic Neurologic: CNII-XII intact, moves all extremities - Allied Health Allied health notes reviewed: nursing, case management Plan Activity: no restrictions Diet: renal Follow up with: PRIMARY CARE, [Primary Care Provider] - 3-5 Days
[2021-05-21 17:16] VITALS: BP 137/78
[2021-05-22] MEDS ORDERED: EPOETIN ALFA-EPBX 10,000 UNIT/1 ML VIAL IV PRN (06:00)
== END 2021-05-21 18:50 | disposition home or self-care (01) | DRG 871 ==
LOC: ED 06:27 → 3A 10:32
PROVIDERS: ADMIT Internal Medicine; ATTEND Internal Medicine
PROC: 5A1D70Z Performance of Urinary Filtration, Intermittent, Less than 6 Hours Per Day (ICD-10-PCS; principal; 2021-05-15)
PROC: 5A1D70Z Performance of Urinary Filtration, Intermittent, Less than 6 Hours Per Day (ICD-10-PCS; 2021-05-17)
PROC: 5A1D70Z Performance of Urinary Filtration, Intermittent, Less than 6 Hours Per Day (ICD-10-PCS; 2021-05-19)
PROC: 5A1D70Z Performance of Urinary Filtration, Intermittent, Less than 6 Hours Per Day (ICD-10-PCS; 2021-05-21)
DX: A41.9 Sepsis, unspecified organism (principal); J15.9 Unspecified bacterial pneumonia; I21.A1 Myocardial infarction type 2; N18.6 End stage renal disease; I13.2 Hypertensive heart and chronic kidney disease with heart failure and with stage 5 chronic kidney disease, or end stage renal disease; E87.2 Acidosis; N25.81 Secondary hyperparathyroidism of renal origin; E83.39 Other disorders of phosphorus metabolism; I48.0 Paroxysmal atrial fibrillation; D63.1 Anemia in chronic kidney disease; G89.4 Chronic pain syndrome; F17.290 Nicotine dependence, other tobacco product, uncomplicated; K21.9 Gastro-esophageal reflux disease without esophagitis; I50.9 Heart failure, unspecified; Z20.822 Contact with and (suspected) exposure to COVID-19; Z99.2 Dependence on renal dialysis; Z71.6 Tobacco abuse counseling
CPT/HCPCS: 36415; 71045; 71046; 71275; 80048; 80061; 80074; 80076; 82140; 82550; 82553; 82565; 83690; 83880; 83970; 84100; 84145; 84484; 85025; 85027; 85379; 85610; 85730; 87040; 93005; 93306; 96374; 99406; G0378; J0456; J0692; J0696; J0885; J1644; J2270; Q0162; Q9967; U0003

== ENCOUNTER 2021-07-27 22:49 | Inpatient (IN) | payer MEDICARE ==
--- NOTE | 2021-07-27 23:02 | Emergency Department Report ---
ED Shortness of Breath HPI - General Chief Complaint: Dyspnea/Respdistress Stated Complaint: OSCAR/COVID POSITIVE Time Seen by Provider: 07/27/21 22:57 Source: patient Mode of arrival: Wheelchair Limitations: No Limitations - History of Present Illness Initial Comments: Patient is a 61-year-old male who presents emergency room with complaints of cough, shortness of breath, fever, chills. Patient states his symptoms been going on for a week and he tested yesterday and his COVID-19 test came back positive. Patient states he was diagnosed at an urgent care. Patient states he has not received any treatment. Patient states his symptoms are worsening. Patient states has been monitoring his oxygen saturation at home and his oxygen saturation has been 80 to 85% for the past 4 days. Patient states his shortness of breath better with rest and worse with exertion and movement. Patient denies recent travel. Patient denies recent international travel. Patient denies exposure to the novel coronavirus. Patient denies sick contacts. Patient denies loss of smell. Patient denies diarrhea. Patient denies coming in contact with anybody with symptoms of the novel coronavirus. Patient states he is not vaccinated against COVID-19. MD Complaint: shortness of breath, cough -: Sudden, days(s) Severity: severe Consistency: constant Improves With: rest Worsens With: movement Context: recent URI Associated Symptoms: fever, cough - Related Data Previous Rx's Medication Instructions Recorded Last Taken Type Amiodarone [Cordarone 200 MG TAB] 200 mg PO BID #60 tablet 05/21/21 Unknown Rx Apixaban [Eliquis] 5 mg PO Q12HR #60 tablet 05/21/21 Unknown Rx Aspirin EC [Ecotrin] 325 mg PO QDAY #30 tablet 05/21/21 Unknown Rx Cinacalcet HCl 60 mg PO DAILY #30 05/21/21 Unknown Rx Cinacalcet [Sensipar] 60 mg PO QDAY #30 tablet 05/21/21 Unknown Rx Metoprolol [Lopressor TAB] 50 mg PO BID #60 tablet 05/21/21 Unknown Rx Pantoprazole [Protonix TAB] 40 mg PO QDAC #30 tablet 05/21/21 Unknown Rx Sevelamer Carbonate [Renvela] 2,400 mg PO TIDWM #90 tablet 05/21/21 Unknown Rx amLODIPine 10 mg PO DAILY #30 05/21/21 Unknown Rx traMADoL [Ultram 50 MG tab] 50 mg PO BID PRN #30 tablet 05/21/21 Unknown Rx Allergies Allergy/AdvReac Type Severity Reaction Status Date / Time No Known Allergies Allergy Unverified 04/15/20 11:37 ED Review of Systems ROS: Stated complaint: OSCAR/COVID POSITIVE Other details as noted in HPI Constitutional: chills, fever, malaise Eyes: denies: eye pain, eye discharge, vision change ENT: denies: ear pain, throat pain Respiratory: see HPI, cough, shortness of breath, SOB with exertion, SOB at rest. denies: wheezing Cardiovascular: denies: chest pain, palpitations Endocrine: no symptoms reported Gastrointestinal: denies: abdominal pain, nausea, diarrhea Genitourinary: denies: urgency, dysuria Musculoskeletal: denies: back pain, joint swelling, arthralgia Skin: denies: rash, lesions Neurological: denies: headache, weakness, paresthesias Psychiatric: denies: anxiety, depression Hematological/Lymphatic: denies: easy bleeding, easy bruising ED Past Medical Hx - Past Medical History Previous Medical History?: Yes Hx Hypertension: Yes Hx Heart Attack/AMI: No Hx Congestive Heart Failure: No Hx Diabetes: No Hx Liver Disease: No Hx Renal Disease: Yes (HD -W-) Hx Sickle Cell Disease: No Hx Seizures: No Hx Asthma: Yes (childhood ) Hx COPD: No Additional medical history: peritoneal dialysis (M/W/) - Surgical History Past Surgical History?: Yes Hx Pacemaker: No Hx Internal Defibrillator: No Additional Surgical History: Right arm fistula, Peritoneal catheter - Family History Family history: no significant - Social History Smoking Status: Current Every Day Smoker Substance Use Type: None - Medications Home Medications: Home Medications Medication Instructions Recorded Confirmed Last Taken Type Amiodarone [Cordarone 200 MG TAB] 200 mg PO BID #60 tablet 05/21/21 Unknown Rx Apixaban [Eliquis] 5 mg PO Q12HR #60 tablet 05/21/21 Unknown Rx Aspirin EC [Ecotrin] 325 mg PO QDAY #30 tablet 05/21/21 Unknown Rx Cinacalcet HCl 60 mg PO DAILY #30 05/21/21 Unknown Rx Cinacalcet [Sensipar] 60 mg PO QDAY #30 tablet 05/21/21 Unknown Rx Metoprolol [Lopressor TAB] 50 mg PO BID #60 tablet 05/21/21 Unknown Rx Pantoprazole [Protonix TAB] 40 mg PO QDAC #30 tablet 05/21/21 Unknown Rx Sevelamer Carbonate [Renvela] 2,400 mg PO TIDWM #90 tablet 05/21/21 Unknown Rx amLODIPine 10 mg PO DAILY #30 05/21/21 Unknown Rx traMADoL [Ultram 50 MG tab] 50 mg PO BID PRN #30 tablet 05/21/21 Unknown Rx ED Physical Exam - General Limitations: No Limitations General appearance: alert, in no apparent distress - Head Head exam: Present: atraumatic, normocephalic - Eye Eye exam: Present: normal appearance - ENT ENT exam: Present: mucous membranes dry - Neck Neck exam: Present: normal inspection - Respiratory Respiratory exam: Present: decreased breath sounds. Absent: respiratory distress, wheezes, rales - Cardiovascular Cardiovascular Exam: Present: regular rate, normal rhythm. Absent: systolic murmur, diastolic murmur, rubs, gallop - GI/Abdominal GI/Abdominal exam: Present: soft, normal bowel sounds - Rectal Rectal exam: Present: deferred - Extremities Exam Extremities exam: Present: normal inspection - Back Exam Back exam: Present: normal inspection - Neurological Exam Neurological exam: Present: alert, oriented X3 - Psychiatric Psychiatric exam: Present: normal affect, normal mood - Skin Skin exam: Present: warm, dry, intact, normal color. Absent: rash ED Course Vital Signs 07/27/21 07/27/21 07/27/21 22:57 23:00 23:59 Temperature 102.4 F H 100.5 F H Pulse Rate 125 H 122 H Respiratory 16 20 18 Rate Blood Pressure 147/74 145/77 O2 Sat by Pulse 83 L 82 L 97 Oximetry - Reevaluation(s) Reevaluation #1: Patient oxygen saturation is better on oxygen. Patient is currently on 4 L. Patient's ox saturation is 96%. 07/27/21 23:15 Reevaluation #2: I discussed all results with patient. I discussed plan of care with patient. Patient agrees with plan of care and admission. Patient to be admitted to the hospitalist service. 07/28/21 00:51 - Consultations Consultation #1: Hospitalist consulted for admission. Hospitalist to admit patient. 07/28/21 00:51 ED Medical Decision Making - Lab Data Result diagrams: 07/27/21 23:14 07/27/21 23:14 - EKG Data -: EKG Interpreted by Me EKG shows normal: sinus rhythm, axis, intervals, QRS complexes, ST-T waves Rate: tachycardia - Radiology Data Radiology results: report reviewed, image reviewed interpreted by me: Chest x-ray: Bilateral pneumonia, no pneumothorax, no foreign body, no osseous findings, - Medical Decision Making Patient is a 61-year-old male who presents emergency room with complaints of shortness of breath, cough fever and hypoxia. Patient is checking his oxygen saturation at home. Patient oxygenation is 80 to 83% at home. Patient had a positive outpatient Covid test done yesterday. Patient evaluated in a Covid panel and shortness of breath work-up was initiated. Patient had labs. Patient's labs are consistent with end-stage renal disease. Patient has a normal WBC. Patient given antibiotics, Decadron after initial evaluation. Patient found to be febrile and tachycardic. Patient had a chest x-ray which showed bilateral pneumonia. I personally reviewed the chest x-ray. Some of patient's Covid panel is pending and the patient's Covid panel was followed by the hospitalist service. Patient made to the hospital service for further evaluation and treatment. Critical care time documented due to the multiple reassessments, prolonged time at the bedside, interpretation of diagnostics and labs. - Differential Diagnosis Covid, shortness of breath, fever, chills, hypoxia Critical Care Time: Yes Critical care time in (mins) excluding proc time.: 35 Critical care attestation.: If time is entered above; I have spent that time in minutes in the direct care of this critically ill patient, excluding procedure time. Critical Care Time: 35 minutes ED Disposition Clinical Impression: ESRD (end stage renal disease) on dialysis, COVID-19, Shortness of breath, Hypoxia, SIRS (systemic inflammatory response syndrome) Respiratory failure Qualifiers: Chronicity: acute Respiratory failure complication: hypoxia Qualified Code(s): J96.01 - Acute respiratory failure with hypoxia Pneumonia Qualifiers: Pneumonia type: due to unspecified organism Laterality: bilateral Lung location: unspecified part of lung Qualified Code(s): J18.9 - Pneumonia, unspecified organism Fever Qualifiers: Fever type: unspecified Qualified Code(s): R50.9 - Fever, unspecified Disposition: 09 ADMITTED INPATIENT Is pt being admited?: Yes Does the pt Need Aspirin: No Condition: Critical Instructions: Bacterial Pneumonia (ED) Time of Disposition: 00:56
[2021-07-27] MEDS ORDERED: cefTRIAXone/NS 2 GM/100 ML 2 GM/100 ML BAG IV ONE (23:04)
[2021-07-27] MEDS ORDERED: dexAMETHasone 4 MG/ML VIAL IV ONE (23:04)
[2021-07-27] MEDS ORDERED: AZITHROMYCIN/NS 500 MG/250 ML 500 MG/250 ML BAG IV ONE (23:04)
[2021-07-27 23:34] LABS: Hematocrit 31.4 % (35.5-45.6); Mean Corpuscular HGB Conc 32 % (32-34); Mean Corpuscular Volume 86 fl (84-94); Platelet Count 349 K/mm3 (140-440); Red Blood Count 3.67 M/mm3 (3.65-5.03); Red Cell Distribution Width 22.7 % (13.2-15.2)
[2021-07-27 23:56] LABS: Albumin 3.2 g/dL (3.9-5); Calcium 9.1 mg/dL (8.4-10.2)
--- NOTE | 2021-07-28 01:27 | History and Physical Report ---
History of Present Illness Date of examination: 07/28/21 Date of admission: 07/28/21 Chief complaint: shortness of breath History of present illness: This is a 61-year-old male seen in the ED at bedside. he presents to emergency room with complaints of cough, shortness of breath, fever, chills. Patient states his symptoms been going on for a week and he tested yesterday and his COVID-19 test came back positive. Patient states he was diagnosed at an urgent care. Patient states he has not received any treatment. Patient states his symptoms are worsening. Patient states has been monitoring his oxygen saturation at home and his oxygen saturation has been 80 to 85% for the past 4 days. On assessment, patient has shortness of breath. He is on oxygen at 4 L nasal cannula with O2 sat of 99%. I reviewed patient medication record vital signs and radiology report. Chest x-ray done severe multifocal airspace pneumonia throughout the both lungs. Patient admits tobacco use, but denies chronic alcohol or illicit use. Past History Past Medical History: ESRD, hypertension, hyperlipidemia, renal failure Past Surgical History: No surgical history Social history: full code. denies: alcohol abuse, prescription drug abuse Family history: no significant family history Medications and Allergies Allergies Allergy/AdvReac Type Severity Reaction Status Date / Time No Known Allergies Allergy Unverified 04/15/20 11:37 Home Medications Medication Instructions Recorded Confirmed Last Taken Type Amiodarone [Cordarone 200 MG TAB] 200 mg PO BID #60 tablet 05/21/21 Unknown Rx Apixaban [Eliquis] 5 mg PO Q12HR #60 tablet 05/21/21 Unknown Rx Aspirin EC [Ecotrin] 325 mg PO QDAY #30 tablet 05/21/21 Unknown Rx Cinacalcet HCl 60 mg PO DAILY #30 05/21/21 Unknown Rx Cinacalcet [Sensipar] 60 mg PO QDAY #30 tablet 05/21/21 Unknown Rx Metoprolol [Lopressor TAB] 50 mg PO BID #60 tablet 05/21/21 Unknown Rx Pantoprazole [Protonix TAB] 40 mg PO QDAC #30 tablet 05/21/21 Unknown Rx Sevelamer Carbonate [Renvela] 2,400 mg PO TIDWM #90 tablet 05/21/21 Unknown Rx amLODIPine 10 mg PO DAILY #30 05/21/21 Unknown Rx traMADoL [Ultram 50 MG tab] 50 mg PO BID PRN #30 tablet 05/21/21 Unknown Rx Review of Systems Constitutional: anorexia, fatigue, weakness, malaise Ears, nose, mouth and throat: other (Hard of hearing), no epistaxis, no bleeding gums Cardiovascular: shortness of breath, dyspnea on exertion Respiratory: cough, shortness of breath, respiratory infections Gastrointestinal: nausea, no melena Integumentary: no rash, no pruritis Neurological: no vertigo, no headaches Psychiatric: anxiety, other (H) Hematologic/Lymphatic: no easy bruising, no easy bleeding, no lymphadenopathy, no lymphedema Allergic/Immunologic: no urticaria, no allergic rhinitis Exam - Constitutional Vitals: Temp Pulse Resp BP Pulse Ox 100.5 F H 122 H 18 145/77 97 07/27/21 23:00 07/27/21 23:00 07/27/21 23:59 07/27/21 23:00 07/27/21 23:59 General appearance: Present: mild distress, well-nourished - EENT Eyes: Present: PERRL ENT: hearing intact, clear oral mucosa - Neck Neck: Present: supple, normal ROM - Respiratory Respiratory effort: other (Shortness of breath requiring oxygen) Respiratory: bilateral: CTA - Cardiovascular Heart Sounds: Present: S1 & S2. Absent: rub, click - Extremities Extremities: pulses symmetrical, No edema Peripheral Pulses: within normal limits - Abdominal General gastrointestinal: Present: soft, non-tender, non-distended, normal bowel sounds Male genitourinary: Present: normal - Integumentary Integumentary: Present: clear, warm, dry - Musculoskeletal Musculoskeletal: gait normal, strength equal bilaterally - Psychiatric Psychiatric: appropriate mood/affect, intact judgment & insight - Neurologic Neurologic: CNII-XII intact, moves all extremities HEART Score - HEART Score Troponin: Troponin T 0.110 ng/mL (0.00-0.029) H* 07/27/21 23:14 Results - Labs CBC & Chem 7: 07/27/21 23:14 07/28/21 00:36 Labs: Abnormal lab results 07/27/21 07/27/21 07/28/21 Range/Units 23:14 23:14 00:36 Hgb 10.0 L (11.8-15.2) gm/dl Hct 31.4 L (35.5-45.6) % MCH 27 L (28-32) pg RDW 22.7 H (13.2-15.2) % D-Dimer 2270.91 H (0-234) ng/mlDDU Chloride 93.2 L (98-107) mmol/L Creatinine 6.7 H (0.8-1.3) mg/dL AST 50 H (5-40) units/L Troponin T 0.110 H* (0.00-0.029) ng/mL Albumin 3.2 L (3.9-5) g/dL Assessment and Plan - Patient Problems (1) COVID-19 Current Visit: Yes Status: Acute Plan to address problem: Airborne and contact isolation for Covid protocol Bronchodilator and oxygen supplement as needed Patient is on oxygen at 4 L O2 sat 99% on the monitor Infectious disease and cofounder consult Ascorbic acid, zinc sulfate, vitamin D supplement and systemic steroid Encourage the use of incentive spirometer and prone position. Empiric antibioticazithromycin and Rocephin (2) Acute respiratory failure with hypoxia Current Visit: Yes Status: Acute Plan to address problem: Bronchodilator and oxygen supplement ABG monitor oxygen saturation Plastic Manager has been consulted (3) Elevated d-dimer Current Visit: Yes Status: Acute Plan to address problem: Elevated D-dimerVQ scan orderedpatient has reduced kidney function Continue home Eliquis (4) ESRD (end stage renal disease) on dialysis Current Visit: Yes Status: Acute Plan to address problem: Director Education consultfollow-up with plan of care Monitor kidney function and electrolytes (5) Elevated troponin Current Visit: No Status: Acute Plan to address problem: Unknown causerenal ischemiakidney failure Trend troponin Patient is on Eliquis (6) Pneumonia Current Visit: Yes Status: Acute Qualifiers: Pneumonia type: due to unspecified organism Laterality: bilateral Lung location: unspecified part of lung Qualified Code(s): J18.9 - Pneumonia, un specified organism Plan to address problem: Chest x-ray done severe multifocal airspace pneumonia throughout the both lungs Pneumonia likely secondary to Covid infection Patient is on empiric antibiotic ID and cofounder have been consulted (7) DVT prophylaxis Current Visit: No Status: Acute Plan to address problem: Patient is on Eliquis
[2021-07-28] MEDS ORDERED: ALUM-MAG HYDROXIDE-SIMETHICONE 200-200-20MG/5ML ORAL LIQD 30 ML PO PRN (01:28)
[2021-07-28] MEDS ORDERED: MORPHINE 4 MG/1 ML INJ IV PRN (01:28)
[2021-07-28] MEDS ORDERED: MORPHINE 2 MG/1 ML INJ IV PRN (01:28)
[2021-07-28] MEDS ORDERED: ALPRAZolam 0.25 MG TAB PO PRN (01:28)
[2021-07-28] MEDS ORDERED: NALOXONE 0.4 MG/1 ML INJ IV PRN (01:28)
[2021-07-28] MEDS ORDERED: METOCLOPRAMIDE 10 MG/2 ML INJ IV PRN (01:28)
[2021-07-28] MEDS ORDERED: ONDANSETRON 4 MG/2 ML INJ IV PRN (01:28)
[2021-07-28] MEDS ORDERED: SENNOSIDES 8.6 MG TAB PO PRN (01:28)
[2021-07-28] MEDS ORDERED: MAGNESIUM HYDROXIDE (MOM) ORAL LIQD UDC PO PRN (01:28)
[2021-07-28] MEDS ORDERED: ACETAMINOPHEN 325 MG TAB PO PRN (01:28)
[2021-07-28 02:26] LABS: Chol/HDL Ratio 4.6 %
[2021-07-28 03:05] LABS: C-Reactive Protein 14.5 mg/dL (0.00-1.30)
--- NOTE | 2021-07-28 03:27 | XRay Report ---
CHEST 1 VIEW INDICATION / CLINICAL INFORMATION: Dyspnea. FINDINGS: SUPPORT DEVICES: None. HEART / MEDIASTINUM: No significant abnormality. LUNGS / PLEURA: Severe multifocal airspace pneumonia throughout both lungs. Signer Name: Mich Rudolph MD Signed: 07/28/2021 3:22 AM Workstation Name: [id number]
[2021-07-28 05:52] LABS: Total Cells Counted 100
[2021-07-28 05:53] LABS: Anisocytosis 1+
[2021-07-28 05:54] LABS: Platelet Estimate Consistent w Auto; Schistocytes Few
[2021-07-28] MEDS: SEVELAMER CARBONATE 800 MG TAB PO SCH ×3 (08:22→18:45)
[2021-07-28] MEDS: METOPROLOL TARTRATE 50 MG TAB PO SCH ×2 (08:22→18:45)
[2021-07-28] MEDS: oxyCODONE /ACETAMINOPHEN 5-325MG TAB PO PRN (08:42)
--- NOTE | 2021-07-28 10:04 | Consultation ---
History of Present Illness Consult date: 07/28/21 Consult reason: elevated troponin History of present illness: 61-year-old male presented with signs and symptoms of cough fever chills and shortness of breath his currently COVID-19 test positive oxygen saturation on nasal cannula oxygen is 99% patient serum troponin level slightly elevatede cardiology consult is requested Past History Past Medical History: ESRD, hypertension, hyperlipidemia, renal failure Past Surgical History: No surgical history Social history: full code. denies: alcohol abuse, prescription drug abuse Family history: no significant family history Medications and Allergies Allergies Allergy/AdvReac Type Severity Reaction Status Date / Time No Known Allergies Allergy Unverified 04/15/20 11:37 Home Medications Medication Instructions Recorded Confirmed Last Taken Type Amiodarone [Cordarone 200 MG TAB] 200 mg PO BID #60 tablet 05/21/21 Unknown Rx Apixaban [Eliquis] 5 mg PO Q12HR #60 tablet 05/21/21 Unknown Rx Aspirin EC [Ecotrin] 325 mg PO QDAY #30 tablet 05/21/21 Unknown Rx Cinacalcet HCl 60 mg PO DAILY #30 05/21/21 Unknown Rx Cinacalcet [Sensipar] 60 mg PO QDAY #30 tablet 05/21/21 Unknown Rx Metoprolol [Lopressor TAB] 50 mg PO BID #60 tablet 05/21/21 Unknown Rx Pantoprazole [Protonix TAB] 40 mg PO QDAC #30 tablet 05/21/21 Unknown Rx Sevelamer Carbonate [Renvela] 2,400 mg PO TIDWM #90 tablet 05/21/21 Unknown Rx amLODIPine 10 mg PO DAILY #30 05/21/21 Unknown Rx traMADoL [Ultram 50 MG tab] 50 mg PO BID PRN #30 tablet 05/21/21 Unknown Rx Active Meds: Active Medications Acetaminophen (Acetaminophen 325 Mg Tab) 650 mg PO Q4H PRN PRN Reason: Pain MILD(1-3)/Fever >100.5/JOHN Al Hydrox/Mg Hydrox/Simethicone (Alum-Mag Hydroxide-Simethicone [phone]/5ml Oral Liqd 30 Ml) 30 ml PO Q4H PRN PRN Reason: Indigestion Alprazolam (Alprazolam 0.25 Mg Tab) 0.125 mg PO Q8H PRN PRN Reason: Anxiety Amiodarone HCl (Amiodarone 200 Mg Tab) 200 mg PO BID [facility] Amlodipine Besylate (Amlodipine 10 Mg Tab) 10 mg PO DAILY [facility] Apixaban (Apixaban 5 Mg Tab) 5 mg PO Q12HR [facility] Ascorbic Acid (Ascorbic Acid 500 Mg Tab) 500 mg PO QDAY [facility] Cholecalciferol (Cholecalciferol (Vit D3) 1000 Unit (25 Mcg) Tab) 1,000 unit PO QDAY [facility] Cinacalcet (Cinacalcet 30 Mg Tab) 60 mg PO QDAY [facility] Dexamethasone (Dexamethasone 4 Mg/Ml Vial) 6 mg IV DAILY [facility] Stop: 08/06/21 10:01 Famotidine (Famotidine 20 Mg Tab) 20 mg PO QAM [facility] Ceftriaxone Sodium (Rocephin/Ns 2 Gm/100 Ml) 2 gm in 100 mls @ 200 mls/hr IV Q24HR [facility]; Protocol Azithromycin (Zithromax/Ns) 500 mg in 250 mls @ 250 mls/hr IV Q24HR [facility]; Protocol Magnesium Hydroxide (Magnesium Hydroxide (Mom) Oral Liqd Udc) 30 ml PO Q4H PRN PRN Reason: Constipation Metoclopramide HCl (Metoclopramide 10 Mg/2 Ml Inj) 5 mg IV Q6H PRN PRN Reason: Nausea And Vomiting Metoprolol Tartrate (Metoprolol Tartrate 50 Mg Tab) 50 mg PO BID@0800,1700 [facility] Last Admin: 07/28/21 08:22 Dose: 50 mg Documented by: Morphine Sulfate (Morphine 2 Mg/1 Ml Inj) 2 mg IV Q4H PRN PRN Reason: Pain, Moderate (4-6) Morphine Sulfate (Morphine 4 Mg/1 Ml Inj) 4 mg IV Q4H PRN PRN Reason: Pain , Severe (7-10) Naloxone HCl (Naloxone 0.4 Mg/1 Ml Inj) 0.1 mg IV Q2MIN PRN PRN Reason: Res Rate </= 8 or 02 SAT < 92% Ondansetron HCl (Ondansetron 4 Mg/2 Ml Inj) 4 mg IV Q8H PRN PRN Reason: Nausea And Vomiting Oxycodone/Acetaminophen (Oxycodone /Acetaminophen 5-325mg Tab) 1 tab PO Q6H PRN PRN Reason: Pain, Moderate (4-6) Last Admin: 07/28/21 08:42 Dose: 1 tab Documented by: Senna (Sennosides 8.6 Mg Tab) 8.6 mg PO Q12HR PRN PRN Reason: Constipation Sevelamer Carbonate (Sevelamer Carbonate 800 Mg Tab) 2,400 mg PO TIDWM [facility] Last Admin: 07/28/21 08:22 Dose: 2,400 mg Documented by: Sodium Chloride (Sodium Chloride 0.9% 10 Ml Flush Syringe) 10 ml IV BID [facility] Sodium Chloride (Sodium Chloride 0.9% 10 Ml Flush Syringe) 10 ml IV PRN PRN PRN Reason: LINE FLUSH Tramadol HCl (Tramadol 50 Mg Tab) 50 mg PO BID PRN PRN Reason: Pain, Moderate (4-6) Zinc Sulfate (Zinc Sulfate 220 Mg Cap) 220 mg PO QDAY [facility] Review of Systems Constitutional: chills, sweats, anorexia, fatigue, weakness, malaise, poor appetite Ears, nose, mouth and throat: no deferred, no ear pain, no ear discharge, no tinnitis Cardiovascular: shortness of breath, no chest pain, no orthopnea, no palpitations, no syncope Respiratory: cough, cough with sputum, shortness of breath Gastrointestinal: no abdominal pain, no nausea, no vomiting, no melena Genitourinary Male: no dysuria, no flank pain, no discharge, no urinary frequency, no urinary hesitancy Musculoskeletal: no neck stiffness, no neck pain, no shooting arm pain, no low back pain Integumentary: no rash, no pruritis, no redness, no lesions Neurological: no weakness, no parathesias, no numbness, no change in speech, no change in mentation Psychiatric: no anxiety, no memory loss Endocrine: no cold intolerance, no heat intolerance, no polyphagia, no excessive thirst, no polydipsia, no polyuria, no nocturia Hematologic/Lymphatic: no easy bruising, no easy bleeding Allergic/Immunologic: no urticaria, no allergic rhinitis, no wheezing Physical Examination Vital Signs Temp Pulse Resp BP Pulse Ox 102.4 F H 125 H 16 147/74 83 L 07/27/21 22:57 07/27/21 22:57 07/27/21 22:57 07/27/21 22:57 07/27/21 22:57 HEENT: Positive: PERRL, Normocephaly, Mucus Membranes Moist Neck: Negative: neck supple, JVD/HJR Cardiac: Positive: Regular Rate, S1/S2, PMI, Dilated, Laterally Displaced. Negative: S3, S4 Lungs: Positive: clear to auscultation, No Wheeze, Rales, Rhonchi Neuro: Negative: Grossly Intact Abdomen: Positive: Unremarkable Extremities: Absent: edema Results 07/27/21 23:14 07/28/21 00:36 Cardiac Enzymes 07/27/21 07/28/21 Range/Units 23:14 00:36 AST 50 H (5-40) units/L Lactate Dehydrogenase 418 H (91-180) units/L Lipids 07/27/21 Range/Units 23:14 Triglycerides 187 H (2-149) mg/dL Cholesterol 152 (50-199) mg/dL HDL Cholesterol 33 L (40-59) mg/dL Cholesterol/HDL Ratio 4.60 % CBC 07/27/21 Range/Units 23:14 WBC 6.4 (4.5-11.0) K/mm3 RBC 3.67 (3.65-5.03) M/mm3 Hgb 10.0 L (11.8-15.2) gm/dl Hct 31.4 L (35.5-45.6) % Plt Count 349 (140-440) K/mm3 Comprehensive Metabolic Panel 07/27/21 07/28/21 Range/Units 23:14 00:36 Sodium 138 (137-145) mmol/L Potassium 3.6 (3.6-5.0) mmol/L Chloride 93.2 L (98-107) mmol/L Carbon Dioxide 26 (22-30) mmol/L BUN 17 (9-20) mg/dL Creatinine 6.7 H (0.8-1.3) mg/dL Glucose 85 79 (75-100) mg/dL Calcium 9.1 (8.4-10.2) mg/dL AST 50 H (5-40) units/L ALT 23 (7-56) units/L Alkaline Phosphatase 127 (35-129) units/L Total Protein 7.0 (6.3-8.2) g/dL Albumin 3.2 L (3.9-5) g/dL EKG interpretations - Telemetry EKG Rhythm: Sinus Rhythm Assessment and Plan 1. Acute Covid-19 viral pneumonia 2. History of paroxysmal Atrial Fib 3. Essential Hypertension 4. ESRD Plan Patient is stable and noemi resume home cardiac meds. Treatment of viral pneumonia as per Hospitalist
[2021-07-28] MEDS: amLODIPine 10 MG TAB PO SCH (10:26)
[2021-07-28] MEDS: APIXABAN 5 MG TAB PO SCH ×2 (10:27→22:38)
[2021-07-28] MEDS: ZINC SULFATE 220 MG CAP PO SCH (10:30)
[2021-07-28] MEDS: ASCORBIC ACID 500 MG TAB PO SCH (10:30)
[2021-07-28] MEDS: CHOLECALCIFEROL (VIT D3) 1000 UNIT (25 mcg) TAB PO SCH (10:30)
[2021-07-28] MEDS: cefTRIAXone/NS 2 GM/100 ML 2 GM/100 ML BAG IV SCH (10:32)
[2021-07-28] MEDS: AZITHROMYCIN/NS 500 MG/250 ML 500 MG/250 ML BAG IV SCH (10:32)
[2021-07-28] MEDS: FAMOTIDINE 20 MG TAB PO SCH (10:32)
[2021-07-28] MEDS: dexAMETHasone 4 MG/ML VIAL IV SCH (10:33)
--- NOTE | 2021-07-28 10:34 | Nuclear Medicine Report ---
NUCLEAR MEDICINE PERFUSION LUNG SCAN INDICATION / CLINICAL INFORMATION: elevated d-dimer. TECHNIQUE: 5.2 mCi of Tc-99m MAA were given by IV. COMPARISON: Chest radiograph dated 07/27/2021. FINDINGS: PERFUSION: No significant perfusion defects. ADDITIONAL FINDINGS: None. IMPRESSION: 1. Low probability for pulmonary embolism. Signer Name: Alessio Kwan MD Signed: 07/28/2021 10:30 AM Workstation Name: [id number]
[2021-07-28] MEDS: CINACALCET 30 MG TAB PO SCH (12:21)
[2021-07-28] MEDS: AMIODARONE 200 MG TAB PO SCH ×2 (12:23→22:38)
--- NOTE | 2021-07-28 14:35 | Consultation ---
History of Present Illness - History of Present Illness This is a 61-year-old male seen in the ED at bedside. he presents to emergency room with complaints of cough, shortness of breath, fever, chills. Patient states his symptoms been going on for a week and he tested yesterday and his COVID-19 test came back positive. Patient states he was diagnosed at an urgent care. Patient states he has not received any treatment. Patient states his symptoms are worsening. Patient states has been monitoring his oxygen saturation at home and his oxygen saturation has been 80 to 85% for the past 4 days. On assessment, patient has shortness of breath. He is on oxygen at 4 L nasal cannula with O2 sat of 99%. I reviewed patient medication record vital signs and radiology report. Chest x-ray done severe multifocal airspace pneumo kaye throughout the both lungs. Patient admits tobacco use, but denies chronic alcohol or illicit use. Past History Past Medical History: ESRD, hypertension, hyperlipidemia, renal failure Past Surgical History: No surgical history Social history: full code. denies: alcohol abuse, prescription drug abuse Family history: no significant family history Review of Systems Constitutional: anorexia, fatigue, weakness, malaise Ears, nose, mouth and throat: other (Hard of hearing), no epistaxis, no bleeding gums Cardiovascular: shortness of breath, dyspnea on exertion Respiratory: cough, shortness of breath, respiratory infections Gastrointestinal: nausea, no melena Integumentary: no rash, no pruritis Neurological: no vertigo, no headaches Psychiatric: anxiety, other (H) Hematologic/Lymphatic: no easy bruising, no easy bleeding, no lymphadenopathy, no lymphedema Allergic/Immunologic: no urticaria, no allergic rhinitis Past History Past Medical History: ESRD, hypertension, hyperlipidemia, renal failure Past Surgical History: No surgical history Social history: full code. denies: alcohol abuse, prescription drug abuse Family history: no significant family history Medications and Allergies Allergies Allergy/AdvReac Type Severity Reaction Status Date / Time No Known Allergies Allergy Unverified 04/15/20 11:37 Home Medications Medication Instructions Recorded Confirmed Last Taken Type Amiodarone [Cordarone 200 MG TAB] 200 mg PO BID #60 tablet 05/21/21 Unknown Rx Apixaban [Eliquis] 5 mg PO Q12HR #60 tablet 05/21/21 Unknown Rx Aspirin EC [Ecotrin] 325 mg PO QDAY #30 tablet 05/21/21 Unknown Rx Cinacalcet HCl 60 mg PO DAILY #30 05/21/21 Unknown Rx Cinacalcet [Sensipar] 60 mg PO QDAY #30 tablet 05/21/21 Unknown Rx Metoprolol [Lopressor TAB] 50 mg PO BID #60 tablet 05/21/21 Unknown Rx Pantoprazole [Protonix TAB] 40 mg PO QDAC #30 tablet 05/21/21 Unknown Rx Sevelamer Carbonate [Renvela] 2,400 mg PO TIDWM #90 tablet 05/21/21 Unknown Rx amLODIPine 10 mg PO DAILY #30 05/21/21 Unknown Rx traMADoL [Ultram 50 MG tab] 50 mg PO BID PRN #30 tablet 05/21/21 Unknown Rx Active Meds: Active Medications Acetaminophen (Acetaminophen 325 Mg Tab) 650 mg PO Q4H PRN PRN Reason: Pain MILD(1-3)/Fever >100.5/JOHN Al Hydrox/Mg Hydrox/Simethicone (Alum-Mag Hydroxide-Simethicone [id number]/5ml Oral Liqd 30 Ml) 30 ml PO Q4H PRN PRN Reason: Indigestion Alprazolam (Alprazolam 0.25 Mg Tab) 0.125 mg PO Q8H PRN PRN Reason: Anxiety Amiodarone HCl (Amiodarone 200 Mg Tab) 200 mg PO BID [facility] Last Admin: 07/28/21 12:23 Dose: 200 mg Documented by: Amlodipine Besylate (Amlodipine 10 Mg Tab) 10 mg PO DAILY [facility] Last Admin: 07/28/21 10:26 Dose: 10 mg Documented by: Apixaban (Apixaban 5 Mg Tab) 5 mg PO Q12HR [facility] Last Admin: 07/28/21 10:27 Dose: 5 mg Documented by: Ascorbic Acid (Ascorbic Acid 500 Mg Tab) 500 mg PO QDAY [facility] Last Admin: 07/28/21 10:30 Dose: 500 mg Documented by: Cholecalciferol (Cholecalciferol (Vit D3) 1000 Unit (25 Mcg) Tab) 1,000 unit PO QDAY [facility] Last Admin: 07/28/21 10:30 Dose: 1,000 unit Documented by: Cinacalcet (Cinacalcet 30 Mg Tab) 60 mg PO QDAY [facility] Last Admin: 07/28/21 12:21 Dose: 60 mg Documented by: Dexamethasone (Dexamethasone 4 Mg/Ml Vial) 6 mg IV DAILY [facility] Stop: 08/06/21 10:01 Last Admin: 07/28/21 10:33 Dose: 6 mg Documented by: Famotidine (Famotidine 20 Mg Tab) 20 mg PO QAM [facility] Last Admin: 07/28/21 10:32 Dose: 20 mg Documented by: Ceftriaxone Sodium (Rocephin/Ns 2 Gm/100 Ml) 2 gm in 100 mls @ 200 mls/hr IV Q24HR [facility]; Protocol Last Admin: 07/28/21 10:32 Dose: 200 mls/hr Documented by: Azithromycin (Zithromax/Ns) 500 mg in 250 mls @ 250 mls/hr IV Q24HR [facility]; Protocol Last Admin: 07/28/21 10:32 Dose: 250 mls/hr Documented by: Magnesium Hydroxide (Magnesium Hydroxide (Mom) Oral Liqd Udc) 30 ml PO Q4H PRN PRN Reason: Constipation Metoclopramide HCl (Metoclopramide 10 Mg/2 Ml Inj) 5 mg IV Q6H PRN PRN Reason: Nausea And Vomiting Metoprolol Tartrate (Metoprolol Tartrate 50 Mg Tab) 50 mg PO BID@0800,1700 [facility] Last Admin: 07/28/21 08:22 Dose: 50 mg Documented by: Morphine Sulfate (Morphine 2 Mg/1 Ml Inj) 2 mg IV Q4H PRN PRN Reason: Pain, Moderate (4-6) Morphine Sulfate (Morphine 4 Mg/1 Ml Inj) 4 mg IV Q4H PRN PRN Reason: Pain , Severe (7-10) Naloxone HCl (Naloxone 0.4 Mg/1 Ml Inj) 0.1 mg IV Q2MIN PRN PRN Reason: Res Rate </= 8 or 02 SAT < 92% Ondansetron HCl (Ondansetron 4 Mg/2 Ml Inj) 4 mg IV Q8H PRN PRN Reason: Nausea And Vomiting Oxycodone/Acetaminophen (Oxycodone /Acetaminophen 5-325mg Tab) 1 tab PO Q6H PRN PRN Reason: Pain, Moderate (4-6) Last Admin: 07/28/21 08:42 Dose: 1 tab Documented by: Senna (Sennosides 8.6 Mg Tab) 8.6 mg PO Q12HR PRN PRN Reason: Constipation Sevelamer Carbonate (Sevelamer Carbonate 800 Mg Tab) 2,400 mg PO TIDWM [facility] Last Admin: 07/28/21 08:22 Dose: 2,400 mg Documented by: Sodium Chloride (Sodium Chloride 0.9% 10 Ml Flush Syringe) 10 ml IV BID [facility] Last Admin: 07/28/21 10:31 Dose: 10 ml Documented by: Sodium Chloride (Sodium Chloride 0.9% 10 Ml Flush Syringe) 10 ml IV PRN PRN PRN Reason: LINE FLUSH Tramadol HCl (Tramadol 50 Mg Tab) 50 mg PO BID PRN PRN Reason: Pain, Moderate (4-6) Zinc Sulfate (Zinc Sulfate 220 Mg Cap) 220 mg PO QDAY [facility] Last Admin: 07/28/21 10:30 Dose: 220 mg Documented by: Exam - Vital Signs Vital signs: Vital Signs Temp Pulse Resp BP Pulse Ox 102.4 F H 125 H 16 147/74 83 L 07/27/21 22:57 07/27/21 22:57 07/27/21 22:57 07/27/21 22:57 07/27/21 22:57 - Physical Exam Narrative exam: primary team exam noted, exam deferred for preservation of PPE Results - Lab Results 07/27/21 23:14 07/28/21 00:36 Most recent lab results WBC 6.4 K/mm3 (4.5-11.0) 07/27/21 23:14 RBC 3.67 M/mm3 (3.65-5.03) 07/27/21 23:14 Hgb 10.0 gm/dl (11.8-15.2) L 07/27/21 23:14 Hct 31.4 % (35.5-45.6) L 07/27/21 23:14 MCV 86 fl (84-94) 07/27/21 23:14 MCH 27 pg (28-32) L 07/27/21 23:14 MCHC 32 % (32-34) 07/27/21 23:14 RDW 22.7 % (13.2-15.2) H 07/27/21 23:14 Plt Count 349 K/mm3 (140-440) 07/27/21 23:14 Add Manual Diff Complete 07/27/21 23:14 Total Counted 100 07/27/21 23:14 Seg Neuts % (Manual) 89.0 % (40.0-70.0) H 07/27/21 23:14 Lymphocytes % (Manual) 10.0 % (13.4-35.0) L 07/27/21 23:14 Monocytes % (Manual) 1.0 % (0.0-7.3) 07/27/21 23:14 Nucleated RBC % Not Reportable 07/27/21 23:14 Seg Neutrophils # Man 5.7 K/mm3 (1.8-7.7) 07/27/21 23:14 Band Neutrophils # 0.0 K/mm3 07/27/21 23:14 Lymphocytes # (Manual) 0.6 K/mm3 (1.2-5.4) L 07/27/21 23:14 Abs React Lymphs (Man) 0.0 K/mm3 07/27/21 23:14 Monocytes # (Manual) 0.1 K/mm3 (0.0-0.8) 07/27/21 23:14 Eosinophils # (Manual) 0.0 K/mm3 (0.0-0.4) 07/27/21 23:14 Basophils # (Manual) 0.0 K/mm3 (0.0-0.1) 07/27/21 23:14 Metamyelocytes # 0.0 K/mm3 07/27/21 23:14 Myelocytes # 0.0 K/mm3 07/27/21 23:14 Promyelocytes # 0.0 K/mm3 07/27/21 23:14 Blast Cells # 0.0 K/mm3 07/27/21 23:14 WBC Morphology Not Reportable 07/27/21 23:14 Hypersegmented Neuts Not Reportable 07/27/21 23:14 Hyposegmented Neuts Not Reportable 07/27/21 23:14 Hypogranular Neuts Not Reportable 07/27/21 23:14 Smudge Cells Not Reportable 07/27/21 23:14 Toxic Granulation Not Reportable 07/27/21 23:14 Toxic Vacuolation Not Reportable 07/27/21 23:14 Dohle Bodies Not Reportable 07/27/21 23:14 Pelger-Huet Anomaly Not Reportable 07/27/21 23:14 Judy Rods Not Reportable 07/27/21 23:14 Platelet Estimate Consistent w auto 07/27/21 23:14 Clumped Platelets Not Reportable 07/27/21 23:14 Plt Clumps, EDTA Not Reportable 07/27/21 23:14 Large Platelets Not Reportable 07/27/21 23:14 Giant Platelets Not Reportable 07/27/21 23:14 Platelet Satelliting Not Reportable 07/27/21 23:14 Plt Morphology Comment Not Reportable 07/27/21 23:14 RBC Morphology Not Reportable 07/27/21 23:14 Dimorphic RBCs Not Reportable 07/27/21 23:14 Polychromasia Not Reportable 07/27/21 23:14 Hypochromasia Not Reportable 07/27/21 23:14 Poikilocytosis Not Reportable 07/27/21 23:14 Anisocytosis 1+ 07/27/21 23:14 Microcytosis Not Reportable 07/27/21 23:14 Macrocytosis Not Reportable 07/27/21 23:14 Spherocytes Not Reportable 07/27/21 23:14 Pappenheimer Bodies Not Reportable 07/27/21 23:14 Sickle Cells Not Reportable 07/27/21 23:14 Target Cells Not Reportable 07/27/21 23:14 Tear Drop Cells Not Reportable 07/27/21 23:14 Ovalocytes Not Reportable 07/27/21 23:14 Helmet Cells Not Reportable 07/27/21 23:14 [place] Bodies Not Reportable 07/27/21 23:14 [place] Rings Not Reportable 07/27/21 23:14 Frederic Cells Not Reportable 07/27/21 23:14 Bite Cells Not Reportable 07/27/21 23:14 Crenated Cell Not Reportable 07/27/21 23:14 Elliptocytes Not Reportable 07/27/21 23:14 Acanthocytes (Spur) Not Reportable 07/27/21 23:14 Rouleaux Not Reportable 07/27/21 23:14 Hemoglobin C Crystals Not Reportable 07/27/21 23:14 Schistocytes Few 07/27/21 23:14 Malaria parasites Not Reportable 07/27/21 23:14 Jacob Bodies Not Reportable 07/27/21 23:14 Hem Pathologist Commnt No 07/27/21 23:14 D-Dimer 2270.91 ng/mlDDU (0-234) H 07/28/21 00:36 Sodium 138 mmol/L (137-145) 07/27/21 23:14 Potassium 3.6 mmol/L (3.6-5.0) 07/27/21 23:14 Chloride 93.2 mmol/L (98-107) L 07/27/21 23:14 Carbon Dioxide 26 mmol/L (22-30) 07/27/21 23:14 Anion Gap 22 mmol/L 07/27/21 23:14 BUN 17 mg/dL (9-20) 07/27/21 23:14 Creatinine 6.7 mg/dL (0.8-1.3) H 07/27/21 23:14 Estimated GFR 10 ml/min 07/27/21 23:14 BUN/Creatinine Ratio 3 % 07/27/21 23:14 Glucose 79 mg/dL (75-100) 07/28/21 00:36 Lactic Acid 1.70 mmol/L (0.7-2.0) 07/27/21 23:14 Calcium 9.1 mg/dL (8.4-10.2) 07/27/21 23:14 Ferritin 3549.0 ng/mL (30.0-300.0) H 07/28/21 00:36 Total Bilirubin 0.40 mg/dL (0.1-1.2) 07/27/21 23:14 AST 50 units/L (5-40) H 07/27/21 23:14 ALT 23 units/L (7-56) 07/27/21 23:14 Alkaline Phosphatase 127 units/L (35-129) 07/27/21 23:14 Lactate Dehydrogenase 418 units/L (91-180) H 07/28/21 00:36 Troponin T 0.110 ng/mL (0.00-0.029) H* 07/27/21 23:14 C-Reactive Protein 14.50 mg/dL (0.00-1.30) H 07/28/21 00:36 Total Protein 7.0 g/dL (6.3-8.2) 07/27/21 23:14 Albumin 3.2 g/dL (3.9-5) L 07/27/21 23:14 Albumin/Globulin Ratio 0.8 % 07/27/21 23:14 Triglycerides 187 mg/dL (2-149) H 07/27/21 23:14 Cholesterol 152 mg/dL (50-199) 07/27/21 23:14 LDL Cholesterol Direct 75 mg/dL (50-130) 07/27/21 23:14 HDL Cholesterol 33 mg/dL (40-59) L 07/27/21 23:14 Cholesterol/HDL Ratio 4.60 % 07/27/21 23:14 Procalcitonin 7.37 ng/mL (<0.15) 07/28/21 00:36 Assessment and Plan Assessment - End-stage renal disease on hemodialysis - Hypertension - Covid PNA - Acute hypoxic resp failure - Anemia of ESRD - Hyperparathyroidism - Hyperphosphatemia - Pneumonia Recommendations - Continue HD TTS and prn - Covid treatment per primary team - Monitor labs and volume status daily and assess need for additional dialysis session - Continue home antihypertensives - Hold antihypertensives on hemodialysis days for systolics less than 160 - ESRD diet with 1.4 g/kg per day protein - patient understands need for continued hemodialysis and willing to proceed - Renally dose medication for creatinine clearance less than 15 cc/min - Antibiotics as per ID
[2021-07-28] MEDS ORDERED: SODIUM CHLORIDE 0.9% 100 ML IV PRN (15:00)
[2021-07-28] MEDS ORDERED: EPOETIN ALFA-EPBX 10,000 UNIT/1 ML VIAL IV PRN (15:00)
[2021-07-28 16:09] LABS: Hepatitis C Virus Antibody Non-Reactive (NonReactive)
[2021-07-28 16:24] LABS: Hepatitis B Surface Antigen Nonreactive (Negative)
--- NOTE | 2021-07-28 17:44 | Consultation ---
History of Present Illness Consult date: 07/28/21 Requesting physician: ANDREW CASTELAN Reason for consult: dyspnea History of present illness: 61 yo admitted with increased SOB, cough, fevers, chills, hypoxia, and + Covid- 19 testing. Active Medications Acetaminophen (Acetaminophen 325 Mg Tab) 650 mg PO Q4H PRN PRN Reason: Pain MILD(1-3)/Fever >100.5/JOHN Alprazolam (Alprazolam 0.25 Mg Tab) 0.125 mg PO Q8H PRN PRN Reason: Anxiety Amiodarone HCl (Amiodarone 200 Mg Tab) 200 mg PO BID PENDING SALE TO [facility] Last Admin: 07/28/21 12:23 Dose: 200 mg Documented by: Amlodipine Besylate (Amlodipine 10 Mg Tab) 10 mg PO DAILY [facility] Last Admin: 07/28/21 10:26 Dose: 10 mg Documented by: Apixaban (Apixaban 5 Mg Tab) 5 mg PO Q12HR [facility] Last Admin: 07/28/21 10:27 Dose: 5 mg Documented by: Ascorbic Acid (Ascorbic Acid 500 Mg Tab) 500 mg PO QDAY [facility] Last Admin: 07/28/21 10:30 Dose: 500 mg Documented by: Cholecalciferol (Cholecalciferol (Vit D3) 1000 Unit (25 Mcg) Tab) 1,000 unit PO QDAY [facility] Last Admin: 07/28/21 10:30 Dose: 1,000 unit Documented by: Cinacalcet (Cinacalcet 30 Mg Tab) 60 mg PO QDAY [facility] Last Admin: 07/28/21 12:21 Dose: 60 mg Documented by: Dexamethasone (Dexamethasone 4 Mg/Ml Vial) 6 mg IV DAILY [facility] Stop: 08/06/21 10:01 Last Admin: 07/28/21 10:33 Dose: 6 mg Documented by: Famotidine (Famotidine 20 Mg Tab) 20 mg PO QAM [facility] Last Admin: 07/28/21 10:32 Dose: 20 mg Documented by: Ceftriaxone Sodium (Rocephin/Ns 2 Gm/100 Ml) 2 gm in 100 mls @ 200 mls/hr IV Q24HR [facility]; Protocol Last Admin: 07/28/21 10:32 Dose: 200 mls/hr Documented by: Azithromycin (Zithromax/Ns) 500 mg in 250 mls @ 250 mls/hr IV Q24HR [facility]; Protocol Last Admin: 07/28/21 10:32 Dose: 250 mls/hr Documented by: Sodium Chloride (Nacl 0.9%) 100 mls @ 999 mls/hr IV RUFUS PRN PRN Reason: Hypotension Magnesium Hydroxide (Magnesium Hydroxide (Mom) Oral Liqd Udc) 30 ml PO Q4H PRN PRN Reason: Constipation Metoclopramide HCl (Metoclopramide 10 Mg/2 Ml Inj) 5 mg IV Q6H PRN PRN Reason: Nausea And Vomiting Metoprolol Tartrate (Metoprolol Tartrate 50 Mg Tab) 50 mg PO BID@0800,1700 [facility] Last Admin: 07/28/21 08:22 Dose: 50 mg Documented by: Morphine Sulfate (Morphine 2 Mg/1 Ml Inj) 2 mg IV Q4H PRN PRN Reason: Pain, Moderate (4-6) Morphine Sulfate (Morphine 4 Mg/1 Ml Inj) 4 mg IV Q4H PRN PRN Reason: Pain , Severe (7-10) Naloxone HCl (Naloxone 0.4 Mg/1 Ml Inj) 0.1 mg IV Q2MIN PRN PRN Reason: Res Rate </= 8 or 02 SAT < 92% Ondansetron HCl (Ondansetron 4 Mg/2 Ml Inj) 4 mg IV Q8H PRN PRN Reason: Nausea And Vomiting Oxycodone/Acetaminophen (Oxycodone /Acetaminophen 5-325mg Tab) 1 tab PO Q6H PRN PRN Reason: Pain, Moderate (4-6) Last Admin: 07/28/21 08:42 Dose: 1 tab Documented by: Senna (Sennosides 8.6 Mg Tab) 8.6 mg PO Q12HR PRN PRN Reason: Constipation Sevelamer Carbonate (Sevelamer Carbonate 800 Mg Tab) 2,400 mg PO TIDWM PENDING SALE [facility] Last Admin: 07/28/21 16:09 Dose: 2,400 mg Documented by: Sodium Chloride (Sodium Chloride 0.9% 10 Ml Flush Syringe) 10 ml IV BID PEND[facility] Last Admin: 07/28/21 10:31 Dose: 10 ml Documented by: Sodium Chloride (Sodium Chloride 0.9% 10 Ml Flush Syringe) 10 ml IV PRN PRN PRN Reason: LINE FLUSH Tramadol HCl (Tramadol 50 Mg Tab) 50 mg PO BID PRN PRN Reason: Pain, Moderate (4-6) Zinc Sulfate (Zinc Sulfate 220 Mg Cap) 220 mg PO QDAY [facility] Last Admin: 07/28/21 10:30 Dose: 220 mg Documented by: Past History Past Medical History: ESRD, hypertension, hyperlipidemia, renal failure Past Surgical History: No surgical history Social history: full code. denies: alcohol abuse, prescription drug abuse Family history: no significant family history (no pulm issues reported) Medications and Allergies Allergies Allergy/AdvReac Type Severity Reaction Status Date / Time No Known Allergies Allergy Unverified 04/15/20 11:37 Home Medications Medication Instructions Recorded Confirmed Last Taken Type Amiodarone [Cordarone 200 MG TAB] 200 mg PO BID #60 tablet 05/21/21 Unknown Rx Apixaban [Eliquis] 5 mg PO Q12HR #60 tablet 05/21/21 Unknown Rx Aspirin EC [Ecotrin] 325 mg PO QDAY #30 tablet 05/21/21 Unknown Rx Cinacalcet HCl 60 mg PO DAILY #30 05/21/21 Unknown Rx Cinacalcet [Sensipar] 60 mg PO QDAY #30 tablet 05/21/21 Unknown Rx Metoprolol [Lopressor TAB] 50 mg PO BID #60 tablet 05/21/21 Unknown Rx Pantoprazole [Protonix TAB] 40 mg PO QDAC #30 tablet 05/21/21 Unknown Rx Sevelamer Carbonate [Renvela] 2,400 mg PO TIDWM #90 tablet 05/21/21 Unknown Rx amLODIPine 10 mg PO DAILY #30 05/21/21 Unknown Rx traMADoL [Ultram 50 MG tab] 50 mg PO BID PRN #30 tablet 05/21/21 Unknown Rx Active Meds: Active Medications Acetaminophen (Acetaminophen 325 Mg Tab) 650 mg PO Q4H PRN PRN Reason: Pain MILD(1-3)/Fever >100.5/JOHN Alprazolam (Alprazolam 0.25 Mg Tab) 0.125 mg PO Q8H PRN PRN Reason: Anxiety Amiodarone HCl (Amiodarone 200 Mg Tab) 200 mg PO BID PENDING SALE [facility] Last Admin: 07/28/21 12:23 Dose: 200 mg Documented by: Amlodipine Besylate (Amlodipine 10 Mg Tab) 10 mg PO DAILY PEND[facility] Last Admin: 07/28/21 10:26 Dose: 10 mg Documented by: Apixaban (Apixaban 5 Mg Tab) 5 mg PO Q12HR PEND[facility] SALE [facility] Last Admin: 07/28/21 10:27 Dose: 5 mg Documented by: Ascorbic Acid (Ascorbic Acid 500 Mg Tab) 500 mg PO QDAY PEND[facility] Last Admin: 07/28/21 10:30 Dose: 500 mg Documented by: Cholecalciferol (Cholecalciferol (Vit D3) 1000 Unit (25 Mcg) Tab) 1,000 unit PO QDAY [facility]END[facility] Last Admin: 07/28/21 10:30 Dose: 1,000 unit Documented by: Cinacalcet (Cinacalcet 30 Mg Tab) 60 mg PO QDAY [facility]END[facility] Last Admin: 07/28/21 12:21 Dose: 60 mg Documented by: Dexamethasone (Dexamethasone 4 Mg/Ml Vial) 6 mg IV DAILY [facility]END[facility] Stop: 08/06/21 10:01 Last Admin: 07/28/21 10:33 Dose: 6 mg Documented by: Famotidine (Famotidine 20 Mg Tab) 20 mg PO QAM PEND[facility] SALE [facility] Last Admin: 07/28/21 10:32 Dose: 20 mg Documented by: Ceftriaxone Sodium (Rocephin/Ns 2 Gm/100 Ml) 2 gm in 100 mls @ 200 mls/hr IV Q24HR PENDING SALE TO [facility]; Protocol Last Admin: 07/28/21 10:32 Dose: 200 mls/hr Documented by: Azithromycin (Zithromax/Ns) 500 mg in 250 mls @ 250 mls/hr IV Q24HR PEND[facility] SALE [facility]; Protocol Last Admin: 07/28/21 10:32 Dose: 250 mls/hr Documented by: Sodium Chloride (Nacl 0.9%) 100 mls @ 999 mls/hr IV RUFUS PRN PRN Reason: Hypotension Magnesium Hydroxide (Magnesium Hydroxide (Mom) Oral Liqd Udc) 30 ml PO Q4H PRN PRN Reason: Constipation Metoclopramide HCl (Metoclopramide 10 Mg/2 Ml Inj) 5 mg IV Q6H PRN PRN Reason: Nausea And Vomiting Metoprolol Tartrate (Metoprolol Tartrate 50 Mg Tab) 50 mg PO BID@0800,1700 PEND[facility] SALE [facility] Last Admin: 07/28/21 08:22 Dose: 50 mg Documented by: Morphine Sulfate (Morphine 2 Mg/1 Ml Inj) 2 mg IV Q4H PRN PRN Reason: Pain, Moderate (4-6) Morphine Sulfate (Morphine 4 Mg/1 Ml Inj) 4 mg IV Q4H PRN PRN Reason: Pain , Severe (7-10) Naloxone HCl (Naloxone 0.4 Mg/1 Ml Inj) 0.1 mg IV Q2MIN PRN PRN Reason: Res Rate </= 8 or 02 SAT < 92% Ondansetron HCl (Ondansetron 4 Mg/2 Ml Inj) 4 mg IV Q8H PRN PRN Reason: Nausea And Vomiting Oxycodone/Acetaminophen (Oxycodone /Acetaminophen 5-325mg Tab) 1 tab PO Q6H PRN PRN Reason: Pain, Moderate (4-6) Last Admin: 07/28/21 08:42 Dose: 1 tab Documented by: Senna (Sennosides 8.6 Mg Tab) 8.6 mg PO Q12HR PRN PRN Reason: Constipation Sevelamer Carbonate (Sevelamer Carbonate 800 Mg Tab) 2,400 mg PO TIDWM PENDING SALE TO [facility] Last Admin: 07/28/21 16:09 Dose: 2,400 mg Documented by: Sodium Chloride (Sodium Chloride 0.9% 10 Ml Flush Syringe) 10 ml IV BID PENDING SALE TO [facility] Last Admin: 07/28/21 10:31 Dose: 10 ml Documented by: Sodium Chloride (Sodium Chloride 0.9% 10 Ml Flush Syringe) 10 ml IV PRN PRN PRN Reason: LINE FLUSH Tramadol HCl (Tramadol 50 Mg Tab) 50 mg PO BID PRN PRN Reason: Pain, Moderate (4-6) Zinc Sulfate (Zinc Sulfate 220 Mg Cap) 220 mg PO QDAY PENDING SALE TO [facility] Last Admin: 07/28/21 10:30 Dose: 220 mg Documented by: Review of Systems All systems: negative Physical Examination Vital signs: Vital Signs Temp Pulse Resp BP Pulse Ox 102.4 F H 125 H 16 147/74 83 L 07/27/21 22:57 07/27/21 22:57 07/27/21 22:57 07/27/21 22:57 07/27/21 22:57 Vital Signs - 24 hr 07/27/21 07/27/21 07/27/21 22:57 23:00 23:20 Temperature 102.4 F H 100.5 F H Pulse Rate 125 H 122 H Respiratory 16 20 Rate Blood Pressure 147/74 145/77 O2 Sat by Pulse 83 L 82 L 89 Oximetry 07/27/21 07/28/21 07/28/21 23:59 00:00 01:00 Temperature Pulse Rate 119 H 119 H Respiratory 18 27 H 23 Rate Blood Pressure 154/84 140/86 O2 Sat by Pulse 97 97 96 Oximetry 07/28/21 07/28/21 07/28/21 02:00 07:31 08:01 Temperature Pulse Rate 112 H 103 H 104 H Respiratory 26 H 28 H 24 Rate Blood Pressure 143/76 149/75 143/77 O2 Sat by Pulse 92 95 92 Oximetry 07/28/21 07/28/21 07/28/21 08:22 08:31 09:05 Temperature Pulse Rate 113 H 113 H 104 H Respiratory 19 22 Rate Blood Pressure 143/77 162/101 158/92 O2 Sat by Pulse 80 L 96 Oximetry 07/28/21 07/28/21 10:26 10:31 Temperature Pulse Rate 86 88 Respiratory 21 Rate Blood Pressure 151/87 137/82 O2 Sat by Pulse 95 Oximetry Exam deferred to preserve PPE and decrease transmission of virus. Reviewed primary team exam. Results - Laboratory Findings CBC and BMP: 07/27/21 23:14 07/28/21 00:36 PT/INR, D-dimer D-Dimer 2270.91 ng/mlDDU (0-234) H 07/28/21 00:36 Abnormal lab findings: Abnormal Labs 07/27/21 07/27/21 07/28/21 23:14 23:14 00:36 Hgb 10.0 L Hct 31.4 L MCH 27 L RDW 22.7 H Seg Neuts % (Manual) 89.0 H Lymphocytes % (Manual) 10.0 L Lymphocytes # (Manual) 0.6 L D-Dimer 2270.91 H Chloride 93.2 L Creatinine 6.7 H Ferritin AST 50 H Lactate Dehydrogenase Troponin T 0.110 H* C-Reactive Protein Albumin 3.2 L Triglycerides 187 H HDL Cholesterol 33 L Coronavirus (PCR) 07/28/21 07/28/21 07/28/21 00:36 00:36 08:50 Hgb Hct MCH RDW Seg Neuts % (Manual) Lymphocytes % (Manual) Lymphocytes # (Manual) D-Dimer Chloride Creatinine Ferritin 3549.0 H AST Lactate Dehydrogenase 418 H Troponin T C-Reactive Protein 14.50 H Albumin Triglycerides HDL Cholesterol Coronavirus (PCR) Positive A - Diagnostic Findings Chest x-ray: report reviewed (unable to view images (loaded into system improperly)) Additional studies: V/Q low prob Assessment and Plan Imp: 1. Covid-19 2. Viral pneumonia 3. Acute respiratory failure, hypoxia 4. ESRD 5. Hx of Afib Rec: 1. Agree w/ empiric ABX given elevated Procal.; ID consult pending 2. Decadron x 10 days; consider Remdesivir; trend inflammatory markers 3. Resume home Eliquis 4. Proning 5. Wean O2 to keep sats 88% or > 6. Prognosis guarded
[2021-07-29 05:25] LABS: Hematocrit 30.6 % (35.5-45.6); Hemoglobin 10.2 gm/dl (11.8-15.2); Mean Corpuscular HGB Conc 33 % (32-34); Mean Corpuscular Volume 85 fl (84-94); Platelet Count 405 K/mm3 (140-440)
[2021-07-29 05:40] LABS: Calcium 9.4 mg/dL (8.4-10.2)
[2021-07-29] MEDS: SEVELAMER CARBONATE 800 MG TAB PO SCH ×3 (09:11→17:45)
[2021-07-29] MEDS: METOPROLOL TARTRATE 50 MG TAB PO SCH ×2 (09:12→17:43)
[2021-07-29] MEDS: traMADol 50 MG TAB PO PRN (09:18)
[2021-07-29] MEDS: AZITHROMYCIN/NS 500 MG/250 ML 500 MG/250 ML BAG IV SCH (11:03)
[2021-07-29] MEDS: cefTRIAXone/NS 2 GM/100 ML 2 GM/100 ML BAG IV SCH (11:03)
[2021-07-29] MEDS: AMIODARONE 200 MG TAB PO SCH (11:04)
[2021-07-29] MEDS: FAMOTIDINE 20 MG TAB PO SCH (11:04)
[2021-07-29] MEDS: dexAMETHasone 4 MG/ML VIAL IV SCH (11:04)
[2021-07-29] MEDS: ZINC SULFATE 220 MG CAP PO SCH (11:04)
[2021-07-29] MEDS: ASCORBIC ACID 500 MG TAB PO SCH (11:04)
[2021-07-29] MEDS: CHOLECALCIFEROL (VIT D3) 1000 UNIT (25 mcg) TAB PO SCH (11:04)
[2021-07-29] MEDS: APIXABAN 5 MG TAB PO SCH (11:04)
[2021-07-29] MEDS: amLODIPine 10 MG TAB PO SCH (11:10)
[2021-07-29] MEDS: CINACALCET 30 MG TAB PO SCH (13:12)
--- NOTE | 2021-07-29 20:01 | Progress Note ---
Assessment and Plan 1. Acute Covid-19 viral pneumonia 2. History of paroxysmal Atrial Fib 3. Essential Hypertension 4. ESRD Plan Patient is stable and noemi resume home cardiac meds. Treatment of viral pneumonia as per Hospitalist Subjective Date of service: 07/29/21 Interval history: No cardiac symptoms. Objective Vital Signs Temp Pulse Resp BP BP Pulse Ox Pulse Ox 07/29/21 17:43 93 H 139/72 07/29/21 15:01 84 28 H 129/76 98 07/29/21 14:01 90 12 106/49 98 07/29/21 13:17 94 H 19 134/81 96 07/29/21 12:01 92 H 15 134/77 91 07/29/21 11:26 22 94 07/29/21 11:10 88 139/83 07/29/21 09:12 106 H 142/83 07/29/21 07:31 100 H 12 144/84 96 07/29/21 06:01 97 H 19 144/81 97 07/29/21 05:01 100 H 16 156/88 96 07/29/21 04:01 90 22 130/84 97 07/29/21 03:01 99 H 11 L 150/84 99 07/29/21 02:01 97 H 18 143/83 99 07/29/21 01:01 90 22 139/82 99 07/29/21 00:01 90 20 128/78 97 07/28/21 23:03 95 H 23 144/78 99 07/28/21 23:01 97 H 21 133/72 98 07/28/21 22:01 102 H 17 145/79 96 07/28/21 21:01 98 H 10 L 133/84 93 07/28/21 20:40 98.5 F 98 H 18 108/78 95 07/28/21 20:15 99.5 F 95 H 18 141/85 98 07/28/21 20:01 87 24 135/75 96 07/28/21 20:00 98 H 120/68 - Physical Examination HEENT: Positive: PERRL, Normocephaly, Mucus Membranes Moist Neck: Negative: neck supple, JVD/HJR Cardiac: Positive: Regular Rate, S1/S2, PMI, Laterally Displaced. Negative: S3, S4 Lungs: Positive: clear to auscultation, No Wheeze, Rales, Rhonchi Neuro: Negative: Grossly Intact Abdomen: Positive: Unremarkable, Soft, Active Bowel Sounds Extremities: Absent: edema - Labs and Meds CBC 07/29/21 Range/Units 04:41 WBC 8.2 (4.5-11.0) K/mm3 RBC 3.60 L (3.65-5.03) M/mm3 Hgb 10.2 L (11.8-15.2) gm/dl Hct 30.6 L (35.5-45.6) % Plt Count 405 (140-440) K/mm3 Comprehensive Metabolic Panel 07/29/21 Range/Units 04:41 Sodium 139 (137-145) mmol/L Potassium 4.3 (3.6-5.0) mmol/L Chloride 97.2 L (98-107) mmol/L Carbon Dioxide 29 (22-30) mmol/L BUN 27 H (9-20) mg/dL Creatinine 7.1 H (0.8-1.3) mg/dL Glucose 108 H (75-100) mg/dL Calcium 9.4 (8.4-10.2) mg/dL
--- NOTE | 2021-07-29 22:41 | Progress Note ---
Assessment and Plan Imp: 1. Covid-19 2. Viral pneumonia 3. Acute respiratory failure, hypoxia 4. ESRD 5. Hx of Afib Rec: 1. Agree w/ empiric ABX given elevated Procal.; ID consult pending 2. Decadron x 10 days; consider Remdesivir; trend inflammatory markers 3. Resume home Eliquis 4. Proning 5. Wean O2 to keep sats 88% or > 6. Prognosis guarded Subjective Date of service: 07/29/21 Principal diagnosis: Covid-19 Interval history: No events per chart. + SOB. On 10L O2. Active Medications Acetaminophen (Acetaminophen 325 Mg Tab) 650 mg PO Q4H PRN PRN Reason: Pain MILD(1-3)/Fever >100.5/JOHN Alprazolam (Alprazolam 0.25 Mg Tab) 0.125 mg PO Q8H PRN PRN Reason: Anxiety Amiodarone HCl (Amiodarone 200 Mg Tab) 200 mg PO BID [facility] Last Admin: 07/29/21 11:04 Dose: 200 mg Documented by: Amlodipine Besylate (Amlodipine 10 Mg Tab) 10 mg PO DAILY [facility] Last Admin: 07/29/21 11:10 Dose: 10 mg Documented by: Apixaban (Apixaban 5 Mg Tab) 5 mg PO Q12HR [facility] Last Admin: 07/29/21 11:04 Dose: 5 mg Documented by: Ascorbic Acid (Ascorbic Acid 500 Mg Tab) 500 mg PO QDAY [facility] Last Admin: 07/29/21 11:04 Dose: 500 mg Documented by: Cholecalciferol (Cholecalciferol (Vit D3) 1000 Unit (25 Mcg) Tab) 1,000 unit PO QDAY [facility] Last Admin: 07/29/21 11:04 Dose: 1,000 unit Documented by: Cinacalcet (Cinacalcet 30 Mg Tab) 60 mg PO QDAY [facility] Last Admin: 07/29/21 13:12 Dose: Not Given Documented by: Dexamethasone (Dexamethasone 4 Mg/Ml Vial) 6 mg IV DAILY [facility] Stop: 08/06/21 10:01 Last Admin: 07/29/21 11:04 Dose: 6 mg Documented by: Famotidine (Famotidine 20 Mg Tab) 20 mg PO QAM [facility] Last Admin: 07/29/21 11:04 Dose: 20 mg Documented by: Ceftriaxone Sodium (Rocephin/Ns 2 Gm/100 Ml) 2 gm in 100 mls @ 200 mls/hr IV Q24HR [facility]; Protocol Last Admin: 07/29/21 11:03 Dose: 200 mls/hr Documented by: Azithromycin (Zithromax/Ns) 500 mg in 250 mls @ 250 mls/hr IV Q24HR [facility]; Protocol Last Admin: 07/29/21 11:03 Dose: 250 mls/hr Documented by: Sodium Chloride (Nacl 0.9%) 100 mls @ 999 mls/hr IV RUFUS PRN PRN Reason: Hypotension Magnesium Hydroxide (Magnesium Hydroxide (Mom) Oral Liqd Udc) 30 ml PO Q4H PRN PRN Reason: Constipation Metoclopramide HCl (Metoclopramide 10 Mg/2 Ml Inj) 5 mg IV Q6H PRN PRN Reason: Nausea And Vomiting Metoprolol Tartrate (Metoprolol Tartrate 50 Mg Tab) 50 mg PO BID@0800,1700 [facility] Last Admin: 07/29/21 17:43 Dose: 50 mg Documented by: Morphine Sulfate (Morphine 2 Mg/1 Ml Inj) 2 mg IV Q4H PRN PRN Reason: Pain, Moderate (4-6) Morphine Sulfate (Morphine 4 Mg/1 Ml Inj) 4 mg IV Q4H PRN PRN Reason: Pain , Severe (7-10) Naloxone HCl (Naloxone 0.4 Mg/1 Ml Inj) 0.1 mg IV Q2MIN PRN PRN Reason: Res Rate </= 8 or 02 SAT < 92% Ondansetron HCl (Ondansetron 4 Mg/2 Ml Inj) 4 mg IV Q8H PRN PRN Reason: Nausea And Vomiting Oxycodone/Acetaminophen (Oxycodone /Acetaminophen 5-325mg Tab) 1 tab PO Q6H PRN PRN Reason: Pain, Moderate (4-6) Last Admin: 07/28/21 08:42 Dose: 1 tab Documented by: Senna (Sennosides 8.6 Mg Tab) 8.6 mg PO Q12HR PRN PRN Reason: Constipation Sevelamer Carbonate (Sevelamer Carbonate 800 Mg Tab) 2,400 mg PO TIDWM [facility] Last Admin: 07/29/21 17:45 Dose: 2,400 mg Documented by: Sodium Chloride (Sodium Chloride 0.9% 10 Ml Flush Syringe) 10 ml IV BID [facility] Last Admin: 07/29/21 11:05 Dose: 10 ml Documented by: Sodium Chloride (Sodium Chloride 0.9% 10 Ml Flush Syringe) 10 ml IV PRN PRN PRN Reason: LINE FLUSH Tramadol HCl (Tramadol 50 Mg Tab) 50 mg PO BID PRN PRN Reason: Pain, Moderate (4-6) Last Admin: 07/29/21 09:18 Dose: 50 mg Documented by: Zinc Sulfate (Zinc Sulfate 220 Mg Cap) 220 mg PO QDAY [facility] Last Admin: 07/29/21 11:04 Dose: 220 mg Documented by: Objective - Exam Narrative Exam: primary team exam noted, exam deferred for preservation of PPE Vital Signs - 12hr 07/29/21 07/29/21 07/29/21 11:10 11:26 12:01 Temperature Pulse Rate 88 92 H Respiratory 22 15 Rate Blood Pressure 139/83 134/77 Blood Pressure [Left] O2 Sat by Pulse 94 91 Oximetry 07/29/21 07/29/21 07/29/21 13:17 14:01 15:01 Temperature Pulse Rate 94 H 90 84 Respiratory 19 12 28 H Rate Blood Pressure 106/49 129/76 Blood Pressure 134/81 [Left] O2 Sat by Pulse 96 98 98 Oximetry 07/29/21 07/29/21 07/29/21 15:51 16:01 16:11 Temperature Pulse Rate 88 88 90 Respiratory 21 21 43 H Rate Blood Pressure 137/73 135/76 139/79 Blood Pressure [Left] O2 Sat by Pulse 93 93 94 Oximetry 07/29/21 07/29/21 07/29/21 16:21 16:31 16:41 Temperature Pulse Rate 91 H 91 H 90 Respiratory 21 24 17 Rate Blood Pressure 142/78 131/76 138/76 Blood Pressure [Left] O2 Sat by Pulse 94 93 94 Oximetry 07/29/21 07/29/21 07/29/21 16:51 17:00 17:11 Temperature Pulse Rate 92 H 91 H 93 H Respiratory 21 18 26 H Rate Blood Pressure 140/82 134/77 137/78 Blood Pressure [Left] O2 Sat by Pulse 93 94 95 Oximetry 07/29/21 07/29/21 07/29/21 17:21 17:31 17:41 Temperature Pulse Rate 95 H Respiratory 25 H Rate Blood Pressure 140/74 140/80 139/72 Blood Pressure [Left] O2 Sat by Pulse 93 93 92 Oximetry 07/29/21 07/29/21 07/29/21 17:43 17:51 18:01 Temperature Pulse Rate 93 H 97 H 94 H Respiratory 22 26 H Rate Blood Pressure 139/72 130/76 137/73 Blood Pressure [Left] O2 Sat by Pulse 92 90 Oximetry 07/29/21 07/29/21 07/29/21 18:11 18:21 18:31 Temperature Pulse Rate 91 H 93 H 86 Respiratory 28 H 22 22 Rate Blood Pressure 149/78 142/82 142/82 Blood Pressure [Left] O2 Sat by Pulse 74 L Oximetry 07/29/21 07/29/21 07/29/21 18:40 18:50 19:01 Temperature Pulse Rate 86 87 Respiratory 22 15 Rate Blood Pressure 141/81 141/81 115/54 Blood Pressure [Left] O2 Sat by Pulse 93 Oximetry 07/29/21 07/29/21 07/29/21 19:11 19:18 19:21 Temperature 98.8 F Pulse Rate 85 Respiratory 18 Rate Blood Pressure 131/70 140/69 Blood Pressure 138/73 [Left] O2 Sat by Pulse 95 96 80 L Oximetry 07/29/21 07/29/21 07/29/21 19:31 19:40 19:51 Temperature Pulse Rate Respiratory Rate Blood Pressure 140/69 138/73 138/73 Blood Pressure [Left] O2 Sat by Pulse 97 97 94 Oximetry 07/29/21 07/29/21 07/29/21 20:01 20:11 20:21 Temperature Pulse Rate Respiratory Rate Blood Pressure 138/73 138/73 138/73 Blood Pressure [Left] O2 Sat by Pulse 99 99 99 Oximetry 07/29/21 07/29/21 07/29/21 20:31 20:40 20:51 Temperature Pulse Rate 94 H Respiratory 20 Rate Blood Pressure 138/73 142/75 138/73 Blood Pressure 138/73 [Left] O2 Sat by Pulse 98 98 96 Oximetry 07/29/21 07/29/21 07/29/21 21:01 21:11 21:21 Temperature Pulse Rate Respiratory Rate Blood Pressure 138/73 138/73 138/73 Blood Pressure [Left] O2 Sat by Pulse 93 92 93 Oximetry 07/29/21 22:33 Temperature Pulse Rate 84 Respiratory 17 Rate Blood Pressure Blood Pressure [Left] O2 Sat by Pulse Oximetry CBC and BMP: 07/29/21 04:41 07/29/21 04:41 ABG, PT/INR, D-dimer: PT/INR, D-dimer D-Dimer 2270.91 ng/mlDDU (0-234) H 07/28/21 00:36 Abnormal lab findings: Abnormal Labs 07/27/21 07/27/21 07/28/21 23:14 23:14 00:36 RBC Hgb 10.0 L Hct 31.4 L MCH 27 L RDW 22.7 H Seg Neuts % (Manual) 89.0 H Lymphocytes % (Manual) 10.0 L Lymphocytes # (Manual) 0.6 L D-Dimer 2270.91 H Chloride 93.2 L BUN Creatinine 6.7 H Glucose Ferritin AST 50 H Lactate Dehydrogenase Troponin T 0.110 H* C-Reactive Protein Albumin 3.2 L Triglycerides 187 H HDL Cholesterol 33 L Coronavirus (PCR) 07/28/21 07/28/21 07/28/21 00:36 00:36 08:50 RBC Hgb Hct MCH RDW Seg Neuts % (Manual) Lymphocytes % (Manual) Lymphocytes # (Manual) D-Dimer Chloride BUN Creatinine Glucose Ferritin 3549.0 H AST Lactate Dehydrogenase 418 H Troponin T C-Reactive Protein 14.50 H Albumin Triglycerides HDL Cholesterol Coronavirus (PCR) Positive A 07/29/21 07/29/21 04:41 04:41 RBC 3.60 L Hgb 10.2 L Hct 30.6 L MCH RDW 22.0 H Seg Neuts % (Manual) Lymphocytes % (Manual) Lymphocytes # (Manual) D-Dimer Chloride 97.2 L BUN 27 H Creatinine 7.1 H Glucose 108 H Ferritin AST Lactate Dehydrogenase Troponin T C-Reactive Protein Albumin Triglycerides HDL Cholesterol Coronavirus (PCR) Chest x-ray: report reviewed, image reviewed
[2021-07-30] MEDS: AMIODARONE 200 MG TAB PO SCH ×3 (02:27→23:27)
[2021-07-30] MEDS: APIXABAN 5 MG TAB PO SCH ×3 (02:27→23:27)
[2021-07-30] MEDS: traMADol 50 MG TAB PO PRN ×2 (03:35→23:27)
--- NOTE | 2021-07-30 07:11 | Progress Note ---
Assessment and Plan Assessment and plan: This is a 61-year-old male seen in the ED at bedside. he presents to emergency room with complaints of cough, shortness of breath, fever, chills. Patient states his symptoms been going on for a week and he tested yesterday and his COVID-19 test came back positive. Patient states he was diagnosed at an urgent care. Patient states he has not received any treatment. Patient states his symptoms are worsening. Patient states has been monitoring his oxygen saturation at home and his oxygen saturation has been 80 to 85% for the past 4 days. On assessment, patient has shortness of breath. He is on oxygen at 4 L nasal cannula with O2 sat of 99%. I reviewed patient medication record vital signs and radiology report. Chest x-ray done severe multifocal airspace pneumonia throughout the both lungs. Patient admits tobacco use, but denies chronic alcohol or illicit use. (1) COVID-19 Current Visit: Yes Status: Acute Plan to address problem: Airborne and contact isolation for Covid protocol Bronchodilator and oxygen supplement as needed Patient is on oxygen at 4 L O2 sat 99% on the monitor Infectious disease and teacher industrial arts consult Ascorbic acid, zinc sulfate, vitamin D supplement and systemic steroid Encourage the use of incentive spirometer and prone position. Empiric antibioticazithromycin and Rocephin (2) Acute respiratory failure with hypoxia Current Visit: Yes Status: Acute Plan to address problem: Bronchodilator and oxygen supplement ABG monitor oxygen saturation [employer] has been consulted (3) Elevated d-dimer Current Visit: Yes Status: Acute Plan to address problem: Elevated D-dimerVQ scan orderedpatient has reduced kidney function Continue home Eliquis (4) ESRD (end stage renal disease) on dialysis Current Visit: Yes Status: Acute Plan to address problem: Covering Machine Operator Helper consultfollow-up with plan of care Monitor kidney function and electrolytes (5) Elevated troponin, secondary to renal dysfunction Current Visit: No Status: Acute Plan to address problem: Unknown causerenal ischemiakidney failure Trend troponin Patient is on Eliquis (6) Pneumonia Current Visit: Yes Status: Acute Qualifiers: Pneumonia type: due to unspecified organism Laterality: bilateral Lung location: unspecified part of lung Qualified Code(s): J18.9 - Pneumonia, unspecified organism Plan to address problem: Chest x-ray done severe multifocal airspace pneumonia throughout the both lungs Pneumonia likely secondary to Covid infection Patient is on empiric antibiotic ID and teacher industrial arts have been consulted (7) DVT prophylaxis Current Visit: No Status: Acute Plan to address problem: Patient is on Eliquis 07/29: Covid test positive. Patient to be seen by pulmonary and bi analyst. Continue steroids at this time. Will defer remdesivir to infectious disease's renal function may preclude use. HD per nephrology type II non-ST elevated [place] History Interval history: Patient seen and examined remains on oxygen, on 6 L of oxygen Hospitalist Physical - Physical exam Narrative exam: VITAL SIGNS: Reviewed. GENERAL: The patient appears normally developed, chronically ill-appearing on 2 L of oxygen vital signs as documented. HEAD: No signs of head trauma. EYES: Pupils are equal. Extraocular motions intact. EARS: Hearing grossly intact. MOUTH: Oropharynx is normal. NECK: No adenopathy, no JVD. CHEST: Chest with diminished breath sounds bilaterally. No wheezes, rales, or rhonchi. CARDIAC: Regular rate and rhythm. S1 and S2, without murmurs, gallops, or rubs. VASCULAR: No Edema. Peripheral pulses normal and equal in all extremities. ABDOMEN: Soft, non tender and non distended. No rebound or guarding, and no masses palpated. Bowel Sounds normal. MUSCULOSKELETAL: Good range of motion of all major joints. Extremities without clubbing, cyanosis or edema. NEUROLOGIC EXAM: Alert and oriented x 3 No focal sensory or strength defi cits. Speech normal. Follows commands. PSYCHIATRIC: Mood normal. SKIN: detail exam as documented in skin assessment - Constitutional Vitals: Temp Pulse Resp BP Pulse Ox 97.8 F 91 H 20 148/80 94 07/30/21 05:56 07/30/21 05:56 07/30/21 05:56 07/30/21 05:56 07/30/21 05:56 General appearance: Present: mild distress, well-nourished HEART Score - HEART Score Troponin: Troponin T 0.110 ng/mL (0.00-0.029) H* 07/27/21 23:14 Results - Labs CBC & Chem 7: 07/29/21 04:41 07/29/21 04:41 Labs: Laboratory Last Values WBC 8.2 K/mm3 (4.5-11.0) 07/29/21 04:41 RBC 3.60 M/mm3 (3.65-5.03) L 07/29/21 04:41 Hgb 10.2 gm/dl (11.8-15.2) L 07/29/21 04:41 Hct 30.6 % (35.5-45.6) L 07/29/21 04:41 MCV 85 fl (84-94) 07/29/21 04:41 MCH 29 pg (28-32) 07/29/21 04:41 MCHC 33 % (32-34) 07/29/21 04:41 RDW 22.0 % (13.2-15.2) H 07/29/21 04:41 Plt Count 405 K/mm3 (140-440) 07/29/21 04:41 Add Manual Diff Complete 07/27/21 23:14 Total Counted 100 07/27/21 23:14 Seg Neuts % (Manual) 89.0 % (40.0-70.0) H 07/27/21 23:14 Lymphocytes % (Manual) 10.0 % (13.4-35.0) L 07/27/21 23:14 Monocytes % (Manual) 1.0 % (0.0-7.3) 07/27/21 23:14 Nucleated RBC % Not Reportable 07/27/21 23:14 Seg Neutrophils # Man 5.7 K/mm3 (1.8-7.7) 07/27/21 23:14 Band Neutrophils # 0.0 K/mm3 07/27/21 23:14 Lymphocytes # (Manual) 0.6 K/mm3 (1.2-5.4) L 07/27/21 23:14 Abs React Lymphs (Man) 0.0 K/mm3 07/27/21 23:14 Monocytes # (Manual) 0.1 K/mm3 (0.0-0.8) 07/27/21 23:14 Eosinophils # (Manual) 0.0 K/mm3 (0.0-0.4) 07/27/21 23:14 Basophils # (Manual) 0.0 K/mm3 (0.0-0.1) 07/27/21 23:14 Metamyelocytes # 0.0 K/mm3 07/27/21 23:14 Myelocytes # 0.0 K/mm3 07/27/21 23:14 Promyelocytes # 0.0 K/mm3 07/27/21 23:14 Blast Cells # 0.0 K/mm3 07/27/21 23:14 WBC Morphology Not Reportable 07/27/21 23:14 Hypersegmented Neuts Not Reportable 07/27/21 23:14 Hyposegmented Neuts Not Reportable 07/27/21 23:14 Hypogranular Neuts Not Reportable 07/27/21 23:14 Smudge Cells Not Reportable 07/27/21 23:14 Toxic Granulation Not Reportable 07/27/21 23:14 Toxic Vacuolation Not Reportable 07/27/21 23:14 Dohle Bodies Not Reportable 07/27/21 23:14 Pelger-Huet Anomaly Not Reportable 07/27/21 23:14 Judy Rods Not Reportable 07/27/21 23:14 Platelet Estimate Consistent w auto 07/27/21 23:14 Clumped Platelets Not Reportable 07/27/21 23:14 Plt Clumps, EDTA Not Reportable 07/27/21 23:14 Large Platelets Not Reportable 07/27/21 23:14 Giant Platelets Not Reportable 07/27/21 23:14 Platelet Satelliting Not Reportable 07/27/21 23:14 Plt Morphology Comment Not Reportable 07/27/21 23:14 RBC Morphology Not Reportable 07/27/21 23:14 Dimorphic RBCs Not Reportable 07/27/21 23:14 Polychromasia Not Reportable 07/27/21 23:14 Hypochromasia Not Reportable 07/27/21 23:14 Poikilocytosis Not Reportable 07/27/21 23:14 Anisocytosis 1+ 07/27/21 23:14 Microcytosis Not Reportable 07/27/21 23:14 Macrocytosis Not Reportable 07/27/21 23:14 Spherocytes Not Reportable 07/27/21 23:14 Pappenheimer Bodies Not Reportable 07/27/21 23:14 Sickle Cells Not Reportable 07/27/21 23:14 Target Cells Not Reportable 07/27/21 23:14 Tear Drop Cells Not Reportable 07/27/21 23:14 Ovalocytes Not Reportable 07/27/21 23:14 Helmet Cells Not Reportable 07/27/21 23:14 Jeter-Sewell Bodies Not Reportable 07/27/21 23:14 [place] Rings Not Reportable 07/27/21 23:14 Michael Cells Not Reportable 07/27/21 23:14 Bite Cells Not Reportable 07/27/21 23:14 Crenated Cell Not Reportable 07/27/21 23:14 Elliptocytes Not Reportable 07/27/21 23:14 Acanthocytes (Spur) Not Reportable 07/27/21 23:14 Rouleaux Not Reportable 07/27/21 23:14 Hemoglobin C Crystals Not Reportable 07/27/21 23:14 Schistocytes Few 07/27/21 23:14 Malaria parasites Not Reportable 07/27/21 23:14 Jacob Bodies Not Reportable 07/27/21 23:14 Hem Pathologist Commnt No 07/27/21 23:14 D-Dimer 2270.91 ng/mlDDU (0-234) H 07/28/21 00:36 Sodium 139 mmol/L (137-145) 07/29/21 04:41 Potassium 4.3 mmol/L (3.6-5.0) 07/29/21 04:41 Chloride 97.2 mmol/L (98-107) L 07/29/21 04:41 Carbon Dioxide 29 mmol/L (22-30) 07/29/21 04:41 Anion Gap 17 mmol/L 07/29/21 04:41 BUN 27 mg/dL (9-20) H 07/29/21 04:41 Creatinine 7.1 mg/dL (0.8-1.3) H 07/29/21 04:41 Estimated GFR 10 ml/min 07/29/21 04:41 BUN/Creatinine Ratio 4 % 07/29/21 04:41 Glucose 108 mg/dL (75-100) H 07/29/21 04:41 Lactic Acid 1.70 mmol/L (0.7-2.0) 07/27/21 23:14 Calcium 9.4 mg/dL (8.4-10.2) 07/29/21 04:41 Ferritin 3549.0 ng/mL (30.0-300.0) H 07/28/21 00:36 Total Bilirubin 0.40 mg/dL (0.1-1.2) 07/27/21 23:14 AST 50 units/L (5-40) H 07/27/21 23:14 ALT 23 units/L (7-56) 07/27/21 23:14 Alkaline Phosphatase 127 units/L (35-129) 07/27/21 23:14 Lactate Dehydrogenase 418 units/L (91-180) H 07/28/21 00:36 Troponin T 0.110 ng/mL (0.00-0.029) H* 07/27/21 23:14 C-Reactive Protein 14.50 mg/dL (0.00-1.30) H 07/28/21 00:36 Total Protein 7.0 g/dL (6.3-8.2) 07/27/21 23:14 Albumin 3.2 g/dL (3.9-5) L 07/27/21 23:14 Albumin/Globulin Ratio 0.8 % 07/27/21 23:14 Triglycerides 187 mg/dL (2-149) H 07/27/21 23:14 Cholesterol 152 mg/dL (50-199) 07/27/21 23:14 LDL Cholesterol Direct 75 mg/dL (50-130) 07/27/21 23:14 HDL Cholesterol 33 mg/dL (40-59) L 07/27/21 23:14 Cholesterol/HDL Ratio 4.60 % 07/27/21 23:14 Procalcitonin 7.37 ng/mL (<0.15) 07/28/21 00:36 Coronavirus (PCR) Positive (Negative) A 07/28/21 08:50 Hepatitis A IgM Ab Non-reactive (NonReactive) 07/28/21 15:30 Hep Bs Antigen Nonreactive (Negative) 07/28/21 15:30 Hep B Core IgM Ab Non-reactive (NonReactive) 07/28/21 15:30 Hepatitis C Antibody Non-reactive (NonReactive) 07/28/21 15:30 Active Medications - Current Medications Current Medications: Generic Name Dose Route Start Last Admin Trade Name Freq PRN Reason Stop Dose Admin Acetaminophen 650 mg 07/28/21 01:28 Acetaminophen 325 Mg Tab PO Q4H PRN Pain MILD(1-3)/Fever >100.5/JOHN Alprazolam 0.125 mg 07/28/21 01:28 Alprazolam 0.25 Mg Tab PO Q8H PRN Anxiety Amiodarone HCl 200 mg 07/28/21 10:00 07/30/21 02:27 Amiodarone 200 Mg Tab PO Not Given BID [facility] Amlodipine Besylate 10 mg 07/28/21 10:00 07/29/21 11:10 Amlodipine 10 Mg Tab PO 10 mg DAILY [facility] Administration Apixaban 5 mg 07/28/21 10:00 07/30/21 02:27 Apixaban 5 Mg Tab PO Not Given Q12HR [facility] Ascorbic Acid 500 mg 07/28/21 10:00 07/29/21 11:04 Ascorbic Acid 500 Mg Tab PO 500 mg QDAY [facility] Administration Cholecalciferol 1,000 unit 07/28/21 10:00 07/29/21 11:04 Cholecalciferol (Vit D3) 1000 Unit (25 Mcg) Tab PO 1,000 unit QDAY [facility] Administration Cinacalcet 60 mg 07/28/21 10:00 07/29/21 13:12 Cinacalcet 30 Mg Tab PO Not Given QDAY [facility] Dexamethasone 6 mg 07/28/21 10:00 07/29/21 11:04 Dexamethasone 4 Mg/Ml Vial IV 08/06/21 10:01 6 mg DAILY [facility] Administration Famotidine 20 mg 07/28/21 10:00 07/29/21 11:04 Famotidine 20 Mg Tab PO 20 mg QAM [facility] Administration Ceftriaxone Sodium 2 gm in 100 mls @ 200 mls/hr 07/28/21 10:00 07/29/21 11:03 Rocephin/Ns 2 Gm/100 Ml IV 200 mls/hr Q24HR [facility] Administration Protocol Azithromycin 500 mg in 250 mls @ 250 mls/hr 07/28/21 10:00 07/29/21 11:03 Zithromax/Ns IV 250 mls/hr Q24HR [facility] Administration Protocol Sodium Chloride 100 mls @ 999 mls/hr 07/28/21 15:00 Nacl 0.9% IV RUFUS PRN Hypotension Magnesium Hydroxide 30 ml 07/28/21 01:28 Magnesium Hydroxide (Mom) Oral Liqd Udc PO Q4H PRN Constipation Metoclopramide HCl 5 mg 07/28/21 01:28 Metoclopramide 10 Mg/2 Ml Inj IV Q6H PRN Nausea And Vomiting Metoprolol Tartrate 50 mg 07/28/21 08:00 07/29/21 17:43 Metoprolol Tartrate 50 Mg Tab PO 50 mg BID@0800,1700 [facility] Administration Morphine Sulfate 2 mg 07/28/21 01:28 Morphine 2 Mg/1 Ml Inj IV Q4H PRN Pain, Moderate (4-6) Morphine Sulfate 4 mg 07/28/21 01:28 Morphine 4 Mg/1 Ml Inj IV Q4H PRN Pain , Severe (7-10) Naloxone HCl 0.1 mg 07/28/21 01:28 Naloxone 0.4 Mg/1 Ml Inj IV Q2MIN PRN Res Rate </= 8 or 02 SAT < 92% Ondansetron HCl 4 mg 07/28/21 01:28 Ondansetron 4 Mg/2 Ml Inj IV Q8H PRN Nausea And Vomiting Oxycodone/Acetaminophen 1 tab 07/28/21 01:28 07/28/21 08:42 Oxycodone /Acetaminophen 5-325mg Tab PO 1 tab Q6H PRN Administration Pain, Moderate (4-6) Senna 8.6 mg 07/28/21 01:28 Sennosides 8.6 Mg Tab PO Q12HR PRN Constipation Sevelamer Carbonate 2,400 mg 07/28/21 08:00 07/29/21 17:45 Sevelamer Carbonate 800 Mg Tab PO 2,400 mg TIDWM [facility] Administration Sodium Chloride 10 ml 07/28/21 10:00 07/30/21 02:27 Sodium Chloride 0.9% 10 Ml Flush Syringe IV Not Given BID [facility] Sodium Chloride 10 ml 07/28/21 01:28 Sodium Chloride 0.9% 10 Ml Flush Syringe IV PRN PRN LINE FLUSH Tramadol HCl 50 mg 07/28/21 01:34 07/30/21 03:35 Tramadol 50 Mg Tab PO 50 mg BID PRN Administration Pain, Moderate (4-6) Zinc Sulfate 220 mg 07/28/21 10:00 07/29/21 11:04 Zinc Sulfate 220 Mg Cap PO 220 mg QDAY [facility] Administration
[2021-07-30] MEDS: METOPROLOL TARTRATE 50 MG TAB PO SCH ×2 (08:00→17:28)
[2021-07-30] MEDS: SEVELAMER CARBONATE 800 MG TAB PO SCH ×3 (08:00→17:28)
--- NOTE | 2021-07-30 09:17 | Progress Note ---
Assessment and Plan Assessment - End-stage renal disease on hemodialysis - Hypertension - Covid PNA - Acute hypoxic resp failure - Anemia of ESRD - Hyperparathyroidism - Hyperphosphatemia - Pneumonia Recommendations - Continue HD TTS and prn, next HD tomorrow - Covid treatment per primary team - Monitor labs and volume status daily and assess need for additional dialysis session - Continue home antihypertensives - Hold antihypertensives on hemodialysis days for systolics less than 160 - ESRD diet with 1.4 g/kg per day protein - patient understands need for continued hemodialysis and willing to proceed - Renally dose medication for creatinine clearance less than 15 cc/min - Antibiotics as per ID Subjective Date of service: 07/30/21 Principal diagnosis: Covid-19 Interval history: No events noted per chart. All 24 hour notes, vitals, labs, events reviewed Objective - Exam Narrative Exam: primary team exam noted, exam deferred for preservation of PPE - Vital Signs Vital signs: Vital Signs - 12hr 07/29/21 07/29/21 07/29/21 21:21 22:33 22:39 Temperature Pulse Rate 84 101 H Respiratory 17 29 H Rate Blood Pressure 138/73 Blood Pressure [Left] O2 Sat by Pulse 93 99 Oximetry 07/29/21 07/29/21 07/29/21 22:41 22:45 22:50 Temperature 99.2 F Pulse Rate 82 72 Respiratory 22 20 Rate Blood Pressure Blood Pressure 111/73 [Left] O2 Sat by Pulse 100 92 96 Oximetry 07/29/21 07/30/21 07/30/21 22:51 02:37 05:56 Temperature 97.8 F Pulse Rate 74 91 H Respiratory 18 20 20 Rate Blood Pressure 148/80 Blood Pressure [Left] O2 Sat by Pulse 100 100 94 Oximetry - Lab 07/29/21 04:41 07/29/21 04:41 Most recent lab results Calcium 9.4 mg/dL (8.4-10.2) 07/29/21 04:41 Medications & Allergies - Medications Allergies/Adverse Reactions: Allergies No Known Allergies Allergy (Unverified 04/15/20 11:37) Home Medications: Home Medications Medication Instructions Recorded Confirmed Last Taken Type Amiodarone [Cordarone 200 MG TAB] 200 mg PO BID #60 tablet 05/21/21 07/30/21 Unknown Rx Apixaban [Eliquis] 5 mg PO Q12HR #60 tablet 05/21/21 07/30/21 Unknown Rx Aspirin EC [Ecotrin] 325 mg PO QDAY #30 tablet 05/21/21 07/30/21 Unknown Rx Cinacalcet HCl 60 mg PO DAILY #30 05/21/21 07/30/21 Unknown Rx Cinacalcet [Sensipar] 60 mg PO QDAY #30 tablet 05/21/21 07/30/21 Unknown Rx Metoprolol [Lopressor TAB] 50 mg PO BID #60 tablet 05/21/21 07/30/21 Unknown Rx Pantoprazole [Protonix TAB] 40 mg PO QDAC #30 tablet 05/21/21 07/30/21 Unknown Rx Sevelamer Carbonate [Renvela] 2,400 mg PO TIDWM #90 tablet 05/21/21 07/30/21 Unk nown Rx amLODIPine 10 mg PO DAILY #30 05/21/21 07/30/21 Unknown Rx traMADoL [Ultram 50 MG tab] 50 mg PO BID PRN #30 tablet 05/21/21 07/30/21 Unknown Rx Active Medications: Generic Name Dose Route Start Last Admin Trade Name Freq PRN Reason Stop Dose Admin Acetaminophen 650 mg 07/28/21 01:28 Acetaminophen 325 Mg Tab PO Q4H PRN Pain MILD(1-3)/Fever >100.5/JOHN Alprazolam 0.125 mg 07/28/21 01:28 Alprazolam 0.25 Mg Tab PO Q8H PRN Anxiety Amiodarone HCl 200 mg 07/28/21 10:00 07/30/21 02:27 Amiodarone 200 Mg Tab PO Not Given BID [facility] Amlodipine Besylate 10 mg 07/28/21 10:00 07/29/21 11:10 Amlodipine 10 Mg Tab PO 10 mg DAILY [facility] Administration Apixaban 5 mg 07/28/21 10:00 07/30/21 02:27 Apixaban 5 Mg Tab PO Not Given Q12HR [facility] Ascorbic Acid 500 mg 07/28/21 10:00 07/29/21 11:04 Ascorbic Acid 500 Mg Tab PO 500 mg QDAY [facility] Administration Cholecalciferol 1,000 unit 07/28/21 10:00 07/29/21 11:04 Cholecalciferol (Vit D3) 1000 Unit (25 Mcg) Tab PO 1,000 unit QDAY [facility] Administration Cinacalcet 60 mg 07/28/21 10:00 07/29/21 13:12 Cinacalcet 30 Mg Tab PO Not Given QDAY [facility] Dexamethasone 6 mg 07/28/21 10:00 07/29/21 11:04 Dexamethasone 4 Mg/Ml Vial IV 08/06/21 10:01 6 mg DAILY [facility] Administration Famotidine 20 mg 07/28/21 10:00 07/29/21 11:04 Famotidine 20 Mg Tab PO 20 mg QAM [facility] Administration Ceftriaxone Sodium 2 gm in 100 mls @ 200 mls/hr 07/28/21 10:00 07/29/21 11:03 Rocephin/Ns 2 Gm/100 Ml IV 07/31/21 10:29 200 mls/hr Q24HR [facility] Administration Protocol Azithromycin 500 mg in 250 mls @ 250 mls/hr 07/28/21 10:00 07/29/21 11:03 Zithromax/Ns IV 07/31/21 10:59 250 mls/hr Q24HR [facility] Administration Protocol Sodium Chloride 100 mls @ 999 mls/hr 07/28/21 15:00 Nacl 0.9% IV RUFUS PRN Hypotension Magnesium Hydroxide 30 ml 07/28/21 01:28 Magnesium Hydroxide (Mom) Oral Liqd Udc PO Q4H PRN Constipation Metoclopramide HCl 5 mg 07/28/21 01:28 Metoclopramide 10 Mg/2 Ml Inj IV Q6H PRN Nausea And Vomiting Metoprolol Tartrate 50 mg 07/28/21 08:00 07/29/21 17:43 Metoprolol Tartrate 50 Mg Tab PO 50 mg BID@0800,1700 [facility] Administration Morphine Sulfate 2 mg 07/28/21 01:28 Morphine 2 Mg/1 Ml Inj IV Q4H PRN Pain, Moderate (4-6) Morphine Sulfate 4 mg 07/28/21 01:28 Morphine 4 Mg/1 Ml Inj IV Q4H PRN Pain , Severe (7-10) Naloxone HCl 0.1 mg 07/28/21 01:28 Naloxone 0.4 Mg/1 Ml Inj IV Q2MIN PRN Res Rate </= 8 or 02 SAT < 92% Ondansetron HCl 4 mg 07/28/21 01:28 Ondansetron 4 Mg/2 Ml Inj IV Q8H PRN Nausea And Vomiting Oxycodone/Acetaminophen 1 tab 07/28/21 01:28 07/28/21 08:42 Oxycodone /Acetaminophen 5-325mg Tab PO 1 tab Q6H PRN Administration Pain, Moderate (4-6) Senna 8.6 mg 07/28/21 01:28 Sennosides 8.6 Mg Tab PO Q12HR PRN Constipation Sevelamer Carbonate 2,400 mg 07/28/21 08:00 07/29/21 17:45 Sevelamer Carbonate 800 Mg Tab PO 2,400 mg TIDWM [facility] Administration Sodium Chloride 10 ml 07/28/21 10:00 07/30/21 02:27 Sodium Chloride 0.9% 10 Ml Flush Syringe IV Not Given BID [facility] Sodium Chloride 10 ml 07/28/21 01:28 Sodium Chloride 0.9% 10 Ml Flush Syringe IV PRN PRN LINE FLUSH Tramadol HCl 50 mg 07/28/21 01:34 07/30/21 03:35 Tramadol 50 Mg Tab PO 50 mg BID PRN Administration Pain, Moderate (4-6) Zinc Sulfate 220 mg 07/28/21 10:00 07/29/21 11:04 Zinc Sulfate 220 Mg Cap PO 220 mg QDAY [facility] Administration
[2021-07-30] MEDS: CINACALCET 30 MG TAB PO SCH (09:45)
[2021-07-30] MEDS: ZINC SULFATE 220 MG CAP PO SCH (09:46)
[2021-07-30] MEDS: ASCORBIC ACID 500 MG TAB PO SCH (09:46)
[2021-07-30] MEDS: amLODIPine 10 MG TAB PO SCH (09:46)
[2021-07-30] MEDS: FAMOTIDINE 20 MG TAB PO SCH (09:46)
[2021-07-30] MEDS: dexAMETHasone 4 MG/ML VIAL IV SCH (09:47)
[2021-07-30] MEDS: cefTRIAXone/NS 2 GM/100 ML 2 GM/100 ML BAG IV SCH (09:47)
[2021-07-30] MEDS: CHOLECALCIFEROL (VIT D3) 1000 UNIT (25 mcg) TAB PO SCH (09:47)
[2021-07-30] MEDS: AZITHROMYCIN/NS 500 MG/250 ML 500 MG/250 ML BAG IV SCH (09:48)
--- NOTE | 2021-07-30 11:08 | Consultation ---
History of Present Illness - Reason for Consult Consult date: 07/30/21 - History of Present Illness 61-year-old man past medical history ESRD on HD, hypertension, hyperlipidemia presented to hospital complaining of cough, shortness of breath, fevers, chills. This began approximately 1 week prior to admission, and he tested positive for Covid the day prior to admission. He feels his symptoms are worsening. On presentation he was on 4 L nasal cannula oxygen. Febrile to 1-2.4 with a white count 8.2. Currently on ceftriaxone and azithromycin with dexamethasone. Now on 8 L nasal cannula. Imaging personally reviewed: V/Q scan low probability for pulmonary embolus Chest x-ray: Multifocal airspace pneumonia. Review of systems: Deferred to reduce to the risk of transmission of COVID-19 Past History Past Medical History: ESRD, hypertension, hyperlipidemia, renal failure Past Surgical History: No surgical history Social history: full code. denies: alcohol abuse, prescription drug abuse Family history: no significant family history Medications and Allergies Allergies Allergy/AdvReac Type Severity Reaction Status Date / Time No Known Allergies Allergy Unverified 04/15/20 11:37 Home Medications Medication Instructions Recorded Confirmed Last Taken Type Amiodarone [Cordarone 200 MG TAB] 200 mg PO BID #60 tablet 05/21/21 07/30/21 Unknown Rx Apixaban [Eliquis] 5 mg PO Q12HR #60 tablet 05/21/21 07/30/21 Unknown Rx Aspirin EC [Ecotrin] 325 mg PO QDAY #30 tablet 05/21/21 07/30/21 Unknown Rx Cinacalcet HCl 60 mg PO DAILY #30 05/21/21 07/30/21 Unknown Rx Cinacalcet [Sensipar] 60 mg PO QDAY #30 tablet 05/21/21 07/30/21 Unknown Rx Metoprolol [Lopressor TAB] 50 mg PO BID #60 tablet 05/21/21 07/30/21 Unknown Rx Pantoprazole [Protonix TAB] 40 mg PO QDAC #30 tablet 05/21/21 07/30/21 Unknown Rx Sevelamer Carbonate [Renvela] 2,400 mg PO TIDWM #90 tablet 05/21/21 07/30/21 Unknown Rx amLODIPine 10 mg PO DAILY #30 05/21/21 07/30/21 Unknown Rx traMADoL [Ultram 50 MG tab] 50 mg PO BID PRN #30 tablet 05/21/21 07/30/21 Unknown Rx Active Meds: Active Medications Acetaminophen (Acetaminophen 325 Mg Tab) 650 mg PO Q4H PRN PRN Reason: Pain MILD(1-3)/Fever >100.5/JOHN Alprazolam (Alprazolam 0.25 Mg Tab) 0.125 mg PO Q8H PRN PRN Reason: Anxiety Amiodarone HCl (Amiodarone 200 Mg Tab) 200 mg PO BID [facility] Last Admin: 07/30/21 09:46 Dose: 200 mg Documented by: Amlodipine Besylate (Amlodipine 10 Mg Tab) 10 mg PO DAILY [facility] Last Admin: 07/30/21 09:46 Dose: 10 mg Documented by: Apixaban (Apixaban 5 Mg Tab) 5 mg PO Q12HR [facility] Last Admin: 07/30/21 09:46 Dose: 5 mg Documented by: Ascorbic Acid (Ascorbic Acid 500 Mg Tab) 500 mg PO QDAY [facility] Last Admin: 07/30/21 09:46 Dose: 500 mg Documented by: Cholecalciferol (Cholecalciferol (Vit D3) 1000 Unit (25 Mcg) Tab) 1,000 unit PO QDAY [facility] Last Admin: 07/30/21 09:47 Dose: 1,000 unit Documented by: Cinacalcet (Cinacalcet 30 Mg Tab) 60 mg PO QDAY [facility] Last Admin: 07/30/21 09:45 Dose: 60 mg Documented by: Dexamethasone (Dexamethasone 4 Mg/Ml Vial) 6 mg IV DAILY [facility] Stop: 08/06/21 10:01 Last Admin: 07/30/21 09:47 Dose: 6 mg Documented by: Famotidine (Famotidine 20 Mg Tab) 20 mg PO QAM [facility] Last Admin: 07/30/21 09:46 Dose: 20 mg Documented by: Ceftriaxone Sodium (Rocephin/Ns 2 Gm/100 Ml) 2 gm in 100 mls @ 200 mls/hr IV Q24HR [facility]; Protocol Stop: 07/31/21 10:29 Last Admin: 07/30/21 09:47 Dose: 200 mls/hr Documented by: Azithromycin (Zithromax/Ns) 500 mg in 250 mls @ 250 mls/hr IV Q24HR [facility]; Protocol Stop: 07/31/21 10:59 Last Admin: 07/30/21 09:48 Dose: 250 mls/hr Documented by: Sodium Chloride (Nacl 0.9%) 100 mls @ 999 mls/hr IV RUFUS PRN PRN Reason: Hypotension Magnesium Hydroxide (Magnesium Hydroxide (Mom) Oral Liqd Udc) 30 ml PO Q4H PRN PRN Reason: Constipation Metoclopramide HCl (Metoclopramide 10 Mg/2 Ml Inj) 5 mg IV Q6H PRN PRN Reason: Nausea And Vomiting Metoprolol Tartrate (Metoprolol Tartrate 50 Mg Tab) 50 mg PO BID@0800,1700 [facility] Last Admin: 07/30/21 08:00 Dose: 50 mg Documented by: Morphine Sulfate (Morphine 2 Mg/1 Ml Inj) 2 mg IV Q4H PRN PRN Reason: Pain, Moderate (4-6) Morphine Sulfate (Morphine 4 Mg/1 Ml Inj) 4 mg IV Q4H PRN PRN Reason: Pain , Severe (7-10) Naloxone HCl (Naloxone 0.4 Mg/1 Ml Inj) 0.1 mg IV Q2MIN PRN PRN Reason: Res Rate </= 8 or 02 SAT < 92% Ondansetron HCl (Ondansetron 4 Mg/2 Ml Inj) 4 mg IV Q8H PRN PRN Reason: Nausea And Vomiting Oxycodone/Acetaminophen (Oxycodone /Acetaminophen 5-325mg Tab) 1 tab PO Q6H PRN PRN Reason: Pain, Moderate (4-6) Last Admin: 07/28/21 08:42 Dose: 1 tab Documented by: Senna (Sennosides 8.6 Mg Tab) 8.6 mg PO Q12HR PRN PRN Reason: Constipation Sevelamer Carbonate (Sevelamer Carbonate 800 Mg Tab) 2,400 mg PO TIDWM [facility] Last Admin: 07/30/21 08:00 Dose: 2,400 mg Documented by: Sodium Chloride (Sodium Chloride 0.9% 10 Ml Flush Syringe) 10 ml IV BID [facility] Last Admin: 07/30/21 09:45 Dose: 10 ml Documented by: Sodium Chloride (Sodium Chloride 0.9% 10 Ml Flush Syringe) 10 ml IV PRN PRN PRN Reason: LINE FLUSH Tramadol HCl (Tramadol 50 Mg Tab) 50 mg PO BID PRN PRN Reason: Pain, Moderate (4-6) Last Admin: 07/30/21 03:35 Dose: 50 mg Documented by: Zinc Sulfate (Zinc Sulfate 220 Mg Cap) 220 mg PO QDAY [facility] Last Admin: 07/30/21 09:46 Dose: 220 mg Documented by: Physical Examination - Physical Exam Narrative exam: Physical exam deferred to reduce risk of transmission of COVID-19. Please refer to primary team's note. - Constitutional Vitals: Vital Signs Temp Pulse Resp BP Pulse Ox 97.8 F 91 H 20 148/80 97 07/30/21 05:56 07/30/21 05:56 07/30/21 05:56 07/30/21 05:56 07/30/21 10:08 Temperature -Last 24 Hours Temperature 97.8 F Temperature 99.2 F Temperature 98.8 F Results - Labs CBC & Chem 7: 07/29/21 04:41 07/29/21 04:41 Assessment and Plan Cultures: COVID positive A/P: 61-year-old man past medical history ESRD on HD, hypertension, hyperlipidemia #Severe COVID-19 pneumonia: Patient presented with a week of symptoms, chest x- ray with diffuse bilateral infiltrates. Inflammatory markers elevated #Acute hypoxemic respiratory failure: Likely secondary to COVID-19 infection. Currently on 8L NC #ESRD on HD: renally dose medications. Recs: -Dexamethasone for 10 days -Unfortunately not a candidate for remdesivir -Obtain q48-72h inflammatory markers - ferritin, Ddimer, CRP, LDH -Continue ceftriaxone 2 gm IV qday and azithromycin 500 mg PO qday due to elevated procal in the setting of ESRD -Anticoagulation per hospital protocol -Proning as able Thank you for the consult, we will continue to follow. MD Wendy Hirsch [facility] ([facility] O: [phone] F: [phone]
--- NOTE | 2021-07-30 11:14 | Progress Note ---
Assessment and Plan 61 y/o male with acute respiratory failure secondary to COVID pneumonia 1. Prone 2. Steroids 3. Remdesivir and ID recs 4. Daily net negative state if possible 5. Guarded prognosis. Subjective Date of service: 07/30/21 Principal diagnosis: Covid-19 Interval history: No acute events. Stable. Objective Vital Signs - 12hr 07/30/21 07/30/21 07/30/21 02:37 05:56 10:08 Temperature 97.8 F Pulse Rate 91 H Respiratory 20 20 Rate Blood Pressure 148/80 O2 Sat by Pulse 100 94 97 Oximetry CBC and BMP: 07/29/21 04:41 07/29/21 04:41 ABG, PT/INR, D-dimer: PT/INR, D-dimer D-Dimer 2270.91 ng/mlDDU (0-234) H 07/28/21 00:36 Abnormal lab findings: Abnormal Labs 07/27/21 07/27/21 07/28/21 23:14 23:14 00:36 RBC Hgb 10.0 L Hct 31.4 L MCH 27 L RDW 22.7 H Seg Neuts % (Manual) 89.0 H Lymphocytes % (Manual) 10.0 L Lymphocytes # (Manual) 0.6 L D-Dimer 2270.91 H Chloride 93.2 L BUN Creatinine 6.7 H Glucose Ferritin AST 50 H Lactate Dehydrogenase Troponin T 0.110 H* C-Reactive Protein Albumin 3.2 L Triglycerides 187 H HDL Cholesterol 33 L Coronavirus (PCR) 07/28/21 07/28/21 07/28/21 00:36 00:36 08:50 RBC Hgb Hct MCH RDW Seg Neuts % (Manual) Lymphocytes % (Manual) Lymphocytes # (Manual) D-Dimer Chloride BUN Creatinine Glucose Ferritin 3549.0 H AST Lactate Dehydrogenase 418 H Troponin T C-Reactive Protein 14.50 H Albumin Triglycerides HDL Cholesterol Coronavirus (PCR) Positive A 07/29/21 07/29/21 04:41 04:41 RBC 3.60 L Hgb 10.2 L Hct 30.6 L MCH RDW 22.0 H Seg Neuts % (Manual) Lymphocytes % (Manual) Lymphocytes # (Manual) D-Dimer Chloride 97.2 L BUN 27 H Creatinine 7.1 H Glucose 108 H Ferritin AST Lactate Dehydrogenase Troponin T C-Reactive Protein Albumin Triglycerides HDL Cholesterol Coronavirus (PCR)
--- NOTE | 2021-07-30 11:50 | Progress Note ---
Assessment and Plan Assessment and plan: This is a 61-year-old male seen in the ED at bedside. he presents to emergency room with complaints of cough, shortness of breath, fever, chills. Patient states his symptoms been going on for a week and he tested yesterday and his COVID-19 test came back positive. Patient states he was diagnosed at an urgent care. Patient states he has not received any treatment. Patient states his symptoms are worsening. Patient states has been monitoring his oxygen saturation at home and his oxygen saturation has been 80 to 85% for the past 4 days. On assessment, patient has shortness of breath. He is on oxygen at 4 L nasal cannula with O2 sat of 99%. I reviewed patient medication record vital signs and radiology report. Chest x-ray done severe multifocal airspace pneumonia throughout the both lungs. Patient admits tobacco use, but denies chronic alcohol or illicit use. (1) COVID-19 Current Visit: Yes Status: Acute Plan to address problem: Airborne and contact isolation for Covid protocol Bronchodilator and oxygen supplement as needed Patient is on oxygen at 4 L O2 sat 99% on the monitor Infectious disease and bagger meat consult Ascorbic acid, zinc sulfate, vitamin D supplement and systemic steroid Encourage the use of incentive spirometer and prone position. Empiric antibioticazithromycin and Rocephin (2) Acute respiratory failure with hypoxia Current Visit: Yes Status: Acute Plan to address problem: Bronchodilator and oxygen supplement ABG monitor oxygen saturation Cleaner Touch Up Worker has been consulted (3) Elevated d-dimer Current Visit: Yes Status: Acute Plan to address problem: Elevated D-dimerVQ scan orderedpatient has reduced kidney function Continue home Eliquis (4) ESRD (end stage renal disease) on dialysis Current Visit: Yes Status: Acute Plan to address problem: [place] consultfollow-up with plan of care Monitor kidney function and electrolytes (5) Elevated troponin, secondary to renal dysfunction Current Visit: No Status: Acute Plan to address problem: Unknown causerenal ischemiakidney failure Trend troponin Patient is on Eliquis (6) Pneumonia Current Visit: Yes Status: Acute Qualifiers: Pneumonia type: due to unspecified organism Laterality: bilateral Lung location: unspecified part of lung Qualified Code(s): J18.9 - Pneumonia, unspecified organism Plan to address problem: Chest x-ray done severe multifocal airspace pneumonia throughout the both lungs Pneumonia likely secondary to Covid infection Patient is on empiric antibiotic ID and bagger meat have been consulted (7) diarrhea (8) DVT prophylaxis Current Visit: No Status: Acute Plan to address problem: Patient is on Eliquis 07/29: Covid test positive. Patient to be seen by pulmonary and textile designer. Continue steroids at this time. Will defer remdesivir to infectious disease's renal function may preclude use. HD per nephrology type II non-ST elevated MD 07/30: Patient remains with hypoxic respiratory failure secondary to COVID-19. Also diarrhea and abdominal pain which he rates as a 3/10 in intensity. He sitting up at the bedside [place] over he is also hard of hearing. We will give her Bentyl for abdominal discomfort but if persistent or worsening pain may need either further imaging. Continue steroid therapy patient not a candidate of remdesivir at this time. Continue apixaban which patient takes at home and will also help for management of Covid induced coagulopathy. History Interval history: Patient seen and examined remains on oxygen, on 6 L of oxygen, complaining of shortness of breath this morning and also diarrhea Hospitalist Physical - Physical exam Narrative exam: VITAL SIGNS: Reviewed. GENERAL: The patient appears normally developed, chronically ill-appearing on 6 L of oxygen vital signs as documented. HEAD: No signs of head trauma. EYES: Pupils are equal. Extraocular motions intact. EARS: Hearing grossly intact. MOUTH: Oropharynx is normal. NECK: No adenopathy, no JVD. CHEST: Chest with diminished breath sounds bilaterally. No wheezes, rales, or rhonchi. CARDIAC: Regular rate and rhythm. S1 and S2, without murmurs, gallops, or rubs. VASCULAR: No Edema. Peripheral pulses normal and equal in all extremities. ABDOMEN: Soft, non tender and non distended. No rebound or guarding, and no masses palpated. Bowel Sounds normal. MUSCULOSKELETAL: Good range of motion of all major joints. Extremities without clubbing, cyanosis or edema. NEUROLOGIC EXAM: Alert and oriented x 3 No focal sensory or strength deficits. Speech normal. Follows commands. PSYCHIATRIC: Mood normal. SKIN: detail exam as documented in skin assessment - Constitutional Vitals: Temp Pulse Resp BP Pulse Ox 97.8 F 91 H 20 148/80 97 07/30/21 05:56 07/30/21 05:56 07/30/21 05:56 07/30/21 05:56 07/30/21 10:08 General appearance: Present: mild distress, well-nourished HEART Score - HEART Score Troponin: Troponin T 0.110 ng/mL (0.00-0.029) H* 07/27/21 23:14 Results - Labs CBC & Chem 7: 07/29/21 04:41 07/29/21 04:41 Labs: Laboratory Last Values WBC 8.2 K/mm3 (4.5-11.0) 07/29/21 04:41 RBC 3.60 M/mm3 (3.65-5.03) L 07/29/21 04:41 Hgb 10.2 gm/dl (11.8-15.2) L 07/29/21 04:41 Hct 30.6 % (35.5-45.6) L 07/29/21 04:41 MCV 85 fl (84-94) 07/29/21 04:41 MCH 29 pg (28-32) 07/29/21 04:41 MCHC 33 % (32-34) 07/29/21 04:41 RDW 22.0 % (13.2-15.2) H 07/29/21 04:41 Plt Count 405 K/mm3 (140-440) 07/29/21 04:41 Add Manual Diff Complete 07/27/21 23:14 Total Counted 100 07/27/21 23:14 Seg Neuts % (Manual) 89.0 % (40.0-70.0) H 07/27/21 23:14 Lymphocytes % (Manual) 10.0 % (13.4-35.0) L 07/27/21 23:14 Monocytes % (Manual) 1.0 % (0.0-7.3) 07/27/21 23:14 Nucleated RBC % Not Reportable 07/27/21 23:14 Seg Neutrophils # Man 5.7 K/mm3 (1.8-7.7) 07/27/21 23:14 Band Neutrophils # 0.0 K/mm3 07/27/21 23:14 Lymphocytes # (Manual) 0.6 K/mm3 (1.2-5.4) L 07/27/21 23:14 Abs React Lymphs (Man) 0.0 K/mm3 07/27/21 23:14 Monocytes # (Manual) 0.1 K/mm3 (0.0-0.8) 07/27/21 23:14 Eosinophils # (Manual) 0.0 K/mm3 (0.0-0.4) 07/27/21 23:14 Basophils # (Manual) 0.0 K/mm3 (0.0-0.1) 07/27/21 23:14 Metamyelocytes # 0.0 K/mm3 07/27/21 23:14 Myelocytes # 0.0 K/mm3 07/27/21 23:14 Promyelocytes # 0.0 K/mm3 07/27/21 23:14 Blast Cells # 0.0 K/mm3 07/27/21 23:14 WBC Morphology Not Reportable 07/27/21 23:14 Hypersegmented Neuts Not Reportable 07/27/21 23:14 Hyposegmented Neuts Not Reportable 07/27/21 23:14 Hypogranular Neuts Not Reportable 07/27/21 23:14 Smudge Cells Not Reportable 07/27/21 23:14 Toxic Granulation Not Reportable 07/27/21 23:14 Toxic Vacuolation Not Reportable 07/27/21 23:14 Dohle Bodies Not Reportable 07/27/21 23:14 Pelger-Huet Anomaly Not Reportable 07/27/21 23:14 Judy Rods Not Reportable 07/27/21 23:14 Platelet Estimate Consistent w auto 07/27/21 23:14 Clumped Platelets Not Reportable 07/27/21 23:14 Plt Clumps, EDTA Not Reportable 07/27/21 23:14 Large Platelets Not Reportable 07/27/21 23:14 Giant Platelets Not Reportable 07/27/21 23:14 Platelet Satelliting Not Reportable 07/27/21 23:14 Plt Morphology Comment Not Reportable 07/27/21 23:14 RBC Morphology Not Reportable 07/27/21 23:14 Dimorphic RBCs Not Reportable 07/27/21 23:14 Polychromasia Not Reportable 07/27/21 23:14 Hypochromasia Not Reportable 07/27/21 23:14 Poikilocytosis Not Reportable 07/27/21 23:14 Anisocytosis 1+ 07/27/21 23:14 Microcytosis Not Reportable 07/27/21 23:14 Macrocytosis Not Reportable 07/27/21 23:14 Spherocytes Not Reportable 07/27/21 23:14 Pappenheimer Bodies Not Reportable 07/27/21 23:14 Sickle Cells Not Reportable 07/27/21 23:14 Target Cells Not Reportable 07/27/21 23:14 Tear Drop Cells Not Reportable 07/27/21 23:14 Ovalocytes Not Reportable 07/27/21 23:14 Helmet Cells Not Reportable 07/27/21 23:14 [place] Bodies Not Reportable 07/27/21 23:14 [place] Rings Not Reportable 07/27/21 23:14 Michael Cells Not Reportable 07/27/21 23:14 Bite Cells Not Reportable 07/27/21 23:14 Crenated Cell Not Reportable 07/27/21 23:14 Elliptocytes Not Reportable 07/27/21 23:14 Acanthocytes (Spur) Not Reportable 07/27/21 23:14 Rouleaux Not Reportable 07/27/21 23:14 Hemoglobin C Crystals Not Reportable 07/27/21 23:14 Schistocytes Few 07/27/21 23:14 Malaria parasites Not Reportable 07/27/21 23:14 Jacob Bodies Not Reportable 07/27/21 23:14 Hem Pathologist Commnt No 07/27/21 23:14 D-Dimer 2270.91 ng/mlDDU (0-234) H 07/28/21 00:36 Sodium 139 mmol/L (137-145) 07/29/21 04:41 Potassium 4.3 mmol/L (3.6-5.0) 07/29/21 04:41 Chloride 97.2 mmol/L (98-107) L 07/29/21 04:41 Carbon Dioxide 29 mmol/L (22-30) 07/29/21 04:41 Anion Gap 17 mmol/L 07/29/21 04:41 BUN 27 mg/dL (9-20) H 07/29/21 04:41 Creatinine 7.1 mg/dL (0.8-1.3) H 07/29/21 04:41 Estimated GFR 10 ml/min 07/29/21 04:41 BUN/Creatinine Ratio 4 % 07/29/21 04:41 Glucose 108 mg/dL (75-100) H 07/29/21 04:41 Lactic Acid 1.70 mmol/L (0.7-2.0) 07/27/21 23:14 Calcium 9.4 mg/dL (8.4-10.2) 07/29/21 04:41 Ferritin 3549.0 ng/mL (30.0-300.0) H 07/28/21 00:36 Total Bilirubin 0.40 mg/dL (0.1-1.2) 07/27/21 23:14 AST 50 units/L (5-40) H 07/27/21 23:14 ALT 23 units/L (7-56) 07/27/21 23:14 Alkaline Phosphatase 127 units/L (35-129) 07/27/21 23:14 Lactate Dehydrogenase 418 units/L (91-180) H 07/28/21 00:36 Troponin T 0.110 ng/mL (0.00-0.029) H* 07/27/21 23:14 C-Reactive Protein 14.50 mg/dL (0.00-1.30) H 07/28/21 00:36 Total Protein 7.0 g/dL (6.3-8.2) 07/27/21 23:14 Albumin 3.2 g/dL (3.9-5) L 07/27/21 23:14 Albumin/Globulin Ratio 0.8 % 07/27/21 23:14 Triglycerides 187 mg/dL (2-149) H 07/27/21 23:14 Cholesterol 152 mg/dL (50-199) 07/27/21 23:14 LDL Cholesterol Direct 75 mg/dL (50-130) 07/27/21 23:14 HDL Cholesterol 33 mg/dL (40-59) L 07/27/21 23:14 Cholesterol/HDL Ratio 4.60 % 07/27/21 23:14 Procalcitonin 7.37 ng/mL (<0.15) 07/28/21 00:36 Coronavirus (PCR) Positive (Negative) A 07/28/21 08:50 Hepatitis A IgM Ab Non-reactive (NonReactive) 07/28/21 15:30 Hep Bs Antigen Nonreactive (Negative) 07/28/21 15:30 Hep B Core IgM Ab Non-reactive (NonReactive) 07/28/21 15:30 Hepatitis C Antibody Non-reactive (NonReactive) 07/28/21 15:30 Active Medications - Current Medications Current Medications: Generic Name Dose Route Start Last Admin Trade Name Freq PRN Reason Stop Dose Admin Acetaminophen 650 mg 07/28/21 01:28 Acetaminophen 325 Mg Tab PO Q4H PRN Pain MILD(1-3)/Fever >100.5/JOHN Alprazolam 0.125 mg 07/28/21 01:28 Alprazolam 0.25 Mg Tab PO Q8H PRN Anxiety Amiodarone HCl 200 mg 07/28/21 10:00 07/30/21 09:46 Amiodarone 200 Mg Tab PO 200 mg BID [facility] Administration Amlodipine Besylate 10 mg 07/28/21 10:00 07/30/21 09:46 Amlodipine 10 Mg Tab PO 10 mg DAILY [facility] Administration Apixaban 5 mg 07/28/21 10:00 07/30/21 09:46 Apixaban 5 Mg Tab PO 5 mg Q12HR [facility] Administration Ascorbic Acid 500 mg 07/28/21 10:00 07/30/21 09:46 Ascorbic Acid 500 Mg Tab PO 500 mg QDAY [facility] Administration Cholecalciferol 1,000 unit 07/28/21 10:00 07/30/21 09:47 Cholecalciferol (Vit D3) 1000 Unit (25 Mcg) Tab PO 1,000 unit QDAY [facility] Administration Cinacalcet 60 mg 07/28/21 10:00 07/30/21 09:45 Cinacalcet 30 Mg Tab PO 60 mg QDAY [facility] Administration Dexamethasone 6 mg 07/28/21 10:00 07/30/21 09:47 Dexamethasone 4 Mg/Ml Vial IV 08/06/21 10:01 6 mg DAILY [facility] Administration Famotidine 20 mg 07/28/21 10:00 07/30/21 09:46 Famotidine 20 Mg Tab PO 20 mg QAM [facility] Administration Ceftriaxone Sodium 2 gm in 100 mls @ 200 mls/hr 07/28/21 10:00 07/30/21 09:47 Rocephin/Ns 2 Gm/100 Ml IV 07/31/21 10:29 200 mls/hr Q24HR [facility] Administration Protocol Azithromycin 500 mg in 250 mls @ 250 mls/hr 07/28/21 10:00 07/30/21 09:48 Zithromax/Ns IV 07/31/21 10:59 250 mls/hr Q24HR [facility] Administration Protocol Sodium Chloride 100 mls @ 999 mls/hr 07/28/21 15:00 Nacl 0.9% IV RUFUS PRN Hypotension Magnesium Hydroxide 30 ml 07/28/21 01:28 Magnesium Hydroxide (Mom) Oral Liqd Udc PO Q4H PRN Constipation Metoclopramide HCl 5 mg 07/28/21 01:28 Metoclopramide 10 Mg/2 Ml Inj IV Q6H PRN Nausea And Vomiting Metoprolol Tartrate 50 mg 07/28/21 08:00 07/30/21 08:00 Metoprolol Tartrate 50 Mg Tab PO 50 mg BID@0800,1700 [facility] Administration Morphine Sulfate 2 mg 07/28/21 01:28 Morphine 2 Mg/1 Ml Inj IV Q4H PRN Pain, Moderate (4-6) Morphine Sulfate 4 mg 07/28/21 01:28 Morphine 4 Mg/1 Ml Inj IV Q4H PRN Pain , Severe (7-10) Naloxone HCl 0.1 mg 07/28/21 01:28 Naloxone 0.4 Mg/1 Ml Inj IV Q2MIN PRN Res Rate </= 8 or 02 SAT < 92% Ondansetron HCl 4 mg 07/28/21 01:28 Ondansetron 4 Mg/2 Ml Inj IV Q8H PRN Nausea And Vomiting Oxycodone/Acetaminophen 1 tab 07/28/21 01:28 07/28/21 08:42 Oxycodone /Acetaminophen 5-325mg Tab PO 1 tab Q6H PRN Administration Pain, Moderate (4-6) Senna 8.6 mg 07/28/21 01:28 Sennosides 8.6 Mg Tab PO Q12HR PRN Constipation Sevelamer Carbonate 2,400 mg 07/28/21 08:00 07/30/21 08:00 Sevelamer Carbonate 800 Mg Tab PO 2,400 mg TIDWM [facility] Administration Sodium Chloride 10 ml 07/28/21 10:00 07/30/21 09:45 Sodium Chloride 0.9% 10 Ml Flush Syringe IV 10 ml BID [facility] Administration Sodium Chloride 10 ml 07/28/21 01:28 Sodium Chloride 0.9% 10 Ml Flush Syringe IV PRN PRN LINE FLUSH Tramadol HCl 50 mg 07/28/21 01:34 07/30/21 03:35 Tramadol 50 Mg Tab PO 50 mg BID PRN Administration Pain, Moderate (4-6) Zinc Sulfate 220 mg 07/28/21 10:00 07/30/21 09:46 Zinc Sulfate 220 Mg Cap PO 220 mg QDAY [facility] Administration
--- NOTE | 2021-07-30 12:59 | Progress Note ---
Assessment and Plan - Patient Problems (1) Paroxysmal atrial fibrillation Current Visit: Yes Status: Acute Plan to address problem: Patient has a history of paroxysmal atrial fibrillation, on Eliquis, amiodarone and metoprolol. He has been no recurrence of atrial fibrillation on this presentation, continue his outpatient medical therapy, no cardiac intervention is indicated at this time. We will follow intermittently. (2) Elevated troponin Current Visit: Yes Status: Acute Plan to address problem: Patient presented with acute Covid infection, no cardiac complaints. Measured troponin level was mildly elevated, and consistent with the patient's prior nonspecifically elevated troponin measurements in the presence of end-stage renal failure. Subjective Date of service: 07/30/21 Principal diagnosis: Covid-19 Interval history: 61-year-old man with end-stage renal disease on hemodialysis, and paroxysmal atrial fibrillation on therapy with amiodarone, Eliquis and metoprolol. He is admitted to the hospital at this time with an acute COVID-19 pneumonia. He is under management by internal medicine and infectious disease. Cardiology consultation is requested for management and follow-up of the patient's paroxysmal atrial fibrillation. It to be noted that during this admission, he has remained in the stable sinus rhythm, no atrial fibrillation has been recorded on serial EKGs as well as continuous telemetry monitoring. The patient has had no chest pain, no palpitations, no clinical evidence of atrial fibrillation recurrence. The ECG on presentation was a mild sinus tachycardia, with no ST or T wave changes of ischemia. His telemetry strips have been stable sinus rhythm and he is currently sinus at 86. It will be noted that on his presentation in the emergency room, troponin level was measured and was mildly elevated at 0.11. But a review of his previous records show that he is troponin levels are chronically mildly elevated and was 0.08 on his last admission 2 months ago. Likely associated with his end-stage renal disease. Left ventricular function assessment also performed 2 months ago showed well- preserved left ventricular systolic function with ejection fraction 55%. 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 Objective Vital Signs Temp Pulse Resp BP BP Pulse Ox 07/30/21 11:41 89 96 07/30/21 11:40 98.1 F 85 19 125/75 97 07/30/21 10:08 97 07/30/21 10:00 97 07/30/21 05:56 97.8 F 91 H 20 148/80 94 07/30/21 02:37 20 100 07/29/21 22:51 74 18 100 07/29/21 22:50 96 07/29/21 22:45 99.2 F 72 20 111/73 92 07/29/21 22:41 82 22 100 07/29/21 22:39 101 H 29 H 99 07/29/21 22:33 84 17 07/29/21 21:21 138/73 93 07/29/21 21:11 138/73 92 07/29/21 21:01 138/73 93 07/29/21 20:51 94 H 20 138/73 138/73 96 07/29/21 20:40 142/75 98 07/29/21 20:31 138/73 98 07/29/21 20:21 138/73 99 07/29/21 20:11 138/73 99 07/29/21 20:01 138/73 99 07/29/21 19:51 138/73 94 07/29/21 19:40 138/73 97 07/29/21 19:31 140/69 97 07/29/21 19:21 140/69 80 L 07/29/21 19:18 98.8 F 85 18 138/73 96 07/29/21 19:11 131/70 95 07/29/21 19:01 115/54 93 07/29/21 18:50 87 15 141/81 07/29/21 18:40 86 22 141/81 07/29/21 18:31 86 22 142/82 07/29/21 18:21 93 H 22 142/82 07/29/21 18:11 91 H 28 H 149/78 74 L 07/29/21 18:01 94 H 26 H 137/73 90 07/29/21 17:51 97 H 22 130/76 92 07/29/21 17:43 93 H 139/72 07/29/21 17:41 95 H 25 H 139/72 92 07/29/21 17:31 140/80 93 07/29/21 17:21 140/74 93 07/29/21 17:11 93 H 26 H 137/78 95 07/29/21 17:00 91 H 18 134/77 94 07/29/21 16:51 92 H 21 140/82 93 07/29/21 16:41 90 17 138/76 94 07/29/21 16:31 91 H 24 131/76 93 07/29/21 16:21 91 H 21 142/78 94 07/29/21 16:11 90 43 H 139/79 94 07/29/21 16:01 88 21 135/76 93 07/29/21 15:51 88 21 137/73 93 07/29/21 15:01 84 28 H 129/76 98 07/29/21 14:01 90 12 106/49 98 07/29/21 13:17 94 H 19 134/81 96 - Physical Examination Narrative exam: Full physical exam is deferred due to the patient's acute Covid pneumonia. General: No Apparent Distress HEENT: Positive: PERRL
[2021-07-30] MEDS: oxyCODONE /ACETAMINOPHEN 5-325MG TAB PO PRN (13:19)
[2021-07-30] MEDS: DICYCLOMINE 10 MG CAP PO SCH ×3 (13:56→23:27)
[2021-07-31 07:04] LABS: Hematocrit 27.9 % (35.5-45.6); Hemoglobin 9.3 gm/dl (11.8-15.2); Mean Corpuscular HGB Conc 33 % (32-34); Mean Corpuscular Volume 84 fl (84-94); Platelet Count 457 K/mm3 (140-440); Red Blood Count 3.31 M/mm3 (3.65-5.03)
[2021-07-31 07:10] LABS: Red Cell Distribution Width 22.5 % (13.2-15.2)
[2021-07-31 07:27] LABS: Albumin 2.8 g/dL (3.9-5); Calcium 8.6 mg/dL (8.4-10.2)
[2021-07-31] MEDS: SEVELAMER CARBONATE 800 MG TAB PO SCH ×2 (08:00→13:42)
--- NOTE | 2021-07-31 09:23 | Progress Note ---
Assessment and Plan Paroxysmal Afib currently, he is in sinus rhythm. on Eliquis, amiodarone, and metoprolol. Chronic elevated troponin s/t to end stage renal disease normal LVEF by echo 04/2021. normal perfusion thallium stress test 12/2019. COVID Pneumonia Respiratory failure ESRD on HD Hypertension Continue medical therapy for paroxysmal atrial fibrillation. Otherwise, conservative cardiac management. Subjective Date of service: 07/31/21 Principal diagnosis: Covid-19 Interval history: Undergoing dialysis. No distress noted. Currently, he is stable sinus rhythm on telemetry. Objective Vital Signs Temp Pulse Resp BP Pulse Ox 07/31/21 08:56 99 07/31/21 06:03 97.9 F 78 20 140/82 99 07/31/21 04:34 94 07/30/21 23:16 99 07/30/21 22:48 98.1 F 74 20 125/68 98 07/30/21 22:00 97 07/30/21 17:09 82 97 07/30/21 17:08 98.3 F 73 18 131/76 97 07/30/21 11:41 89 96 07/30/21 11:40 98.1 F 85 19 125/75 97 07/30/21 10:08 97 07/30/21 10:00 97 - Physical Examination Narrative exam: Deferred due to isolation protocol. General: No Apparent Distress Cardiac: Positive: Reg Rate and Rhythm - Labs and Meds Cardiac Enzymes 07/31/21 Range/Units 06:29 AST 19 (5-40) units/L CBC 07/31/21 Range/Units 06:29 WBC 8.6 (4.5-11.0) K/mm3 RBC 3.31 L (3.65-5.03) M/mm3 Hgb 9.3 L (11.8-15.2) gm/dl Hct 27.9 L (35.5-45.6) % Plt Count 457 H (140-440) K/mm3 Comprehensive Metabolic Panel 07/31/21 Range/Units 06:29 Sodium 136 L (137-145) mmol/L Potassium 4.7 (3.6-5.0) mmol/L Chloride 94.7 L (98-107) mmol/L Carbon Dioxide 24 (22-30) mmol/L BUN 76 H (9-20) mg/dL Creatinine 10.8 H D (0.8-1.3) mg/dL Glucose 92 (75-100) mg/dL Calcium 8.6 (8.4-10.2) mg/dL AST 19 (5-40) units/L ALT 17 (7-56) units/L Alkaline Phosphatase 101 (35-129) units/L Total Protein 6.5 (6.3-8.2) g/dL Albumin 2.8 L (3.9-5) g/dL
--- NOTE | 2021-07-31 10:00 | Progress Note ---
Assessment and Plan Assessment and plan: This is a 61-year-old male seen in the ED at bedside. he presents to emergency room with complaints of cough, shortness of breath, fever, chills. Patient states his symptoms been going on for a week and he tested yesterday and his COVID-19 test came back positive. Patient states he was diagnosed at an urgent care. Patient states he has not received any treatment. Patient states his symptoms are worsening. Patient states has been monitoring his oxygen saturation at home and his oxygen saturation has been 80 to 85% for the past 4 days. On assessment, patient has shortness of breath. He is on oxygen at 4 L nasal cannula with O2 sat of 99%. I reviewed patient medication record vital signs and radiology report. Chest x-ray done severe multifocal airspace pneumonia throughout the both lungs. Patient admits tobacco use, but denies chronic alcohol or illicit use. -- COVID-19 Current Visit: Yes Status: Acute Airborne and contact isolation for Covid protocol Bronchodilator and oxygen supplement as needed Patient is on oxygen at 8 L O2 sat 99% on the monitor Infectious disease and supervisor coin machine consult Ascorbic acid, zinc sulfate, vitamin D supplement and systemic steroid Encourage the use of incentive spirometer and prone position. Empiric antibioticazithromycin and Rocephin -- Acute respiratory failure with hypoxia Current Visit: Yes Status: Acute Bronchodilator and oxygen supplement ABG monitor oxygen saturation Voting Machine Repairer has been consulted -- Elevated d-dimer Current Visit: Yes Status: Acute Elevated D-dimerVQ scan orderedpatient has reduced kidney function Continue home Eliquis --ESRD (end stage renal disease) on dialysis Current Visit: Yes Status: Acute Floor Worker Well Service consultfollow-up with plan of care Monitor kidney function and electrolytes --Elevated troponin, secondary to renal dysfunction Current Visit: No Status: Acute Unknown causerenal ischemiakidney failure Trend troponin Patient is on Eliquis --Multifocal bilateral pneumonia Current Visit: Yes Status: Acute Chest x-ray,multifocal airspace pneumonia throughout the both lungs Pneumonia likely secondary to Covid infection Continue current antibiotic, procalcitonin high ID and supervisor coin machine have been consulted --Severe protein calorie malnutrition; Current Visit: No Status: Chronic Nutrition supplements Nepro, nutrition consult -- diarrhea Current Visit: No Status: Acute Antidiarrheals, plenty of oral fluids --DVT prophylaxis; Current Visit: No Status: Acute Patient is on Eliqu Daily hospital course 07/29: Covid test positive. Patient to be seen by pulmonary and cotton ball bagger. Continue steroids at this time. Will defer remdesivir to infectious disease's renal function may preclude use. HD per nephrology type II non-ST elevated KS 07/30: Patient remains with hypoxic respiratory failure secondary to COVID-19. Also diarrhea and abdominal pain which he rates as a 3/10 in intensity. He sitting up at the bedside Shaji over he is also hard of hearing. We will give her Bentyl for abdominal discomfort but if persistent or worsening pain may need either further imaging. Continue steroid therapy patient not a candidate of remdesivir at this time. Continue apixaban which patient takes at home and will also help for management of Covid induced coagulopathy. 07/31; patient remains on 8 L nasal cannula oxygen Multifocal pneumonia on antibiotics Procalcitonin on high I called patient's spouse Allen Dorman at [phone] and discussed in detail patient's condition Tests and reports patient reports, treatment plan treatment plan, consultants recommendations, discharge planning Ms. Dorman had numerous questions I answered all of them, encouraged her to call back if she has more questions or concerns History Interval history: I have seen and examined the patient at the bedside Patient's chart and medications reviewed Patient is alert and awake minimally communicative Vital signs noted Requiring 8 L nasal cannula oxygen Hospitalist Physical - Constitutional Vitals: Temp Pulse Resp BP Pulse Ox 97.9 F 78 20 140/82 99 07/31/21 06:03 07/31/21 06:03 07/31/21 06:03 07/31/21 06:03 07/31/21 08:56 General appearance: Present: mild distress, well-nourished - EENT Eyes: Present: PERRL, EOM intact - Neck Neck: Present: supple, normal ROM - Respiratory Respiratory effort: normal Respiratory: bilateral: diminished, rhonchi, negative: rales, wheezing - Cardiovascular Rhythm: regular Heart Sounds: Present: S1 & S2 - Extremities Extremities: no ischemia, No edema - Abdominal General gastrointestinal: soft, non-tender, non-distended, normal bowel sounds - Integumentary Integumentary: Present: clear, warm - Psychiatric Psychiatric: appropriate mood/affect, cooperative - Neurologic Neurologic: CNII-XII intact, moves all extremities HEART Score - HEART Score Troponin: Troponin T 0.110 ng/mL (0.00-0.029) H* 07/27/21 23:14 Results - Labs CBC & Chem 7: 07/31/21 06:29 10 06:29 Labs: Laboratory Last Values WBC 8.6 K/mm3 (4.5-11.0) 07/31/21 06:29 RBC 3.31 M/mm3 (3.65-5.03) L 07/31/21 06:29 Hgb 9.3 gm/dl (11.8-15.2) L 07/31/21 06:29 Hct 27.9 % (35.5-45.6) L 07/31/21 06:29 MCV 84 fl (84-94) 07/31/21 06:29 MCH 28 pg (28-32) 07/31/21 06: MCHC 33 % (32-34) 07/31/21 06:29 RDW 22.5 % (13.2-15.2) H 07/31/21 06:29 Plt Count 457 K/mm3 (140-440) H 07/31/21 06:29 Add Manual Diff Complete 07/27/21 23:14 Total Counted 100 07/27/21 23:14 Seg Neuts % (Manual) 89.0 % (40.0-70.0) H 07/27/21 23:14 Lymphocytes % (Manual) 10.0 % (13.4-35.0) L 07/27/21 23:14 Monocytes % (Manual) 1.0 % (0.0-7.3) 07/27/21 23:14 Nucleated RBC % Not Reportable 07/27/21 23:14 Seg Neutrophils # Man 5.7 K/mm3 (1.8-7.7) 07/27/21 23:14 Band Neutrophils # 0.0 K/mm3 07/27/21 23:14 Lymphocytes # (Manual) 0.6 K/mm3 (1.2-5.4) L 07/27/21 23:14 Abs React Lymphs (Man) 0.0 K/mm3 07/27/21 23:14 Monocytes # (Manual) 0.1 K/mm3 (0.0-0.8) 07/27/21 23:14 Eosinophils # (Manual) 0.0 K/mm3 (0.0-0.4) 07/27/21 23:14 Basophils # (Manual) 0.0 K/mm3 (0.0-0.1) 07/27/21 23:14 Metamyelocytes # 0.0 K/mm3 07/27/21 23:14 Myelocytes # 0.0 K/mm3 07/27/21 23:14 Promyelocytes # 0.0 K/mm3 07/27/21 23:14 Blast Cells # 0.0 K/mm3 07/27/21 23:14 WBC Morphology Not Reportable 07/27/21 23:14 Hypersegmented Neuts Not Reportable 07/27/21 23:14 Hyposegmented Neuts Not Reportable 07/27/21 23:14 Hypogranular Neuts Not Reportable 07/27/21 23:14 Smudge Cells Not Reportable 07/27/21 23:14 Toxic Granulation Not Reportable 07/27/21 23:14 Toxic Vacuolation Not Reportable 07/27/21 23:14 Dohle Bodies Not Reportable 07/27/21 23:14 Pelger-Huet Anomaly Not Reportable 07/27/21 23:14 Judy Rods Not Reportable 07/27/21 23:14 Platelet Estimate Consistent w auto 07/27/21 23:14 Clumped Platelets Not Reportable 07/27/21 23:14 Plt Clumps, EDTA Not Reportable 07/27/21 23:14 Large Platelets Not Reportable 07/27/21 23:14 Giant Platelets Not Reportable 07/27/21 23:14 Platelet Satelliting Not Reportable 07/27/21 23:14 Plt Morphology Comment Not Reportable 07/27/21 23:14 RBC Morphology Not Reportable 07/27/21 23:14 Dimorphic RBCs Not Reportable 07/27/21 23:14 Polychromasia Not Reportable 07/27/21 23:14 Hypochromasia Not Reportable 07/27/21 23:14 Poikilocytosis Not Reportable 07/27/21 23:14 Anisocytosis 1+ 07/27/21 23:14 Microcytosis Not Reportable 07/27/21 23:14 Macrocytosis Not Reportable 07/27/21 23:14 Spherocytes Not Reportable 07/27/21 23:14 Pappenheimer Bodies Not Reportable 07/27/21 23:14 Sickle Cells Not Reportable 07/27/21 23:14 Target Cells Not Reportable 07/27/21 23:14 Tear Drop Cells Not Reportable 07/27/21 23:14 Ovalocytes Not Reportable 07/27/21 23:14 Helmet Cells Not Reportable 07/27/21 23:14 [place] Bodies Not Reportable 07/27/21 23:14 [place] Rings Not Reportable 07/27/21 23:14 Williamson Cells Not Reportable 07/27/21 23:14 Bite Cells Not Reportable 07/27/21 23:14 Crenated Cell Not Reportable 07/27/21 23:14 Elliptocytes Not Reportable 07/27/21 23:14 Acanthocytes (Spur) Not Reportable 07/27/21 23:14 Rouleaux Not Reportable 07/27/21 23:14 Hemoglobin C Crystals Not Reportable 07/27/21 23:14 Schistocytes Few 07/27/21 23:14 Malaria parasites Not Reportable 07/27/21 23:14 Jacob Bodies Not Reportable 07/27/21 23:14 Hem Pathologist Commnt No 07/27/21 23:14 D-Dimer 2270.91 ng/mlDDU (0-234) H 07/28/21 00:36 Sodium 136 mmol/L (137-145) L 07/31/21 06:29 Potassium 4.7 mmol/L (3.6-5.0) 07/31/21 06:29 Chloride 94.7 mmol/L (98-107) L 07/31/21 06:29 Carbon Dioxide 24 mmol/L (22-30) 07/31/21 06:29 Anion Gap 22 mmol/L 07/31/21 06:29 BUN 76 mg/dL (9-20) H 07/31/21 06:29 Creatinine 10.8 mg/dL (0.8-1.3) H D 07/31/21 06:29 Estimated GFR 6 ml/min 07/31/21 06:29 BUN/Creatinine Ratio 7 % 07/31/21 06:29 Glucose 92 mg/dL (75-100) 07/31/21 06:29 Lactic Acid 1.70 mmol/L (0.7-2.0) 07/27/21 23:14 Calcium 8.6 mg/dL (8.4-10.2) 07/31/21 06:29 Ferritin 3549.0 ng/mL (30.0-300.0) H 07/28/21 00:36 Total Bilirubin 0.20 mg/dL (0.1-1.2) 07/31/21 06:29 AST 19 units/L (5-40) 07/31/21 06:29 ALT 17 units/L (7-56) 07/31/21 06:29 Alkaline Phosphatase 101 units/L (35-129) 07/31/21 06:29 Lactate Dehydrogenase 418 units/L (91-180) H 07/28/21 00:36 Troponin T 0.110 ng/mL (0.00-0.029) H* 07/27/21 23:14 C-Reactive Protein 14.50 mg/dL (0.00-1.30) H 07/28/21 00:36 Total Protein 6.5 g/dL (6.3-8.2) 07/31/21 06:29 Albumin 2.8 g/dL (3.9-5) L 07/31/21 06:29 Albumin/Globulin Ratio 0.8 % 07/31/21 06:29 Triglycerides 187 mg/dL (2-149) H 07/27/21 23:14 Cholesterol 152 mg/dL (50-199) 07/27/21 23:14 LDL Cholesterol Direct 75 mg/dL (50-130) 07/27/21 23:14 HDL Cholesterol 33 mg/dL (40-59) L 07/27/21 23:14 Cholesterol/HDL Ratio 4.60 % 07/27/21 23:14 Procalcitonin 7.37 ng/mL (<0.15) 07/28/21 00:36 Coronavirus (PCR) Positive (Negative) A 07/28/21 08:50 Hepatitis A IgM Ab Non-reactive (NonReactive) 07/28/21 15:30 Hep Bs Antigen Nonreactive (Negative) 07/28/21 15:30 Hep B Core IgM Ab Non-reactive (NonReactive) 07/28/21 15:30 Hepatitis C Antibody Non-reactive (NonReactive) 07/28/21 15:30 Moy/IV: Voiding Method Toilet Active Medications - Current Medications Current Medications: Generic Name Dose Route Start Last Admin Trade Name Freq PRN Reason Stop Dose Admin Acetaminophen 650 mg 07/28/21 01:28 Acetaminophen 325 Mg Tab PO Q4H PRN Pain MILD(1-3)/Fever >100.5/JOHN Alprazolam 0.125 mg 07/28/21 01:28 Alprazolam 0.25 Mg Tab PO Q8H PRN Anxiety Amiodarone HCl 200 mg 07/28/21 10:00 07/30/21 23:27 Amiodarone 200 Mg Tab PO 200 mg BID CHRISTINA Administration Amlodipine Besylate 10 mg 07/28/21 10:00 07/30/21 09:46 Amlodipine 10 Mg Tab PO 10 mg DAILY CHRISTINA Administration Apixaban 5 mg 07/28/21 10:00 07/30/21 23:27 Apixaban 5 Mg Tab PO 5 mg Q12HR CHRISTINA Administration Ascorbic Acid 500 mg 07/28/21 10:00 07/30/21 09:46 Ascorbic Acid 500 Mg Tab PO 500 mg QDAY CHRISTINA Administration Cholecalciferol 1,000 unit 07/28/21 10:00 07/30/21 09:47 Cholecalciferol (Vit D3) 1000 Unit (25 Mcg) Tab PO 1,000 unit QDAY CHRISTINA Administration Cinacalcet 60 mg 07/28/21 10:00 07/30/21 09:45 Cinacalcet 30 Mg Tab PO 60 mg QDAY CHRISTINA Administration Dexamethasone 6 mg 07/28/21 10:00 07/30/21 09:47 Dexamethasone 4 Mg/Ml Vial IV 08/06/21 10:01 6 mg DAILY CHRISTINA Administration Dicyclomine HCl 10 mg 07/30/21 14:00 07/30/21 23:27 Dicyclomine 10 Mg Cap PO 10 mg QID CHRISTINA Administration Famotidine 20 mg 07/28/21 10:00 07/30/21 09:46 Famotidine 20 Mg Tab PO 20 mg QAM CHRISTINA Administration Ceftriaxone Sodium 2 gm in 100 mls @ 200 mls/hr 07/28/21 10:00 07/30/21 09:47 Rocephin/Ns 2 Gm/100 Ml IV 07/31/21 10:29 200 mls/hr Q24HR CHRISTINA Administration Protocol Azithromycin 500 mg in 250 mls @ 250 mls/hr 07/28/21 10:00 07/30/21 09:48 Zithromax/Ns IV 07/31/21 10:59 250 mls/hr Q24HR CHRISTINA Administration Protocol Sodium Chloride 100 mls @ 999 mls/hr 07/28/21 15:00 Nacl 0.9% IV RUFUS PRN Hypotension Magnesium Hydroxide 30 ml 07/28/21 01:28 Magnesium Hydroxide (Mom) Oral Liqd Udc PO Q4H PRN Constipation Metoclopramide HCl 5 mg 07/28/21 01:28 Metoclopramide 10 Mg/2 Ml Inj IV Q6H PRN Nausea And Vomiting Metoprolol Tartrate 50 mg 07/28/21 08:00 07/30/21 17:28 Metoprolol Tartrate 50 Mg Tab PO 50 mg BID@0800,1700 CHRISTINA Administration Morphine Sulfate 2 mg 07/28/21 01:28 Morphine 2 Mg/1 Ml Inj IV Q4H PRN Pain, Moderate (4-6) Morphine Sulfate 4 mg 07/28/21 01:28 Morphine 4 Mg/1 Ml Inj IV Q4H PRN Pain , Severe (7-10) Naloxone HCl 0.1 mg 07/28/21 01:28 Naloxone 0.4 Mg/1 Ml Inj IV Q2MIN PRN Res Rate </= 8 or 02 SAT < 92% Ondansetron HCl 4 mg 07/28/21 01:28 Ondansetron 4 Mg/2 Ml Inj IV Q8H PRN Nausea And Vomiting Oxycodone/Acetaminophen 1 tab 07/28/21 01:28 07/30/21 13:19 Oxycodone /Acetaminophen 5-325mg Tab PO 1 tab Q6H PRN Administration Pain, Moderate (4-6) Senna 8.6 mg 07/28/21 01:28 Sennosides 8.6 Mg Tab PO Q12HR PRN Constipation Sevelamer Carbonate 2,400 mg 07/28/21 08:00 07/30/21 17:28 Sevelamer Carbonate 800 Mg Tab PO 2,400 mg TIDWM CHRISTINA Administration Sodium Chloride 10 ml 07/28/21 10:00 07/30/21 23:26 Sodium Chloride 0.9% 10 Ml Flush Syringe IV 10 ml BID CHRISTINA Administration Sodium Chloride 10 ml 07/28/21 01:28 Sodium Chloride 0.9% 10 Ml Flush Syringe IV PRN PRN LINE FLUSH Tramadol HCl 50 mg 07/28/21 01:34 07/30/21 23:27 Tramadol 50 Mg Tab PO 50 mg BID PRN Administration Pain, Moderate (4-6) Zinc Sulfate 220 mg 07/28/21 10:00 07/30/21 09:46 Zinc Sulfate 220 Mg Cap PO 220 mg QDAY CHRISTINA Administration
--- NOTE | 2021-07-31 10:52 | Progress Note ---
Assessment and Plan 61 y/o male with acute respiratory failure secondary to COVID pneumonia 1. Prone 2. Steroids 3. Remdesivir and ID recs 4. Daily net negative state if possible 5. Guarded prognosis. Subjective Date of service: 07/31/21 Principal diagnosis: Covid-19 Interval history: No acute events Objective Vital Signs - 12hr 07/30/21 07/31/21 07/31/21 23:16 04:34 06:03 Temperature 97.9 F Pulse Rate 78 Respiratory 20 Rate Blood Pressure 140/82 O2 Sat by Pulse 99 94 99 Oximetry 07/31/21 08:56 Temperature Pulse Rate Respiratory Rate Blood Pressure O2 Sat by Pulse 99 Oximetry CBC and BMP: 07/31/21 06:29 07/31/21 06:29 ABG, PT/INR, D-dimer: PT/INR, D-dimer D-Dimer 2270.91 ng/mlDDU (0-234) H 07/28/21 00:36 Abnormal lab findings: Abnormal Labs 07/27/21 07/27/21 07/28/21 23:14 23:14 00:36 RBC Hgb 10.0 L Hct 31.4 L MCH 27 L RDW 22.7 H Plt Count Seg Neuts % (Manual) 89.0 H Lymphocytes % (Manual) 10.0 L Lymphocytes # (Manual) 0.6 L D-Dimer 2270.91 H Sodium Chloride 93.2 L BUN Creatinine 6.7 H Glucose Ferritin AST 50 H Lactate Dehydrogenase Troponin T 0.110 H* C-Reactive Protein Albumin 3.2 L Triglycerides 187 H HDL Cholesterol 33 L Coronavirus (PCR) 07/28/21 07/28/21 07/28/21 00:36 00:36 08:50 RBC Hgb Hct MCH RDW Plt Count Seg Neuts % (Manual) Lymphocytes % (Manual) Lymphocytes # (Manual) D-Dimer Sodium Chloride BUN Creatinine Glucose Ferritin 3549.0 H AST Lactate Dehydrogenase 418 H Troponin T C-Reactive Protein 14.50 H Albumin Triglycerides HDL Cholesterol Coronavirus (PCR) Positive A 07/29/21 07/29/21 07/31/21 04:41 04:41 06:29 RBC 3.60 L 3.31 L Hgb 10.2 L 9.3 L Hct 30.6 L 27.9 L MCH RDW 22.0 H 22.5 H Plt Count 457 H Seg Neuts % (Manual) Lymphocytes % (Manual) Lymphocytes # (Manual) D-Dimer Sodium Chloride 97.2 L BUN 27 H Creatinine 7.1 H Glucose 108 H Ferritin AST Lactate Dehydrogenase Troponin T C-Reactive Protein Albumin Triglycerides HDL Cholesterol Coronavirus (PCR) 07/31/21 06:29 RBC Hgb Hct MCH RDW Plt Count Seg Neuts % (Manual) Lymphocytes % (Manual) Lymphocytes # (Manual) D-Dimer Sodium 136 L Chloride 94.7 L BUN 76 H Creatinine 10.8 H D Glucose Ferritin AST Lactate Dehydrogenase Troponin T C-Reactive Protein Albumin 2.8 L Triglycerides HDL Cholesterol Coronavirus (PCR)
--- NOTE | 2021-07-31 11:00 | Electrocardiograph Report ---
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
--- NOTE | 2021-07-31 12:34 | Progress Note ---
Assessment and Plan Assessment - End-stage renal disease on hemodialysis - Hypertension - Covid PNA - Acute hypoxic resp failure - Anemia of ESRD - Hyperparathyroidism - Hyperphosphatemia - Pneumonia Recommendations - Continue HD TTS and prn, next HD today - Covid treatment per primary team - Monitor labs and volume status daily and assess need for additional dialysis session - Continue home antihypertensives - Hold antihypertensives on hemodialysis days for systolics less than 160 - ESRD diet with 1.4 g/kg per day protein - patient understands need for continued hemodialysis and willing to proceed - Renally dose medication for creatinine clearance less than 15 cc/min - Antibiotics as per ID Subjective Date of service: 07/31/21 Principal diagnosis: Covid-19 Interval history: No events noted per chart. All 24 hour notes, vitals, labs, events reviewed. Notes ongoing abdominal pain Objective - Exam Narrative Exam: primary team exam noted, exam deferred for preservation of PPE - Vital Signs Vital signs: Vital Signs - 12hr 07/31/21 07/31/21 07/31/21 04:34 06:03 08:56 Temperature 97.9 F Pulse Rate 78 Respiratory 20 Rate Blood Pressure 140/82 O2 Sat by Pulse 94 99 99 Oximetry - Lab 07/31/21 06:29 07/31/21 06:29 Most recent lab results Calcium 8.6 mg/dL (8.4-10.2) 07/31/21 06:29 Medications & Allergies - Medications Allergies/Adverse Reactions: Allergies No Known Allergies Allergy (Unverified 04/15/20 11:37) Home Medications: Home Medications Medication Instructions Recorded Confirmed Last Taken Type Amiodarone [Cordarone 200 MG TAB] 200 mg PO BID #60 tablet 05/21/21 07/30/21 Unknown Rx Apixaban [Eliquis] 5 mg PO Q12HR #60 tablet 05/21/21 07/30/21 Unknown Rx Aspirin EC [Ecotrin] 325 mg PO QDAY #30 tablet 05/21/21 07/30/21 Unknown Rx Cinacalcet HCl 60 mg PO DAILY #30 05/21/21 07/30/21 Unknown Rx Cinacalcet [Sensipar] 60 mg PO QDAY #30 tablet 05/21/21 07/30/21 Unknown Rx Metoprolol [Lopressor TAB] 50 mg PO BID #60 tablet 05/21/21 07/30/21 Unknown Rx Pantoprazole [Protonix TAB] 40 mg PO QDAC #30 tablet 05/21/21 07/30/21 Unknown Rx Sevelamer Carbonate [Renvela] 2,400 mg PO TIDWM #90 tablet 05/21/21 07/30/21 Unknown Rx amLODIPine 10 mg PO DAILY #30 05/21/21 07/30/21 Unknown Rx traMADoL [Ultram 50 MG tab] 50 mg PO BID PRN #30 tablet 05/21/21 07/30/21 Unknown Rx Active Medications: Generic Name Dose Route Start Last Admin Trade Name Freq PRN Reason Stop Dose Admin Acetaminophen 650 mg 07/28/21 01:28 Acetaminophen 325 Mg Tab PO Q4H PRN Pain MILD(1-3)/Fever >100.5/JOHN Alprazolam 0.125 mg 07/28/21 01:28 Alprazolam 0.25 Mg Tab PO Q8H PRN Anxiety Amiodarone HCl 200 mg 07/28/21 10:00 07/30/21 23:27 Amiodarone 200 Mg Tab PO 200 mg BID CHRISTINA Administration Amlodipine Besylate 10 mg 07/28/21 10:00 07/30/21 09:46 Amlodipine 10 Mg Tab PO 10 mg DAILY CHRISTINA Administration Apixaban 5 mg 07/28/21 10:00 07/30/21 23:27 Apixaban 5 Mg Tab PO 5 mg Q12HR CHRISTINA Administration Ascorbic Acid 500 mg 07/28/21 10:00 07/30/21 09:46 Ascorbic Acid 500 Mg Tab PO 500 mg QDAY CHRISTINA Administration Cholecalciferol 1,000 unit 07/28/21 10:00 07/30/21 09:47 Cholecalciferol (Vit D3) 1000 Unit (25 Mcg) Tab PO 1,000 unit QDAY CHRISTINA Administration Cinacalcet 60 mg 07/28/21 10:00 07/30/21 09:45 Cinacalcet 30 Mg Tab PO 60 mg QDAY CHRISTINA Administration Dexamethasone 6 mg 07/28/21 10:00 07/30/21 09:47 Dexamethasone 4 Mg/Ml Vial IV 08/06/21 10:01 6 mg DAILY CHRISTINA Administration Dicyclomine HCl 10 mg 07/30/21 14:00 07/30/21 23:27 Dicyclomine 10 Mg Cap PO 10 mg QID CHRISTINA Administration Famotidine 20 mg 07/28/21 10:00 07/30/21 09:46 Famotidine 20 Mg Tab PO 20 mg QAM CHRISTINA Administration Sodium Chloride 100 mls @ 999 mls/hr 07/28/21 15:00 Nacl 0.9% IV RUFUS PRN Hypotension Magnesium Hydroxide 30 ml 07/28/21 01:28 Magnesium Hydroxide (Mom) Oral Liqd Udc PO Q4H PRN Constipation Metoclopramide HCl 5 mg 07/28/21 01:28 Metoclopramide 10 Mg/2 Ml Inj IV Q6H PRN Nausea And Vomiting Metoprolol Tartrate 50 mg 07/28/21 08:00 07/30/21 17:28 Metoprolol Tartrate 50 Mg Tab PO 50 mg BID@0800,1700 CHRISTINA Administration Morphine Sulfate 2 mg 07/28/21 01:28 Morphine 2 Mg/1 Ml Inj IV Q4H PRN Pain, Moderate (4-6) Morphine Sulfate 4 mg 07/28/21 01:28 Morphine 4 Mg/1 Ml Inj IV Q4H PRN Pain , Severe (7-10) Naloxone HCl 0.1 mg 07/28/21 01:28 Naloxone 0.4 Mg/1 Ml Inj IV Q2MIN PRN Res Rate </= 8 or 02 SAT < 92% Ondansetron HCl 4 mg 07/28/21 01:28 Ondansetron 4 Mg/2 Ml Inj IV Q8H PRN Nausea And Vomiting Oxycodone/Acetaminophen 1 tab 07/28/21 01:28 07/30/21 13:19 Oxycodone /Acetaminophen 5-325mg Tab PO 1 tab Q6H PRN Administration Pain, Moderate (4-6) Senna 8.6 mg 07/28/21 01:28 Sennosides 8.6 Mg Tab PO Q12HR PRN Constipation Sevelamer Carbonate 2,400 mg 07/28/21 08:00 07/30/21 17:28 Sevelamer Carbonate 800 Mg Tab PO 2,400 mg TIDWM CHRISTINA Administration Sodium Chloride 10 ml 07/28/21 10:00 07/30/21 23:26 Sodium Chloride 0.9% 10 Ml Flush Syringe IV 10 ml BID CHRISTINA Administration Sodium Chloride 10 ml 07/28/21 01:28 Sodium Chloride 0.9% 10 Ml Flush Syringe IV PRN PRN LINE FLUSH Tramadol HCl 50 mg 07/28/21 01:34 07/30/21 23:27 Tramadol 50 Mg Tab PO 50 mg BID PRN Administration Pain, Moderate (4-6) Zinc Sulfate 220 mg 07/28/21 10:00 07/30/21 09:46 Zinc Sulfate 220 Mg Cap PO 220 mg QDAY CHRISTINA Administration
--- NOTE | 2021-07-31 12:56 | Progress Note ---
Assessment and Plan Cultures: COVID positive A/P: 61-year-old man past medical history ESRD on HD, hypertension, hyperlipidemia #Severe COVID-19 pneumonia: Patient presented with a week of symptoms, chest x- ray with diffuse bilateral infiltrates. Inflammatory markers elevated #Acute hypoxemic respiratory failure: Likely secondary to COVID-19 infection. Currently on 8L NC #ESRD on HD: renally dose medications. Recs: -Dexamethasone for 10 days -Unfortunately not a candidate for remdesivir due to ESRD -Obtain q48-72h inflammatory markers - ferritin, Ddimer, CRP, LDH -Continue ceftriaxone 2 gm IV qday and azithromycin 500 mg PO qday due to elevat ed procal in the setting of ESRD -Anticoagulation per hospital protocol -Proning as able Thank you for the consult, we will continue to follow. Fabiola Moseley MD [facility] ([facility]) O: [phone] F: [phone] Subjective Date of service: 07/31/21 Principal diagnosis: Covid-19 Interval history: Afebrile, normal white count. Currently on 8 L Objective - Exam Narrative Exam: Physical exam deferred to reduce risk of transmission of COVID-19. Please refer to primary team's note. - Constitutional Vitals: Vital Signs Temp Pulse Resp BP Pulse Ox 97.9 F 78 20 140/82 99 07/31/21 06:03 07/31/21 06:03 07/31/21 06:03 07/31/21 06:03 07/31/21 08:56 Temperature -Last 24 Hours Temperature 97.9 F Temperature 98.1 F Temperature 98.3 F - Labs CBC & Chem 7: 07/31/21 06:29 07/31/21 06:29 Labs: Abnormal lab results 07/31/21 07/31/21 Range/Units 06:29 06:29 RBC 3.31 L (3.65-5.03) M/mm3 Hgb 9.3 L (11.8-15.2) gm/dl Hct 27.9 L (35.5-45.6) % RDW 22.5 H (13.2-15.2) % Plt Count 457 H (140-440) K/mm3 Sodium 136 L (137-145) mmol/L Chloride 94.7 L (98-107) mmol/L BUN 76 H (9-20) mg/dL Creatinine 10.8 H D (0.8-1.3) mg/dL Albumin 2.8 L (3.9-5) g/dL
[2021-07-31] MEDS: dexAMETHasone 4 MG/ML VIAL IV SCH (13:40)
[2021-07-31] MEDS: AZITHROMYCIN/NS 500 MG/250 ML 500 MG/250 ML BAG IV SCH (13:41)
[2021-07-31] MEDS: cefTRIAXone/NS 2 GM/100 ML 2 GM/100 ML BAG IV SCH (13:41)
[2021-07-31] MEDS: CINACALCET 30 MG TAB PO SCH (13:42)
[2021-07-31] MEDS: amLODIPine 10 MG TAB PO SCH (13:42)
[2021-07-31] MEDS: FAMOTIDINE 20 MG TAB PO SCH (13:42)
[2021-07-31] MEDS: CHOLECALCIFEROL (VIT D3) 1000 UNIT (25 mcg) TAB PO SCH (13:43)
[2021-07-31] MEDS: ASCORBIC ACID 500 MG TAB PO SCH (13:43)
[2021-07-31] MEDS: APIXABAN 5 MG TAB PO SCH ×2 (13:43→22:13)
[2021-07-31] MEDS: DICYCLOMINE 10 MG CAP PO SCH ×3 (13:43→22:13)
[2021-07-31] MEDS: AMIODARONE 200 MG TAB PO SCH ×2 (13:43→22:14)
[2021-07-31] MEDS: METOPROLOL TARTRATE 50 MG TAB PO SCH (13:43)
[2021-07-31] MEDS: ZINC SULFATE 220 MG CAP PO SCH (13:43)
--- NOTE | 2021-07-31 19:00 | Event Note ---
Date: 07/31/21 I called patient's spouse Allen Dorman at [phone] and discussed in detail patient's condition Tests and reports patient reports, treatment plan treatment plan, consultants recommendations, discharge planning Ms. Dorman had numerous questions I answered all of them, encouraged her to call back if she has more questions or concerns
[2021-07-31] MEDS: traMADol 50 MG TAB PO PRN (22:13)
[2021-08-01] MEDS: dexAMETHasone 4 MG/ML VIAL IV SCH (11:04)
[2021-08-01] MEDS: AMIODARONE 200 MG TAB PO SCH ×2 (11:05→21:34)
[2021-08-01] MEDS: ZINC SULFATE 220 MG CAP PO SCH (11:05)
[2021-08-01] MEDS: CHOLECALCIFEROL (VIT D3) 1000 UNIT (25 mcg) TAB PO SCH (11:05)
[2021-08-01] MEDS: APIXABAN 5 MG TAB PO SCH ×2 (11:05→21:34)
[2021-08-01] MEDS: amLODIPine 10 MG TAB PO SCH (11:05)
[2021-08-01] MEDS: ASCORBIC ACID 500 MG TAB PO SCH (11:05)
[2021-08-01] MEDS: FAMOTIDINE 20 MG TAB PO SCH (11:05)
--- NOTE | 2021-08-01 11:18 | Progress Note ---
Assessment and Plan Assessment - End-stage renal disease on hemodialysis - Hypertension - Covid PNA - Acute hypoxic resp failure - Anemia of ESRD - Hyperparathyroidism - Hyperphosphatemia - Pneumonia Recommendations - Continue HD TTS and prn, next HD tomorrow, tolerated well yesterday per report - Covid treatment per primary team - Monitor labs and volume status daily and assess need for additional dialysis session - Continue home antihypertensives - Hold antihypertensives on hemodialysis days for systolics less than 160 - ESRD diet with 1.4 g/kg per day protein - patient understands need for continued hemodialysis and willing to proceed - Renally dose medication for creatinine clearance less than 15 cc/min - Antibiotics as per ID Subjective Date of service: 08/01/21 Principal diagnosis: Covid-19 Interval history: No events noted per chart. All 24 hour notes, vitals, labs, events reviewed Objective - Exam Narrative Exam: primary team exam noted, exam deferred for preservation of PPE - Vital Signs Vital signs: Vital Signs - 12hr 08/01/21 08/01/21 03:07 04:53 Temperature 98.2 F Pulse Rate 80 Respiratory 18 Rate Blood Pressure 131/79 O2 Sat by Pulse 99 98 Oximetry - Lab 07/31/21 06:29 07/31/21 06:29 Most recent lab results Calcium 8.6 mg/dL (8.4-10.2) 07/31/21 06:29 Medications & Allergies - Medications Allergies/Adverse Reactions: Allergies No Known Allergies Allergy (Unverified 04/15/20 11:37) Home Medications: Home Medications Medication Instructions Recorded Confirmed Last Taken Type Amiodarone [Cordarone 200 MG TAB] 200 mg PO BID #60 tablet 05/21/21 07/30/21 Unknown Rx Apixaban [Eliquis] 5 mg PO Q12HR #60 tablet 05/21/21 07/30/21 Unknown Rx Aspirin EC [Ecotrin] 325 mg PO QDAY #30 tablet 05/21/21 07/30/21 Unknown Rx Cinacalcet HCl 60 mg PO DAILY #30 05/21/21 07/30/21 Unknown Rx Cinacalcet [Sensipar] 60 mg PO QDAY #30 tablet 05/21/21 07/30/21 Unknown Rx Metoprolol [Lopressor TAB] 50 mg PO BID #60 tablet 05/21/21 07/30/21 Unknown Rx Pantoprazole [Protonix TAB] 40 mg PO QDAC #30 tablet 05/21/21 07/30/21 Unknown Rx Sevelamer Carbonate [Renvela] 2,400 mg PO TIDWM #90 tablet 05/21/21 07/30/21 Unknown Rx amLODIPine 10 mg PO DAILY #30 05/21/21 07/30/21 Unknown Rx traMADoL [Ultram 50 MG tab] 50 mg PO BID PRN #30 tablet 05/21/21 07/30/21 Unknown Rx Active Medications: Generic Name Dose Route Start Last Admin Trade Name Freq PRN Reason Stop Dose Admin Acetaminophen 650 mg 07/28/21 01:28 Acetaminophen 325 Mg Tab PO Q4H PRN Pain MILD(1-3)/Fever >100.5/JOHN Alprazolam 0.125 mg 07/28/21 01:28 Alprazolam 0.25 Mg Tab PO Q8H PRN Anxiety Amiodarone HCl 200 mg 07/28/21 10:00 08/01/21 11:05 Amiodarone 200 Mg Tab PO 200 mg BID CHRISTINA Administration Amlodipine Besylate 10 mg 07/28/21 10:00 08/01/21 11:05 Amlodipine 10 Mg Tab PO 10 mg DAILY CHRISTINA Administration Apixaban 5 mg 07/28/21 10:00 08/01/21 11:05 Apixaban 5 Mg Tab PO 5 mg Q12HR CHRISTINA Administration Ascorbic Acid 500 mg 07/28/21 10:00 08/01/21 11:05 Ascorbic Acid 500 Mg Tab PO 500 mg QDAY CHRISTINA Administration Cholecalciferol 1,000 unit 07/28/21 10:00 08/01/21 11:05 Cholecalciferol (Vit D3) 1000 Unit (25 Mcg) Tab PO 1,000 unit QDAY CHRISTINA Administration Cinacalcet 60 mg 07/28/21 10:00 07/31/21 13:42 Cinacalcet 30 Mg Tab PO 60 mg QDAY CHRISTINA Administration Dexamethasone 6 mg 07/28/21 10:00 08/01/21 11:04 Dexamethasone 4 Mg/Ml Vial IV 08/06/21 10:01 6 mg DAILY CHRISTINA Administration Dicyclomine HCl 10 mg 07/30/21 14:00 07/31/21 22:13 Dicyclomine 10 Mg Cap PO 10 mg QID CHRISTINA Administration Famotidine 20 mg 07/28/21 10:00 08/01/21 11:05 Famotidine 20 Mg Tab PO 20 mg QAM CHRISTINA Administration Sodium Chloride 100 mls @ 999 mls/hr 07/28/21 15:00 Nacl 0.9% IV RUFUS PRN Hypotension Magnesium Hydroxide 30 ml 07/28/21 01:28 Magnesium Hydroxide (Mom) Oral Liqd Udc PO Q4H PRN Constipation Metoclopramide HCl 5 mg 07/28/21 01:28 Metoclopramide 10 Mg/2 Ml Inj IV Q6H PRN Nausea And Vomiting Metoprolol Tartrate 50 mg 07/28/21 08:00 07/31/21 13:43 Metoprolol Tartrate 50 Mg Tab PO 50 mg BID@0800,1700 CHRISTINA Administration Morphine Sulfate 2 mg 07/28/21 01:28 Morphine 2 Mg/1 Ml Inj IV Q4H PRN Pain, Moderate (4-6) Morphine Sulfate 4 mg 07/28/21 01:28 Morphine 4 Mg/1 Ml Inj IV Q4H PRN Pain , Severe (7-10) Naloxone HCl 0.1 mg 07/28/21 01:28 Naloxone 0.4 Mg/1 Ml Inj IV Q2MIN PRN Res Rate </= 8 or 02 SAT < 92% Ondansetron HCl 4 mg 07/28/21 01:28 Ondansetron 4 Mg/2 Ml Inj IV Q8H PRN Nausea And Vomiting Oxycodone/Acetaminophen 1 tab 07/28/21 01:28 07/30/21 13:19 Oxycodone /Acetaminophen 5-325mg Tab PO 1 tab Q6H PRN Administration Pain, Moderate (4-6) Senna 8.6 mg 07/28/21 01:28 Sennosides 8.6 Mg Tab PO Q12HR PRN Constipation Sevelamer Carbonate 2,400 mg 07/28/21 08:00 07/31/21 13:42 Sevelamer Carbonate 800 Mg Tab PO 2,400 mg TIDWM CHRISTINA Administration Sodium Chloride 10 ml 07/28/21 10:00 08/01/21 11:06 Sodium Chloride 0.9% 10 Ml Flush Syringe IV 10 ml BID CHRISTINA Administration Sodium Chloride 10 ml 07/28/21 01:28 Sodium Chloride 0.9% 10 Ml Flush Syringe IV PRN PRN LINE FLUSH Tramadol HCl 50 mg 07/28/21 01:34 07/31/21 22:13 Tramadol 50 Mg Tab PO 50 mg BID PRN Administration Pain, Moderate (4-6) Zinc Sulfate 220 mg 07/28/21 10:00 08/01/21 11:05 Zinc Sulfate 220 Mg Cap PO 220 mg QDAY CHRISTINA Administration
[2021-08-01] MEDS: CINACALCET 30 MG TAB PO SCH (11:21)
[2021-08-01] MEDS: METOPROLOL TARTRATE 50 MG TAB PO SCH (11:21)
[2021-08-01] MEDS: SEVELAMER CARBONATE 800 MG TAB PO SCH (11:21)
[2021-08-01] MEDS: DICYCLOMINE 10 MG CAP PO SCH ×2 (11:22→21:34)
--- NOTE | 2021-08-01 11:42 | Progress Note ---
Assessment and Plan Paroxysmal Afib currently, he is in sinus rhythm. on Eliquis, amiodarone, and metoprolol. Chronic elevated troponin s/t to end stage renal disease normal LVEF by echo 04/2021. normal perfusion thallium stress test 12/2019. COVID Pneumonia Respiratory failure ESRD on HD Hypertension Continue medical therapy for paroxysmal atrial fibrillation. Otherwise, conservative cardiac management. Subjective Date of service: 08/01/21 Principal diagnosis: Covid-19 Interval history: No distress noted. Currently, telemetry shows atrial fibrillation with a well controlled ventricular rate. Objective Vital Signs Temp Pulse Resp BP Pulse Ox Pulse Ox 08/01/21 04:53 98.2 F 80 18 131/79 98 08/01/21 03:07 99 07/31/21 22:14 98.8 F 92 H 20 130/76 100 07/31/21 22:00 18 99 07/31/21 20:29 99 07/31/21 17:47 97.9 F 87 22 129/73 96 07/31/21 16:13 97 07/31/21 13:32 98.8 F 66 16 140/65 99 07/31/21 12:25 63 140/70 07/31/21 12:15 64 144/72 07/31/21 12:00 70 143/76 07/31/21 11:45 61 133/63 - Physical Examination Narrative exam: Deferred due to isolation protocol. General: No Apparent Distress HEENT: Positive: PERRL Cardiac: Positive: irregularly irregular
--- NOTE | 2021-08-01 14:06 | Vascular Lab Report ---
DUPLEX DOPPLER LOWER EXTREMITY VEINS, BILATERAL INDICATION / CLINICAL INFORMATION: Elevated D-dimers/COVID-19/hypoxia/rule out DVT. TECHNIQUE: Duplex doppler imaging was performed through the veins of both lower extremities using qamar ous compression and other maneuvers. COMPARISON: None available. FINDINGS: RIGHT COMMON FEMORAL VEIN: Negative. RIGHT FEMORAL VEIN: Negative. RIGHT POPLITEAL VEIN: Negative. RIGHT CALF VEINS: Negative. LEFT COMMON FEMORAL VEIN: Negative. LEFT FEMORAL VEIN: Negative. LEFT POPLITEAL VEIN: Negative. LEFT CALF VEINS: Negative. ADDITIONAL FINDINGS: None. IMPRESSION: 1. No sonographic evidence for DVT in either lower extremity. Signer Name: Juma Gutiérrez MD Signed: 08/01/2021 2:01 PM Workstation Name: [email or web address]
--- NOTE | 2021-08-01 14:09 | Progress Note ---
Assessment and Plan 61 y/o male with acute respiratory failure secondary to COVID pneumonia 08/01/21: will sign off 1. Prone 2. Steroids 3. Remdesivir and ID recs 4. Daily net negative state if possible 5. Guarded prognosis. Subjective Date of service: 08/01/21 Principal diagnosis: Covid-19 Interval history: no acute events. Down to 1 liter. Objective Vital Signs - 12hr 08/01/21 08/01/21 08/01/21 03:07 04:53 10:00 Temperature 98.2 F Pulse Rate 80 Respiratory 18 22 Rate Blood Pressure 131/79 O2 Sat by Pulse 99 98 97 Oximetry 08/01/21 08/01/21 12:45 13:34 Temperature 98.4 F Pulse Rate 75 Respiratory 20 Rate Blood Pressure 134/75 O2 Sat by Pulse 98 96 Oximetry CBC and BMP: 07/31/21 06:29 07/31/21 06:29 ABG, PT/INR, D-dimer: PT/INR, D-dimer D-Dimer 2270.91 ng/mlDDU (0-234) H 07/28/21 00:36 Abnormal lab findings: Abnormal Labs 07/27/21 07/27/21 07/28/21 23:14 23:14 00:36 RBC Hgb 10.0 L Hct 31.4 L MCH 27 L RDW 22.7 H Plt Count Seg Neuts % (Manual) 89.0 H Lymphocytes % (Manual) 10.0 L Lymphocytes # (Manual) 0.6 L D-Dimer 2270.91 H Sodium Chloride 93.2 L BUN Creatinine 6.7 H Glucose Ferritin AST 50 H Lactate Dehydrogenase Troponin T 0.110 H* C-Reactive Protein Albumin 3.2 L Triglycerides 187 H HDL Cholesterol 33 L Coronavirus (PCR) 07/28/21 07/28/21 07/28/21 00:36 00:36 08:50 RBC Hgb Hct MCH RDW Plt Count Seg Neuts % (Manual) Lymphocytes % (Manual) Lymphocytes # (Manual) D-Dimer Sodium Chloride BUN Creatinine Glucose Ferritin 3549.0 H AST Lactate Dehydrogenase 418 H Troponin T C-Reactive Protein 14.50 H Albumin Triglycerides HDL Cholesterol Coronavirus (PCR) Positive A 07/29/21 07/29/21 07/31/21 04:41 04:41 06:29 RBC 3.60 L 3.31 L Hgb 10.2 L 9.3 L Hct 30.6 L 27.9 L MCH RDW 22.0 H 22.5 H Plt Count 457 H Seg Neuts % (Manual) Lymphocytes % (Manual) Lymphocytes # (Manual) D-Dimer Sodium Chloride 97.2 L BUN 27 H Creatinine 7.1 H Glucose 108 H Ferritin AST Lactate Dehydrogenase Troponin T C-Reactive Protein Albumin Triglycerides HDL Cholesterol Coronavirus (PCR) 07/31/21 06:29 RBC Hgb Hct MCH RDW Plt Count Seg Neuts % (Manual) Lymphocytes % (Manual) Lymphocytes # (Manual) D-Dimer Sodium 136 L Chloride 94.7 L BUN 76 H Creatinine 10.8 H D Glucose Ferritin AST Lactate Dehydrogenase Troponin T C-Reactive Protein Albumin 2.8 L Triglycerides HDL Cholesterol Coronavirus (PCR)
--- NOTE | 2021-08-01 14:22 | Progress Note ---
Assessment and Plan Cultures: COVID positive A/P: 61-year-old man past medical history ESRD on HD, hypertension, hyperlipidemia #Severe COVID-19 pneumonia: Patient presented with a week of symptoms, chest x- ray with diffuse bilateral infiltrates. Inflammatory markers elevated #Acute hypoxemic respiratory failure: Likely secondary to COVID-19 infection. Currently on 1L NC #ESRD on HD: renally dose medications. Recs: -Dexamethasone for 10 days -Unfortunately not a candidate for remdesivir due to ESRD -Obtain q48-72h inflammatory markers - ferritin, Ddimer, CRP, LDH -Continue ceftriaxone 2 gm IV qday and azithromycin 500 mg PO qday due to elevat ed procal in the setting of ESRD. Complete 5 days -Anticoagulation per hospital protocol -Proning as able Thank you for the consult, we will continue to follow. Fabiola Moseley MD [facility] ([facility]) O: [phone] F: [phone] Subjective Date of service: 08/01/21 Principal diagnosis: Covid-19 Interval history: Afebrile, normal white count. Currently on 1 L nasal cannula. Objective - Exam Narrative Exam: Physical exam deferred to reduce risk of transmission of COVID-19. Please refer to primary team's note. - Constitutional Vitals: Vital Signs Temp Pulse Resp BP Pulse Ox 98.4 F 75 20 134/75 96 08/01/21 12:45 08/01/21 12:45 08/01/21 12:45 08/01/21 12:45 08/01/21 13:34 Temperature -Last 24 Hours Temperature 98.4 F Temperature 98.2 F Temperature 98.8 F Temperature 97.9 F - Labs CBC & Chem 7: 07/31/21 06:29 07/31/21 06:29
--- NOTE | 2021-08-01 16:06 | Progress Note ---
Assessment and Plan Assessment and plan: This is a 61-year-old male seen in the ED at bedside. he presents to emergency room with complaints of cough, shortness of breath, fever, chills. Patient states his symptoms been going on for a week and he tested yesterday and his COVID-19 test came back positive. Patient states he was diagnosed at an urgent care. Patient states he has not received any treatment. Patient states his symptoms are worsening. Patient states has been monitoring his oxygen saturation at home and his oxygen saturation has been 80 to 85% for the past 4 days. On assessment, patient has shortness of breath. He is on oxygen at 4 L nasal cannula with O2 sat of 99%. I reviewed patient medication record vital signs and radiology report. Chest x-ray done severe multifocal airspace pneumonia throughout the both lungs. Patient admits tobacco use, but denies chronic alcohol or illicit use. Today patient is on 1 L of nasal cannula oxygen saturating about more than 95% -- COVID-19 Current Visit: Yes Status: Acute Airborne and contact isolation for Covid protocol Bronchodilator and oxygen supplement as needed Patient is on oxygen at 3 L this morning with O2 sats of 99% Infectious disease and expanding machine operator consult Ascorbic acid, zinc sulfate, vitamin D supplement and systemic steroid Dexamethasone for 10 days Not a candidate for remdesivir due to ESRD Follow inflammatory markers - ferritin, Ddimer, CRP, LDH Completed 5 days of ceftriaxone 2 gm IV qday and azithromycin 500 mg PO qday due to elevated procal in the setting of ESRD. Complete 5 days Prone position as tolerated Home O2 evaluation prior to discharge -- Acute respiratory failure with hypoxia Current Visit: Yes Status: Acute Bronchodilator and oxygen supplement ABG monitor oxygen saturation Insulation Foreman has been consulted -- Elevated d-dimer Current Visit: Yes Status: Acute Elevated D-dimerVQ scan low probability for PE Lower extremity venous Doppler negative for DVT Continue Eliquis his home medication --ESRD (end stage renal disease) on dialysis Current Visit: Yes Status: Acute Geospatial Analyst consultfollow-up with plan of care Monitor kidney function and electrolytes --Elevated troponin, secondary to renal dysfunction Current Visit: No Status: Acute Unknown causerenal ischemiakidney failure Trend troponin Patient is on Eliquis --Multifocal bilateral pneumonia Current Visit: Yes Status: Acute Chest x-ray,multifocal airspace pneumonia throughout the both lungs Pneumonia likely secondary to Covid infection Continue current antibiotic, procalcitonin high ID and expanding machine operator have been consulted --Severe protein calorie malnutrition; Current Visit: No Status: Chronic Nutrition supplements Nepro, nutrition consult -- diarrhea Current Visit: No Status: Acute Antidiarrheals, plenty of oral fluids --DVT prophylaxis; Current Visit: No Status: Acute Patient is on Eliquis Daily hospital course 07/29: Covid test positive. Patient to be seen by pulmonary and belt brander. Continue steroids at this time. Will defer remdesivir to infectious disease's renal function may preclude use. HD per nephrology type II non-ST elevated NH 07/30: Patient remains with hypoxic respiratory failure secondary to COVID-19. Also diarrhea and abdominal pain which he rates as a 3/10 in intensity. He sitting up at the bedside Shaji over he is also hard of hearing. We will give her Bentyl for abdominal discomfort but if persistent or worsening pain may need either further imaging. Continue steroid therapy patient not a candidate of remdesivir at this time. Continue apixaban which patient takes at home and will also help for management of Covid induced coagulopathy. 07/31; patient remains on 8 L nasal cannula oxygen Multifocal pneumonia on antibiotics Procalcitonin on high I called patient's spouse Allen Dorman at [phone] and discussed in detail patient's condition Tests and reports patient reports, treatment plan treatment plan, consultants recommendations, discharge planning Ms. Dorman had numerous questions I answered all of them, encouraged her to call back if she has more questions or concerns 08/01; patient is on 1 to 2 L of nasal cannula oxygen saturating well completed 5 days of antibiotics Dexamethasone 03/05, stop date 09/05[total 10 doses] Possible discharge home tomorrow if stable I spoke with patient's spouse Allen Dorman at the bedside over the patient's speaker phone and discussed in detail patient's condition The patient and the spouse had some questions, I answered all of them and they verbalized understanding I informed them if everything goes well and if patient is stable he would be discharged home tomorrow, home oxygen requirement will be assessed Prior to discharge. History Interval history: I have seen and examined the patient in his room Patient's chart and medications reviewed Isolation precautions PPE protocols followed In the morning patient was on 3 L of nasal cannula However at the time of my evaluation patient is requiring only 1 L saturating more than 95% Vital signs noted Hospitalist Physical - Constitutional Vitals: Temp Pulse Resp BP Pulse Ox 98.4 F 75 20 134/75 96 08/01/21 12:45 08/01/21 12:45 08/01/21 12:45 08/01/21 12:45 08/01/21 13:34 General appearance: Present: no acute distress, well-nourished - EENT Eyes: Present: PERRL, EOM intact - Neck Neck: Present: supple, normal ROM - Respiratory Respiratory effort: normal Respiratory: bilateral: diminished, negative: rales, rhonchi, wheezing - Cardiovascular Rhythm: regular Heart Sounds: Present: S1 & S2 - Extremities Extremities: no ischemia, No edema - Abdominal General gastrointestinal: soft, non-tender, non-distended, normal bowel sounds - Integumentary Integumentary: Present: clear, warm - Psychiatric Psychiatric: appropriate mood/affect, cooperative - Neurologic Neurologic: CNII-XII intact, moves all extremities HEART Score - HEART Score Troponin: Troponin T 0.110 ng/mL (0.00-0.029) H* 07/27/21 23:14 Results - Labs CBC & Chem 7: 07/31/21 06:29 07/31/21 06:29 Labs: Laboratory Last Values WBC 8.6 K/mm3 (4.5-11.0) 07/31/21 06:29 RBC 3.31 M/mm3 (3.65-5.03) L 07/31/21 06:29 Hgb 9.3 gm/dl (11.8-15.2) L 07/31/21 06:29 Hct 27.9 % (35.5-45.6) L 07/31/21 06:29 MCV 84 fl (84-94) 07/31/21 06:29 MCH 28 pg (28-32) 07/31/21 06:29 MCHC 33 % (32-34) 07/31/21 06:29 RDW 22.5 % (13.2-15.2) H 07/31/21 06:29 Plt Count 457 K/mm3 (140-440) H 07/31/21 06:29 Add Manual Diff Complete 07/27/21 23:14 Total Counted 100 07/27/21 23:14 Seg Neuts % (Manual) 89.0 % (40.0-70.0) H 07/27/21 23:14 Lymphocytes % (Manual) 10.0 % (13.4-35.0) L 07/27/21 23:14 Monocytes % (Manual) 1.0 % (0.0-7.3) 07/27/21 23:14 Nucleated RBC % Not Reportable 07/27/21 23:14 Seg Neutrophils # Man 5.7 K/mm3 (1.8-7.7) 07/27/21 23:14 Band Neutrophils # 0.0 K/mm3 07/27/21 23:14 Lymphocytes # (Manual) 0.6 K/mm3 (1.2-5.4) L 07/27/21 23:14 Abs React Lymphs (Man) 0.0 K/mm3 07/27/21 23:14 Monocytes # (Manual) 0.1 K/mm3 (0.0-0.8) 07/27/21 23:14 Eosinophils # (Manual) 0.0 K/mm3 (0.0-0.4) 07/27/21 23:14 Basophils # (Manual) 0.0 K/mm3 (0.0-0.1) 07/27/21 23:14 Metamyelocytes # 0.0 K/mm3 07/27/21 23:14 Myelocytes # 0.0 K/mm3 07/27/21 23:14 Promyelocytes # 0.0 K/mm3 07/27/21 23:14 Blast Cells # 0.0 K/mm3 07/27/21 23:14 WBC Morphology Not Reportable 07/27/21 23:14 Hypersegmented Neuts Not Reportable 07/27/21 23:14 Hyposegmented Neuts Not Reportable 07/27/21 23:14 Hypogranular Neuts Not Reportable 07/27/21 23:14 Smudge Cells Not Reportable 07/27/21 23:14 Toxic Granulation Not Reportable 07/27/21 23:14 Toxic Vacuolation Not Reportable 07/27/21 23:14 Dohle Bodies Not Reportable 07/27/21 23:14 Pelger-Huet Anomaly Not Reportable 07/27/21 23:14 Judy Rods Not Reportable 07/27/21 23:14 Platelet Estimate Consistent w auto 07/27/21 23:14 Clumped Platelets Not Reportable 07/27/21 23:14 Plt Clumps, EDTA Not Reportable 07/27/21 23:14 Large Platelets Not Reportable 07/27/21 23:14 Giant Platelets Not Reportable 07/27/21 23:14 Platelet Satelliting Not Reportable 07/27/21 23:14 Plt Morphology Comment Not Reportable 07/27/21 23:14 RBC Morphology Not Reportable 07/27/21 23:14 Dimorphic RBCs Not Reportable 07/27/21 23:14 Polychromasia Not Reportable 07/27/21 23:14 Hypochromasia Not Reportable 07/27/21 23:14 Poikilocytosis Not Reportable 07/27/21 23:14 Anisocytosis 1+ 07/27/21 23:14 Microcytosis Not Reportable 07/27/21 23:14 Macrocytosis Not Reportable 07/27/21 23:14 Spherocytes Not Reportable 07/27/21 23:14 Pappenheimer Bodies Not Reportable 07/27/21 23:14 Sickle Cells Not Reportable 07/27/21 23:14 Target Cells Not Reportable 07/27/21 23:14 Tear Drop Cells Not Reportable 07/27/21 23:14 Ovalocytes Not Reportable 07/27/21 23:14 Helmet Cells Not Reportable 07/27/21 23:14 [place] Bodies Not Reportable 07/27/21 23:14 [place] Rings Not Reportable 07/27/21 23:14 Michael Cells Not Reportable 07/27/21 23:14 Bite Cells Not Reportable 07/27/21 23:14 Crenated Cell Not Reportable 07/27/21 23:14 Elliptocytes Not Reportable 07/27/21 23:14 Acanthocytes (Spur) Not Reportable 07/27/21 23:14 Rouleaux Not Reportable 07/27/21 23:14 Hemoglobin C Crystals Not Reportable 07/27/21 23:14 Schistocytes Few 07/27/21 23:14 Malaria parasites Not Reportable 07/27/21 23:14 Jacob Bodies Not Reportable 07/27/21 23:14 Hem Pathologist Commnt No 07/27/21 23:14 D-Dimer 2270.91 ng/mlDDU (0-234) H 07/28/21 00:36 Sodium 136 mmol/L (137-145) L 07/31/21 06:29 Potassium 4.7 mmol/L (3.6-5.0) 07/31/21 06:29 Chloride 94.7 mmol/L (98-107) L 07/31/21 06:29 Carbon Dioxide 24 mmol/L (22-30) 07/31/21 06:29 Anion Gap 22 mmol/L 07/31/21 06:29 BUN 76 mg/dL (9-20) H 07/31/21 06:29 Creatinine 10.8 mg/dL (0.8-1.3) H D 07/31/21 06:29 Estimated GFR 6 ml/min 07/31/21 06:29 BUN/Creatinine Ratio 7 % 07/31/21 06:29 Glucose 92 mg/dL (75-100) 07/31/21 06:29 Lactic Acid 1.70 mmol/L (0.7-2.0) 07/27/21 23:14 Calcium 8.6 mg/dL (8.4-10.2) 07/31/21 06:29 Ferritin 3549.0 ng/mL (30.0-300.0) H 07/28/21 00:36 Total Bilirubin 0.20 mg/dL (0.1-1.2) 07/31/21 06:29 AST 19 units/L (5-40) 07/31/21 06:29 ALT 17 units/L (7-56) 07/31/21 06:29 Alkaline Phosphatase 101 units/L (35-129) 07/31/21 06:29 Lactate Dehydrogenase 418 units/L (91-180) H 07/28/21 00:36 Troponin T 0.110 ng/mL (0.00-0.029) H* 07/27/21 23:14 C-Reactive Protein 14.50 mg/dL (0.00-1.30) H 07/28/21 00:36 Total Protein 6.5 g/dL (6.3-8.2) 07/31/21 06:29 Albumin 2.8 g/dL (3.9-5) L 07/31/21 06:29 Albumin/Globulin Ratio 0.8 % 07/31/21 06:29 Triglycerides 187 mg/dL (2-149) H 07/27/21 23:14 Cholesterol 152 mg/dL (50-199) 07/27/21 23:14 LDL Cholesterol Direct 75 mg/dL (50-130) 07/27/21 23:14 HDL Cholesterol 33 mg/dL (40-59) L 07/27/21 23:14 Cholesterol/HDL Ratio 4.60 % 07/27/21 23:14 Procalcitonin 7.37 ng/mL (<0.15) 07/28/21 00:36 Coronavirus (PCR) Positive (Negative) A 07/28/21 08:50 Hepatitis A IgM Ab Non-reactive (NonReactive) 07/28/21 15:30 Hep Bs Antigen Nonreactive (Negative) 07/28/21 15:30 Hep B Core IgM Ab Non-reactive (NonReactive) 07/28/21 15:30 Hepatitis C Antibody Non-reactive (NonReactive) 07/28/21 15:30 Moy/IV: Voiding Method Toilet Active Medications - Current Medications Current Medications: Generic Name Dose Route Start Last Admin Trade Name Freq PRN Reason Stop Dose Admin Acetaminophen 650 mg 07/28/21 01:28 Acetaminophen 325 Mg Tab PO Q4H PRN Pain MILD(1-3)/Fever >100.5/JOHN Alprazolam 0.125 mg 07/28/21 01:28 Alprazolam 0.25 Mg Tab PO Q8H PRN Anxiety Amiodarone HCl 200 mg 07/28/21 10:00 08/01/21 11:05 Amiodarone 200 Mg Tab PO 200 mg BID CHRISTINA Administration Amlodipine Besylate 10 mg 07/28/21 10:00 08/01/21 11:05 Amlodipine 10 Mg Tab PO 10 mg DAILY CHRISTINA Administration Apixaban 5 mg 07/28/21 10:00 08/01/21 11:05 Apixaban 5 Mg Tab PO 5 mg Q12HR CHRISTINA Administration Ascorbic Acid 500 mg 07/28/21 10:00 08/01/21 11:05 Ascorbic Acid 500 Mg Tab PO 500 mg QDAY CHRISTINA Administration Cholecalciferol 1,000 unit 07/28/21 10:00 08/01/21 11:05 Cholecalciferol (Vit D3) 1000 Unit (25 Mcg) Tab PO 1,000 unit QDAY CHRISTINA Administration Cinacalcet 60 mg 07/28/21 10:00 08/01/21 11:21 Cinacalcet 30 Mg Tab PO 60 mg QDAY CHRISTINA Administration Dexamethasone 6 mg 07/28/21 10:00 08/01/21 11:04 Dexamethasone 4 Mg/Ml Vial IV 08/06/21 10:01 6 mg DAILY CHRISTINA Administration Dicyclomine HCl 10 mg 07/30/21 14:00 08/01/21 11:22 Dicyclomine 10 Mg Cap PO 10 mg QID CHRISTINA Administration Famotidine 20 mg 07/28/21 10:00 08/01/21 11:05 Famotidine 20 Mg Tab PO 20 mg QAM CHRISTINA Administration Sodium Chloride 100 mls @ 999 mls/hr 07/28/21 15:00 Nacl 0.9% IV RUFUS PRN Hypotension Magnesium Hydroxide 30 ml 07/28/21 01:28 Magnesium Hydroxide (Mom) Oral Liqd Udc PO Q4H PRN Constipation Metoclopramide HCl 5 mg 07/28/21 01:28 Metoclopramide 10 Mg/2 Ml Inj IV Q6H PRN Nausea And Vomiting Metoprolol Tartrate 50 mg 07/28/21 08:00 08/01/21 11:21 Metoprolol Tartrate 50 Mg Tab PO 50 mg BID@0800,1700 [facility] Administration Morphine Sulfate 2 mg 07/28/21 01:28 Morphine 2 Mg/1 Ml Inj IV Q4H PRN Pain, Moderate (4-6) Morphine Sulfate 4 mg 07/28/21 01:28 Morphine 4 Mg/1 Ml Inj IV Q4H PRN Pain , Severe (7-10) Naloxone HCl 0.1 mg 07/28/21 01:28 Naloxone 0.4 Mg/1 Ml Inj IV Q2MIN PRN Res Rate </= 8 or 02 SAT < 92% Ondansetron HCl 4 mg 07/28/21 01:28 Ondansetron 4 Mg/2 Ml Inj IV Q8H PRN Nausea And Vomiting Oxycodone/Acetaminophen 1 tab 07/28/21 01:28 07/30/21 13:19 Oxycodone /Acetaminophen 5-325mg Tab PO 1 tab Q6H PRN Administration Pain, Moderate (4-6) Senna 8.6 mg 07/28/21 01:28 Sennosides 8.6 Mg Tab PO Q12HR PRN Constipation Sevelamer Carbonate 2,400 mg 07/28/21 08:00 08/01/21 11:21 Sevelamer Carbonate 800 Mg Tab PO 2,400 mg TIDWM CHRISTINA Administration Sodium Chloride 10 ml 07/28/21 10:00 08/01/21 11:06 Sodium Chloride 0.9% 10 Ml Flush Syringe IV 10 ml BID CHRISTINA Administration Sodium Chloride 10 ml 07/28/21 01:28 Sodium Chloride 0.9% 10 Ml Flush Syringe IV PRN PRN LINE FLUSH Tramadol HCl 50 mg 07/28/21 01:34 07/31/21 22:13 Tramadol 50 Mg Tab PO 50 mg BID PRN Administration Pain, Moderate (4-6) Zinc Sulfate 220 mg 07/28/21 10:00 08/01/21 11:05 Zinc Sulfate 220 Mg Cap PO 220 mg QDAY CHRISTINA Administration
--- NOTE | 2021-08-01 16:53 | Event Note ---
Date: 08/01/21 I spoke with patient's spouse Allen Dorman at the bedside over the patient's speaker phone and discussed in detail patient's condition The patient and the spouse had some questions, I answered all of them and they verbalized understanding I informed them if everything goes well and if patient is stable he would be discharged home tomorrow, home oxygen requirement will be assessed Prior to discharge.
[2021-08-01] MEDS: traMADol 50 MG TAB PO PRN (21:32)
[2021-08-02] MEDS: SEVELAMER CARBONATE 800 MG TAB PO SCH ×3 (08:00→16:09)
--- NOTE | 2021-08-02 09:18 | Discharge Summary ---
Providers - Providers Date of Admission: 07/30/21 08:55 Date of discharge: 08/02/21 Attending physician: KENDRA MADISON 07/28/21 01:28 Consult to Physician [CONS] Routine Comment: Consulting Provider: MATT MALDONADO Physician Instructions: Reason For Exam: covid 19 07/28/21 01:49 Consult to Physician [CONS] Routine Comment: Consulting Provider: MARVIN BUNCH Physician Instructions: Reason For Exam: Acute respiratory failure with hypoxia 07/28/21 01:52 Consult to Physician [CONS] Routine Comment: Consulting Provider: DAMIEN OREILLY Physician Instructions: Reason For Exam: esrd 07/28/21 09:25 Consult to Physician [CONS] Routine Comment: Consulting Provider: RADHIKA ARANA Physician Instructions: Reason For Exam: atrial fibrillation 08/01/21 16:25 Physical Therapy Evaluation and Treat [CONS] Routine Comment: Reason For Exam: General debility/Covid/DC needs Primary care physician: LUCRECIA KELLER Hospitalization Condition: Stable Hospital course: -- COVID-19 Current Visit: Yes Status: Acute Airborne and contact isolation for Covid protocol Bronchodilator and oxygen supplement as needed Patient is on oxygen at 3 L this morning with O2 sats of 99% Infectious disease and rosin barrel filler consult Ascorbic acid, zinc sulfate, vitamin D supplement and systemic steroid Dexamethasone for 10 days Not a candidate for remdesivir due to ESRD Follow inflammatory markers - ferritin, Ddimer, CRP, LDH Completed 5 days of ceftriaxone 2 gm IV qday and azithromycin 500 mg PO qday due to elevated procal in the setting of ESRD. Complete 5 days Prone position as tolerated Home O2 evaluation prior to discharge -- Acute respiratory failure with hypoxia Current Visit: Yes Status: Acute Bronchodilator and oxygen supplement ABG monitor oxygen saturation Calciner Operator has been consulted -- Elevated d-dimer Current Visit: Yes Status: Acute Elevated D-dimerVQ scan low probability for PE Lower extremity venous Doppler negative for DVT Continue Eliquis his home medication --ESRD (end stage renal disease) on dialysis Current Visit: Yes Status: Acute Commuter Pilot consultfollow-up with plan of care Monitor kidney function and electrolytes --Elevated troponin, secondary to renal dysfunction Current Visit: No Status: Acute Unknown causerenal ischemiakidney failure Trend troponin Patient is on Eliquis --Multifocal bilateral pneumonia Current Visit: Yes Status: Acute Chest x-ray,multifocal airspace pneumonia throughout the both lungs Pneumonia completed 5 days of antibiotics per ID As procalcitonin is high ID and rosin barrel filler have been consulted --Severe protein calorie malnutrition; Current Visit: No Status: Chronic Nutrition supplements Nepro, nutrition consult -- diarrhea Current Visit: No Status: Acute Antidiarrheals, plenty of oral fluids Disposition: HOME HEALTH CARE SERVICE Final Discharge Diagnosis (Prints w/discharge instructions): COVID-19 infection. Acute hypoxic respiratory failure requiring oxygen. Multifocal bilateral pneumonia. Severe protein calorie malnutrition. End-stage renal disease. Hemodialysis per schedule. Elevated D-dimers[negative PE, negative DVT] Time spent for discharge: 45 min Core Measure Documentation - Palliative Care Palliative Care/ Comfort Measures: Not Applicable - Core Measures Any of the following diagnoses?: none Exam - Constitutional Vitals: Temp Pulse Resp BP Pulse Ox 98.6 F 76 20 127/75 96 08/01/21 16:40 08/01/21 16:40 08/01/21 22:00 08/01/21 16:40 08/01/21 22:00 General appearance: Present: no acute distress, well-nourished - EENT Eyes: Present: PERRL, EOM intact - Neck Neck: Present: supple, normal ROM - Respiratory Respiratory effort: normal Respiratory: bilateral: diminished, negative: rales, rhonchi, wheezing - Cardiovascular Rhythm: regular Heart Sounds: Present: S1 & S2 - Extremities Extremities: no ischemia, No edema - Abdominal General gastrointestinal: Present: soft, non-tender, non-distended, normal bowel sounds - Integumentary Integumentary: Present: clear, warm - Musculoskeletal Musculoskeletal: strength equal bilaterally, generalized weakness - Psychiatric Psychiatric: appropriate mood/affect, cooperative - Neurologic Neurologic: CNII-XII intact, moves all extremities Plan Activity: advance as tolerated, fall precautions Diet: other (Cardiac diet) Additional Instructions: Advised to follow renal/hemodialysis per schedule TTS. Strongly advised to follow COVID-19 protocols and precautions as instructed by the discharge nurse. Follow-up primary care physician, ID, pulmonary per schedule. If you have worsening symptoms contact MD or go to the nearest emergency room as needed Follow up with: LUCRECIA KELLER MD [Primary Care Provider] - 3-5 Days ANEL FRANKLIN MD [Staff Physician] - 7 Days BONNIE DELGADO MD [Staff Physician] - 14 Days LUIS FERNANDO SUE MD [Staff Physician] - 7 Days Prescriptions: Dexamethasone 6 mg PO DAILY #5 tablet Albuterol Mdi (or & Nicu Only) [ProAir HFA Inhaler] 2 puff IH QID PRN #8.5 gram PRN Reason: Shortness Of Breath Ascorbic Acid [Vitamin C] 500 mg PO QDAY #30 tablet Cholecalciferol Vit D3 [Vitamin D3 1,000 UNIT TAB] 1,000 unit PO QDAY #30 tablet Zinc Sulfate 220 mg PO QDAY #30 capsule
[2021-08-02] MEDS: DICYCLOMINE 10 MG CAP PO SCH ×2 (10:00→15:04)
--- NOTE | 2021-08-02 11:19 | Progress Note ---
Assessment and Plan - Patient Problems (1) Paroxysmal atrial fibrillation Current Visit: Yes Status: Acute Plan to address problem: Patient has a history of paroxysmal atrial fibrillation, on Eliquis, amiodarone and metoprolol. He has been no recurrence of atrial fibrillation on this presentation, continue his outpatient medical therapy, no cardiac intervention is indicated at this time. We will follow intermittently. (2) Elevated troponin Current Visit: Yes Status: Acute Plan to address problem: Patient presented with acute Covid infection, no cardiac complaints. Measured troponin level was mildly elevated, and consistent with the patient's prior nonspecifically elevated troponin measurements in the presence of end-stage renal failure. Subjective Date of service: 08/02/21 Principal diagnosis: Covid-19 Interval history: Patient is undergoing dialysis in his room, no new cardiac complaints reported. Anticipated discharge is planned for today. Objective Vital Signs Temp Pulse Resp BP Pulse Ox 08/01/21 22:00 20 96 08/01/21 16:40 98.6 F 76 18 127/75 96 08/01/21 13:34 96 08/01/21 12:45 98.4 F 75 20 134/75 98 - Physical Examination Narrative exam: Full physical exam is deferred due to the patient's acute Covid pneumonia. General: No Apparent Distress HEENT: Positive: PERRL Neck: Negative: JVD/HJR Neuro: Negative: Grossly Intact Abdomen: Positive: Unremarkable, Soft, Active Bowel Sounds Extremities: Absent: edema
--- NOTE | 2021-08-02 12:37 | Progress Note ---
Assessment and Plan Cultures: COVID positive A/P: 61-year-old man past medical history ESRD on HD, hypertension, hyperlipidemia #Severe COVID-19 pneumonia: Patient presented with a week of symptoms, chest x- ray with diffuse bilateral infiltrates. Inflammatory markers elevated #Acute hypoxemic respiratory failure: Likely secondary to COVID-19 infection. Currently on 1L NC #ESRD on HD: renally dose medications. Recs: -Dexamethasone for 10 days -Unfortunately not a candidate for remdesivir due to ESRD -Obtain q48-72h inflammatory markers - ferritin, Ddimer, CRP, LDH -Continue ceftriaxone 2 gm IV qday and azithromycin 500 mg PO qday due to elevat ed procal in the setting of ESRD. Complete 5 days -Anticoagulation per hospital protocol -Proning as able -No need for ID follow up Thank you for the consult, we will sign off. please call with questions Fabiola Moseley MD [facility] O: [phone] F: [phone] Subjective Date of service: 08/02/21 Principal diagnosis: Covid-19 Interval history: Afebrile, normal white count. Currently 1 L nasal cannula. Objective - Exam Narrative Exam: Physical exam deferred to reduce risk of transmission of COVID-19. Please refer to primary team's note. - Constitutional Vitals: Vital Signs Temp Pulse Resp BP Pulse Ox 98.6 F 76 20 127/75 96 08/01/21 16:40 08/01/21 16:40 08/01/21 22:00 08/01/21 16:40 08/01/21 22:00 Temperature -Last 24 Hours Temperature 98.6 F Temperature 98.4 F - Labs CBC & Chem 7: 07/31/21 06:29 07/31/21 06:29
--- NOTE | 2021-08-02 13:15 | Progress Note ---
Assessment and Plan Assessment - End-stage renal disease on hemodialysis - Hypertension - Covid PNA - Acute hypoxic resp failure - Anemia of ESRD - Hyperparathyroidism - Hyperphosphatemia - Pneumonia Recommendations - Continue HD TTS and prn, next HD today - Covid treatment per primary team - Monitor labs and volume status daily and assess need for additional dialysis session - Continue home antihypertensives - Hold antihypertensives on hemodialysis days for systolics less than 160 - ESRD diet with 1.4 g/kg per day protein - patient understands need for continued hemodialysis and willing to proceed - Renally dose medication for creatinine clearance less than 15 cc/min - Antibiotics as per ID Subjective Date of service: 08/02/21 Principal diagnosis: Covid-19 Interval history: No events noted per chart. All 24 hour notes, vitals, labs, events reviewed Objective - Exam Narrative Exam: primary team exam noted, exam deferred for preservation of PPE - Lab 07/31/21 06:29 07/31/21 06:29 Most recent lab results Calcium 8.6 mg/dL (8.4-10.2) 07/31/21 06:29 Medications & Allergies - Medications Allergies/Adverse Reactions: Allergies No Known Allergies Allergy (Unverified 04/15/20 11:37) Home Medications: Home Medications Medication Instructions Recorded Confirmed Last Taken Type Amiodarone [Cordarone 200 MG TAB] 200 mg PO BID #60 tablet 05/21/21 07/30/21 Unknown Rx Apixaban [Eliquis] 5 mg PO Q12HR #60 tablet 05/21/21 07/30/21 Unknown Rx Aspirin EC [Ecotrin] 325 mg PO QDAY #30 tablet 05/21/21 07/30/21 Unknown Rx Cinacalcet HCl 60 mg PO DAILY #30 05/21/21 07/30/21 Unknown Rx Cinacalcet [Sensipar] 60 mg PO QDAY #30 tablet 05/21/21 07/30/21 Unknown Rx Metoprolol [Lopressor TAB] 50 mg PO BID #60 tablet 05/21/21 07/30/21 Unknown Rx Pantoprazole [Protonix TAB] 40 mg PO QDAC #30 tablet 05/21/21 07/30/21 Unknown Rx Sevelamer Carbonate [Renvela] 2,400 mg PO TIDWM #90 tablet 05/21/21 07/30/21 Unknown Rx amLODIPine 10 mg PO DAILY #30 05/21/21 07/30/21 Unknown Rx traMADoL [Ultram 50 MG tab] 50 mg PO BID PRN #30 tablet 05/21/21 07/30/21 Unknown Rx Albuterol Mdi (or & Nicu Only) 2 puff IH QID PRN #8.5 gram 08/02/21 Unknown Rx [ProAir HFA Inhaler] Ascorbic Acid [Vitamin C] 500 mg PO QDAY #30 tablet 08/02/21 Unknown Rx Cholecalciferol Vit D3 [Vitamin D3 1,000 unit PO QDAY #30 tablet 08/02/21 Unknown Rx 1,000 UNIT TAB] Dexamethasone 6 mg PO DAILY #5 tablet 08/02/21 Unknown Rx Zinc Sulfate 220 mg PO QDAY #30 capsule 08/02/21 Unknown Rx Active Medications: Generic Name Dose Route Start Last Admin Trade Name Freq PRN Reason Stop Dose Admin Acetaminophen 650 mg 07/28/21 01:28 Acetaminophen 325 Mg Tab PO Q4H PRN Pain MILD(1-3)/Fever >100.5/JOHN Alprazolam 0.125 mg 07/28/21 01:28 Alprazolam 0.25 Mg Tab PO Q8H PRN Anxiety Amiodarone HCl 200 mg 07/28/21 10:00 08/01/21 21:34 Amiodarone 200 Mg Tab PO 200 mg BID CHRISTINA Administration Amlodipine Besylate 10 mg 07/28/21 10:00 08/01/21 11:05 Amlodipine 10 Mg Tab PO 10 mg DAILY CHRISTINA Administration Apixaban 5 mg 07/28/21 10:00 08/01/21 21:34 Apixaban 5 Mg Tab PO 5 mg Q12HR CHRISTINA Administration Ascorbic Acid 500 mg 07/28/21 10:00 08/01/21 11:05 Ascorbic Acid 500 Mg Tab PO 500 mg QDAY CHRISTINA Administration Cholecalciferol 1,000 unit 07/28/21 10:00 08/01/21 11:05 Cholecalciferol (Vit D3) 1000 Unit (25 Mcg) Tab PO 1,000 unit QDAY CHRISTINA Administration Cinacalcet 60 mg 07/28/21 10:00 08/01/21 11:21 Cinacalcet 30 Mg Tab PO 60 mg QDAY CHRISTINA Administration Dexamethasone 6 mg 07/28/21 10:00 08/01/21 11:04 Dexamethasone 4 Mg/Ml Vial IV 08/06/21 10:01 6 mg DAILY CHRISTINA Administration Dicyclomine HCl 10 mg 07/30/21 14:00 08/01/21 21:34 Dicyclomine 10 Mg Cap PO 10 mg QID CHRISTINA Administration Famotidine 20 mg 07/28/21 10:00 08/01/21 11:05 Famotidine 20 Mg Tab PO 20 mg QAM CHRISTINA Administration Sodium Chloride 100 mls @ 999 mls/hr 07/28/21 15:00 Nacl 0.9% IV RUFUS PRN Hypotension Magnesium Hydroxide 30 ml 07/28/21 01:28 Magnesium Hydroxide (Mom) Oral Liqd Udc PO Q4H PRN Constipation Metoclopramide HCl 5 mg 07/28/21 01:28 Metoclopramide 10 Mg/2 Ml Inj IV Q6H PRN Nausea And Vomiting Metoprolol Tartrate 50 mg 07/28/21 08:00 08/01/21 11:21 Metoprolol Tartrate 50 Mg Tab PO 50 mg BID@0800,1700 ON LICENSE OF [facility] Administration Morphine Sulfate 2 mg 07/28/21 01:28 Morphine 2 Mg/1 Ml Inj IV Q4H PRN Pain, Moderate (4-6) Morphine Sulfate 4 mg 07/28/21 01:28 Morphine 4 Mg/1 Ml Inj IV Q4H PRN Pain , Severe (7-10) Naloxone HCl 0.1 mg 07/28/21 01:28 Naloxone 0.4 Mg/1 Ml Inj IV Q2MIN PRN Res Rate </= 8 or 02 SAT < 92% Ondansetron HCl 4 mg 07/28/21 01:28 Ondansetron 4 Mg/2 Ml Inj IV Q8H PRN Nausea And Vomiting Oxycodone/Acetaminophen 1 tab 07/28/21 01:28 07/30/21 13:19 Oxycodone /Acetaminophen 5-325mg Tab PO 1 tab Q6H PRN Administration Pain, Moderate (4-6) Senna 8.6 mg 07/28/21 01:28 Sennosides 8.6 Mg Tab PO Q12HR PRN Constipation Sevelamer Carbonate 2,400 mg 07/28/21 08:00 08/01/21 11:21 Sevelamer Carbonate 800 Mg Tab PO 2,400 mg TIDWM CHRISTINA Administration Sodium Chloride 10 ml 07/28/21 10:00 08/01/21 21:34 Sodium Chloride 0.9% 10 Ml Flush Syringe IV 10 ml BID CHRISTINA Administration Sodium Chloride 10 ml 07/28/21 01:28 Sodium Chloride 0.9% 10 Ml Flush Syringe IV PRN PRN LINE FLUSH Tramadol HCl 50 mg 07/28/21 01:34 08/01/21 21:32 Tramadol 50 Mg Tab PO 50 mg BID PRN Administration Pain, Moderate (4-6) Zinc Sulfate 220 mg 07/28/21 10:00 08/01/21 11:05 Zinc Sulfate 220 Mg Cap PO 220 mg QDAY CHRISTINA Administration
[2021-08-02 13:45] VITALS: BP 144/77
[2021-08-02] MEDS: APIXABAN 5 MG TAB PO SCH (14:53)
[2021-08-02] MEDS: CHOLECALCIFEROL (VIT D3) 1000 UNIT (25 mcg) TAB PO SCH (14:53)
[2021-08-02] MEDS: AMIODARONE 200 MG TAB PO SCH (14:53)
[2021-08-02] MEDS: amLODIPine 10 MG TAB PO SCH (14:53)
[2021-08-02] MEDS: ZINC SULFATE 220 MG CAP PO SCH (14:54)
[2021-08-02] MEDS: ASCORBIC ACID 500 MG TAB PO SCH (14:54)
[2021-08-02] MEDS: FAMOTIDINE 20 MG TAB PO SCH (15:03)
[2021-08-02] MEDS: METOPROLOL TARTRATE 50 MG TAB PO SCH (15:11)
[2021-08-02] MEDS: CINACALCET 30 MG TAB PO SCH (15:11)
[2021-08-02] MEDS: dexAMETHasone 4 MG/ML VIAL IV SCH (15:11)
== END 2021-08-02 17:05 | disposition home health service (06) | DRG 177 ==
LOC: ED 22:49 → UNDOADMOB 07-28 01:28 → 3A 07-28 01:28 → OBSVTOIN 07-30 08:55
PROVIDERS: ADMIT Internal Medicine Geriatric Medicine; ATTEND Internal Medicine
PROC: 5A1D70Z Performance of Urinary Filtration, Intermittent, Less than 6 Hours Per Day (ICD-10-PCS; principal; 2021-07-28)
PROC: 5A1D70Z Performance of Urinary Filtration, Intermittent, Less than 6 Hours Per Day (ICD-10-PCS; 2021-07-31)
PROC: 5A1D70Z Performance of Urinary Filtration, Intermittent, Less than 6 Hours Per Day (ICD-10-PCS; 2021-08-02)
DX: U07.1 COVID-19 (principal); J96.01 Acute respiratory failure with hypoxia; N18.6 End stage renal disease; E43 Unspecified severe protein-calorie malnutrition; J12.82 Pneumonia due to coronavirus disease 2019; R65.10 Systemic inflammatory response syndrome (SIRS) of non-infectious origin without acute organ dysfunction; I12.0 Hypertensive chronic kidney disease with stage 5 chronic kidney disease or end stage renal disease; Z99.2 Dependence on renal dialysis; Z68.23 Body mass index [BMI] 23.0-23.9, adult; F17.200 Nicotine dependence, unspecified, uncomplicated; Z79.82 Long term (current) use of aspirin; E78.5 Hyperlipidemia, unspecified; D63.1 Anemia in chronic kidney disease; E21.3 Hyperparathyroidism, unspecified; I48.0 Paroxysmal atrial fibrillation
CPT/HCPCS: 36415; 71045; 78580; 80048; 80053; 80061; 80074; 82140; 82728; 82947; 83615; 84145; 84484; 85007; 85025; 85027; 85379; 86140; 93005; 93970; 94760; G0378; A9540; J0456; J0696; J1100; U0003

== ENCOUNTER 2021-08-08 17:27 | Inpatient (IN) | payer MEDICARE ==
--- NOTE | 2021-08-08 18:24 | Emergency Department Report ---
Blank Doc - Documentation Documentation: 61-year-old male dialysis patient. Dialysis held due to rapid heart rate. EKG shows a flutter rate 127. No known history as per patient. Heart rate 130s on triage. Asymptomatic. Recent Covid admission with persistent confusion since discharge as per Labs ordered EKG Chest x-ray Case discussed with charge nurse with plan to bring back to room 18 immediately left phone number [phone]
--- NOTE | 2021-08-08 18:54 | XRay Report ---
CHEST 1 VIEW 08/08/2021 6:42 PM INDICATION / CLINICAL INFORMATION: New atrial fibrillation. Missed dialysis. COMPARISON: 07/27/21. FINDINGS: SUPPORT DEVICES: None. HEART / MEDIASTINUM: The heart size is normal. There is mild prominence of the central pulmonary vess els. LUNGS / PLEURA: Interstitial lung markings are mildly increased, especially in the mid to lower lung zones. Multifocal patchy parenchymal opacities seen previously have otherwise cleared. No significant pleural effusion. No pneumothorax. ADDITIONAL FINDINGS: No significant additional findings. IMPRESSION: Probable minimal interstitial edema. Significant improvement in bilateral parenchymal dis ease since the prior exam. Signer Name: Isaiah Arvizu MD Signed: 08/08/2021 6:50 PM Workstation Name: [id number]
[2021-08-08 18:55] LABS: Hematocrit 31.9 % (35.5-45.6); Hemoglobin 10.9 gm/dl (11.8-15.2); Mean Corpuscular HGB Conc 34 % (32-34); Mean Corpuscular Volume 88 fl (84-94); Platelet Count 418 K/mm3 (140-440); Red Blood Count 3.64 M/mm3 (3.65-5.03)
[2021-08-08 18:56] LABS: Red Cell Distribution Width 25.6 % (13.2-15.2)
[2021-08-08] MEDS ORDERED: dilTIAZem 25 MG/5 ML INJ IV ONE (19:03)
--- NOTE | 2021-08-08 19:09 | Emergency Department Report ---
ED General Adult HPI - General Chief complaint: Arrhythmia/Palpitations Stated complaint: HIGH HEART RATE, Time Seen by Provider: 08/08/21 18:40 Source: patient, family Mode of arrival: Wheelchair Limitations: Other - History of Present Illness Initial comments: The patient presents to the emergency department the chief complaint of abnormal heart rate. Patient states he was at dialysis today and upon vitals being taken it was discovered his heart rate was abnormal thus he was sent to the emergency department for evaluation. Patient recently was hospitalized for Covid at the beginning of this month. Patient complains of shortness of breath especially with exertion. He denies abdominal pain or headache. Patient states that he has been told that he has an irregular heart rate. He thinks he has heard the term atrial fibrillation but is not sure. 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 -: Sudden Severity scale (0 -10): 0 Improves with: none Worsens with: movement Associated Symptoms: denies other symptoms Treatments Prior to Arrival: none - Related Data Previous Rx's Medication Instructions Recorded Last Taken Type Amiodarone [Cordarone 200 MG TAB] 200 mg PO BID #60 tablet 05/21/21 Unknown Rx Apixaban [Eliquis] 5 mg PO Q12HR #60 tablet 05/21/21 Unknown Rx Aspirin EC [Ecotrin] 325 mg PO QDAY #30 tablet 05/21/21 Unknown Rx Cinacalcet HCl 60 mg PO DAILY #30 05/21/21 Unknown Rx Cinacalcet [Sensipar] 60 mg PO QDAY #30 tablet 05/21/21 Unknown Rx Metoprolol [Lopressor TAB] 50 mg PO BID #60 tablet 05/21/21 Unknown Rx Pantoprazole [Protonix TAB] 40 mg PO QDAC #30 tablet 05/21/21 Unknown Rx Sevelamer Carbonate [Renvela] 2,400 mg PO TIDWM #90 tablet 05/21/21 Unknown Rx amLODIPine 10 mg PO DAILY #30 05/21/21 Unknown Rx traMADoL [Ultram 50 MG tab] 50 mg PO BID PRN #30 tablet 05/21/21 Unknown Rx Albuterol Mdi (or & Nicu Only) 2 puff IH QID PRN #8.5 gram 08/02/21 Unknown Rx [ProAir HFA Inhaler] Ascorbic Acid [Vitamin C] 500 mg PO QDAY #30 tablet 08/02/21 Unknown Rx Cholecalciferol Vit D3 [Vitamin D3 1,000 unit PO QDAY #30 tablet 08/02/21 Unknown Rx 1,000 UNIT TAB] Dexamethasone 6 mg PO DAILY #5 tablet 08/02/21 Unknown Rx Zinc Sulfate 220 mg PO QDAY #30 capsule 08/02/21 Unknown Rx Allergies Allergy/AdvReac Type Severity Reaction Status Date / Time No Known Allergies Allergy Verified 08/08/21 17:42 ED Review of Systems ROS: Stated complaint: HIGH HEART RATE, Other details as noted in HPI Constitutional: denies: chills, fever Eyes: denies: eye pain, eye discharge, vision change ENT: denies: ear pain, throat pain Respiratory: shortness of breath. denies: cough, wheezing Cardiovascular: denies: chest pain, palpitations Endocrine: no symptoms reported Gastrointestinal: denies: abdominal pain, nausea, diarrhea Genitourinary: denies: urgency, dysuria Musculoskeletal: denies: back pain, joint swelling, arthralgia Skin: denies: rash, lesions Neurological: denies: headache, weakness, paresthesias Psychiatric: denies: anxiety, depression Hematological/Lymphatic: denies: easy bleeding, easy bruising ED Past Medical Hx - Past Medical History Hx Hypertension: Yes Hx Heart Attack/AMI: No Hx Congestive Heart Failure: No Hx Diabetes: No Hx Liver Disease: No Hx Renal Disease: Yes (HD -W-) Hx Sickle Cell Disease: No Hx Seizures: No Hx Asthma: Yes (childhood ) Hx COPD: No Hx HIV: No Additional medical history: peritoneal dialysis (M/W/F) - Surgical History Hx Pacemaker: No Hx Internal Defibrillator: No Additional Surgical History: Right arm fistula, Peritoneal catheter - Social History Smoking Status: Never Smoker - Medications Home Medications: Home Medications Medication Instructions Recorded Confirmed Last Taken Type Amiodarone [Cordarone 200 MG TAB] 200 mg PO BID #60 tablet 05/21/21 07/30/21 Unknown Rx Apixaban [Eliquis] 5 mg PO Q12HR #60 tablet 05/21/21 07/30/21 Unknown Rx Aspirin EC [Ecotrin] 325 mg PO QDAY #30 tablet 05/21/21 07/30/21 Unknown Rx Cinacalcet HCl 60 mg PO DAILY #30 05/21/21 07/30/21 Unknown Rx Cinacalcet [Sensipar] 60 mg PO QDAY #30 tablet 05/21/21 07/30/21 Unknown Rx Metoprolol [Lopressor TAB] 50 mg PO BID #60 tablet 05/21/21 07/30/21 Unknown Rx Pantoprazole [Protonix TAB] 40 mg PO QDAC #30 tablet 05/21/21 07/30/21 Unknown Rx Sevelamer Carbonate [Renvela] 2,400 mg PO TIDWM #90 tablet 05/21/21 07/30/21 Unknown Rx amLODIPine 10 mg PO DAILY #30 05/21/21 07/30/21 Unknown Rx traMADoL [Ultram 50 MG tab] 50 mg PO BID PRN #30 tablet 05/21/21 07/30/21 Unknown Rx Albuterol Mdi (or & Nicu Only) 2 puff IH QID PRN #8.5 gram 08/02/21 Unknown Rx [ProAir HFA Inhaler] Ascorbic Acid [Vitamin C] 500 mg PO QDAY #30 tablet 08/02/21 Unknown Rx Cholecalciferol Vit D3 [Vitamin D3 1,000 unit PO QDAY #30 tablet 08/02/21 Unknown Rx 1,000 UNIT TAB] Dexamethasone 6 mg PO DAILY #5 tablet 08/02/21 Unknown Rx Zinc Sulfate 220 mg PO QDAY #30 capsule 08/02/21 Unknown Rx ED Physical Exam - General Limitations: Other General appearance: alert, in no apparent distress - Head Head exam: Present: atraumatic, normocephalic - Eye Eye exam: Present: normal appearance, PERRL, EOMI - ENT ENT exam: Present: mucous membranes moist - Neck Neck exam: Present: normal inspection - Respiratory Respiratory exam: Present: normal lung sounds bilaterally. Absent: respiratory distress - Cardiovascular Cardiovascular Exam: Present: normal rhythm, tachycardia, irregular rhythm. Absent: systolic murmur, diastolic murmur, rubs, gallop - GI/Abdominal GI/Abdominal exam: Present: soft, normal bowel sounds. Absent: distended, tende rness - Rectal Rectal exam: Present: deferred - Extremities Exam Extremities exam: Present: normal inspection - Back Exam Back exam: Present: normal inspection - Neurological Exam Neurological exam: Present: alert, oriented X3, CN II-XII intact. Absent: motor sensory deficit - Psychiatric Psychiatric exam: Present: normal affect, normal mood - Skin Skin exam: Present: warm, dry, intact, normal color. Absent: rash ED Course Vital Signs 08/08/21 08/08/21 08/08/21 17:41 18:53 19:01 Temperature 98.4 F Pulse Rate 137 H 134 H 135 H Respiratory 18 19 10 L Rate Blood Pressure 132/77 154/103 154/103 O2 Sat by Pulse 98 98 99 Oximetry 08/08/21 08/08/21 08/08/21 19:15 19:31 19:45 Temperature Pulse Rate 134 H 133 H 130 H Respiratory 11 L 11 L 12 Rate Blood Pressure 154/103 147/92 147/92 O2 Sat by Pulse 98 98 97 Oximetry 08/08/21 08/08/21 08/08/21 20:01 20:13 20:15 Temperature Pulse Rate 127 H 126 H 134 H Respiratory 14 12 Rate Blood Pressure 146/93 146/93 153/90 O2 Sat by Pulse 98 98 Oximetry ED Medical Decision Making - Lab Data Result diagrams: 08/08/21 18:40 08/08/21 18:40 Lab Results 08/08/21 08/08/21 08/08/21 Range/Units 18:40 18:40 18:40 WBC 8.1 (4.5-11.0) K/mm3 RBC 3.64 L (3.65-5.03) M/mm3 Hgb 10.9 L (11.8-15.2) gm/dl Hct 31.9 L (35.5-45.6) % MCV 88 (84-94) fl MCH 30 (28-32) pg MCHC 34 (32-34) % RDW 25.6 H (13.2-15.2) % Plt Count 418 (140-440) K/mm3 Add Manual Diff Complete Total Counted 100 Seg Neuts % (Manual) 71.0 H (40.0-70.0) % Lymphocytes % (Manual) 14.0 (13.4-35.0) % Monocytes % (Manual) 14.0 H (0.0-7.3) % Eosinophils % (Manual) 1.0 (0.0-4.3) % Nucleated RBC % Not Reportable Seg Neutrophils # Man 5.8 (1.8-7.7) K/mm3 Band Neutrophils # 0.0 K/mm3 Lymphocytes # (Manual) 1.1 L (1.2-5.4) K/mm3 Abs React Lymphs (Man) 0.0 K/mm3 Monocytes # (Manual) 1.1 H (0.0-0.8) K/mm3 Eosinophils # (Manual) 0.1 (0.0-0.4) K/mm3 Basophils # (Manual) 0.0 (0.0-0.1) K/mm3 Metamyelocytes # 0.0 K/mm3 Myelocytes # 0.0 K/mm3 Promyelocytes # 0.0 K/mm3 Blast Cells # 0.0 K/mm3 WBC Morphology Not Reportable Hypersegmented Neuts Not Reportable Hyposegmented Neuts Not Reportable Hypogranular Neuts Not Reportable Smudge Cells Not Reportable Toxic Granulation Not Reportable Toxic Vacuolation Not Reportable Dohle Bodies Not Reportable Pelger-Huet Anomaly Not Reportable Judy Rods Not Reportable Platelet Estimate Consistent w auto Clumped Platelets Not Reportable Plt Clumps, EDTA Not Reportable Large Platelets Not Reportable Giant Platelets Not Reportable Platelet Satelliting Not Reportable Plt Morphology Comment Not Reportable RBC Morphology Not Reportable Dimorphic RBCs Not Reportable Polychromasia Not Reportable Hypochromasia 1+ Poikilocytosis Not Reportable Anisocytosis Not Reportable Microcytosis Few Macrocytosis Not Reportable Spherocytes Not Reportable Pappenheimer Bodies Not Reportable Sickle Cells Not Reportable Target Cells Not Reportable Tear Drop Cells Not Reportable Ovalocytes Few Helmet Cells Not Reportable Jeter-Ventura Bodies Not Reportable [place] Rings Not Reportable [place] Cells Not Reportable Bite Cells Not Reportable Crenated Cell Not Reportable Elliptocytes Rare Acanthocytes (Spur) Not Reportable Rouleaux Not Reportable Hemoglobin C Crystals Not Reportable Schistocytes Not Reportable Malaria parasites Not Reportable Jacob Bodies Not Reportable Hem Pathologist Commnt No PT 13.3 (12.2-14.9) Sec. INR 0.91 (0.87-1.13) APTT 24.7 (24.2-36.6) Sec. Sodium 133 L (137-145) mmol/L Potassium 4.1 (3.6-5.0) mmol/L Chloride 89.8 L (98-107) mmol/L Carbon Dioxide 28 (22-30) mmol/L Anion Gap 19 mmol/L BUN 58 H (9-20) mg/dL Creatinine 9.3 H (0.8-1.3) mg/dL Estimated GFR 7 ml/min BUN/Creatinine Ratio 6 % Glucose 87 (75-100) mg/dL Calcium 9.1 (8.4-10.2) mg/dL Total Bilirubin 0.30 (0.1-1.2) mg/dL AST 27 (5-40) units/L ALT 56 (7-56) units/L Alkaline Phosphatase 143 H (35-129) units/L Troponin T 0.093 H (0.00-0.029) ng/mL Total Protein 5.9 L (6.3-8.2) g/dL Albumin 3.0 L (3.9-5) g/dL Albumin/Globulin Ratio 1.0 % Triglycerides (2-149) mg/dL Cholesterol (50-199) mg/dL LDL Cholesterol Direct (50-130) mg/dL HDL Cholesterol (40-59) mg/dL Cholesterol/HDL Ratio % TSH (0.270-4.200) mlU/mL Free T4 (0.76-1.46) ng/dL 08/08/21 08/08/21 08/08/21 Range/Units 18:40 20:48 22:29 WBC (4.5-11.0) K/mm3 RBC (3.65-5.03) M/mm3 Hgb (11.8-15.2) gm/dl Hct (35.5-45.6) % MCV (84-94) fl MCH (28-32) pg MCHC (32-34) % RDW (13.2-15.2) % Plt Count (140-440) K/mm3 Add Manual Diff Total Counted Seg Neuts % (Manual) (40.0-70.0) % Lymphocytes % (Manual) (13.4-35.0) % Monocytes % (Manual) (0.0-7.3) % Eosinophils % (Manual) (0.0-4.3) % Nucleated RBC % Seg Neutrophils # Man (1.8-7.7) K/mm3 Band Neutrophils # K/mm3 Lymphocytes # (Manual) (1.2-5.4) K/mm3 Abs React Lymphs (Man) K/mm3 Monocytes # (Manual) (0.0-0.8) K/mm3 Eosinophils # (Manual) (0.0-0.4) K/mm3 Basophils # (Manual) (0.0-0.1) K/mm3 Metamyelocytes # K/mm3 Myelocytes # K/mm3 Promyelocytes # K/mm3 Blast Cells # K/mm3 WBC Morphology Hypersegmented Neuts Hyposegmented Neuts Hypogranular Neuts Smudge Cells Toxic Granulation Toxic Vacuolation Dohle Bodies Pelger-Huet Anomaly Judy Rods Platelet Estimate Clumped Platelets Plt Clumps, EDTA Large Platelets Giant Platelets Platelet Satelliting Plt Morphology Comment RBC Morphology Dimorphic RBCs Polychromasia Hypochromasia Poikilocytosis Anisocytosis Microcytosis Macrocytosis Spherocytes Pappenheimer Bodies Sickle Cells Target Cells Tear Drop Cells Ovalocytes Helmet Cells Jeter-Ventura Bodies [place] Rings [place] Cells Bite Cells Crenated Cell Elliptocytes Acanthocytes (Spur) Rouleaux Hemoglobin C Crystals Schistocytes Malaria parasites Jacob Bodies Hem Pathologist Commnt PT 13.4 (12.2-14.9) Sec. INR 0.92 (0.87-1.13) APTT 25.8 (24.2-36.6) Sec. Sodium (137-145) mmol/L Potassium (3.6-5.0) mmol/L Chloride (98-107) mmol/L Carbon Dioxide (22-30) mmol/L Anion Gap mmol/L BUN (9-20) mg/dL Creatinine (0.8-1.3) mg/dL Estimated GFR ml/min BUN/Creatinine Ratio % Glucose (75-100) mg/dL Calcium (8.4-10.2) mg/dL Total Bilirubin (0.1-1.2) mg/dL AST (5-40) units/L ALT (7-56) units/L Alkaline Phosphatase (35-129) units/L Troponin T 0.087 H (0.00-0.029) ng/mL Total Protein (6.3-8.2) g/dL Albumin (3.9-5) g/dL Albumin/Globulin Ratio % Triglycerides 131 (2-149) mg/dL Cholesterol 189 (50-199) mg/dL LDL Cholesterol Direct 115 (50-130) mg/dL HDL Cholesterol 50 (40-59) mg/dL Cholesterol/HDL Ratio 3.78 % TSH 3.550 (0.270-4.200) mlU/mL Free T4 1.43 (0.76-1.46) ng/dL - EKG Data -: EKG Interpreted by Me Rate: tachycardia - EKG Data Interpretation: other (Irregularly irregular) 08/08/21 23:21 Repeat EKG done at 8:06 PM shows sinus tachycardia with a rate of 126 bpm. - Radiology Data Radiology results: report reviewed - Medical Decision Making IV heparin initiated Discussed results with the patient and his Critical Care Time: Yes Critical care time in (mins) excluding proc time.: 35 Critical care attestation.: If time is entered above; I have spent that time in minutes in the direct care of this critically ill patient, excluding procedure time. ED Disposition Clinical Impression: Bilateral pulmonary embolism Disposition: ADMITTED INPATIENT Is pt being admited?: Yes Does the pt Need Aspirin: No Condition: Fair Referrals: PRIMARY CARE, [Primary Care Provider] - 3-5 Days
[2021-08-08 19:11] LABS: INR 0.91 (0.87-1.13); Partial Thromboplastin Time 24.7 Sec. (24.2-36.6)
[2021-08-08 19:19] LABS: Calcium 9.1 mg/dL (8.4-10.2)
[2021-08-08 19:26] LABS: Free T4 (Free Thyroxine) 1.43 ng/dL (0.76-1.46)
[2021-08-08 20:15] LABS: Total Cells Counted 100
[2021-08-08 20:16] LABS: Hypochromasia 1+; Ovalocytes Few; Platelet Estimate Consistent w Auto
--- NOTE | 2021-08-08 21:34 | Cat Scan Report ---
CTA CHEST WITH CONTRAST INDICATION / CLINICAL INFORMATION: sob/tachy/covid. TECHNIQUE: Axial CT images were obtained through the chest after injection of 100 mL's of Omnipaque 3 50 IV contrast. 3 plane MIP and/or 3D reconstructions were produced. All CT scans at this location ar e performed using CT dose reduction for ALARA by means of automated exposure control. COMPARISON: 05/15/2021 FINDINGS: PULMONARY ARTERIES: There are small subsegmental filling defects noted within the right lower lobe ortiz bsegmental arteries in the left lower lobe subsegmental arteries. THORACIC AORTA: Mild atherosclerotic calcification without acute abnormality. HEART: No significant abnormality. CORONARY ARTERY CALCIFICATION: Moderate. MEDIASTINUM / DOV: There is prominence of mediastinal lymph nodes, likely reactive. PLEURA: There are small bilateral pleural effusions. No pneumothorax. LUNGS: There are scattered groundglass opacities throughout the bilateral lobes. ADDITIONAL FINDINGS: None. UPPER ABDOMEN: Redemonstrated polycystic kidneys. SKELETAL STRUCTURES: There is redemonstrated severe destructive endplate changes at T9-T10. Not signi ficant change from previous CT. IMPRESSION: 1. Multiple filling defects within the subsegmental arteries of the right lower lobe and left lower l obe consistent with pulmonary emboli. 2. Scattered groundglass opacities at the lungs which can be seen with atypical infectious process. 3. Other findings as above. CRITICAL RESULT Time of Discovery (BENZOL STILL OPERATOR/CDT): 8:20 PM Time of Communication (BENZOL STILL OPERATOR/CDT): 8:30 PM Licensed Practitioner Receiving Report: Dr. Boone Read-Back Performed: Yes. Signer Name: Russell Reyes DO Signed: 08/08/2021 9:30 PM Workstation Name: [id number]
[2021-08-08 21:53] LABS: Chol/HDL Ratio 3.78 %
[2021-08-08] MEDS ORDERED: HEPARIN 10,000 UNITS/10 ML VIAL IV ONE (21:58)
[2021-08-08] MEDS ORDERED: HEPARIN 10,000 UNITS/10 ML VIAL IV PRN ×2 (21:58→23:50)
[2021-08-08 23:07] LABS: Hematocrit 30.1 % (35.5-45.6); Hemoglobin 10.3 gm/dl (11.8-15.2)
[2021-08-08 23:19] LABS: INR 0.92 (0.87-1.13)
[2021-08-08 23:20] LABS: Partial Thromboplastin Time 25.8 Sec. (24.2-36.6)
[2021-08-08] MEDS ORDERED: HEPARIN/ 0.45% NACL DRIP 25,000 UNIT/500 ML BAG IV SCH (23:45)
[2021-08-08] MEDS ORDERED: MORPHINE 2 MG/1 ML INJ IV PRN (23:50)
[2021-08-08] MEDS ORDERED: ACETAMINOPHEN 325 MG TAB PO PRN (23:50)
[2021-08-08] MEDS ORDERED: MAGNESIUM HYDROXIDE (MOM) ORAL LIQD UDC PO PRN (23:50)
--- NOTE | 2021-08-09 00:05 | History and Physical Report ---
History of Present Illness Date of examination: 08/08/21 Date of admission: 08/08/2021 Chief complaint: Palpitation History of present illness: 61-year-old male with known history of hypertension, end-stage renal disease on dialysis on Mondays, Wednesdays and Fridays presenting in the emergency room today complaining of palpitations. Patient was seen at the dialysis center today and was referred to the emergency room for evaluation of his palpitation and elevated heart rate. Patient was recently discharged from this hospital earlier this month after having a COVID-19 infection. He Complains of shortness of breath especially on exertion , he denies any chest pain, no headache or dizziness and no diaphoresis. Patient denies any nausea vomiting and no abdominal pain. Denies any fever or chills. Work-up in the emergency room today, chest x-ray reveals:Probable minimal interstitial edema. Significant improvement in bilateral parenchymal disease since the prior exam. CT angiogram of the chest reveals: 1. Multiple filling defects within the subsegmental arteries of the right lower lobe and left lower lobe consistent with pulmonary emboli. 2. Scattered groundglass opacities at the lungs which can be seen with atypical infectious process. Patient is being admitted with bilateral pulmonary embolism and has been started on heparin drip. Past History Past Medical History: dialysis, ESRD, hypertension, other (Asthma in childhood) Past Surgical History: Other (AV fistula placement in the right upper extremity, peritoneal catheter) Social history: no significant social history Family history: no significant family history Medications and Allergies Allergies Allergy/AdvReac Type Severity Reaction Status Date / Time No Known Allergies Allergy Verified 08/08/21 17:42 Home Medications Medication Instructions Recorded Confirmed Last Taken Type Amiodarone [Cordarone 200 MG TAB] 200 mg PO BID #60 tablet 05/21/21 07/30/21 Unknown Rx Apixaban [Eliquis] 5 mg PO Q12HR #60 tablet 05/21/21 07/30/21 Unknown Rx Aspirin EC [Ecotrin] 325 mg PO QDAY #30 tablet 05/21/21 07/30/21 Unknown Rx Cinacalcet HCl 60 mg PO DAILY #30 05/21/21 07/30/21 Unknown Rx Cinacalcet [Sensipar] 60 mg PO QDAY #30 tablet 05/21/21 07/30/21 Unknown Rx Metoprolol [Lopressor TAB] 50 mg PO BID #60 tablet 05/21/21 07/30/21 Unknown Rx Pantoprazole [Protonix TAB] 40 mg PO QDAC #30 tablet 05/21/21 07/30/21 Unknown Rx Sevelamer Carbonate [Renvela] 2,400 mg PO TIDWM #90 tablet 05/21/21 07/30/21 Unknown Rx amLODIPine 10 mg PO DAILY #30 05/21/21 07/30/21 Unknown Rx traMADoL [Ultram 50 MG tab] 50 mg PO BID PRN #30 tablet 05/21/21 07/30/21 Unknown Rx Albuterol Mdi (or & Nicu Only) 2 puff IH QID PRN #8.5 gram 08/02/21 Unknown Rx [ProAir HFA Inhaler] Ascorbic Acid [Vitamin C] 500 mg PO QDAY #30 tablet 08/02/21 Unknown Rx Cholecalciferol Vit D3 [Vitamin D3 1,000 unit PO QDAY #30 tablet 08/02/21 Unknown Rx 1,000 UNIT TAB] Dexamethasone 6 mg PO DAILY #5 tablet 08/02/21 Unknown Rx Zinc Sulfate 220 mg PO QDAY #30 capsule 08/02/21 Unknown Rx Active Meds: Active Medications Acetaminophen (Acetaminophen 325 Mg Tab) 650 mg PO Q6H PRN PRN Reason: Pain MILD(1-3)/Fever >100.5/JOHN Heparin Sodium (Porcine) (Heparin 10,000 Units/10 Ml Vial) 3,200 unit 40 unit/kg (3200 unit) IV Q6H PRN PRN Reason: Anti-Xa Assay < 0.1 units/ml Heparin Sodium (Porcine) (Heparin 10,000 Units/10 Ml Vial) 3,200 unit 40 unit/kg (3200 unit) IV Q6H PRN PRN Reason: Anti-Xa Assay < 0.1 units/ml Heparin Sodium/Sodium Chloride (Heparin/ 0.45% Nacl-25,000 Unit/500 Ml) 25,000 unit in 500 mls @ 24.222 mls/hr IV TITRATE CHRISTINA; Protocol Magnesium Hydroxide (Magnesium Hydroxide (Mom) Oral Liqd Udc) 30 ml PO Q4H PRN PRN Reason: Constipation Morphine Sulfate (Morphine 2 Mg/1 Ml Inj) 2 mg IV Q4H PRN PRN Reason: Pain, Moderate (4-6) Morphine Sulfate (Morphine 4 Mg/1 Ml Inj) 4 mg IV Q4H PRN PRN Reason: Pain , Severe (7-10) Sodium Chloride (Sodium Chloride 0.9% 10 Ml Flush Syringe) 10 ml IV BID CHRISTINA Sodium Chloride (Sodium Chloride 0.9% 10 Ml Flush Syringe) 10 ml IV PRN PRN PRN Reason: LINE FLUSH Review of Systems Constitutional: no fever, no chills Ears, nose, mouth and throat: no nasal congestion, no sore throat Cardiovascular: palpitations, no chest pain Respiratory: shortness of breath, no cough Gastrointestinal: no abdominal pain, no nausea, no vomiting, no diarrhea Genitourinary Male: no dysuria, no hematuria, no flank pain, no nocturia Musculoskeletal: no neck pain, no low back pain Integumentary: no rash, no pruritis Neurological: no headaches, no confusion Psychiatric: no anxiety, no depression Endocrine: no polyphagia, no polyuria, no nocturia Exam - Constitutional Vitals: Temp Pulse Resp BP Pulse Ox 98.4 F 134 H 12 153/90 98 08/08/21 17:41 08/08/21 20:15 08/08/21 20:15 08/08/21 20:15 08/08/21 20:15 General appearance: Present: no acute distress, well-nourished - EENT Eyes: Present: PERRL, EOM intact. Absent: scleral icterus ENT: hearing intact, clear oral mucosa, dentition normal - Neck Neck: Present: supple, normal ROM - Respiratory Respiratory effort: normal Respiratory: bilateral: diminished - Cardiovascular Rhythm: irregularly irregular Heart Sounds: Present: S1 & S2. Absent: gallop, systolic murmur, diastolic murmur, rub, click - Extremities Extremities: no ischemia, pulses intact, pulses symmetrical, No edema, normal temperature, normal color, Full ROM, abnormal (AV fistula with palpable thrill in the right upper extremity ) Peripheral Pulses: within normal limits - Abdominal General gastrointestinal: Present: soft, non-tender, non-distended, normal bowel sounds. Absent: mass - Integumentary Integumentary: Present: clear, warm, dry. Absent: rash - Musculoskeletal Musculoskeletal: strength equal bilaterally - Psychiatric Psychiatric: appropriate mood/affect, intact judgment & insight, memory intact, cooperative - Neurologic Neurologic: CNII-XII intact, no focal deficits, moves all extremities HEART Score - HEART Score Troponin: Troponin T 0.087 ng/mL (0.00-0.029) H 08/08/21 20:48 Results - Labs CBC & Chem 7: 08/08/21 22:29 08/09/21 03:27 Labs: Abnormal lab results 08/08/21 08/08/21 08/08/21 Range/Units 18:40 18:40 20:48 RBC 3.64 L (3.65-5.03) M/mm3 Hgb 10.9 L (11.8-15.2) gm/dl Hct 31.9 L (35.5-45.6) % RDW 25.6 H (13.2-15.2) % Seg Neuts % (Manual) 71.0 H (40.0-70.0) % Monocytes % (Manual) 14.0 H (0.0-7.3) % Lymphocytes # (Manual) 1.1 L (1.2-5.4) K/mm3 Monocytes # (Manual) 1.1 H (0.0-0.8) K/mm3 Sodium 133 L (137-145) mmol/L Chloride 89.8 L (98-107) mmol/L BUN 58 H (9-20) mg/dL Creatinine 9.3 H (0.8-1.3) mg/dL Alkaline Phosphatase 143 H (35-129) units/L Troponin T 0.093 H 0.087 H (0.00-0.029) ng/mL Total Protein 5.9 L (6.3-8.2) g/dL Albumin 3.0 L (3.9-5) g/dL 08/08/21 Range/Units 22:29 RBC (3.65-5.03) M/mm3 Hgb 10.3 L (11.8-15.2) gm/dl Hct 30.1 L (35.5-45.6) % RDW (13.2-15.2) % Seg Neuts % (Manual) (40.0-70.0) % Monocytes % (Manual) (0.0-7.3) % Lymphocytes # (Manual) (1.2-5.4) K/mm3 Monocytes # (Manual) (0.0-0.8) K/mm3 Sodium (137-145) mmol/L Chloride (98-107) mmol/L BUN (9-20) mg/dL Creatinine (0.8-1.3) mg/dL Alkaline Phosphatase (35-129) units/L Troponin T (0.00-0.029) ng/mL Total Protein (6.3-8.2) g/dL Albumin (3.9-5) g/dL Assessment and Plan - Patient Problems (1) Bilateral pulmonary embolism Current Visit: Yes Status: Acute Plan to address problem: Patient currently on anticoagulation with heparin drip. Consult has also been placed to vascular surgery for evaluation. (2) ESRD (end stage renal disease) on dialysis Current Visit: No Status: Acute Plan to address problem: Consult placed to nephrology for evaluation. (3) Hypertension Current Visit: No Status: Acute Plan to address problem: We will resume routine home medications and monitor vital signs closely. (4) History of COVID-19 Current Visit: Yes Status: Acute Plan to address problem: Patient was recently treated for COVID-19 and recently discharged. We will consult infectious disease for follow-up if needed (5) Paroxysmal atrial fibrillation Current Visit: No Status: Acute Plan to address problem: Rate is currently controlled. Will monitor EKG. Patient on anticoagulation. (6) Full code status Current Visit: No Status: Acute Plan to address problem: Patient is full code.
[2021-08-09] MEDS: MORPHINE 4 MG/1 ML INJ IV PRN ×3 (02:40→22:19)
[2021-08-09 04:04] LABS: Calcium 8.6 mg/dL (8.4-10.2)
[2021-08-09 04:32] LABS: INR 0.93 (0.87-1.13)
[2021-08-09] MEDS ORDERED: EPOETIN ALFA-EPBX 10,000 UNIT/1 ML VIAL IV PRN (09:27)
[2021-08-09] MEDS ORDERED: SODIUM CHLORIDE 0.9% 100 ML IV PRN (09:27)
--- NOTE | 2021-08-09 09:50 | Consultation ---
History of Present Illness Consult date: 08/09/21 Requesting physician: ANDREW CASTELAN Reason for consult: pulmonary embolism History of present illness: 61 y/o male, admitted earlier this month with acute respiratory failure secondary to COVID, both resolved presented to the ED yesterday from HD secondary to rapid heart rate. ED elected to do CTA which showed very small bilateral subsegmental PE's. Patient had no complaints of shortness of breath. Pulmonary consulted secondary to PE's. Patient currently on heparin drip. Patient apparently was already on anticoagulation even prior to his admit. Past History Past Medical History: dialysis, ESRD, hypertension, other (Asthma in childhood) Past Surgical History: Other (AV fistula placement in the right upper extremity, peritoneal catheter) Social history: no significant social history Family history: no significant family history Medications and Allergies Allergies Allergy/AdvReac Type Severity Reaction Status Date / Time No Known Allergies Allergy Verified 08/08/21 17:42 Home Medications Medication Instructions Recorded Confirmed Last Taken Type Amiodarone [Cordarone 200 MG TAB] 200 mg PO BID #60 tablet 05/21/21 07/30/21 Unknown Rx Apixaban [Eliquis] 5 mg PO Q12HR #60 tablet 05/21/21 07/30/21 Unknown Rx Aspirin EC [Ecotrin] 325 mg PO QDAY #30 tablet 05/21/21 07/30/21 Unknown Rx Cinacalcet HCl 60 mg PO DAILY #30 05/21/21 07/30/21 Unknown Rx Cinacalcet [Sensipar] 60 mg PO QDAY #30 tablet 05/21/21 07/30/21 Unknown Rx Metoprolol [Lopressor TAB] 50 mg PO BID #60 tablet 05/21/21 07/30/21 Unknown Rx Pantoprazole [Protonix TAB] 40 mg PO QDAC #30 tablet 05/21/21 07/30/21 Unknown Rx Sevelamer Carbonate [Renvela] 2,400 mg PO TIDWM #90 tablet 05/21/21 07/30/21 Unknown Rx amLODIPine 10 mg PO DAILY #30 05/21/21 07/30/21 Unknown Rx traMADoL [Ultram 50 MG tab] 50 mg PO BID PRN #30 tablet 05/21/21 07/30/21 Unknown Rx Albuterol Mdi (or & Nicu Only) 2 puff IH QID PRN #8.5 gram 08/02/21 Unknown Rx [ProAir HFA Inhaler] Ascorbic Acid [Vitamin C] 500 mg PO QDAY #30 tablet 08/02/21 Unknown Rx Cholecalciferol Vit D3 [Vitamin D3 1,000 unit PO QDAY #30 tablet 08/02/21 Unkn own Rx 1,000 UNIT TAB] Dexamethasone 6 mg PO DAILY #5 tablet 08/02/21 Unknown Rx Zinc Sulfate 220 mg PO QDAY #30 capsule 08/02/21 Unknown Rx Active Meds: Active Medications Acetaminophen (Acetaminophen 325 Mg Tab) 650 mg PO Q6H PRN PRN Reason: Pain MILD(1-3)/Fever >100.5/JOHN Heparin Sodium (Porcine) (Heparin 10,000 Units/10 Ml Vial) 3,200 unit 40 unit/kg (3200 unit) IV Q6H PRN PRN Reason: Anti-Xa Assay < 0.1 units/ml Heparin Sodium/Sodium Chloride (Heparin/ 0.45% Nacl-25,000 Unit/500 Ml) 25,000 unit in 500 mls @ 20 mls/hr IV TITRATE CHRISTINA; Protocol Last Admin: 08/09/21 02:15 Dose: 1,000 units/hr, 20 mls/hr Documented by: Sodium Chloride (Nacl 0.9%) 100 mls @ 999 mls/hr IV RUFUS PRN PRN Reason: Hypotension Magnesium Hydroxide (Magnesium Hydroxide (Mom) Oral Liqd Udc) 30 ml PO Q4H PRN PRN Reason: Constipation Morphine Sulfate (Morphine 2 Mg/1 Ml Inj) 2 mg IV Q4H PRN PRN Reason: Pain, Moderate (4-6) Morphine Sulfate (Morphine 4 Mg/1 Ml Inj) 4 mg IV Q4H PRN PRN Reason: Pain , Severe (7-10) Last Admin: 08/09/21 02:40 Dose: 4 mg Documented by: Sodium Chloride (Sodium Chloride 0.9% 10 Ml Flush Syringe) 10 ml IV BID CHRISTINA Sodium Chloride (Sodium Chloride 0.9% 10 Ml Flush Syringe) 10 ml IV PRN PRN PRN Reason: LINE FLUSH Physical Examination Vital signs: Vital Signs Temp Pulse Resp BP Pulse Ox 98.4 F 137 H 18 132/77 98 08/08/21 17:41 08/08/21 17:41 08/08/21 17:41 08/08/21 17:41 08/08/21 17:41 Results - Laboratory Findings CBC and BMP: 08/08/21 22:29 08/09/21 03:27 PT/INR, D-dimer PT 13.5 Sec. (12.2-14.9) 08/09/21 03:27 INR 0.93 (0.87-1.13) 08/09/21 03:27 Abnormal lab findings: Abnormal Labs 08/08/21 08/08/21 08/08/21 18:40 18:40 20:48 RBC 3.64 L Hgb 10.9 L Hct 31.9 L RDW 25.6 H Seg Neuts % (Manual) 71.0 H Monocytes % (Manual) 14.0 H Lymphocytes # (Manual) 1.1 L Monocytes # (Manual) 1.1 H Sodium 133 L Chloride 89.8 L BUN 58 H Creatinine 9.3 H Glucose Alkaline Phosphatase 143 H Troponin T 0.093 H 0.087 H Total Protein 5.9 L Albumin 3.0 L 08/08/21 08/09/21 08/09/21 22:29 00:51 03:27 RBC Hgb 10.3 L Hct 30.1 L RDW Seg Neuts % (Manual) Monocytes % (Manual) Lymphocytes # (Manual) Monocytes # (Manual) Sodium 134 L Chloride 90.6 L BUN 64 H Creatinine 10.4 H Glucose 104 H Alkaline Phosphatase Troponin T 0.089 H Total Protein Albumin - Diagnostic Findings CT scan - chest: image reviewed Assessment and Plan 61 y/o male with bilateral pulmonary emboli per rads already on ora anticoagulation as outpatient 1. Reviewed CT. I do not have radiology monitors to access these images, but from my review, clots are very very small if present at all. Not respiratory distress noted or symptoms for that matter outside of tachycardia which is better on rate controlling therapy (apparently patient has history of irregular heart rhythm. Suggest placing back on oral eliquis therapy. Vascular has been consulted and they can review images as well to see if they agree with me. Doubt he is a candidate or has a need for EKOS. Suggest weaning FiO2 as aniceto erated. 2. Rate control per primary and cards 3. THank you for the consult.
[2021-08-09] MEDS ORDERED: traMADol 50 MG TAB PO PRN (09:51)
--- NOTE | 2021-08-09 09:55 | Consultation ---
History of Present Illness - Reason for Consult Consult date: 08/09/21 end stage renal disease Requesting physician: ANDREW CASTELAN - History of Present Illness 61-year-old male with known history of hypertension, end-stage renal disease on dialysis on Mondays, Wednesdays and Fridays presenting in the emergency room today complaining of palpitations. Patient was seen at the dialysis center today and was referred to the emergency room for evaluation of his palpitation and elevated heart rate. Patient was recently discharged from this hospital earlier this month after having a COVID-19 infection. He Complains of shortness of breath especially on exertion , he denies any chest pain, no headache or dizziness and no diaphoresis. Patient denies any nausea vomiting and no abdominal pain. Denies any fever or chills. Work-up in the emergency room today, chest x-ray reveals:Probable minimal interstitial edema. Significant improvement in bilateral parenchymal disease since the prior exam. CT angiogram of the chest reveals: 1. Multiple filling defects within the subsegmental arteries of the right lower lobe and left lower lobe consistent with pulmonary emboli. 2. Scattered groundglass opacities at the lungs which can be seen with atypical infectious process. Patient is being admitted with bilateral pulmonary embolism and has been started on heparin drip. patient undergoes dialysis under the care of Dr. Gillian Lynn. He however did not have his dialysis yesterday because of tachycardia. Past History Past Medical History: dialysis, ESRD, hypertension, other (Asthma in childhood) Past Surgical History: Other (AV fistula placement in the right upper extremity, peritoneal catheter) Social history: no significant social history Family history: no significant family history Medications and Allergies Allergies Allergy/AdvReac Type Severity Reaction Status Date / Time No Known Allergies Allergy Verified 08/08/21 17:42 Home Medications Medication Instructions Recorded Confirmed Last Taken Type Amiodarone [Cordarone 200 MG TAB] 200 mg PO BID #60 tablet 05/21/21 07/30/21 Unknown Rx Apixaban [Eliquis] 5 mg PO Q12HR #60 tablet 05/21/21 07/30/21 Unknown Rx Aspirin EC [Ecotrin] 325 mg PO QDAY #30 tablet 05/21/21 07/30/21 Unknown Rx Cinacalcet HCl 60 mg PO DAILY #30 05/21/21 07/30/21 Unknown Rx Cinacalcet [Sensipar] 60 mg PO QDAY #30 tablet 05/21/21 07/30/21 Unknown Rx Metoprolol [Lopressor TAB] 50 mg PO BID #60 tablet 05/21/21 07/30/21 Unknown Rx Pantoprazole [Protonix TAB] 40 mg PO QDAC #30 tablet 05/21/21 07/30/21 Unknown Rx Sevelamer Carbonate [Renvela] 2,400 mg PO TIDWM #90 tablet 05/21/21 07/30/21 Unknown Rx amLODIPine 10 mg PO DAILY #30 05/21/21 07/30/21 Unknown Rx traMADoL [Ultram 50 MG tab] 50 mg PO BID PRN #30 tablet 05/21/21 07/30/21 Unknown Rx Albuterol Mdi (or & Nicu Only) 2 puff IH QID PRN #8.5 gram 08/02/21 Unknown Rx [ProAir HFA Inhaler] Ascorbic Acid [Vitamin C] 500 mg PO QDAY #30 tablet 08/02/21 Unknown Rx Cholecalciferol Vit D3 [Vitamin D3 1,000 unit PO QDAY #30 tablet 08/02/21 Unknown Rx 1,000 UNIT TAB] Dexamethasone 6 mg PO DAILY #5 tablet 08/02/21 Unknown Rx Zinc Sulfate 220 mg PO QDAY #30 capsule 08/02/21 Unknown Rx Active Meds: Active Medications Acetaminophen (Acetaminophen 325 Mg Tab) 650 mg PO Q6H PRN PRN Reason: Pain MILD(1-3)/Fever >100.5/JOHN Albuterol (Albuterol 8.5 Gm Mdi Inhalation) 2 puff IH QID PRN PRN Reason: Shortness Of Breath Amiodarone HCl (Amiodarone 200 Mg Tab) 200 mg PO BID CHRISTINA Ascorbic Acid (Ascorbic Acid 500 Mg Tab) 500 mg PO QDAY CHRISTINA Aspirin (Aspirin Ec 325 Mg Tab) 325 mg PO QDAY CHRISTINA Cinacalcet (Cinacalcet 30 Mg Tab) 60 mg PO QDAY CHRISTINA Heparin Sodium (Porcine) (Heparin 10,000 Units/10 Ml Vial) 3,200 unit 40 unit/kg (3200 unit) IV Q6H PRN PRN Reason: Anti-Xa Assay < 0.1 units/ml Heparin Sodium/Sodium Chloride (Heparin/ 0.45% Nacl-25,000 Unit/500 Ml) 25,000 unit in 500 mls @ 20 mls/hr IV TITRATE CHRISTINA; Protocol Last Admin: 08/09/21 02:15 Dose: 1,000 units/hr, 20 mls/hr Documented by: Sodium Chloride (Nacl 0.9%) 100 mls @ 999 mls/hr IV RUFUS PRN PRN Reason: Hypotension Magnesium Hydroxide (Magnesium Hydroxide (Mom) Oral Liqd Udc) 30 ml PO Q4H PRN PRN Reason: Constipation Metoprolol Tartrate (Metoprolol Tartrate 50 Mg Tab) 50 mg PO BID CHRISTINA Miscellaneous Medication (Amlodipine) 10 mg PO DAILY CHRISTINA Miscellaneous Medication (Apixaban) 5 mg PO Q12HR CHRISTINA Miscellaneous Medication (Cinacalcet Hcl) 60 mg PO DAILY CHRISTINA Miscellaneous Medication (Dexamethasone [Dexamethasone]) 6 mg PO DAILY CHRISTINA Morphine Sulfate (Morphine 2 Mg/1 Ml Inj) 2 mg IV Q4H PRN PRN Reason: Pain, Moderate (4-6) Morphine Sulfate (Morphine 4 Mg/1 Ml Inj) 4 mg IV Q4H PRN PRN Reason: Pain , Severe (7-10) Last Admin: 08/09/21 02:40 Dose: 4 mg Documented by: Pantoprazole Sodium (Pantoprazole 40 Mg Tab) 40 mg PO QDAC CHRISTINA Sevelamer Carbonate (Sevelamer Carbonate 800 Mg Tab) 2,400 mg PO TIDWM CHRISTINA Sodium Chloride (Sodium Chloride 0.9% 10 Ml Flush Syringe) 10 ml IV BID CHRISTINA Sodium Chloride (Sodium Chloride 0.9% 10 Ml Flush Syringe) 10 ml IV PRN PRN PRN Reason: LINE FLUSH Tramadol HCl (Tramadol 50 Mg Tab) 50 mg PO BID PRN PRN Reason: Pain, Moderate (4-6) Zinc Sulfate (Zinc Sulfate 220 Mg Cap) 220 mg PO QDAY CHRISTINA Review of Systems All systems: negative (Except as noted above) Exam - Vital Signs Vital signs: Vital Signs Temp Pulse Resp BP Pulse Ox 98.4 F 137 H 18 132/77 98 08/08/21 17:41 08/08/21 17:41 08/08/21 17:41 08/08/21 17:41 08/08/21 17:41 - General Appearance General appearance: well-developed, well-nourished, appears stated age Respiratory: Clear to Ascultation Heart: normal heart rate Gastrointestinal: Present: normal Integumentary: no rash, warm and dry, other (No edema. AV fistula right upper a rm. Good bruit and thrill.) Results - Lab Results 08/09/21 10:42 08/09/21 10:42 Most recent lab results Calcium 8.6 mg/dL (8.4-10.2) 08/09/21 03:27 Assessment and Plan Impression * End-stage renal disease on maintenance hemodialysis * Acute pulmonary embolism * COVID-19 infection * Hypertension * Anemia secondary to ESRD Recommendations * Shall schedule patient for hemodialysis treatment for today. Keep him on TTS schedule for now. He missed his dialysis treatment yesterday * Anticoagulation as per primary team * Management of Covid infection as per primary team * Adjust diet and meds for ESRD state * No IV, BP or venipuncture in his access arm * Avoid nephrotoxins * Monitor fluid status and electrolytes closely * Epogen with dialysis * Thank you very much for the consultation. Shall follow along with you
[2021-08-09] MEDS ORDERED: NON-FORMULARY EACH (Dexamethasone [Dexamethasone] 6 MG Tablet) PO SCH (10:00)
[2021-08-09] MEDS ORDERED: NON-FORMULARY EACH (Apixaban 5 MG Tablet) PO SCH (10:00)
[2021-08-09] MEDS ORDERED: CINACALCET HCL 60 MG PO SCH (10:00)
[2021-08-09] MEDS ORDERED: ALBUTEROL 2.5 MG/3 ML NEBU IH PRN (10:08)
[2021-08-09 11:33] LABS: Hematocrit 29.5 % (35.5-45.6); Hemoglobin 9.6 gm/dl (11.8-15.2); Mean Corpuscular HGB Conc 33 % (32-34); Mean Corpuscular Volume 87 fl (84-94); Platelet Count 358 K/mm3 (140-440); Red Blood Count 3.39 M/mm3 (3.65-5.03)
--- NOTE | 2021-08-09 11:33 | Consultation ---
History of Present Illness - Reason for Consult Consult date: 08/09/21 Pulmonary embolism - History of Present Illness Patient with a history of end-stage renal disease who presented with chest pain and mild shortness of breath. CT scan was reviewed which demonstrates what appeared to be small-azra filling defects suggesting small pulmonary embolism. No evidence of right heart strain. The patient h has not had DVT or pulmonary embolism before. Complaining of mild chest discomfort. Resting comfortably in bed and breathing easily with nasal cannula. Past History Past Medical History: dialysis, ESRD, hypertension, other (Asthma in childhood) Past Surgical History: Other (AV fistula placement in the right upper extremity, peritoneal catheter) Social history: no significant social history Family history: no significant family history Medications and Allergies Allergies Allergy/AdvReac Type Severity Reaction Status Date / Time No Known Allergies Allergy Verified 08/08/21 17:42 Home Medications Medication Instructions Recorded Confirmed Last Taken Type Amiodarone [Cordarone 200 MG TAB] 200 mg PO BID #60 tablet 05/21/21 07/30/21 Unknown Rx Apixaban [Eliquis] 5 mg PO Q12HR #60 tablet 05/21/21 07/30/21 Unknown Rx Aspirin EC [Ecotrin] 325 mg PO QDAY #30 tablet 05/21/21 07/30/21 Unknown Rx Cinacalcet HCl 60 mg PO DAILY #30 05/21/21 07/30/21 Unknown Rx Cinacalcet [Sensipar] 60 mg PO QDAY #30 tablet 05/21/21 07/30/21 Unknown Rx Metoprolol [Lopressor TAB] 50 mg PO BID #60 tablet 05/21/21 07/30/21 Unknown Rx Pantoprazole [Protonix TAB] 40 mg PO QDAC #30 tablet 05/21/21 07/30/21 Unknown Rx Sevelamer Carbonate [Renvela] 2,400 mg PO TIDWM #90 tablet 05/21/21 07/30/21 Unknown Rx amLODIPine 10 mg PO DAILY #30 05/21/21 07/30/21 Unknown Rx traMADoL [Ultram 50 MG tab] 50 mg PO BID PRN #30 tablet 05/21/21 07/30/21 Unknown Rx Albuterol Mdi (or & Nicu Only) 2 puff IH QID PRN #8.5 gram 08/02/21 Unknown Rx [ProAir HFA Inhaler] Ascorbic Acid [Vitamin C] 500 mg PO QDAY #30 tablet 08/02/21 Unknown Rx Cholecalciferol Vit D3 [Vitamin D3 1,000 unit PO QDAY #30 tablet 08/02/21 Unknown Rx 1,000 UNIT TAB] Dexamethasone 6 mg PO DAILY #5 tablet 08/02/21 Unknown Rx Zinc Sulfate 220 mg PO QDAY #30 capsule 08/02/21 Unknown Rx Active Meds: Active Medications Acetaminophen (Acetaminophen 325 Mg Tab) 650 mg PO Q6H PRN PRN Reason: Pain MILD(1-3)/Fever >100.5/JOHN Albuterol (Albuterol 2.5 Mg/3 Ml Nebu) 2.5 mg IH Q4HRT PRN PRN Reason: Shortness Of Breath Amiodarone HCl (Amiodarone 200 Mg Tab) 200 mg PO BID CHRISTINA Amlodipine Besylate (Amlodipine 10 Mg Tab) 10 mg PO DAILY CHRISTINA Apixaban (Apixaban 5 Mg Tab) 10 mg PO Q12HR CHRISTINA; Protocol Stop: 08/15/21 22:01 Apixaban (Apixaban 5 Mg Tab) 5 mg PO Q12HR CHRISTINA; Protocol Ascorbic Acid (Ascorbic Acid 500 Mg Tab) 500 mg PO QDAY CHRISTINA Aspirin (Aspirin Ec 325 Mg Tab) 325 mg PO QDAY CHRISTINA Cinacalcet (Cinacalcet 30 Mg Tab) 60 mg PO QDAY CHRISTINA Sodium Chloride (Nacl 0.9%) 100 mls @ 999 mls/hr IV RUFUS PRN PRN Reason: Hypotension Magnesium Hydroxide (Magnesium Hydroxide (Mom) Oral Liqd Udc) 30 ml PO Q4H PRN PRN Reason: Constipation Metoprolol Tartrate (Metoprolol Tartrate 50 Mg Tab) 50 mg PO BID CHRISTINA Morphine Sulfate (Morphine 2 Mg/1 Ml Inj) 2 mg IV Q4H PRN PRN Reason: Pain, Moderate (4-6) Morphine Sulfate (Morphine 4 Mg/1 Ml Inj) 4 mg IV Q4H PRN PRN Reason: Pain , Severe (7-10) Last Admin: 08/09/21 02:40 Dose: 4 mg Documented by: Pantoprazole Sodium (Pantoprazole 40 Mg Tab) 40 mg PO QDAC CHRISTINA Sevelamer Carbonate (Sevelamer Carbonate 800 Mg Tab) 2,400 mg PO TIDWM CHRISTINA Sodium Chloride (Sodium Chloride 0.9% 10 Ml Flush Syringe) 10 ml IV BID [facility] Last Admin: 08/09/21 11:19 Dose: 10 ml Documented by: Sodium Chloride (Sodium Chloride 0.9% 10 Ml Flush Syringe) 10 ml IV PRN PRN PRN Reason: LINE FLUSH Tramadol HCl (Tramadol 50 Mg Tab) 50 mg PO BID PRN PRN Reason: Pain, Moderate (4-6) Zinc Sulfate (Zinc Sulfate 220 Mg Cap) 220 mg PO QDAY CHRISTINA Review of Systems All systems: negative Exam - Constitutional Vitals: Temp Pulse Resp BP Pulse Ox 98.4 F 79 14 138/76 100 08/08/21 17:41 08/09/21 08:15 08/09/21 02:03 08/09/21 08:15 08/09/21 08:15 General appearance: Present: no acute distress - EENT Eyes: Present: EOM intact ENT: hearing intact - Neck Neck: Present: supple, normal ROM - Respiratory Respiratory effort: normal - Cardiovascular Rhythm: regular - Abdominal General gastrointestinal: Present: deferred Male genitourinary: Present: deferred - Rectal Rectal Exam: deferred - Psychiatric Psychiatric: appropriate mood/affect, cooperative Results - Labs CBC & Chem 7: 08/08/21 22:29 08/09/21 10:42 Labs: Abnormal lab results 08/08/21 08/08/21 08/08/21 Range/Units 18:40 18:40 20:48 RBC 3.64 L (3.65-5.03) M/mm3 Hgb 10.9 L (11.8-15.2) gm/dl Hct 31.9 L (35.5-45.6) % RDW 25.6 H (13.2-15.2) % Seg Neuts % (Manual) 71.0 H (40.0-70.0) % Monocytes % (Manual) 14.0 H (0.0-7.3) % Lymphocytes # (Manual) 1.1 L (1.2-5.4) K/mm3 Monocytes # (Manual) 1.1 H (0.0-0.8) K/mm3 Heparin Anti-Xa Level (0.3-0.7) U.I./ml Sodium 133 L (137-145) mmol/L Chloride 89.8 L (98-107) mmol/L BUN 58 H (9-20) mg/dL Creatinine 9.3 H (0.8-1.3) mg/dL Glucose (75-100) mg/dL Alkaline Phosphatase 143 H (35-129) units/L Troponin T 0.093 H 0.087 H (0.00-0.029) ng/mL Total Protein 5.9 L (6.3-8.2) g/dL Albumin 3.0 L (3.9-5) g/dL 08/08/21 08/09/21 08/09/21 Range/Units 22:29 00:51 03:27 RBC (3.65-5.03) M/mm3 Hgb 10.3 L (11.8-15.2) gm/dl Hct 30.1 L (35.5-45.6) % RDW (13.2-15.2) % Seg Neuts % (Manual) (40.0-70.0) % Monocytes % (Manual) (0.0-7.3) % Lymphocytes # (Manual) (1.2-5.4) K/mm3 Monocytes # (Manual) (0.0-0.8) K/mm3 Heparin Anti-Xa Level (0.3-0.7) U.I./ml Sodium 134 L (137-145) mmol/L Chloride 90.6 L (98-107) mmol/L BUN 64 H (9-20) mg/dL Creatinine 10.4 H (0.8-1.3) mg/dL Glucose 104 H (75-100) mg/dL Alkaline Phosphatase (35-129) units/L Troponin T 0.089 H (0.00-0.029) ng/mL Total Protein (6.3-8.2) g/dL Albumin (3.9-5) g/dL 08/09/21 08/09/21 Range/Units 08:52 10:42 RBC (3.65-5.03) M/mm3 Hgb (11.8-15.2) gm/dl Hct (35.5-45.6) % RDW (13.2-15.2) % Seg Neuts % (Manual) (40.0-70.0) % Monocytes % (Manual) (0.0-7.3) % Lymphocytes # (Manual) (1.2-5.4) K/mm3 Monocytes # (Manual) (0.0-0.8) K/mm3 Heparin Anti-Xa Level 0.13 L (0.3-0.7) U.I./ml Sodium (137-145) mmol/L Chloride (98-107) mmol/L BUN (9-20) mg/dL Creatinine 10.3 H (0.8-1.3) mg/dL Glucose (75-100) mg/dL Alkaline Phosphatase (35-129) units/L Troponin T (0.00-0.029) ng/mL Total Protein (6.3-8.2) g/dL Albumin (3.9-5) g/dL - Imaging and Cardiology CT scan - chest: image reviewed Assessment and Plan Given that this is the patient's first thromboembolic event, the patient will need to remain on oral anticoagulation for at least 6 months. He will need bilateral lower extremity venous duplex during this hospitalization as well. The patient was counseled that he will need to follow-up in our clinic following discharge and he will need repeat ultrasound prior to discontinuation of his anticoagulation. Given his renal failure, would recommend Eliquis. No interventions planned.
[2021-08-09 12:24] LABS: INR 0.96 (0.87-1.13)
[2021-08-09 12:26] LABS: Partial Thromboplastin Time 29.3 Sec. (24.2-36.6)
--- NOTE | 2021-08-09 13:11 | Hem/Onc Consultation ---
History of Present Illness - Reason for Consult Consult date: 08/09/21 PE - History of Present Illness Heme consult note video unavailable--televisit via [facility] CPT 18709 Dx: pulmonary embolism This is a 61yo male who presents to the ER from dialysis center for evaluation of palpitations and elevated heart rate Past medical history of hypertension, end stage renal disease on dialysis (MWF) Recent discharge from [facility] for covid infection Complaints of shortness of breath on exertion Chest xray reveals: probable minimal interstitial edema. Significant improvement in bilateral parenchymal disease since the prior exam. CT angiogram of the chest reveals: multiple filling defects within the subsegmental arteries of the right lower lobe and left lower lobe consistent with pulmonary emboli, scattered groundglass opacities at the lungs which can be seen with atypical infectious process Pt started on heparin drip ---- Pt states he was started on Eliquis due to AFIB in April Denies any previous clotting episodes Eliquis stopped after taking for 1 month due to lack of refills Pt has been on dialysis since 2009 DATA REVIEWED BELOW WBC 7.4 Hgb 9.6 Hct 29.5 MCV 87 Plts 358 ----- IMP: PE due to AFIB and lack of Eliquis use HIT with normal platelet count is possible due to dialysis but unlikely r/o HIT Rule out sickle cell disease to predispose clotting tendency REC/PLAN: Ok to continue heparin for now Recommend another attempt of Eliquis 5mg BID AM labs to include pf4 antibody, hgb electrophoresis Laboratory Last Values WBC 7.4 K/mm3 (4.5-11.0) 08/09/21 10:42 RBC 3.39 M/mm3 (3.65-5.03) L 08/09/21 10:42 Hgb 9.6 gm/dl (11.8-15.2) L 08/09/21 10:42 Hct 29.5 % (35.5-45.6) L 08/09/21 10:42 MCV 87 fl (84-94) 08/09/21 10:42 MCH 28 pg (28-32) 08/09/21 10:42 MCHC 33 % (32-34) 08/09/21 10:42 RDW 26.0 % (13.2-15.2) H 08/09/21 10:42 Plt Count 358 K/mm3 (140-440) 08/09/21 10:42 Add Manual Diff Complete 08/08/21 18:40 Total Counted 100 08/08/21 18:40 Seg Neuts % (Manual) 71.0 % (40.0-70.0) H 08/08/21 18:40 Lymphocytes % (Manual) 14.0 % (13.4-35.0) 08/08/21 18:40 Monocytes % (Manual) 14.0 % (0.0-7.3) H 08/08/21 18:40 Eosinophils % (Manual) 1.0 % (0.0-4.3) 08/08/21 18:40 Nucleated RBC % Not Reportable 08/08/21 18:40 Seg Neutrophils # Man 5.8 K/mm3 (1.8-7.7) 08/08/21 18:40 Band Neutrophils # 0.0 K/mm3 08/08/21 18:40 Lymphocytes # (Manual) 1.1 K/mm3 (1.2-5.4) L 08/08/21 18:40 Abs React Lymphs (Man) 0.0 K/mm3 08/08/21 18:40 Monocytes # (Manual) 1.1 K/mm3 (0.0-0.8) H 08/08/21 18:40 Eosinophils # (Manual) 0.1 K/mm3 (0.0-0.4) 08/08/21 18:40 Basophils # (Manual) 0.0 K/mm3 (0.0-0.1) 08/08/21 18:40 Metamyelocytes # 0.0 K/mm3 08/08/21 18:40 Myelocytes # 0.0 K/mm3 08/08/21 18:40 Promyelocytes # 0.0 K/mm3 08/08/21 18:40 Blast Cells # 0.0 K/mm3 08/08/21 18:40 WBC Morphology Not Reportable 08/08/21 18:40 Hypersegmented Neuts Not Reportable 08/08/21 18:40 Hyposegmented Neuts Not Reportable 08/08/21 18:40 Hypogranular Neuts Not Reportable 08/08/21 18:40 Smudge Cells Not Reportable 08/08/21 18:40 Toxic Granulation Not Reportable 08/08/21 18:40 Toxic Vacuolation Not Reportable 08/08/21 18:40 Dohle Bodies Not Reportable 08/08/21 18:40 Pelger-Huet Anomaly Not Reportable 08/08/21 18:40 Judy Rods Not Reportable 08/08/21 18:40 Platelet Estimate Consistent w auto 08/08/21 18:40 Clumped Platelets Not Reportable 08/08/21 18:40 Plt Clumps, EDTA Not Reportable 08/08/21 18:40 Large Platelets Not Reportable 08/08/21 18:40 Giant Platelets Not Reportable 08/08/21 18:40 Platelet Satelliting Not Reportable 08/08/21 18:40 Plt Morphology Comment Not Reportable 08/08/21 18:40 RBC Morphology Not Reportable 08/08/21 18:40 Dimorphic RBCs Not Reportable 08/08/21 18:40 Polychromasia Not Reportable 08/08/21 18:40 Hypochromasia 1+ 08/08/21 18:40 Poikilocytosis Not Reportable 08/08/21 18:40 Anisocytosis Not Reportable 08/08/21 18:40 Microcytosis Few 08/08/21 18:40 Macrocytosis Not Reportable 08/08/21 18:40 Spherocytes Not Reportable 08/08/21 18:40 Pappenheimer Bodies Not Reportable 08/08/21 18:40 Sickle Cells Not Reportable 08/08/21 18:40 Target Cells Not Reportable 08/08/21 18:40 Tear Drop Cells Not Reportable 08/08/21 18:40 Ovalocytes Few 08/08/21 18:40 Helmet Cells Not Reportable 08/08/21 18:40 Jeter-Barre Bodies Not Reportable 08/08/21 18:40 Colbert Rings Not Reportable 08/08/21 18:40 [place] Cells Not Reportable 08/08/21 18:40 Bite Cells Not Reportable 08/08/21 18:40 Crenated Cell Not Reportable 08/08/21 18:40 Elliptocytes Rare 08/08/21 18:40 Acanthocytes (Spur) Not Reportable 08/08/21 18:40 Rouleaux Not Reportable 08/08/21 18:40 Hemoglobin C Crystals Not Reportable 08/08/21 18:40 Schistocytes Not Reportable 08/08/21 18:40 Malaria parasites Not Reportable 08/08/21 18:40 Jacob Bodies Not Reportable 08/08/21 18:40 Hem Pathologist Commnt No 08/08/21 18:40 PT 13.9 Sec. (12.2-14.9) 08/09/21 10:42 INR 0.96 (0.87-1.13) 08/09/21 10:42 APTT 29.3 Sec. (24.2-36.6) 08/09/21 10:42 Heparin Anti-Xa Level 0.13 U.I./ml (0.3-0.7) L 08/09/21 08:52 Sodium 134 mmol/L (137-145) L 08/09/21 03:27 Potassium 4.3 mmol/L (3.6-5.0) 08/09/21 03:27 Chloride 90.6 mmol/L (98-107) L 08/09/21 03:27 Carbon Dioxide 28 mmol/L (22-30) 08/09/21 03:27 Anion Gap 20 mmol/L 08/09/21 03:27 BUN 64 mg/dL (9-20) H 08/09/21 03:27 Creatinine 10.3 mg/dL (0.8-1.3) H 08/09/21 10:42 Estimated GFR 6 ml/min 08/09/21 10:42 BUN/Creatinine Ratio 6 % 08/09/21 03:27 Glucose 104 mg/dL (75-100) H 08/09/21 03:27 Calcium 8.6 mg/dL (8.4-10.2) 08/09/21 03:27 Total Bilirubin 0.30 mg/dL (0.1-1.2) 08/08/21 18:40 AST 27 units/L (5-40) 08/08/21 18:40 ALT 56 units/L (7-56) 08/08/21 18:40 Alkaline Phosphatase 143 units/L (35-129) H 08/08/21 18:40 Troponin T 0.089 ng/mL (0.00-0.029) H 08/09/21 00:51 Total Protein 5.9 g/dL (6.3-8.2) L 08/08/21 18:40 Albumin 3.0 g/dL (3.9-5) L 08/08/21 18:40 Albumin/Globulin Ratio 1.0 % 08/08/21 18:40 Triglycerides 131 mg/dL (2-149) 08/08/21 20:48 Cholesterol 189 mg/dL (50-199) 08/08/21 20:48 LDL Cholesterol Direct 115 mg/dL (50-130) 08/08/21 20:48 HDL Cholesterol 50 mg/dL (40-59) 08/08/21 20:48 Cholesterol/HDL Ratio 3.78 % 08/08/21 20:48 TSH 3.550 mlU/mL (0.270-4.200) 08/08/21 18:40 Free T4 1.43 ng/dL (0.76-1.46) 08/08/21 18:40 Past History Past Medical History: dialysis, ESRD, hypertension, other (Asthma in childhood) Past Surgical History: Other (AV fistula placement in the right upper extremity, peritoneal catheter) Social history: no significant social history Family history: no significant family history Medications and Allergies Allergies Allergy/AdvReac Type Severity Reaction Status Date / Time No Known Allergies Allergy Verified 08/08/21 17:42 Home Medications Medication Instructions Recorded Confirmed Last Taken Type Amiodarone [Cordarone 200 MG TAB] 200 mg PO BID #60 tablet 05/21/21 07/30/21 Unknown Rx Apixaban [Eliquis] 5 mg PO Q12HR #60 tablet 05/21/21 07/30/21 Unknown Rx Aspirin EC [Ecotrin] 325 mg PO QDAY #30 tablet 05/21/21 07/30/21 Unknown Rx Cinacalcet HCl 60 mg PO DAILY #30 05/21/21 07/30/21 Unknown Rx Cinacalcet [Sensipar] 60 mg PO QDAY #30 tablet 05/21/21 07/30/21 Unknown Rx Metoprolol [Lopressor TAB] 50 mg PO BID #60 tablet 05/21/21 07/30/21 Unknown Rx Pantoprazole [Protonix TAB] 40 mg PO QDAC #30 tablet 05/21/21 07/30/21 Unknown Rx Sevelamer Carbonate [Renvela] 2,400 mg PO TIDWM #90 tablet 05/21/21 07/30/21 Unknown Rx amLODIPine 10 mg PO DAILY #30 05/21/21 07/30/21 Unknown Rx traMADoL [Ultram 50 MG tab] 50 mg PO BID PRN #30 tablet 05/21/21 07/30/21 Unknown Rx Albuterol Mdi (or & Nicu Only) 2 puff IH QID PRN #8.5 gram 08/02/21 Unknown Rx [ProAir HFA Inhaler] Ascorbic Acid [Vitamin C] 500 mg PO QDAY #30 tablet 08/02/21 Unknown Rx Cholecalciferol Vit D3 [Vitamin D3 1,000 unit PO QDAY #30 tablet 08/02/21 Unknown Rx 1,000 UNIT TAB] Dexamethasone 6 mg PO DAILY #5 tablet 08/02/21 Unknown Rx Zinc Sulfate 220 mg PO QDAY #30 capsule 08/02/21 Unknown Rx Active Meds: Active Medications Acetaminophen (Acetaminophen 325 Mg Tab) 650 mg PO Q6H PRN PRN Reason: Pain MILD(1-3)/Fever >100.5/JOHN Albuterol (Albuterol 2.5 Mg/3 Ml Nebu) 2.5 mg IH Q4HRT PRN PRN Reason: Shortness Of Breath Amiodarone HCl (Amiodarone 200 Mg Tab) 200 mg PO BID CHRISTINA Amlodipine Besylate (Amlodipine 10 Mg Tab) 10 mg PO DAILY CHRISTINA Apixaban (Apixaban 5 Mg Tab) 10 mg PO Q12HR CHRISTINA; Protocol Stop: 08/15/21 22:01 Apixaban (Apixaban 5 Mg Tab) 5 mg PO Q12HR CHRISTINA; Protocol Ascorbic Acid (Ascorbic Acid 500 Mg Tab) 500 mg PO QDAY CHRISTINA Aspirin (Aspirin Ec 325 Mg Tab) 325 mg PO QDAY CHRISTINA Cinacalcet (Cinacalcet 30 Mg Tab) 60 mg PO QDAY CHRISTINA Sodium Chloride (Nacl 0.9%) 100 mls @ 999 mls/hr IV RUFUS PRN PRN Reason: Hypotension Magnesium Hydroxide (Magnesium Hydroxide (Mom) Oral Liqd Udc) 30 ml PO Q4H PRN PRN Reason: Constipation Metoprolol Tartrate (Metoprolol Tartrate 50 Mg Tab) 50 mg PO BID CHRISTINA Morphine Sulfate (Morphine 2 Mg/1 Ml Inj) 2 mg IV Q4H PRN PRN Reason: Pain, Moderate (4-6) Morphine Sulfate (Morphine 4 Mg/1 Ml Inj) 4 mg IV Q4H PRN PRN Reason: Pain , Severe (7-10) Last Admin: 08/09/21 02:40 Dose: 4 mg Documented by: Pantoprazole Sodium (Pantoprazole 40 Mg Tab) 40 mg PO QDAC CHRISTINA Sevelamer Carbonate (Sevelamer Carbonate 800 Mg Tab) 2,400 mg PO TIDWM CHRISTINA Sodium Chloride (Sodium Chloride 0.9% 10 Ml Flush Syringe) 10 ml IV BID CHRISTINA Last Admin: 08/09/21 11:19 Dose: 10 ml Documented by: Sodium Chloride (Sodium Chloride 0.9% 10 Ml Flush Syringe) 10 ml IV PRN PRN PRN Reason: LINE FLUSH Tramadol HCl (Tramadol 50 Mg Tab) 50 mg PO BID PRN PRN Reason: Pain, Moderate (4-6) Zinc Sulfate (Zinc Sulfate 220 Mg Cap) 220 mg PO QDAY [facility] Exam - Constitutional Vitals: Last Vital Signs Temp 98.4 F 08/08/21 17:41 Pulse 79 08/09/21 08:15 Resp 14 08/09/21 02:03 BP 138/76 08/09/21 08:15 Pulse Ox 100 08/09/21 08:15 Results - Labs lab Results: Laboratory Results - last 24 hr 08/08/21 08/08/21 08/08/21 18:40 18:40 18:40 WBC 8.1 RBC 3.64 L Hgb 10.9 L Hct 31.9 L MCV 88 MCH 30 MCHC 34 RDW 25.6 H Plt Count 418 Add Manual Diff Complete Total Counted 100 Seg Neuts % (Manual) 71.0 H Lymphocytes % (Manual) 14.0 Monocytes % (Manual) 14.0 H Eosinophils % (Manual) 1.0 Nucleated RBC % Not Reportable Seg Neutrophils # Man 5.8 Band Neutrophils # 0.0 Lymphocytes # (Manual) 1.1 L Abs React Lymphs (Man) 0.0 Monocytes # (Manual) 1.1 H Eosinophils # (Manual) 0.1 Basophils # (Manual) 0.0 Metamyelocytes # 0.0 Myelocytes # 0.0 Promyelocytes # 0.0 Blast Cells # 0.0 WBC Morphology Not Reportable Hypersegmented Neuts Not Reportable Hyposegmented Neuts Not Reportable Hypogranular Neuts Not Reportable Smudge Cells Not Reportable Toxic Granulation Not Reportable Toxic Vacuolation Not Reportable Dohle Bodies Not Reportable Pelger-Huet Anomaly Not Reportable Judy Rods Not Reportable Platelet Estimate Consistent w auto Clumped Platelets Not Reportable Plt Clumps, EDTA Not Reportable Large Platelets Not Reportable Giant Platelets Not Reportable Platelet Satelliting Not Reportable Plt Morphology Comment Not Reportable RBC Morphology Not Reportable Dimorphic RBCs Not Reportable Polychromasia Not Reportable Hypochromasia 1+ Poikilocytosis Not Reportable Anisocytosis Not Reportable Microcytosis Few Macrocytosis Not Reportable Spherocytes Not Reportable Pappenheimer Bodies Not Reportable Sickle Cells Not Reportable Target Cells Not Reportable Tear Drop Cells Not Reportable Ovalocytes Few Helmet Cells Not Reportable Jeter-Barre Bodies Not Reportable Colbert Rings Not Reportable [place] Cells Not Reportable Bite Cells Not Reportable Crenated Cell Not Reportable Elliptocytes Rare Acanthocytes (Spur) Not Reportable Rouleaux Not Reportable Hemoglobin C Crystals Not Reportable Schistocytes Not Reportable Malaria parasites Not Reportable Jacob Bodies Not Reportable Hem Pathologist Commnt No PT 13.3 INR 0.91 APTT 24.7 Heparin Anti-Xa Level Sodium 133 L Potassium 4.1 Chloride 89.8 L Carbon Dioxide 28 Anion Gap 19 BUN 58 H Creatinine 9.3 H Estimated GFR 7 BUN/Creatinine Ratio 6 Glucose 87 Calcium 9.1 Total Bilirubin 0.30 AST 27 ALT 56 Alkaline Phosphatase 143 H Troponin T 0.093 H Total Protein 5.9 L Albumin 3.0 L Albumin/Globulin Ratio 1.0 Triglycerides Cholesterol LDL Cholesterol Direct HDL Cholesterol Cholesterol/HDL Ratio TSH Free T4 08/08/21 08/08/21 08/08/21 18:40 20:48 22:29 WBC RBC Hgb 10.3 L Hct 30.1 L MCV MCH MCHC RDW Plt Count 417 Add Manual Diff Total Counted Seg Neuts % (Manual) Lymphocytes % (Manual) Monocytes % (Manual) Eosinophils % (Manual) Nucleated RBC % Seg Neutrophils # Man Band Neutrophils # Lymphocytes # (Manual) Abs React Lymphs (Man) Monocytes # (Manual) Eosinophils # (Manual) Basophils # (Manual) Metamyelocytes # Myelocytes # Promyelocytes # Blast Cells # WBC Morphology Hypersegmented Neuts Hyposegmented Neuts Hypogranular Neuts Smudge Cells Toxic Granulation Toxic Vacuolation Dohle Bodies Pelger-Huet Anomaly Judy Rods Platelet Estimate Clumped Platelets Plt Clumps, EDTA Large Platelets Giant Platelets Platelet Satelliting Plt Morphology Comment RBC Morphology Dimorphic RBCs Polychromasia Hypochromasia Poikilocytosis Anisocytosis Microcytosis Macrocytosis Spherocytes Pappenheimer Bodies Sickle Cells Target Cells Tear Drop Cells Ovalocytes Helmet Cells Jeter-Barre Bodies Colbert Rings Michael Cells Bite Cells Crenated Cell Elliptocytes Acanthocytes (Spur) Rouleaux Hemoglobin C Crystals Schistocytes Malaria parasites Jacob Bodies Hem Pathologist Commnt PT INR APTT Heparin Anti-Xa Level Sodium Potassium Chloride Carbon Dioxide Anion Gap BUN Creatinine Estimated GFR BUN/Creatinine Ratio Glucose Calcium Total Bilirubin AST ALT Alkaline Phosphatase Troponin T 0.087 H Total Protein Albumin Albumin/Globulin Ratio Triglycerides 131 Cholesterol 189 LDL Cholesterol Direct 115 HDL Cholesterol 50 Cholesterol/HDL Ratio 3.78 TSH 3.550 Free T4 1.43 08/08/21 08/09/21 08/09/21 22:29 00:51 03:27 WBC RBC Hgb Hct MCV MCH MCHC RDW Plt Count Add Manual Diff Total Counted Seg Neuts % (Manual) Lymphocytes % (Manual) Monocytes % (Manual) Eosinophils % (Manual) Nucleated RBC % Seg Neutrophils # Man Band Neutrophils # Lymphocytes # (Manual) Abs React Lymphs (Man) Monocytes # (Manual) Eosinophils # (Manual) Basophils # (Manual) Metamyelocytes # Myelocytes # Promyelocytes # Blast Cells # WBC Morphology Hypersegmented Neuts Hyposegmented Neuts Hypogranular Neuts Smudge Cells Toxic Granulation Toxic Vacuolation Dohle Bodies Pelger-Huet Anomaly Judy Rods Platelet Estimate Clumped Platelets Plt Clumps, EDTA Large Platelets Giant Platelets Platelet Satelliting Plt Morphology Comment RBC Morphology Dimorphic RBCs Polychromasia Hypochromasia Poikilocytosis Anisocytosis Microcytosis Macrocytosis Spherocytes Pappenheimer Bodies Sickle Cells Target Cells Tear Drop Cells Ovalocytes Helmet Cells Jeter-Barre Bodies Colbert Rings [place] Cells Bite Cells Crenated Cell Elliptocytes Acanthocytes (Spur) Rouleaux Hemoglobin C Crystals Schistocytes Malaria parasites Jacob Bodies Hem Pathologist Commnt PT 13.4 13.5 INR 0.92 0.93 APTT 25.8 Heparin Anti-Xa Level Sodium Potassium Chloride Carbon Dioxide Anion Gap BUN Creatinine Estimated GFR BUN/Creatinine Ratio Glucose Calcium Total Bilirubin AST ALT Alkaline Phosphatase Troponin T 0.089 H Total Protein Albumin Albumin/Globulin Ratio Triglycerides Cholesterol LDL Cholesterol Direct HDL Cholesterol Cholesterol/HDL Ratio TSH Free T4 08/09/21 08/09/21 08/09/21 03:27 08:52 10:42 WBC 7.4 RBC 3.39 L Hgb 9.6 L Hct 29.5 L MCV 87 MCH 28 MCHC 33 RDW 26.0 H Plt Count 358 Add Manual Diff Total Counted Seg Neuts % (Manual) Lymphocytes % (Manual) Monocytes % (Manual) Eosinophils % (Manual) Nucleated RBC % Seg Neutrophils # Man Band Neutrophils # Lymphocytes # (Manual) Abs React Lymphs (Man) Monocytes # (Manual) Eosinophils # (Manual) Basophils # (Manual) Metamyelocytes # Myelocytes # Promyelocytes # Blast Cells # WBC Morphology Hypersegmented Neuts Hyposegmented Neuts Hypogranular Neuts Smudge Cells Toxic Granulation Toxic Vacuolation Dohle Bodies Pelger-Huet Anomaly Judy Rods Platelet Estimate Clumped Platelets Plt Clumps, EDTA Large Platelets Giant Platelets Platelet Satelliting Plt Morphology Comment RBC Morphology Dimorphic RBCs Polychromasia Hypochromasia Poikilocytosis Anisocytosis Microcytosis Macrocytosis Spherocytes Pappenheimer Bodies Sickle Cells Target Cells Tear Drop Cells Ovalocytes Helmet Cells Jeter-Barre Bodies Colbert Rings Michael Cells Bite Cells Crenated Cell Elliptocytes Acanthocytes (Spur) Rouleaux Hemoglobin C Crystals Schistocytes Malaria parasites Jacob Bodies Hem Pathologist Commnt PT INR APTT Heparin Anti-Xa Level 0.13 L Sodium 134 L Potassium 4.3 Chloride 90.6 L Carbon Dioxide 28 Anion Gap 20 BUN 64 H Creatinine 10.4 H Estimated GFR 6 BUN/Creatinine Ratio 6 Glucose 104 H Calcium 8.6 Total Bilirubin AST ALT Alkaline Phosphatase Troponin T Total Protein Albumin Albumin/Globulin Ratio Triglycerides Cholesterol LDL Cholesterol Direct HDL Cholesterol Cholesterol/HDL Ratio TSH Free T4 08/09/21 08/09/21 10:42 10:42 WBC RBC Hgb Hct MCV MCH MCHC RDW Plt Count Add Manual Diff Total Counted Seg Neuts % (Manual) Lymphocytes % (Manual) Monocytes % (Manual) Eosinophils % (Manual) Nucleated RBC % Seg Neutrophils # Man Band Neutrophils # Lymphocytes # (Manual) Abs React Lymphs (Man) Monocytes # (Manual) Eosinophils # (Manual) Basophils # (Manual) Metamyelocytes # Myelocytes # Promyelocytes # Blast Cells # WBC Morphology Hypersegmented Neuts Hyposegmented Neuts Hypogranular Neuts Smudge Cells Toxic Granulation Toxic Vacuolation Dohle Bodies Pelger-Huet Anomaly Judy Rods Platelet Estimate Clumped Platelets Plt Clumps, EDTA Large Platelets Giant Platelets Platelet Satelliting Plt Morphology Comment RBC Morphology Dimorphic RBCs Polychromasia Hypochromasia Poikilocytosis Anisocytosis Microcytosis Macrocytosis Spherocytes Pappenheimer Bodies Sickle Cells Target Cells Tear Drop Cells Ovalocytes Helmet Cells Jeter-Barre Bodies Colbert Rings [place] Cells Bite Cells Crenated Cell Elliptocytes Acanthocytes (Spur) Rouleaux Hemoglobin C Crystals Schistocytes Malaria parasites Jacob Bodies Hem Pathologist Commnt PT 13.9 INR 0.96 APTT 29.3 Heparin Anti-Xa Level Sodium Potassium Chloride Carbon Dioxide Anion Gap BUN Creatinine 10.3 H Estimated GFR 6 BUN/Creatinine Ratio Glucose Calcium Total Bilirubin AST ALT Alkaline Phosphatase Troponin T Total Protein Albumin Albumin/Globulin Ratio Triglycerides Cholesterol LDL Cholesterol Direct HDL Cholesterol Cholesterol/HDL Ratio TSH Free T4
[2021-08-09] MEDS: AMIODARONE 200 MG TAB PO SCH ×2 (14:32→22:20)
[2021-08-09] MEDS: CINACALCET 30 MG TAB PO SCH (14:32)
[2021-08-09] MEDS: ASPIRIN EC 325 MG TAB PO SCH (14:32)
[2021-08-09] MEDS: amLODIPine 10 MG TAB PO SCH (14:33)
[2021-08-09] MEDS: APIXABAN 5 MG TAB PO SCH ×2 (14:33→22:20)
[2021-08-09] MEDS: METOPROLOL TARTRATE 50 MG TAB PO SCH ×2 (14:33→22:20)
[2021-08-09] MEDS: ZINC SULFATE 220 MG CAP PO SCH (14:33)
[2021-08-09] MEDS: ASCORBIC ACID 500 MG TAB PO SCH (14:33)
[2021-08-09] MEDS: SEVELAMER CARBONATE 800 MG TAB PO SCH ×2 (14:34→17:54)
--- NOTE | 2021-08-09 15:52 | Progress Note ---
Assessment and Plan Assessment and plan: 61-year-old male with known history of hypertension, end-stage renal disease on dialysis on Mondays, Wednesdays and Fridays presenting in the emergency room today complaining of palpitations. Patient was seen at the dialysis center today and was referred to the emergency room for evaluation of his palpitation and elevated heart rate. Patient was recently discharged from this hospital earlier this month after having a COVID-19 infection. He Complains of shortness of breath especially on exertion , he denies any chest pain, no headache or dizziness and no diaphoresis. Patient denies any nausea vomiting and no abdominal pain. Denies any fever or chills. Work-up in the emergency room today, chest x-ray reveals:Probable minimal interstitial edema. Significant improvement in bilateral parenchymal disease since the prior exam. CT angiogram of the chest reveals: 1. Multiple filling defects within the subsegmental arteries of the right lower lobe and left lower lobe consistent with pulmonary emboli. 2. Scattered groundglass opacities at the lungs which can be seen with atypical infectious process. Patient is being admitted with bilateral pulmonary embolism and has been started on heparin drip. 08/09/21: Patient seen and examined today appears to be showing some improvement. Repeat studies including COVID-19. Will consult hematology oncologist for further evaluation considering pulmonary embolism while on Eliquis. Although on repeat discussion with the patient he says he had not taken the Eliquis for about a month because he did not know he did refill. I am still not sure as to why he was given Eliquis in the first place he did tell me that he had some clotting issues at that time which is why he was started, however he was not. IR has also been consulted to evaluate the patient. Of discussed with pharmacy will be discontinuing the heparin drip and starting the patient back on Eliquis. Anticipate discharge in 24 to 48 hours based on how he is doing We will repeat a walk test in a.m. (1) Bilateral pulmonary embolism Current Visit: Yes Status: Acute Plan to address problem: Patient currently on anticoagulation with heparin drip. Consult has also been placed to vascular surgery for evaluation. (2) ESRD (end stage renal disease) on dialysis Current Visit: No Status: Acute Plan to address problem: Consult placed to nephrology for evaluation. (3) Hypertension Current Visit: No Status: Acute Plan to address problem: We will resume routine home medications and monitor vital signs closely. (4) History of COVID-19 Current Visit: Yes Status: Acute Plan to address problem: Patient was recently treated for COVID-19 and recently discharged. We will consult infectious disease for follow-up if needed (5) Paroxysmal atrial fibrillation Current Visit: No Status: Acute Plan to address problem: Rate is currently controlled. Will monitor EKG. Patient on anticoagulation. (6) Full code status Current Visit: No Status: Acute Plan to address problem: Patient is full code. History Interval history: Patient seen and examined, remains on oxygen via [place], no worsening distress. He tells me he is hard of hearing and also did not refill his [facility] Hospitalist Physical - Physical exam Narrative exam: VITAL SIGNS: Reviewed. GENERAL: The patient appears normally developed, Vital signs as documented. HEAD: No signs of head trauma. EYES: Pupils are equal. Extraocular motions intact. EARS: Hearing grossly intact. MOUTH: Oropharynx is normal. NECK: No adenopathy, no JVD. CHEST: Chest with diminished breath sounds bilaterally. No wheezes, rales, or rhonchi. CARDIAC: Regular rate and rhythm. S1 and S2, without murmurs, gallops, or rubs. VASCULAR: No Edema. Peripheral pulses normal and equal in all extremities. ABDOMEN: Soft, non tender and non distended. No rebound or guarding, and no masses palpated. Bowel Sounds normal. MUSCULOSKELETAL: Good range of motion of all major joints. AV Graft on right upper ext with palpable thrill. Extremities without clubbing, cyanosis or edema. NEUROLOGIC EXAM: Alert and oriented x 3 No focal sensory or strength deficits. Speech normal. Follows commands. PSYCHIATRIC: Mood normal. SKIN: detail exam as documented in skin assessment - Constitutional Vitals: Temp Pulse Resp BP Pulse Ox 98.4 F 81 18 145/83 98 08/08/21 17:41 08/09/21 12:42 08/09/21 12:41 08/09/21 12:41 08/09/21 12:42 General appearance: Present: no acute distress HEART Score - HEART Score Troponin: Troponin T 0.089 ng/mL (0.00-0.029) H 08/09/21 00:51 Results - Labs CBC & Chem 7: 08/09/21 10:42 08/09/21 10:42 Labs: Laboratory Last Values WBC 7.4 K/mm3 (4.5-11.0) 08/09/21 10:42 RBC 3.39 M/mm3 (3.65-5.03) L 08/09/21 10:42 Hgb 9.6 gm/dl (11.8-15.2) L 08/09/21 10:42 Hct 29.5 % (35.5-45.6) L 08/09/21 10:42 MCV 87 fl (84-94) 08/09/21 10:42 MCH 28 pg (28-32) 08/09/21 10:42 MCHC 33 % (32-34) 08/09/21 10:42 RDW 26.0 % (13.2-15.2) H 08/09/21 10:42 Plt Count 358 K/mm3 (140-440) 08/09/21 10:42 Add Manual Diff Complete 08/08/21 18:40 Total Counted 100 08/08/21 18:40 Seg Neuts % (Manual) 71.0 % (40.0-70.0) H 08/08/21 18:40 Lymphocytes % (Manual) 14.0 % (13.4-35.0) 08/08/21 18:40 Monocytes % (Manual) 14.0 % (0.0-7.3) H 08/08/21 18:40 Eosinophils % (Manual) 1.0 % (0.0-4.3) 08/08/21 18:40 Nucleated RBC % Not Reportable 08/08/21 18:40 Seg Neutrophils # Man 5.8 K/mm3 (1.8-7.7) 08/08/21 18:40 Band Neutrophils # 0.0 K/mm3 08/08/21 18:40 Lymphocytes # (Manual) 1.1 K/mm3 (1.2-5.4) L 08/08/21 18:40 Abs React Lymphs (Man) 0.0 K/mm3 08/08/21 18:40 Monocytes # (Manual) 1.1 K/mm3 (0.0-0.8) H 08/08/21 18:40 Eosinophils # (Manual) 0.1 K/mm3 (0.0-0.4) 08/08/21 18:40 Basophils # (Manual) 0.0 K/mm3 (0.0-0.1) 08/08/21 18:40 Metamyelocytes # 0.0 K/mm3 08/08/21 18:40 Myelocytes # 0.0 K/mm3 08/08/21 18:40 Promyelocytes # 0.0 K/mm3 08/08/21 18:40 Blast Cells # 0.0 K/mm3 08/08/21 18:40 WBC Morphology Not Reportable 08/08/21 18:40 Hypersegmented Neuts Not Reportable 08/08/21 18:40 Hyposegmented Neuts Not Reportable 08/08/21 18:40 Hypogranular Neuts Not Reportable 08/08/21 18:40 Smudge Cells Not Reportable 08/08/21 18:40 Toxic Granulation Not Reportable 08/08/21 18:40 Toxic Vacuolation Not Reportable 08/08/21 18:40 Dohle Bodies Not Reportable 08/08/21 18:40 Pelger-Huet Anomaly Not Reportable 08/08/21 18:40 Judy Rods Not Reportable 08/08/21 18:40 Platelet Estimate Consistent w auto 08/08/21 18:40 Clumped Platelets Not Reportable 08/08/21 18:40 Plt Clumps, EDTA Not Reportable 08/08/21 18:40 Large Platelets Not Reportable 08/08/21 18:40 Giant Platelets Not Reportable 08/08/21 18:40 Platelet Satelliting Not Reportable 08/08/21 18:40 Plt Morphology Comment Not Reportable 08/08/21 18:40 RBC Morphology Not Reportable 08/08/21 18:40 Dimorphic RBCs Not Reportable 08/08/21 18:40 Polychromasia Not Reportable 08/08/21 18:40 Hypochromasia 1+ 08/08/21 18:40 Poikilocytosis Not Reportable 08/08/21 18:40 Anisocytosis Not Reportable 08/08/21 18:40 Microcytosis Few 08/08/21 18:40 Macrocytosis Not Reportable 08/08/21 18:40 Spherocytes Not Reportable 08/08/21 18:40 Pappenheimer Bodies Not Reportable 08/08/21 18:40 Sickle Cells Not Reportable 08/08/21 18:40 Target Cells Not Reportable 08/08/21 18:40 Tear Drop Cells Not Reportable 08/08/21 18:40 Ovalocytes Few 08/08/21 18:40 Helmet Cells Not Reportable 08/08/21 18:40 Jeter-Farmers Bodies Not Reportable 08/08/21 18:40 [place] Rings Not Reportable 08/08/21 18:40 Michael Cells Not Reportable 08/08/21 18:40 Bite Cells Not Reportable 08/08/21 18:40 Crenated Cell Not Reportable 08/08/21 18:40 Elliptocytes Rare 08/08/21 18:40 Acanthocytes (Spur) Not Reportable 08/08/21 18:40 Rouleaux Not Reportable 08/08/21 18:40 Hemoglobin C Crystals Not Reportable 08/08/21 18:40 Schistocytes Not Reportable 08/08/21 18:40 Malaria parasites Not Reportable 08/08/21 18:40 Jacob Bodies Not Reportable 08/08/21 18:40 Hem Pathologist Commnt No 08/08/21 18:40 PT 13.9 Sec. (12.2-14.9) 08/09/21 10:42 INR 0.96 (0.87-1.13) 08/09/21 10:42 APTT 29.3 Sec. (24.2-36.6) 08/09/21 10:42 Heparin Anti-Xa Level 0.13 U.I./ml (0.3-0.7) L 08/09/21 08:52 Sodium 134 mmol/L (137-145) L 08/09/21 03:27 Potassium 4.3 mmol/L (3.6-5.0) 08/09/21 03:27 Chloride 90.6 mmol/L (98-107) L 08/09/21 03:27 Carbon Dioxide 28 mmol/L (22-30) 08/09/21 03:27 Anion Gap 20 mmol/L 08/09/21 03:27 BUN 64 mg/dL (9-20) H 08/09/21 03:27 Creatinine 10.3 mg/dL (0.8-1.3) H 08/09/21 10:42 Estimated GFR 6 ml/min 08/09/21 10:42 BUN/Creatinine Ratio 6 % 08/09/21 03:27 Glucose 104 mg/dL (75-100) H 08/09/21 03:27 Calcium 8.6 mg/dL (8.4-10.2) 08/09/21 03:27 Total Bilirubin 0.30 mg/dL (0.1-1.2) 08/08/21 18:40 AST 27 units/L (5-40) 08/08/21 18:40 ALT 56 units/L (7-56) 08/08/21 18:40 Alkaline Phosphatase 143 units/L (35-129) H 08/08/21 18:40 Troponin T 0.089 ng/mL (0.00-0.029) H 08/09/21 00:51 Total Protein 5.9 g/dL (6.3-8.2) L 08/08/21 18:40 Albumin 3.0 g/dL (3.9-5) L 08/08/21 18:40 Albumin/Globulin Ratio 1.0 % 08/08/21 18:40 Triglycerides 131 mg/dL (2-149) 08/08/21 20:48 Cholesterol 189 mg/dL (50-199) 08/08/21 20:48 LDL Cholesterol Direct 115 mg/dL (50-130) 08/08/21 20:48 HDL Cholesterol 50 mg/dL (40-59) 08/08/21 20:48 Cholesterol/HDL Ratio 3.78 % 08/08/21 20:48 TSH 3.550 mlU/mL (0.270-4.200) 08/08/21 18:40 Free T4 1.43 ng/dL (0.76-1.46) 08/08/21 18:40 Active Medications - Current Medications Current Medications: Generic Name Dose Route Start Last Admin Trade Name Freq PRN Reason Stop Dose Admin Acetaminophen 650 mg 08/08/21 23:50 Acetaminophen 325 Mg Tab PO Q6H PRN Pain MILD(1-3)/Fever >100.5/JOHN Albuterol 2.5 mg 08/09/21 10:08 Albuterol 2.5 Mg/3 Ml Nebu IH Q4HRT PRN Shortness Of Breath Amiodarone HCl 200 mg 08/09/21 10:00 08/09/21 14:32 Amiodarone 200 Mg Tab PO Not Given BID CHRISTINA Amlodipine Besylate 10 mg 08/09/21 11:00 08/09/21 14:33 Amlodipine 10 Mg Tab PO 10 mg DAILY CHRISTINA Administration Apixaban 10 mg 08/09/21 11:00 08/09/21 14:33 Apixaban 5 Mg Tab PO 08/15/21 22:01 10 mg Q12HR CHRISTINA Administration Protocol Apixaban 5 mg 08/16/21 10:00 Apixaban 5 Mg Tab PO Q12HR CHRISTINA Protocol Ascorbic Acid 500 mg 08/09/21 11:00 08/09/21 14:33 Ascorbic Acid 500 Mg Tab PO 500 mg QDAY CHRISTINA Administration Aspirin 325 mg 08/09/21 11:00 08/09/21 14:32 Aspirin Ec 325 Mg Tab PO 325 mg QDAY CHRISTINA Administration Cinacalcet 60 mg 08/09/21 11:00 08/09/21 14:32 Cinacalcet 30 Mg Tab PO 60 mg QDAY CHRISTINA Administration Sodium Chloride 100 mls @ 999 mls/hr 08/09/21 09:27 Nacl 0.9% IV RUFUS PRN Hypotension Magnesium Hydroxide 30 ml 08/08/21 23:50 Magnesium Hydroxide (Mom) Oral Liqd Udc PO Q4H PRN Constipation Metoprolol Tartrate 50 mg 08/09/21 11:00 08/09/21 14:33 Metoprolol Tartrate 50 Mg Tab PO Not Given BID CHRISTINA Morphine Sulfate 4 mg 08/08/21 23:50 08/09/21 14:33 Morphine 4 Mg/1 Ml Inj IV 4 mg Q4H PRN Administration Pain , Severe (7-10) Pantoprazole Sodium 40 mg 08/10/21 16:30 Pantoprazole 40 Mg Tab PO QDAC CHRISTINA Sevelamer Carbonate 2,400 mg 08/09/21 12:00 08/09/21 14:34 Sevelamer Carbonate 800 Mg Tab PO 2,400 mg TIDWM CHRISTINA Administration Sodium Chloride 10 ml 08/09/21 10:00 08/09/21 11:19 Sodium Chloride 0.9% 10 Ml Flush Syringe IV 10 ml BID CHRISTINA Administration Sodium Chloride 10 ml 08/08/21 23:50 Sodium Chloride 0.9% 10 Ml Flush Syringe IV PRN PRN LINE FLUSH Tramadol HCl 50 mg 08/09/21 09:51 Tramadol 50 Mg Tab PO BID PRN Pain, Moderate (4-6) Zinc Sulfate 220 mg 08/09/21 11:00 08/09/21 14:33 Zinc Sulfate 220 Mg Cap PO 220 mg QDAY CHRISTINA Administration Nutrition/Malnutrition Assess - Dietary Evaluation Nutrition/Malnutrition Findings: Nutrition Notes Start: 08/09/21 10:51 Freq: Status: Active Protocol: Document 08/09/21 10:51 GB (Rec: 08/09/21 11:10 GB [id number]) Nutrition Notes Need for Assessment generated from: MD Order,Education Initial or Follow up Assessment Current Diagnosis CKD (stage V CKD),Hypertension Other Pertinent Diagnosis sent for palpitations from dialysis center, admitted bilateral pulmonary em Current Diet cardiac Labs/Tests 08/09: glucose 104, BUN 64, creatinine 10.4, Na 134 Pertinent Medications heparin Na Height 5 ft 11 in Weight 80.739 kg [place] Body Weight (kg) 78.18 BMI 24.8 Intake Prior to Admission Good Weight change and time frame No reported significant changes. Pt w/ESRD on HD, expect weight to fluctuate wet /dry Weight Status Appropriate Subjective/Other Information Pt sent by dialysis for palpitations. Consult for diet education: pt recently d/c from this facility. When pt is admitted to floor, diet education of food lists for phosphorus/ potassium contents will be provided. Most likely receiving edu from dialysis RD at center. Percent of energy/protein needs met: PO intake of meals at 75-100% will meet 75% or greater minimal estimated energy needs . Burn Absent Trauma Absent GI Symptoms None Food Allergy No Skin Integrity/Comment No breakdown reported Current % PO Other Minimum of two criteria No #1 Nutrition Diagnosis No nutrition diagnosis at this time Comments: Education consult: food lists for phosphorus/potassium content to be provided at f/u when admitted to floors. Pt receives HD M/W/F, most likely receiving nutrition therapy from dialysis RD. Is patient on ventilator? No Is Patient Ambulatory and/or Out of Bed Yes REE-([place]-St. Jeor-ambulatory/OOB) [ 2118.376 NUTR.MSJOOB] Kcal/Kg value to use for calculation 25 Approximate Energy Requirements Using 2018 kcal/Kg Calculation Used for Recommendations Kcal/kg Additional Notes Protein 1-1.3g/kg @ 80k- 104g Fluids: 1 ml/kcal or per MD Nutrition Intervention Change Diet Order: continue Cardiac Nutrition Support: n/a Add Supplement/Snack (indicate name/kcal n/a /protein ) Education Handouts Provided at f/u provide AND: food content lists for phosphorus/ potassium Goal #1 PO intake of meals to be 75% or greater daily during LOS Follow-Up By: 08/13/21 Additional Comments f/u: po intake, provide nutrition edu handouts
--- NOTE | 2021-08-09 16:57 | Vascular Lab Report ---
DUPLEX DOPPLER LOWER EXTREMITY VEINS, BILATERAL INDICATION / CLINICAL INFORMATION: History of Covid, hypertension TECHNIQUE: Duplex doppler imaging was performed through the veins of both lower extremities using qamar ous compression and other maneuvers. COMPARISON: None available. FINDINGS: RIGHT COMMON FEMORAL VEIN: Negative. RIGHT FEMORAL VEIN: Negative. RIGHT POPLITEAL VEIN: Negative. RIGHT CALF VEINS: Negative. LEFT COMMON FEMORAL VEIN: Negative. LEFT FEMORAL VEIN: Negative. LEFT POPLITEAL VEIN: Negative. LEFT CALF VEINS: Posterior tibial vein shows occlusive deep venous thrombosis. ADDITIONAL FINDINGS: None. IMPRESSION: Occlusive deep venous thrombosis in the left posterior tibial vein IMPORTANT FINDING: Time of Communication (MILD DISABILITIES TEACHER/CDT): 1474 Licensed Practitioner Receiving Report: Nurse Carrizales on Signer Name: Crow Bernardo MD Signed: 08/09/2021 4:53 PM Workstation Name: [id number]
[2021-08-09] MEDS: MONTELUKAST 10 MG TAB PO SCH (17:54)
--- NOTE | 2021-08-10 08:26 | Progress Note ---
Assessment and Plan 61 y/o male with bilateral pulmonary emboli per rads already on ora anticoagulation as outpatient 08/10/21: DVT positive. Agree with heme and oral anticoagulation. Suggest walk test to assess if oxygen need is there and if so Pulmonary embolism should suffice as a diagnosis. Rate control per primary team and cards. Should be ready for discharge soon. 1. Reviewed CT. I do not have radiology monitors to access these images, but from my review, clots are very very small if present at all. No respiratory distress noted or symptoms for that matter outside of tachycardia which is better on rate controlling therapy (apparently patient has history of irregular heart rhythm. Suggest placing back on oral eliquis therapy. Vascular has been consulted and they can review images as well to see if they agree with me. Doubt he is a candidate or has a need for EKOS. Suggest weaning FiO2 as tolerated. 2. Rate control per primary and cards 3. THank you for the consult. Subjective Date of service: 08/10/21 Interval history: No acute events. REviewed Heme and Vascular notes. Patient had DVT on the left. Objective Vital Signs - 12hr 08/09/21 08/09/21 08/09/21 20:30 20:45 21:00 Temperature Pulse Rate 92 H 81 77 Respiratory Rate Blood Pressure 123/72 141/77 139/77 O2 Sat by Pulse Oximetry O2 Sat by Pulse Oximetry [ Bilateral] 08/09/21 08/09/21 08/09/21 21:15 21:30 21:45 Temperature Pulse Rate 77 86 78 Respiratory Rate Blood Pressure 149/79 148/83 146/82 O2 Sat by Pulse Oximetry O2 Sat by Pulse Oximetry [ Bilateral] 08/09/21 08/09/21 08/09/21 22:00 22:15 22:20 Temperature Pulse Rate 77 83 86 Respiratory Rate Blood Pressure 144/69 139/75 148/83 O2 Sat by Pulse 98 Oximetry O2 Sat by Pulse Oximetry [ Bilateral] 08/09/21 08/09/21 08/09/21 22:30 22:45 23:00 Temperature Pulse Rate 82 81 67 Respiratory Rate Blood Pressure 154/87 130/82 128/74 O2 Sat by Pulse Oximetry O2 Sat by Pulse Oximetry [ Bilateral] 08/09/21 08/09/21 08/10/21 23:15 23:50 04:56 Temperature 97.9 F 98.8 F Pulse Rate 82 83 76 Respiratory 20 16 Rate Blood Pressure 138/77 130/76 122/63 O2 Sat by Pulse 100 Oximetry O2 Sat by Pulse 98 Oximetry [ Bilateral] CBC and BMP: 08/09/21 10:42 08/09/21 10:42 ABG, PT/INR, D-dimer: PT/INR, D-dimer PT 13.9 Sec. (12.2-14.9) 08/09/21 10:42 INR 0.96 (0.87-1.13) 08/09/21 10:42 Abnormal lab findings: Abnormal Labs 08/08/21 08/08/21 08/08/21 18:40 18:40 20:48 RBC 3.64 L Hgb 10.9 L Hct 31.9 L RDW 25.6 H Seg Neuts % (Manual) 71.0 H Monocytes % (Manual) 14.0 H Lymphocytes # (Manual) 1.1 L Monocytes # (Manual) 1.1 H Heparin Anti-Xa Level Sodium 133 L Chloride 89.8 L BUN 58 H Creatinine 9.3 H Glucose Alkaline Phosphatase 143 H Troponin T 0.093 H 0.087 H Total Protein 5.9 L Albumin 3.0 L 08/08/21 08/09/21 08/09/21 22:29 00:51 03:27 RBC Hgb 10.3 L Hct 30.1 L RDW Seg Neuts % (Manual) Monocytes % (Manual) Lymphocytes # (Manual) Monocytes # (Manual) Heparin Anti-Xa Level Sodium 134 L Chloride 90.6 L BUN 64 H Creatinine 10.4 H Glucose 104 H Alkaline Phosphatase Troponin T 0.089 H Total Protein Albumin 08/09/21 08/09/21 08/09/21 08:52 10:42 10:42 RBC 3.39 L Hgb 9.6 L Hct 29.5 L RDW 26.0 H Seg Neuts % (Manual) Monocytes % (Manual) Lymphocytes # (Manual) Monocytes # (Manual) Heparin Anti-Xa Level 0.13 L Sodium Chloride BUN Creatinine 10.3 H Glucose Alkaline Phosphatase Troponin T Total Protein Albumin
--- NOTE | 2021-08-10 08:55 | Discharge Summary ---
Providers - Providers Date of Admission: 08/08/21 23:50 Attending physician: ANDREW CASTELAN MD 08/08/21 23:51 Consult to Dietitian/Nutrition [CONS] Routine Physician Instructions: Reason For Exam: Reason for Consult: Diet education Consult to Physician [CONS] Routine Comment: Consulting Provider: MILAGROS PRADHAN Physician Instructions: Reason For Exam: BILATERAL PULMONARY EMBOLISM 08/08/21 23:56 Consult to Physician [CONS] Routine Comment: Consulting Provider: LUIS FERNANDO SUE Physician Instructions: Reason For Exam: ESRD ON DIALYSIS 08/09/21 08:46 Consult to Physician [CONS] Routine Comment: Consulting Provider: BONNIE DELGADO Physician Instructions: Reason For Exam: pulmonary embolisim 08/09/21 08:47 Consult to Physician [CONS] Routine Comment: Consulting Provider: JASON CANAS Physician Instructions: Reason For Exam: pulmonary embolisim while on ?Eliqus Primary care physician: FLY TIER Hospitalization Reason for admission: SHORTNESS OF BREATH Condition: Stable Hospital course: 61-year-old male with known history of hypertension, end-stage renal disease on dialysis on Mondays, Wednesdays and Fridays presenting in the emergency room today complaining of palpitations. Patient was seen at the dialysis center today and was referred to the emergency room for evaluation of his palpitation and elevated heart rate. Patient was recently discharged from this hospital earlier this month after having a COVID-19 infection. He Complains of shortness of breath especially on exertion , he denies any chest pain, no headache or dizziness and no diaphoresis. Patient denies any nausea vomiting and no abdominal pain. Denies any fever or chills. Work-up in the emergency room today, chest x-ray reveals:Probable minimal interstitial edema. Significant improvement in bilateral parenchymal disease since the prior exam. CT angiogram of the chest reveals: 1. Multiple filling defects within the subsegmental arteries of the right lower lobe and left lower lobe consistent with pulmonary emboli. 2. Scattered groundglass opacities at the lungs which can be seen with atypical infectious process. Patient is being admitted with bilateral pulmonary embolism and has been started on heparin drip. 08/09/21: Patient seen and examined today appears to be showing some improvement. Repeat studies including COVID-19. Will consult hematology oncologist for further evaluation considering pulmonary embolism while on Eliquis. Although on repeat discussion with the patient he says he had not taken the Eliquis for about a month because he did not know he did refill. I am still not sure as to why he was given Eliquis in the first place he did tell me that he had some clotting issues at that time which is why he was started, however he was not. IR has also been consulted to evaluate the patient. Of discussed with pharmacy will be discontinuing the heparin drip and starting the patient back on Eliquis. Anticipate discharge in 24 to 48 hours based on how he is doing We will repeat a walk test in a.m. 08/10: Patient Seen and examined, Clinically stable at this time. Educated about his medical condition and importance of compliance with medications. Doppler reveealed DVT (1) Bilateral pulmonary embolism Current Visit: Yes Status: Acute Plan to address problem: Patient currently on anticoagulation with heparin drip. Consult has also been placed to vascular surgery for evaluation. (2) ESRD (end stage renal disease) on dialysis Current Visit: No Status: Acute Plan to address problem: Consult placed to nephrology for evaluation. (3) Hypertension Current Visit: No Status: Acute Plan to address problem: We will resume routine home medications and monitor vital signs closely. (4) History of COVID-19 Current Visit: Yes Status: Acute Plan to address problem: Patient was recently treated for COVID-19 and recently discharged. We will consult infectious disease for follow-up if needed (5) Paroxysmal atrial fibrillation Current Visit: No Status: Acute Plan to address problem: Rate is currently controlled. Will monitor EKG. Patient on anticoagulation. (6) DVT LOWER EXT (7) Non compliance Current Visit: No Status: Acute Plan to address problem: Patient is full code. Disposition: 06 [facility] Final Discharge Diagnosis (Prints w/discharge instructions): Bilateral Pulmonary Embolism with Atrial Flutter Time spent for discharge: 35 mins Core Measure Documentation - Palliative Care Palliative Care/ Comfort Measures: Not Applicable - Core Measures Any of the following diagnoses?: none Exam - Physical Exam Narrative exam: VITAL SIGNS: Reviewed. GENERAL: The patient appears normally developed, Vital signs as documented. HEAD: No signs of head trauma. EYES: Pupils are equal. Extraocular motions intact. EARS: Hearing grossly intact. MOUTH: Oropharynx is normal. NECK: No adenopathy, no JVD. CHEST: Chest with diminished breath sounds bilaterally. No wheezes, rales, or rhonchi. CARDIAC: Regular rate and rhythm. S1 and S2, without murmurs, gallops, or rubs. VASCULAR: No Edema. Peripheral pulses normal and equal in all extremities. ABDOMEN: Soft, non tender and non distended. No rebound or guarding, and no masses palpated. Bowel Sounds normal. MUSCULOSKELETAL: Good range of motion of all major joints. AV Graft on right upper ext with palpable thrill. Extremities without clubbing, cyanosis or edema. NEUROLOGIC EXAM: Alert and oriented x 3 No focal sensory or strength def icits. Speech normal. Follows commands. PSYCHIATRIC: Mood normal. SKIN: detail exam as documented in skin assessment - Constitutional Vitals: Temp Pulse Resp BP Pulse Ox 98.8 F 76 16 122/63 100 08/10/21 04:56 08/10/21 04:56 08/10/21 04:56 08/10/21 04:56 08/10/21 04:56 Plan Activity: advance as tolerated, fall precautions Diet: renal Special Instructions: restrict fluid intake to (per visual merchandising specialist instructions), record daily weights, record daily BP diary, home oxygen via (nasal cannula @ 2 liters per minute) Follow up with: BONNIE DELGADO MD [Staff Physician] - 7 Days FLAVIA CRUZ MD [Staff Physician] - 7 Days PRIMARY CAREMD [Primary Care Provider] - 3-5 Days STEPHIE MODI MD [Staff Physician] - 7 Days Prescriptions: Apixaban [Eliquis] 5 mg PO Q12HR #60 tablet Apixaban [Eliquis] 10 mg PO Q12HR #12 tablet
[2021-08-10] MEDS: SEVELAMER CARBONATE 800 MG TAB PO SCH ×3 (09:06→17:51)
[2021-08-10] MEDS: ASPIRIN EC 325 MG TAB PO SCH (09:07)
[2021-08-10] MEDS: CINACALCET 30 MG TAB PO SCH (09:07)
[2021-08-10] MEDS: amLODIPine 10 MG TAB PO SCH (09:07)
[2021-08-10] MEDS: CHOLECALCIFEROL (VIT D3) 1000 UNIT (25 mcg) TAB PO SCH (09:07)
[2021-08-10] MEDS: ZINC SULFATE 220 MG CAP PO SCH (09:07)
[2021-08-10] MEDS: AMIODARONE 200 MG TAB PO SCH ×2 (09:08→22:44)
[2021-08-10] MEDS: APIXABAN 5 MG TAB PO SCH ×2 (09:08→22:43)
[2021-08-10] MEDS: ASCORBIC ACID 500 MG TAB PO SCH (09:08)
[2021-08-10] MEDS: METOPROLOL TARTRATE 50 MG TAB PO SCH ×2 (09:18→22:43)
--- NOTE | 2021-08-10 10:14 | Hem/Onc Progress Note ---
Subjective Date of service: 08/10/21 Interval history: Heme followup note data review CPT 70972 Dx: pulmonary embolism This is a 61yo male who presents to the ER from dialysis center for evaluation of palpitations and elevated heart rate Past medical history of hypertension, end stage renal disease on dialysis (MWF) Recent discharge from [facility] for covid infection Complaints of shortness of breath on exertion Chest xray reveals: probable minimal interstitial edema. Significant improvement in bilateral parenchymal disease since the prior exam. CT angiogram of the chest reveals: multiple filling defects within the subsegmental arteries of the right lower lobe and left lower lobe consistent with pulmonary emboli, scattered groundglass opacities at the lungs which can be seen with atypical infectious process Pt started on heparin drip ---- Pt states he was started on Eliquis due to AFIB in April Denies any previous clotting episodes Eliquis stopped after taking for 1 month due to lack of refills Pt has been on dialysis since 2009 DATA REVIEWED BELOW WBC 7.4 Hgb 9.6 Hct 29.5 MCV 87 Plts 358 Hgb electrophoresis with no sickle cell disease revealed ----- IMP: PE due to AFIB and Eliquis noncompliance HIT with normal platelet count is possible due to dialysis but unlikely r/o HIT REC/PLAN: Recommend another attempt of Eliquis 5mg BID Awaiting pf4 antibody results Laboratory Last Values WBC 7.4 K/mm3 (4.5-11.0) 08/09/21 10:42 RBC 3.39 M/mm3 (3.65-5.03) L 08/09/21 10:42 Hgb 9.6 gm/dl (11.8-15.2) L 08/09/21 10:42 Hct 29.5 % (35.5-45.6) L 08/09/21 10:42 MCV 87 fl (84-94) 08/09/21 10:42 MCH 28 pg (28-32) 08/09/21 10:42 MCHC 33 % (32-34) 08/09/21 10:42 RDW 26.0 % (13.2-15.2) H 08/09/21 10:42 Plt Count 358 K/mm3 (140-440) 08/09/21 10:42 Add Manual Diff Complete 08/08/21 18:40 Total Counted 100 08/08/21 18:40 Seg Neuts % (Manual) 71.0 % (40.0-70.0) H 08/08/21 18:40 Lymphocytes % (Manual) 14.0 % (13.4-35.0) 08/08/21 18:40 Monocytes % (Manual) 14.0 % (0.0-7.3) H 08/08/21 18:40 Eosinophils % (Manual) 1.0 % (0.0-4.3) 08/08/21 18:40 Nucleated RBC % Not Reportable 08/08/21 18:40 Seg Neutrophils # Man 5.8 K/mm3 (1.8-7.7) 08/08/21 18:40 Band Neutrophils # 0.0 K/mm3 08/08/21 18:40 Lymphocytes # (Manual) 1.1 K/mm3 (1.2-5.4) L 08/08/21 18:40 Abs React Lymphs (Man) 0.0 K/mm3 08/08/21 18:40 Monocytes # (Manual) 1.1 K/mm3 (0.0-0.8) H 08/08/21 18:40 Eosinophils # (Manual) 0.1 K/mm3 (0.0-0.4) 08/08/21 18:40 Basophils # (Manual) 0.0 K/mm3 (0.0-0.1) 08/08/21 18:40 Metamyelocytes # 0.0 K/mm3 08/08/21 18:40 Myelocytes # 0.0 K/mm3 08/08/21 18:40 Promyelocytes # 0.0 K/mm3 08/08/21 18:40 Blast Cells # 0.0 K/mm3 08/08/21 18:40 WBC Morphology Not Reportable 08/08/21 18:40 Hypersegmented Neuts Not Reportable 08/08/21 18:40 Hyposegmented Neuts Not Reportable 08/08/21 18:40 Hypogranular Neuts Not Reportable 08/08/21 18:40 Smudge Cells Not Reportable 08/08/21 18:40 Toxic Granulation Not Reportable 08/08/21 18:40 Toxic Vacuolation Not Reportable 08/08/21 18:40 Dohle Bodies Not Reportable 08/08/21 18:40 Pelger-Huet Anomaly Not Reportable 08/08/21 18:40 Judy Rods Not Reportable 08/08/21 18:40 Platelet Estimate Consistent w auto 08/08/21 18:40 Clumped Platelets Not Reportable 08/08/21 18:40 Plt Clumps, EDTA Not Reportable 08/08/21 18:40 Large Platelets Not Reportable 08/08/21 18:40 Giant Platelets Not Reportable 08/08/21 18:40 Platelet Satelliting Not Reportable 08/08/21 18:40 Plt Morphology Comment Not Reportable 08/08/21 18:40 RBC Morphology Not Reportable 08/08/21 18:40 Dimorphic RBCs Not Reportable 08/08/21 18:40 Polychromasia Not Reportable 08/08/21 18:40 Hypochromasia 1+ 08/08/21 18:40 Poikilocytosis Not Reportable 08/08/21 18:40 Anisocytosis Not Reportable 08/08/21 18:40 Microcytosis Few 08/08/21 18:40 Macrocytosis Not Reportable 08/08/21 18:40 Spherocytes Not Reportable 08/08/21 18:40 Pappenheimer Bodies Not Reportable 08/08/21 18:40 Sickle Cells Not Reportable 08/08/21 18:40 Target Cells Not Reportable 08/08/21 18:40 Tear Drop Cells Not Reportable 08/08/21 18:40 Ovalocytes Few 08/08/21 18:40 Helmet Cells Not Reportable 08/08/21 18:40 [place] Bodies Not Reportable 08/08/21 18:40 Moody Rings Not Reportable 08/08/21 18:40 [place] Cells Not Reportable 08/08/21 18:40 Bite Cells Not Reportable 08/08/21 18:40 Crenated Cell Not Reportable 08/08/21 18:40 Elliptocytes Rare 08/08/21 18:40 Acanthocytes (Spur) Not Reportable 08/08/21 18:40 Rouleaux Not Reportable 08/08/21 18:40 Hemoglobin C Crystals Not Reportable 08/08/21 18:40 Schistocytes Not Reportable 08/08/21 18:40 Malaria parasites Not Reportable 08/08/21 18:40 Jacob Bodies Not Reportable 08/08/21 18:40 Hem Pathologist Commnt No 08/08/21 18:40 PT 13.9 Sec. (12.2-14.9) 08/09/21 10:42 INR 0.96 (0.87-1.13) 08/09/21 10:42 APTT 29.3 Sec. (24.2-36.6) 08/09/21 10:42 Heparin Anti-Xa Level 0.13 U.I./ml (0.3-0.7) L 08/09/21 08:52 Sodium 134 mmol/L (137-145) L 08/09/21 03:27 Potassium 4.3 mmol/L (3.6-5.0) 08/09/21 03:27 Chloride 90.6 mmol/L (98-107) L 08/09/21 03:27 Carbon Dioxide 28 mmol/L (22-30) 08/09/21 03:27 Anion Gap 20 mmol/L 08/09/21 03:27 BUN 64 mg/dL (9-20) H 08/09/21 03:27 Creatinine 10.3 mg/dL (0.8-1.3) H 08/09/21 10:42 Estimated GFR 6 ml/min 08/09/21 10:42 BUN/Creatinine Ratio 6 % 08/09/21 03:27 Glucose 104 mg/dL (75-100) H 08/09/21 03:27 Calcium 8.6 mg/dL (8.4-10.2) 08/09/21 03:27 Total Bilirubin 0.30 mg/dL (0.1-1.2) 08/08/21 18:40 AST 27 units/L (5-40) 08/08/21 18:40 ALT 56 units/L (7-56) 08/08/21 18:40 Alkaline Phosphatase 143 units/L (35-129) H 08/08/21 18:40 Troponin T 0.089 ng/mL (0.00-0.029) H 08/09/21 00:51 Total Protein 5.9 g/dL (6.3-8.2) L 08/08/21 18:40 Albumin 3.0 g/dL (3.9-5) L 08/08/21 18:40 Albumin/Globulin Ratio 1.0 % 08/08/21 18:40 Triglycerides 131 mg/dL (2-149) 08/08/21 20:48 Cholesterol 189 mg/dL (50-199) 08/08/21 20:48 LDL Cholesterol Direct 115 mg/dL (50-130) 08/08/21 20:48 HDL Cholesterol 50 mg/dL (40-59) 08/08/21 20:48 Cholesterol/HDL Ratio 3.78 % 08/08/21 20:48 TSH 3.550 mlU/mL (0.270-4.200) 08/08/21 18:40 Free T4 1.43 ng/dL (0.76-1.46) 08/08/21 18:40 Objective - Constitutional Vitals: Last Vital Signs Temp 98.8 F 08/10/21 04:56 Pulse 76 08/10/21 04:56 Resp 16 08/10/21 04:56 BP 150/79 08/10/21 09:18 Pulse Ox 100 08/10/21 04:56 - Labs Lab Results: Laboratory Results - last 24 hr 08/09/21 08/09/21 08/09/21 08:52 10:42 10:42 WBC 7.4 RBC 3.39 L Hgb 9.6 L Hct 29.5 L MCV 87 MCH 28 MCHC 33 RDW 26.0 H Plt Count 358 PT 13.9 INR 0.96 APTT 29.3 Heparin Anti-Xa Level 0.13 L Creatinine Estimated GFR 08/09/21 10:42 WBC RBC Hgb Hct MCV MCH MCHC RDW Plt Count PT INR APTT Heparin Anti-Xa Level Creatinine 10.3 H Estimated GFR 6 Medications & Allergies - Medications Allergies/Adverse Reactions: Allergies No Known Allergies Allergy (Verified 08/08/21 17:42) Home Medications: Home Medications Medication Instructions Recorded Confirmed Last Taken Type Cinacalcet [Sensipar] 60 mg PO QDAY #30 tablet 05/21/21 08/09/21 08/08/21 Rx Sevelamer Carbonate [Renvela] 2,400 mg PO TIDWM #90 tablet 05/21/21 08/09/21 08/08/21 Rx amLODIPine 10 mg PO DAILY #30 05/21/21 08/09/21 08/08/21 Rx traMADoL [Ultram 50 MG tab] 50 mg PO BID PRN #30 tablet 05/21/21 08/09/21 08/08/21 Rx Albuterol Mdi (or & Nicu Only) 2 puff IH QID PRN #8.5 gram 08/02/21 08/09/21 08/08/21 Rx [ProAir HFA Inhaler] Ascorbic Acid [Vitamin C] 500 mg PO QDAY #30 tablet 08/02/21 08/09/21 08/08/21 Rx Cholecalciferol Vit D3 [Vitamin D3 1,000 unit PO QDAY #30 tablet 08/02/21 08/09/21 08/08/21 Rx 1,000 UNIT TAB] Dexamethasone 6 mg PO DAILY #5 tablet 08/02/21 08/09/21 08/07/21 Rx Zinc Sulfate 220 mg PO QDAY #30 capsule 08/02/21 08/09/21 08/08/21 Rx ALBUTEROL NEB's [Proventil 0.083% 1 vial IH Q46H PRN 08/09/21 08/09/21 08/08/21 History NEBS] Montelukast [Singulair] 10 mg PO QPM 08/09/21 08/09/21 08/08/21 History Amiodarone [Cordarone 200 MG TAB] 200 mg PO BID tablet 08/10/21 Unknown Rx Apixaban [Eliquis] 5 mg PO Q12HR #60 tablet 08/10/21 Unknown Rx Apixaban [Eliquis] 10 mg PO Q12HR #12 tablet 08/10/21 Unknown Rx Aspirin EC [Ecotrin] 325 mg PO QDAY tablet 08/10/21 Unknown Rx Metoprolol [Lopressor TAB] 50 mg PO BID tablet 08/10/21 Unknown Rx Pantoprazole [Protonix TAB] 40 mg PO QDAC tablet 08/10/21 Unknown Rx Active Medications: Generic Name Dose Route Start Last Admin Trade Name Freq PRN Reason Stop Dose Admin Acetaminophen 650 mg 08/08/21 23:50 Acetaminophen 325 Mg Tab PO Q6H PRN Pain MILD(1-3)/Fever >100.5/JOHN Albuterol 2.5 mg 08/09/21 10:08 Albuterol 2.5 Mg/3 Ml Nebu IH Q4HRT PRN Shortness Of Breath Amiodarone HCl 200 mg 08/09/21 10:00 08/10/21 09:08 Amiodarone 200 Mg Tab PO 200 mg BID CHRISTINA Administration Amlodipine Besylate 10 mg 08/09/21 11:00 08/10/21 09:07 Amlodipine 10 Mg Tab PO 10 mg DAILY CHRISTINA Administration Apixaban 10 mg 08/09/21 11:00 08/10/21 09:08 Apixaban 5 Mg Tab PO 08/15/21 22:01 10 mg Q12HR CHRISTINA Administration Protocol Apixaban 5 mg 08/16/21 10:00 Apixaban 5 Mg Tab PO Q12HR CHRISTINA Protocol Ascorbic Acid 500 mg 08/09/21 11:00 08/10/21 09:08 Ascorbic Acid 500 Mg Tab PO 500 mg QDAY CHRISTINA Administration Aspirin 325 mg 08/09/21 11:00 08/10/21 09:07 Aspirin Ec 325 Mg Tab PO 325 mg QDAY CHRISTINA Administration Cholecalciferol 1,000 unit 08/10/21 10:00 08/10/21 09:07 Cholecalciferol (Vit D3) 1000 Unit (25 Mcg) Tab PO 1,000 unit QDAY CHRISTINA Administration Cinacalcet 60 mg 08/09/21 11:00 08/10/21 09:07 Cinacalcet 30 Mg Tab PO 60 mg QDAY CHRISTINA Administration Sodium Chloride 100 mls @ 999 mls/hr 08/09/21 09:27 Nacl 0.9% IV RUFUS PRN Hypotension Magnesium Hydroxide 30 ml 08/08/21 23:50 Magnesium Hydroxide (Mom) Oral Liqd Udc PO Q4H PRN Constipation Metoprolol Tartrate 50 mg 08/09/21 11:00 08/10/21 09:18 Metoprolol Tartrate 50 Mg Tab PO 50 mg BID CHRISTINA Administration Montelukast Sodium 10 mg 08/09/21 18:00 08/09/21 17:54 Montelukast 10 Mg Tab PO 10 mg QPM CHRISTINA Administration Morphine Sulfate 4 mg 08/08/21 23:50 08/09/21 22:19 Morphine 4 Mg/1 Ml Inj IV 4 mg Q4H PRN Administration Pain , Severe (7-10) Pantoprazole Sodium 40 mg 08/10/21 16:30 Pantoprazole 40 Mg Tab PO QDAC CHRISTINA Sevelamer Carbonate 2,400 mg 08/09/21 12:00 08/10/21 09:06 Sevelamer Carbonate 800 Mg Tab PO 2,400 mg TIDWM CHRISTINA Administration Sodium Chloride 10 ml 08/09/21 10:00 08/10/21 09:25 Sodium Chloride 0.9% 10 Ml Flush Syringe IV 10 ml BID CHRISTINA Administration Sodium Chloride 10 ml 08/08/21 23:50 Sodium Chloride 0.9% 10 Ml Flush Syringe IV PRN PRN LINE FLUSH Tramadol HCl 50 mg 08/09/21 09:51 Tramadol 50 Mg Tab PO BID PRN Pain, Moderate (4-6) Zinc Sulfate 220 mg 08/09/21 11:00 08/10/21 09:07 Zinc Sulfate 220 Mg Cap PO 220 mg QDAY CHRISTINA Administration
--- NOTE | 2021-08-10 15:02 | Progress Note ---
Assessment and Plan Impression * End-stage renal disease on maintenance hemodialysis * Acute pulmonary embolism * COVID-19 infection * Hypertension * Anemia secondary to ESRD Recommendations * Patient had uneventful hemodialysis yesterday * Keep him on TTS schedule for now. Switch him over to MWF from next week * Anticoagulation as per primary team * Management of Covid infection as per primary team * Adjust diet and meds for ESRD state * No IV, BP or venipuncture in his access arm * Avoid nephrotoxins * Monitor fluid status and electrolytes closely * Epogen with dialysis Subjective Date of service: 08/10/21 Interval history: Patient is comfortable today. Shortness of breath is better. No nausea or vomiting. Objective - Vital Signs Vital signs: Vital Signs - 12hr 08/10/21 08/10/21 08/10/21 04:56 09:16 09:18 Temperature 98.8 F Pulse Rate 76 78 Respiratory 16 Rate Blood Pressure 122/63 150/79 150/79 O2 Sat by Pulse 100 100 Oximetry 08/10/21 11:38 Temperature 98.1 F Pulse Rate 75 Respiratory 19 Rate Blood Pressure 116/64 O2 Sat by Pulse 99 Oximetry - General Appearance General appearance: well-developed, well-nourished, appears stated age EENT: PERRL, mucous membranes moist Neck: no JVD, no thyromegaly, no carotid bruit, supple Respiratory: Present: Clear to Ascultation Cardiology: regular, normal heart rate, S1S2, no murmurs Gastrointestinal: normal, normoactive bowel sounds Integumentary: no rash, other (No edema. AV fistula right upper arm. Good bruit and thrill.) - Lab 08/09/21 10:42 08/09/21 10:42 Most recent lab results Calcium 8.6 mg/dL (8.4-10.2) 08/09/21 03:27 Medications & Allergies - Medications Allergies/Adverse Reactions: Allergies No Known Allergies Allergy (Verified 08/08/21 17:42) Home Medications: Home Medications Medication Instructions Recorded Confirmed Last Taken Type Cinacalcet [Sensipar] 60 mg PO QDAY #30 tablet 05/21/21 08/09/21 08/08/21 Rx Sevelamer Carbonate [Renvela] 2,400 mg PO TIDWM #90 tablet 05/21/21 08/09/21 08/08/21 Rx amLODIPine 10 mg PO DAILY #30 07/26/21 10/14/21 10/13/21 Rx traMADoL [Ultram 50 MG tab] 50 mg PO BID PRN #30 tablet 05/21/21 08/09/2107/27 Rx Albuterol Mdi (or & Nicu Only) 2 puff IH QID PRN #8.5 gram 08/02/21 08/09/21 08/08/21 Rx [ProAir HFA Inhaler] Ascorbic Acid [Vitamin C] 500 mg PO QDAY #30 tablet 08/02/21 08/09/21 08/08/21 Rx Cholecalciferol Vit D3 [Vitamin D3 1,000 unit PO QDAY #30 tablet 08/02/21 08/09/21 08/08/21 Rx 1,000 UNIT TAB] Dexamethasone 6 mg PO DAILY #5 tablet 08/02/21 08/09/21 08/07/21 Rx Zinc Sulfate 220 mg PO QDAY #30 capsule 08/02/21 08/09/21 08/08/21 Rx ALBUTEROL NEB's [Proventil 0.083% 1 vial IH Q46H PRN 08/09/21 08/09/21 08/08/21 History NEBS] Montelukast [Singulair] 10 mg PO QPM 08/09/21 08/09/21 08/08/21 History Amiodarone [Cordarone 200 MG TAB] 200 mg PO BID tablet 08/10/21 Unknown Rx Apixaban [Eliquis] 5 mg PO Q12HR #60 tablet 08/10/21 Unknown Rx Apixaban [Eliquis] 10 mg PO Q12HR #12 tablet 08/10/21 Unknown Rx Aspirin EC [Ecotrin] 325 mg PO QDAY tablet 08/10/21 Unknown Rx Metoprolol [Lopressor TAB] 50 mg PO BID tablet 08/10/21 Unknown Rx Pantoprazole [Protonix TAB] 40 mg PO QDAC tablet 08/10/21 Unknown Rx Active Medications: Generic Name Dose Route Start Last Admin Trade Name Freq PRN Reason Stop Dose Admin Acetaminophen 650 mg 08/08/21 23:50 Acetaminophen 325 Mg Tab PO Q6H PRN Pain MILD(1-3)/Fever >100.5/JOHN Albuterol 2.5 mg 08/09/21 10:08 Albuterol 2.5 Mg/3 Ml Nebu IH Q4HRT PRN Shortness Of Breath Amiodarone HCl 200 mg 08/09/21 10:00 08/10/21 09:08 Amiodarone 200 Mg Tab PO 200 mg BID CHRISTINA Administration Amlodipine Besylate 10 mg 08/09/21 11:00 08/10/21 09:07 Amlodipine 10 Mg Tab PO 10 mg DAILY CHRISTINA Administration Apixaban 10 mg 08/09/21 11:00 08/10/21 09:08 Apixaban 5 Mg Tab PO 08/15/21 22:01 10 mg Q12HR CHRISTINA Administration Protocol Apixaban 5 mg 08/16/21 10:00 Apixaban 5 Mg Tab PO Q12HR CHRISTINA Protocol Ascorbic Acid 500 mg 08/09/21 11:00 08/10/21 09:08 Ascorbic Acid 500 Mg Tab PO 500 mg QDAY CHRISTINA Administration Aspirin 325 mg 08/09/21 11:00 08/10/21 09:07 Aspirin Ec 325 Mg Tab PO 325 mg QDAY CHRISTINA Administration Cholecalciferol 1,000 unit 08/10/21 10:00 08/10/21 09:07 Cholecalciferol (Vit D3) 1000 Unit (25 Mcg) Tab PO 1,000 unit QDAY CHRISTINA Administration Cinacalcet 60 mg 08/09/21 11:00 08/10/21 09:07 Cinacalcet 30 Mg Tab PO 60 mg QDAY CHRISTINA Administration Sodium Chloride 100 mls @ 999 mls/hr 08/09/21 09:27 Nacl 0.9% IV RUFUS PRN Hypotension Magnesium Hydroxide 30 ml 08/08/21 23:50 Magnesium Hydroxide (Mom) Oral Liqd Udc PO Q4H PRN Constipation Metoprolol Tartrate 50 mg 08/09/21 11:00 08/10/21 09:18 Metoprolol Tartrate 50 Mg Tab PO 50 mg BID CHRISTINA Administration Montelukast Sodium 10 mg 08/09/21 18:00 08/09/21 17:54 Montelukast 10 Mg Tab PO 10 mg QPM CHRISTINA Administration Morphine Sulfate 4 mg 08/08/21 23:50 08/09/21 22:19 Morphine 4 Mg/1 Ml Inj IV 4 mg Q4H PRN Administration Pain , Severe (7-10) Pantoprazole Sodium 40 mg 08/10/21 16:30 Pantoprazole 40 Mg Tab PO QDAC CHRISTINA Sevelamer Carbonate 2,400 mg 08/09/21 12:00 08/10/21 14:50 Sevelamer Carbonate 800 Mg Tab PO 2,400 mg TIDWM CHRISTINA Administration Sodium Chloride 10 ml 08/09/21 10:00 08/10/21 09:25 Sodium Chloride 0.9% 10 Ml Flush Syringe IV 10 ml BID CHRISTINA Administration Sodium Chloride 10 ml 08/08/21 23:50 Sodium Chloride 0.9% 10 Ml Flush Syringe IV PRN PRN LINE FLUSH Tramadol HCl 50 mg 08/09/21 09:51 Tramadol 50 Mg Tab PO BID PRN Pain, Moderate (4-6) Zinc Sulfate 220 mg 08/09/21 11:00 08/10/21 09:07 Zinc Sulfate 220 Mg Cap PO 220 mg QDAY CHRISTINA Administration
[2021-08-10] MEDS: MONTELUKAST 10 MG TAB PO SCH (17:48)
[2021-08-10] MEDS: PANTOPRAZOLE 40 MG TAB PO SCH (17:48)
[2021-08-11 06:39] LABS: Hematocrit 27.2 % (35.5-45.6); Hemoglobin 9.2 gm/dl (11.8-15.2); Mean Corpuscular HGB Conc 34 % (32-34); Mean Corpuscular Volume 88 fl (84-94); Platelet Count 302 K/mm3 (140-440); Red Blood Count 3.08 M/mm3 (3.65-5.03)
[2021-08-11 06:46] LABS: Red Cell Distribution Width 26.5 % (13.2-15.2)
[2021-08-11] MEDS: SEVELAMER CARBONATE 800 MG TAB PO SCH ×2 (09:28→13:13)
[2021-08-11] MEDS: PANTOPRAZOLE 40 MG TAB PO SCH (09:30)
[2021-08-11] MEDS: ASPIRIN EC 325 MG TAB PO SCH ×2 (10:44→13:27)
[2021-08-11] MEDS: amLODIPine 10 MG TAB PO SCH (10:44)
[2021-08-11] MEDS: AMIODARONE 200 MG TAB PO SCH (10:44)
[2021-08-11] MEDS: APIXABAN 5 MG TAB PO SCH ×2 (10:45→13:27)
[2021-08-11] MEDS: METOPROLOL TARTRATE 50 MG TAB PO SCH (10:45)
[2021-08-11] MEDS: CHOLECALCIFEROL (VIT D3) 1000 UNIT (25 mcg) TAB PO SCH ×2 (10:46→13:28)
[2021-08-11] MEDS: ZINC SULFATE 220 MG CAP PO SCH (10:46)
[2021-08-11] MEDS: CINACALCET 30 MG TAB PO SCH ×2 (10:46→13:28)
--- NOTE | 2021-08-11 11:12 | Progress Note ---
Assessment and Plan Impression * End-stage renal disease on maintenance hemodialysis * Acute pulmonary embolism * COVID-19 infection * Hypertension * Anemia secondary to ESRD Recommendations * Patient is scheduled for hemodialysis treatment for today * Switch him over to MWF from next week * Anticoagulation as per primary team * Management of Covid infection as per primary team * Adjust diet and meds for ESRD state * No IV, BP or venipuncture in his access arm * Avoid nephrotoxins * Monitor fluid status and electrolytes closely * Epogen with dialysis * Okay to discharge patient after dialysis. Subjective Date of service: 08/11/21 Interval history: Patient is comfortable today Objective - Exam Narrative Exam: Physical exam deferred due to patient's Covid positive status - Vital Signs Vital signs: Vital Signs - 12hr 08/11/21 08/11/21 08/11/21 03:28 09:30 09:45 Temperature 97.7 F 97.7 F Pulse Rate 69 66 67 Respiratory 16 18 Rate Blood Pressure 131/67 125/74 128/72 O2 Sat by Pulse 99 Oximetry O2 Sat by Pulse 98 Oximetry [ Bilateral] 08/11/21 08/11/21 08/11/21 10:00 10:15 10:30 Temperature Pulse Rate 67 66 67 Respiratory Rate Blood Pressure 131/65 116/63 131/70 O2 Sat by Pulse Oximetry O2 Sat by Pulse Oximetry [ Bilateral] 08/11/21 08/11/21 10:45 11:00 Temperature Pulse Rate 66 68 Respiratory Rate Blood Pressure 122/66 118/66 O2 Sat by Pulse Oximetry O2 Sat by Pulse Oximetry [ Bilateral] - Lab 08/11/21 05:32 08/09/21 10:42 Most recent lab results Calcium 8.6 mg/dL (8.4-10.2) 08/09/21 03:27 Medications & Allergies - Medications Allergies/Adverse Reactions: Allergies No Known Allergies Allergy (Verified 08/08/21 17:42) Home Medications: Home Medications Medication Instructions Recorded Confirmed Last Taken Type Cinacalcet [Sensipar] 60 mg PO QDAY #30 tablet 05/21/21 08/09/21 08/08/21 Rx Sevelamer Carbonate [Renvela] 2,400 mg PO TIDWM #90 tablet 05/21/21 08/09/21 08/08/21 Rx amLODIPine 10 mg PO DAILY #30 05/21/21 08/09/2121 Rx traMADoL [Ultram 50 MG tab] 50 mg PO BID PRN #30 tablet 05/21/21 08/09/21 08/08/21 Rx Albuterol Mdi (or & Nicu Only) 2 puff IH QID PRN #8.5 gram 08/02/21 08/09/21 08/08/21 Rx [ProAir HFA Inhaler] Ascorbic Acid [Vitamin C] 500 mg PO QDAY #30 tablet 08/02/21 08/09/21 08/08/21 Rx Cholecalciferol Vit D3 [Vitamin D3 1,000 unit PO QDAY #30 tablet 08/02/21 08/09/21 08/08/21 Rx 1,000 UNIT TAB] Dexamethasone 6 mg PO DAILY #5 tablet 08/02/21 08/09/21 08/07/21 Rx Zinc Sulfate 220 mg PO QDAY #30 capsule 08/02/21 08/09/21 08/08/21 Rx ALBUTEROL NEB's [Proventil 0.083% 1 vial IH Q46H PRN 08/09/21 08/09/21 08/08/21 History NEBS] Montelukast [Singulair] 10 mg PO QPM 08/09/21 08/09/21 08/08/21 History Amiodarone [Cordarone 200 MG TAB] 200 mg PO BID tablet 08/10/21 Unknown Rx Apixaban [Eliquis] 5 mg PO Q12HR #60 tablet 08/10/21 Unknown Rx Apixaban [Eliquis] 10 mg PO Q12HR #12 tablet 08/10/21 Unknown Rx Aspirin EC [Ecotrin] 325 mg PO QDAY tablet 08/10/21 Unknown Rx Metoprolol [Lopressor TAB] 50 mg PO BID tablet 08/10/21 Unknown Rx Pantoprazole [Protonix TAB] 40 mg PO QDAC tablet 08/10/21 Unknown Rx Active Medications: Generic Name Dose Route Start Last Admin Trade Name Freq PRN Reason Stop Dose Admin Acetaminophen 650 mg 08/08/21 23:50 Acetaminophen 325 Mg Tab PO Q6H PRN Pain MILD(1-3)/Fever >100.5/JOHN Albuterol 2.5 mg 08/09/21 10:08 Albuterol 2.5 Mg/3 Ml Nebu IH Q4HRT PRN Shortness Of Breath Amiodarone HCl 200 mg 08/09/21 10:00 08/11/21 10:44 Amiodarone 200 Mg Tab PO Not Given BID [facility] Amlodipine Besylate 10 mg 08/09/21 11:00 08/11/21 10:44 Amlodipine 10 Mg Tab PO Not Given DAILY [facility] Apixaban 10 mg 08/09/21 11:00 08/11/21 10:45 Apixaban 5 Mg Tab PO 08/15/21 22:01 Not Given Q12HR [facility] Protocol Apixaban 5 mg 08/16/21 10:00 Apixaban 5 Mg Tab PO Q12HR [facility] Protocol Ascorbic Acid 500 mg 08/09/21 11:00 08/10/21 09:08 Ascorbic Acid 500 Mg Tab PO 500 mg QDAY [facility] Administration Aspirin 325 mg 08/09/21 11:00 08/11/21 10:44 Aspirin Ec 325 Mg Tab PO Not Given QDAY [facility] Cholecalciferol 1,000 unit 08/10/21 10:00 08/11/21 10:46 Cholecalciferol (Vit D3) 1000 Unit (25 Mcg) Tab PO Not Given QDAY [facility] Cinacalcet 60 mg 08/09/21 11:00 08/11/21 10:46 Cinacalcet 30 Mg Tab PO Not Given QDAY [facility] Sodium Chloride 100 mls @ 999 mls/hr 08/09/21 09:27 Nacl 0.9% IV RUFUS PRN Hypotension Magnesium Hydroxide 30 ml 08/08/21 23:50 Magnesium Hydroxide (Mom) Oral Liqd Udc PO Q4H PRN Constipation Metoprolol Tartrate 50 mg 08/09/21 11:00 08/11/21 10:45 Metoprolol Tartrate 50 Mg Tab PO Not Given BID [facility] Montelukast Sodium 10 mg 08/09/21 18:00 08/10/21 17:48 Montelukast 10 Mg Tab PO 10 mg QPM [facility] Administration Morphine Sulfate 4 mg 08/08/21 23:50 08/09/21 22:19 Morphine 4 Mg/1 Ml Inj IV 4 mg Q4H PRN Administration Pain , Severe (7-10) Pantoprazole Sodium 40 mg 08/10/21 16:30 08/11/21 09:30 Pantoprazole 40 Mg Tab PO Not Given QDAC [facility] Sevelamer Carbonate 2,400 mg 08/09/21 12:00 08/11/21 09:28 Sevelamer Carbonate 800 Mg Tab PO Not Given TIDWM [facility] Sodium Chloride 10 ml 08/09/21 10:00 08/10/21 22:44 Sodium Chloride 0.9% 10 Ml Flush Syringe IV 10 ml BID [facility] Administration Sodium Chloride 10 ml 08/08/21 23:50 Sodium Chloride 0.9% 10 Ml Flush Syringe IV PRN PRN LINE FLUSH Tramadol HCl 50 mg 08/09/21 09:51 Tramadol 50 Mg Tab PO BID PRN Pain, Moderate (4-6) Zinc Sulfate 220 mg 08/09/21 11:00 08/11/21 10:46 Zinc Sulfate 220 Mg Cap PO Not Given QDAY [facility]
--- NOTE | 2021-08-11 11:32 | Discharge Summary ---
Providers - Providers Date of Admission: 08/08/21 23:50 Attending physician: ANDREW CASTELAN MD 08/08/21 23:51 Consult to Dietitian/Nutrition [CONS] Routine Physician Instructions: Reason For Exam: Reason for Consult: Diet education Consult to Physician [CONS] Routine Comment: Consulting Provider: MILAGROS PRADHAN Physician Instructions: Reason For Exam: BILATERAL PULMONARY EMBOLISM 08/08/21 23:56 Consult to Physician [CONS] Routine Comment: Consulting Provider: LUIS FERNANDO SUE Physician Instructions: Reason For Exam: ESRD ON DIALYSIS 08/09/21 08:46 Consult to Physician [CONS] Routine Comment: Consulting Provider: BONNIE DELGADO Physician Instructions: Reason For Exam: pulmonary embolisim 08/09/21 08:47 Consult to Physician [CONS] Routine Comment: Consulting Provider: JASON CANAS Physician Instructions: Reason For Exam: pulmonary embolisim while on ?Eliqus Primary care physician: REMOTE CONTROL ASSEMBLER Hospitalization Reason for admission: shortness of breath Condition: Stable Hospital course: 61-year-old male with known history of hypertension, end-stage renal disease on dialysis on Mondays, Wednesdays and Fridays presenting in the emergency room today complaining of palpitations. Patient was seen at the dialysis center today and was referred to the emergency room for evaluation of his palpitation and elevated heart rate. Patient was recently discharged from this hospital earlier this month after having a COVID-19 infection. He Complains of shortness of breath especially on exertion , he denies any chest pain, no headache or dizziness and no diaphoresis. Patient denies any nausea vomiting and no abdominal pain. Denies any fever or chills. Work-up in the emergency room today, chest x-ray reveals:Probable minimal interstitial edema. Significant improvement in bilateral parenchymal disease since the prior exam. CT angiogram of the chest reveals: 1. Multiple filling defects within the subsegmental arteries of the right lower lobe and left lower lobe consistent with pulmonary emboli. 2. Scattered groundglass opacities at the lungs which can be seen with atypical infectious process. Patient is being admitted with bilateral pulmonary embolism and has been started on heparin drip. 08/09/21: Patient seen and examined today appears to be showing some improvement. Repeat studies including COVID-19. Will consult hematology oncologist for further evaluation considering pulmonary embolism while on Eliquis. Although on repeat discussion with the patient he says he had not taken the Eliquis for about a month because he did not know he did refill. I am still not sure as to why he was given Eliquis in the first place he did tell me that he had some clotting issues at that time which is why he was started, however he was not. IR has also been consulted to evaluate the patient. Of discussed with pharmacy will be discontinuing the heparin drip and starting the patient back on Eliquis. Anticipate discharge in 24 to 48 hours based on how he is doing We will repeat a walk test in a.m. 08/10: Patient Seen and examined, Clinically stable at this time. Educated about his medical condition and importance of compliance with medications. Doppler reveealed DVT 08/11: Patient was discharged yesterday but did not leave this moment. Puddler Helper wanted to diurese the patient additionally. He remains on O2 2 L which are not sure why as he is home O2 eval showed that he sats 98% on room air and with exertion 96%. He does not endorse any shortness of breath at this time to me. He is clinically stable for discharge following dialysis (1) Bilateral pulmonary embolism Current Visit: Yes Status: Acute Plan to address problem: Patient currently on anticoagulation with heparin drip. Consult has also been placed to vascular surgery for evaluation. (2) ESRD (end stage renal disease) on dialysis Current Visit: No Status: Acute Plan to address problem: Consult placed to nephrology for evaluation. (3) Hypertension Current Visit: No Status: Acute Plan to address problem: We will resume routine home medications and monitor vital signs closely. (4) History of COVID-19 Current Visit: Yes Status: Acute Plan to address problem: Patient was recently treated for COVID-19 and recently discharged. We will consult infectious disease for follow-up if needed (5) Paroxysmal atrial fibrillation Current Visit: No Status: Acute Plan to address problem: Rate is currently controlled. Will monitor EKG. Patient on anticoagulation. (6) DVT LOWER EXT (7) Non compliance Current Visit: No Status: Acute Plan to address problem: Patient is full code. Disposition: HOME HEALTH CARE SERVICE Final Discharge Diagnosis (Prints w/discharge instructions): Bilateral Pulmonary Embolism with Atrial Flutter Time spent for discharge: 35 mins Core Measure Documentation - Palliative Care Palliative Care/ Comfort Measures: Not Applicable - Core Measures Any of the following diagnoses?: DVT/PE - VTE Discharge Requirements Deep Vein Thrombosis/Pulmonary Embolism Present on Admission: Yes Has pt received <5 days of overlap therapy or INR<2.0: Yes Anticoagulant overlap therapy prescribed at discharge: Yes Exam - Physical Exam Narrative exam: VITAL SIGNS: Reviewed. GENERAL: The patient appears normally developed, Vital signs as documented. HEAD: No signs of head trauma. EYES: Pupils are equal. Extraocular motions intact. EARS: Hearing grossly intact. MOUTH: Oropharynx is normal. NECK: No adenopathy, no JVD. CHEST: Chest with diminished breath sounds bilaterally. No wheezes, rales, or rhonchi. CARDIAC: Regular rate and rhythm. S1 and S2, without murmurs, gallops, or rubs. VASCULAR: No Edema. Peripheral pulses normal and equal in all extremities. ABDOMEN: Soft, non tender and non distended. No rebound or guarding, and no masses palpated. Bowel Sounds normal. MUSCULOSKELETAL: Good range of motion of all major joints. AV Graft on right upper ext with palpable thrill. Extremities without clubbing, cyanosis or edema. NEUROLOGIC EXAM: Alert and oriented x 3 No focal sensory or strength deficits. Speech normal. Follows commands. PSYCHIATRIC: Mood normal. SKIN: detail exam as documented in skin assessment - Constitutional Vitals: Temp Pulse Resp BP Pulse Ox 97.7 F 66 18 126/66 98 08/11/21 09:30 08/11/21 11:15 08/11/21 09:30 08/11/21 11:15 08/11/21 09:30 Plan Activity: advance as tolerated, fall precautions Diet: renal Special Instructions: restrict fluid intake to (Per lumber driver recommendation), record daily weights, record daily BP diary Follow up with: BONNIE DELGADO MD [Staff Physician] - 7 Days STEPHIE MODI MD [Staff Physician] - 7 Days FLAVIA CRUZ MD [Staff Physician] - 7 Days HARPER UMANA MD [Primary Care Provider] - 3-5 Days Prescriptions: Apixaban [Eliquis] 5 mg PO Q12HR #60 tablet Apixaban [Eliquis] 10 mg PO Q12HR #12 tablet
[2021-08-11] MEDS: ASCORBIC ACID 500 MG TAB PO SCH (13:27)
--- NOTE | 2021-08-11 13:32 | Progress Note ---
Assessment and Plan 61 y/o male with bilateral pulmonary emboli per rads already on oral anticoagulation as outpatient but has stopped using it about a month ago. 08/11/2021: Patient will require oral anticoagulation for long-term basis possibly indefinitely given that he also have history of atrial fibrillation. 08/10/21: DVT positive. Agree with heme and oral anticoagulation. Suggest walk test to assess if oxygen need is there and if so Pulmonary embolism should suffice as a diagnosis. Rate control per primary team and cards. Should be ready for discharge soon. Subjective Date of service: 08/11/21 Interval history: Patient currently on dialysis. Overall feeling better. On supplemental oxygen. Objective - Exam Narrative Exam: VITAL SIGNS: Reviewed. GENERAL: The patient appears normally developed, Vital signs as documented. HEAD: No signs of head trauma. EYES: Pupils are equal. Extraocular motions intact. EARS: Hearing grossly intact. MOUTH: Oropharynx is normal. NECK: No adenopathy, no JVD. CHEST: Chest with diminished breath sounds bilaterally. No wheezes, rales, or rhonchi. CARDIAC: Regular rate and rhythm. S1 and S2, without murmurs, gallops, or rubs. VASCULAR: No Edema. Peripheral pulses normal and equal in all extremities. ABDOMEN: Soft, non tender and non distended. No rebound or guarding, and no masses palpated. Bowel Sounds normal. MUSCULOSKELETAL: Good range of motion of all major joints. AV Graft on right upper ext with palpable thrill. Extremities without clubbing, cyanosis or edema. NEUROLOGIC EXAM: Alert and oriented x 3 No focal sensory or strength deficits. Speech normal. Follows commands. PSYCHIATRIC: Mood normal. SKIN: detail exam as documented in skin assessment Vital Signs - 12hr 08/11/21 08/11/21 08/11/21 03:28 09:30 09:45 Temperature 97.7 F 97.7 F Pulse Rate 69 66 67 Respiratory 16 18 Rate Blood Pressure 131/67 125/74 128/72 O2 Sat by Pulse 99 Oximetry O2 Sat by Pulse 98 Oximetry [ Bilateral] 08/11/21 08/11/21 08/11/21 10:00 10:15 10:30 Temperature Pulse Rate 67 66 67 Respiratory Rate Blood Pressure 131/65 116/63 131/70 O2 Sat by Pulse Oximetry O2 Sat by Pulse Oximetry [ Bilateral] 08/11/21 08/11/2121 10:45 11:00 11:15 Temperature Pulse Rate 66 68 66 Respiratory Rate Blood Pressure 122/66 118/66 126/66 O2 Sat by Pulse Oximetry O2 Sat by Pulse Oximetry [ Bilateral] 08/11/21 08/11/21 08/11/21 11:30 11:45 12:00 Temperature Pulse Rate 63 69 62 Respiratory Rate Blood Pressure 119/67 122/59 112/61 O2 Sat by Pulse Oximetry O2 Sat by Pulse Oximetry [ Bilateral] 08/11/21 08/11/21 08/11/21 12:15 12:30 12:45 Temperature Pulse Rate 61 65 65 Respiratory Rate Blood Pressure 116/63 121/65 145/67 O2 Sat by Pulse Oximetry O2 Sat by Pulse Oximetry [ Bilateral] CBC and BMP: 08/11/21 05:32 08/09/21 10:42 ABG, PT/INR, D-dimer: PT/INR, D-dimer PT 13.9 Sec. (12.2-14.9) 08/09/21 10:42 INR 0.96 (0.87-1.13) 08/09/21 10:42 Abnormal lab findings: Abnormal Labs 08/08/21 08/08/21 08/08/21 18:40 18:40 20:48 RBC 3.64 L Hgb 10.9 L Hct 31.9 L RDW 25.6 H Seg Neuts % (Manual) 71.0 H Monocytes % (Manual) 14.0 H Lymphocytes # (Manual) 1.1 L Monocytes # (Manual) 1.1 H Heparin Anti-Xa Level Sodium 133 L Chloride 89.8 L BUN 58 H Creatinine 9.3 H Glucose Alkaline Phosphatase 143 H Troponin T 0.093 H 0.087 H Total Protein 5.9 L Albumin 3.0 L Coronavirus (PCR) 08/08/21 08/09/21 08/09/21 22:29 00:51 03:27 RBC Hgb 10.3 L Hct 30.1 L RDW Seg Neuts % (Manual) Monocytes % (Manual) Lymphocytes # (Manual) Monocytes # (Manual) Heparin Anti-Xa Level Sodium 134 L Chloride 90.6 L BUN 64 H Creatinine 10.4 H Glucose 104 H Alkaline Phosphatase Troponin T 0.089 H Total Protein Albumin Coronavirus (PCR) 08/09/21 08/09/2108/09/21 08:52 09:30 10:42 RBC 3.39 L Hgb 9.6 L Hct 29.5 L RDW 26.0 H Seg Neuts % (Manual) Monocytes % (Manual) Lymphocytes # (Manual) Monocytes # (Manual) Heparin Anti-Xa Level 0.13 L Sodium Chloride BUN Creatinine Glucose Alkaline Phosphatase Troponin T Total Protein Albumin Coronavirus (PCR) Positive A 08/09/21 08/11/21 10:42 05:32 RBC 3.08 L Hgb 9.2 L Hct 27.2 L RDW 26.5 H Seg Neuts % (Manual) Monocytes % (Manual) Lymphocytes # (Manual) Monocytes # (Manual) Heparin Anti-Xa Level Sodium Chloride BUN Creatinine 10.3 H Glucose Alkaline Phosphatase Troponin T Total Protein Albumin Coronavirus (PCR)
[2021-08-11 14:16] VITALS: BP 158/67
[2021-08-14 15:27] LABS: Heparin-Induced Platelet Antib Negative (Negative); Unfractionated Heparin Negative (Negative)
--- NOTE | 2021-08-15 14:27 | Electrocardiograph Report ---
[facility] Test Date: 2021-08-08 Test Time: 17:51:59 Pat Name: ALONZO LEDEZMA Department: Room: A365 Gender: M Civil Rights Investigator: PEARL : 1960 Requested By: DONA MATHEW Order Number: [id number] Reading MD: Flakita Parry Measurements Intervals [place] Rate: 127 P: GA: QRS: -1 QRSD: 78 T: 16 QT: 345 QTc: 502 Interpretive Statements Atrial tachycardia Ventricular premature complex Borderline T abnormalities, diffuse leads Prolonged QT interval Compared to ECG 07/28/2021 01:35:45 Atrial tachycardia has replaced sinus tachycardia Electronically Signed On 08-15-2021 14:27:09 EDT by Flakita Parry
--- NOTE | 2021-08-15 14:31 | Electrocardiograph Report ---
[facility] [place] [facility] Test Date: 2021-08-08 Test Time: 20:06:10 Pat Name: ALONZO LEDEZMA Department: Room: A365 Gender: M Yarn Wrapper: VASHTI : 1960 Requested By: DONA MATHEW Order Number: [id number] Reading MD: Flakita Parry Measurements Intervals [place] Rate: 126 P: 252 MS: 104 QRS: 44 QRSD: 88 T: 46 QT: 387 QTc: 561 Interpretive Statements Probably atrial fibrillation with rapid ventricular rate Compared to ECG 08/08/2021 17:51:59 No significant change Electronically Signed On 08-15-2021 14:31:07 EDT by Flakita Parry
[2021-08-16] MEDS ORDERED: APIXABAN 5 MG TAB PO SCH (10:00)
[2021-09-02 10:55] LABS: Hemoglobin A2 Prime SEE SCANNED RESULT; Hemoglobin Barts SEE SCANNED RESULT; Hemoglobin E SEE SCANNED RESULT; Hemoglobin G SEE SCANNED RESULT; Hemoglobin Lepore SEE SCANNED RESULT; Hemoglobin O-Arab SEE SCANNED RESULT; IEF Confirm SEE SCANNED RESULT; Sickle Solubility Test SEE SCANNED RESULT
[2021-09-02 10:56] LABS: Interpretation SEE SCANNED RESULT
== END 2021-08-11 14:49 | disposition home health service (06) | DRG 175 ==
LOC: ED 17:27 → CC1 23:50 → IMCU 08-09 09:44 → 3A 08-09 10:44
PROVIDERS: ADMIT Internal Medicine Geriatric Medicine; ATTEND Internal Medicine
PROC: 5A1D70Z Performance of Urinary Filtration, Intermittent, Less than 6 Hours Per Day (ICD-10-PCS; principal; 2021-08-09)
PROC: 5A1D70Z Performance of Urinary Filtration, Intermittent, Less than 6 Hours Per Day (ICD-10-PCS; 2021-08-11)
DX: I26.99 Other pulmonary embolism without acute cor pulmonale (principal); N18.6 End stage renal disease; I82.409 Acute embolism and thrombosis of unspecified deep veins of unspecified lower extremity; I12.0 Hypertensive chronic kidney disease with stage 5 chronic kidney disease or end stage renal disease; Z99.2 Dependence on renal dialysis; I48.0 Paroxysmal atrial fibrillation; I10 Essential (primary) hypertension; D63.1 Anemia in chronic kidney disease; J45.909 Unspecified asthma, uncomplicated; Z91.19 Patient's noncompliance with other medical treatment and regimen; Z79.01 Long term (current) use of anticoagulants; Z86.16 Personal history of COVID-19
CPT/HCPCS: 36415; 71045; 71275; 80048; 80053; 80061; 82565; 84439; 84443; 84484; 85007; 85014; 85018; 85025; 85027; 85049; 85520; 85610; 85730; 86022; 93005; 93970; G0378; J0885; J1644; J2270; Q9967; U0003

== ENCOUNTER 2021-08-20 17:16 | Emergency (ER) | payer MEDICARE ==
[2021-08-20 17:27] VITALS: BP 129/75
--- NOTE | 2021-08-20 18:33 | XRay Report ---
XR chest routine 2V INDICATION / CLINICAL INFORMATION: sob. COMPARISON: 08/08/2021 FINDINGS: SUPPORT DEVICES: None. HEART /PULMONARY VASCULATURE: No significant abnormality. LUNGS / PLEURA: Increased patchy airspace disease throughout the right lung. Mild opacities now noted within the left midlung. Trace bibasilar pleural effusions. No pneumothorax. ADDITIONAL FINDINGS: No significant additional findings. IMPRESSION: Worsening bilateral airspace disease, may reflect pulmonary edema or pneumonia. Signer Name: Alessio Kwan MD Signed: 08/20/2021 6:28 PM Workstation Name: [id number]
--- NOTE | 2021-08-20 18:58 | Event Note ---
Date: 08/20/21 61 YO Male with ESRD on HD, DVT/PE on Therapeutic anticoagulation with Eilquis, GERD presents to ED for evaluation. Patient was seen and evaluated by his metal bumper instructed to seek further care at [facility] for further care and evaluation. Patient seen and evaluated in the emergency department. All lab and imaging studies reviewed. Patient was found to have a pulse oximetry of 92% with exertion however the patient desaturated to 88% with exertion. Patient found to have chronic respiratory failure secondary to post coronavirus infection syndrome. Patient treated with supplemental oxygen with exertion with resolution of symptoms. Patient medically optimized and back to usual state of health. Patient discharged home with 3 L home oxygen via nasal cannula with exertion. Patient instructed to follow-up with primary care physician within 3 to 5 days. Patient instructed to follow-up with pulmonary as needed. Patient instructed to continue prehospital medication therapy. 35 minutes dedicated to patient discharge and coordination of care. - General Limitations: No Limitations General appearance: alert, in no apparent distress - Head Head exam: Present: atraumatic, normocephalic - Eye Eye exam: Present: normal appearance, EOMI - ENT ENT exam: Present: mucous membranes moist - Neck Neck exam: Present: normal inspection - Respiratory Respiratory exam: Present: normal lung sounds bilaterally. Absent: respiratory distress - Cardiovascular Cardiovascular Exam: Present: normal rhythm, tachycardia - GI/Abdominal GI/Abdominal exam: Present: soft. Absent: distended, tenderness - Extremities Exam Extremities exam: Present: normal inspection - Neurological Exam Neurological exam: Present: alert, oriented X3 - Psychiatric Psychiatric exam: Present: normal affect, normal mood - Skin Skin exam: Present: warm, dry, intact, normal color
--- NOTE | 2021-08-20 20:01 | Emergency Department Report ---
ED Shortness of Breath HPI - General Chief Complaint: Dyspnea/Respdistress Stated Complaint: OXYGEN LEVEL Time Seen by Provider: 08/20/21 17:42 Source: patient, family Mode of arrival: Wheelchair Limitations: No Limitations - History of Present Illness Initial Comments: 61-year-old male, history of ESRD on dialysis, DVT/PE on Eliquis, Covid pneumonia, presents to ED with shortness of breath since last night. Patient was discharged from the hospital 5 days ago for shortness of breath. 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 Patient states he is not on home O2. Patient states he went to dialysis today, also used his nebulizer treatments once he returned home. Patient is still reporting some dyspnea on exertion despite these interventions. Patient denies any chest pain. MD Complaint: shortness of breath -: Last night Severity: moderate Consistency: intermittent Improves With: oxygen, rest Worsens With: exertion Known History Of: other Treatments Prior to Arrival: bronchodilator - Related Data Home Oxygen Therapy: No Home Medications Medication Instructions Recorded Confirmed Last Taken ALBUTEROL NEB's [Proventil 0.083% 1 vial IH Q46H PRN 08/09/21 08/09/21 08/08/21 NEBS] Montelukast [Singulair] 10 mg PO QPM 08/09/21 08/09/21 08/08/21 Previous Rx's Medication Instructions Recorded Last Taken Type Cinacalcet [Sensipar] 60 mg PO QDAY #30 tablet 05/21/21 08/08/21 Rx Sevelamer Carbonate [Renvela] 2,400 mg PO TIDWM #90 tablet 05/21/21 08/08/21 Rx amLODIPine 10 mg PO DAILY #30 05/21/21 08/08/21 Rx traMADoL [Ultram 50 MG tab] 50 mg PO BID PRN #30 tablet 05/21/21 08/08/21 Rx Albuterol Mdi (or & Nicu Only) 2 puff IH QID PRN #8.5 gram 08/02/21 08/08/21 Rx [ProAir HFA Inhaler] Ascorbic Acid [Vitamin C] 500 mg PO QDAY #30 tablet 08/02/21 08/08/21 Rx Cholecalciferol Vit D3 [Vitamin D3 1,000 unit PO QDAY #30 tablet 08/02/21 08/08/21 Rx 1,000 UNIT TAB] Dexamethasone 6 mg PO DAILY #5 tablet 08/02/21 08/07/21 Rx Zinc Sulfate 220 mg PO QDAY #30 capsule 08/02/21 08/08/21 Rx Amiodarone [Cordarone 200 MG TAB] 200 mg PO BID tablet 08/10/21 Unknown Rx Apixaban [Eliquis] 5 mg PO Q12HR #60 tablet 08/10/21 Unknown Rx Apixaban [Eliquis] 10 mg PO Q12HR #12 tablet 08/10/21 Unknown Rx Aspirin EC [Ecotrin] 325 mg PO QDAY tablet 08/10/21 Unknown Rx Metoprolol [Lopressor TAB] 50 mg PO BID tablet 08/10/21 Unknown Rx Pantoprazole [Protonix TAB] 40 mg PO QDAC tablet 08/10/21 Unknown Rx Azithromycin [Zithromax TAB] 250 mg PO QDAY #6 tablet 08/20/21 Unknown Rx Prednisone [predniSONE 10 mg 10 mg PO .TAPER #1 tab.ds.pk 08/20/21 Unknown Rx (6-Day Pack, 21 Tabs)] Allergies Allergy/AdvReac Type Severity Reaction Status Date / Time No Known Allergies Allergy Verified 08/08/21 17:42 ED Review of Systems ROS: Stated complaint: OXYGEN LEVEL Other details as noted in HPI Comment: All other systems reviewed and negative Constitutional: denies: chills, fever Respiratory: shortness of breath Cardiovascular: denies: chest pain ED Past Medical Hx - Past Medical History Previous Medical History?: Yes Hx Hypertension: Yes Hx Heart Attack/AMI: No Hx Congestive Heart Failure: No Hx Diabetes: No Hx Liver Disease: No Hx Renal Disease: Yes (HD M-W-F) Hx Sickle Cell Disease: No Hx Seizures: No Hx Asthma: Yes Hx COPD: No Hx HIV: No Additional medical history: peritoneal dialysis (M/W/F) - Surgical History Past Surgical History?: Yes Hx Pacemaker: No Hx Internal Defibrillator: No Additional Surgical History: Right arm fistula, Peritoneal catheter - Social History Smoking Status: Never Smoker - Medications Home Medications: Home Medications Medication Instructions Recorded Confirmed Last Taken Type Cinacalcet [Sensipar] 60 mg PO QDAY #30 tablet 05/21/21 08/09/21 08/08/21 Rx Sevelamer Carbonate [Renvela] 2,400 mg PO TIDWM #90 tablet 05/21/21 08/09/21 08/08/21 Rx amLODIPine 10 mg PO DAILY #30 05/21/21 08/09/21 08/08/21 Rx traMADoL [Ultram 50 MG tab] 50 mg PO BID PRN #30 tablet 05/21/21 08/09/21 08/08/21 Rx Albuterol Mdi (or & Nicu Only) 2 puff IH QID PRN #8.5 gram 08/02/21 08/09/21 08/08/21 Rx [ProAir HFA Inhaler] Ascorbic Acid [Vitamin C] 500 mg PO QDAY #30 tablet 08/02/21 08/09/21 08/08/21 Rx Cholecalciferol Vit D3 [Vitamin D3 1,000 unit PO QDAY #30 tablet 08/02/21 08/09/21 08/08/21 Rx 1,000 UNIT TAB] Dexamethasone 6 mg PO DAILY #5 tablet 08/02/21 08/09/21 08/07/21 Rx Zinc Sulfate 220 mg PO QDAY #30 capsule 08/02/21 08/09/21 08/08/21 Rx ALBUTEROL NEB's [Proventil 0.083% 1 vial IH Q46H PRN 08/09/21 08/09/21 08/08/21 History NEBS] Montelukast [Singulair] 10 mg PO QPM 08/09/21 08/09/21 08/08/21 History Amiodarone [Cordarone 200 MG TAB] 200 mg PO BID tablet 08/10/21 Unknown Rx Apixaban [Eliquis] 5 mg PO Q12HR #60 tablet 08/10/21 Unknown Rx Apixaban [Eliquis] 10 mg PO Q12HR #12 tablet 08/10/21 Unknown Rx Aspirin EC [Ecotrin] 325 mg PO QDAY tablet 08/10/21 Unknown Rx Metoprolol [Lopressor TAB] 50 mg PO BID tablet 08/10/21 Unknown Rx Pantoprazole [Protonix TAB] 40 mg PO QDAC tablet 08/10/21 Unknown Rx Azithromycin [Zithromax TAB] 250 mg PO QDAY #6 tablet 08/20/21 Unknown Rx Prednisone [predniSONE 10 mg 10 mg PO .TAPER #1 tab.ds.pk 08/20/21 Unknown Rx (6-Day Pack, 21 Tabs)] ED Physical Exam - General Limitations: No Limitations General appearance: alert, in no apparent distress - Head Head exam: Present: atraumatic, normocephalic - Eye Eye exam: Present: normal appearance, EOMI - ENT ENT exam: Present: mucous membranes moist - Neck Neck exam: Present: normal inspection - Respiratory Respiratory exam: Present: normal lung sounds bilaterally. Absent: respiratory distress - Cardiovascular Cardiovascular Exam: Present: normal rhythm, tachycardia - GI/Abdominal GI/Abdominal exam: Present: soft. Absent: distended, tenderness - Extremities Exam Extremities exam: Present: normal inspection - Neurological Exam Neurological exam: Present: alert, oriented X3 - Psychiatric Psychiatric exam: Present: normal affect, normal mood - Skin Skin exam: Present: warm, dry, intact, normal color ED Course Vital Signs 08/20/21 08/20/21 08/20/21 17:20 17:27 21:10 Temperature 100 F H Pulse Rate 114 H 138 H 118 H Respiratory 22 36 H 18 Rate Blood Pressure 129/75 [Right] O2 Sat by Pulse 94 86 99 Oximetry ED Medical Decision Making - Radiology Data Radiology results: report reviewed, image reviewed - Medical Decision Making Patient seen and evaluated by Dr. Cook, hospitalist. It has been arranged for patient to be discharged with home O2. Critical care attestation.: If time is entered above; I have spent that time in minutes in the direct care of this critically ill patient, excluding procedure time. ED Disposition Clinical Impression: Hypoxia, Dyspnea Disposition: 01 HOME / SELF CARE / HOMELESS Is pt being admited?: No Condition: Stable Instructions: Hypoxia, Shortness of Breath, Adult, [id number] Prescriptions: Prednisone [predniSONE 10 mg (6-Day Pack, 21 Tabs)] 10 mg PO .TAPER #1 tab.ds.pk Azithromycin [Zithromax TAB] 250 mg PO QDAY #6 tablet Referrals: PRIMARY CARE, [Primary Care Provider] - 3-5 Days Time of Disposition: 20:18
== END 2021-08-20 21:11 | disposition home or self-care (01) ==
LOC: ED 17:16
DX: R09.02 Hypoxemia (principal); R06.00 Dyspnea, unspecified; I10 Essential (primary) hypertension; J45.909 Unspecified asthma, uncomplicated; Z79.01 Long term (current) use of anticoagulants; Z79.899 Other long term (current) drug therapy
CPT/HCPCS: 71046; 99283